=== PATIENT | female | born 1950 | race Caucasian/White ===

== ENCOUNTER → 2016-09-13 | Outpatient (CLI) | payer MEDICARE, OTHER ==
--- OUTSIDE RECORDS SUMMARY | 2016-09-13 09:42 | XMS REPORT | Continuity of Care Document ---
Author Author [facility] Organization [facility] Address Unknown Phone Unavailable Care Team Providers Care Application Consultant Name Role Phone PCP Unavailable Source Comments Some departments are not documenting in the electronic medical record. If you do not see the information that you expected, contact Release of Information in the Health Information Management department at [phone] for further assistance in locating additional records.[facility] Active Allergies and Adverse Reactions No Known Allergies Current Medications Prescription Sig. Disp. 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 Osteoarthritis 05/02/2013 Social History Tobacco Use Types Packs/Day Years Used Date Never Smoker Smokeless Tobacco: Never Used Alcohol Use Drinks/Week oz/Week Comments No Last Filed Vital Signs Vital Sign Reading Time Taken Blood Pressure 122/80 05/02/2013 12:43 PM CDT Pulse 60 05/02/2013 12:43 PM CDT Temperature 36.4 C (97.5 F) 05/02/2013 12:43 PM CDT Respiratory Rate 16 05/02/2013 12:43 PM CDT Height 1.626 m (5' 4") 05/02/2013 12:43 PM CDT Weight 65.409 kg (144 lb 3.2 oz) 05/02/2013 12:43 PM CDT Body Mass Index 24.74 05/02/2013 12:43 PM CDT Oxygen Saturation - - Plan of Care Health Maintenance Due Date Last Done Comments Physical (Comprehensive) 1957 Exam Pertussis Vaccine 1961 Tetanus Vaccine 10/16/1967 Cervical Cancer Screening 10/16/1971 Breast Cancer Screening 1990 Colorectal Cancer 2000 Screening Shingles Vaccine 2010 Osteoporosis Screening 10/16/2015 Prevnar/Pneumovax (#1) 10/16/2015 Influenza Vaccine 04/07/2016 Results from Last 3 Months Not on file
--- NOTE | 2016-09-14 16:49 | Diagnostic Imaging Report ---
EXAMINATION: Bilateral digital screening mammogram with CAD. The current study was also evaluated with a Computer Aided Detection (CAD) system. INDICATION: Screening. No current complaints stated on the questionnaire. COMPARISON: 06/15/15. FINDINGS: The breasts are composed of heterogeneously dense parenchyma which may decrease mammographic sensitivity. There is a 1 cm asymmetry seen along the inferior aspect of the right breast, noted on the MLO view with no definite correlate on the CC projection. The left breast is unchanged. Benign-appearing calcifications seen. IMPRESSION: Focal compression views and ultrasound evaluation for lower right breast asymmetry is recommended. ACR BI-RADS Category 0: Incomplete. (Needs additional imaging evaluation). Result letter will be mailed to the patient. Note: At least 10% of breast cancer is not imaged by mammography. Dictated by: Dictated on workstation # [id number]
== END ==
LOC: RAD 09:38
PROVIDERS: ATTEND Obstetrics & Gynecology
DX: Z12.31 Encounter for screening mammogram for malignant neoplasm of breast (principal)
CPT/HCPCS: 77067

== ENCOUNTER → 2016-09-21 | Outpatient (CLI) | payer MEDICARE, OTHER ==
--- OUTSIDE RECORDS SUMMARY | 2016-09-21 07:46 | XMS REPORT | Continuity of Care Document ---
Author Author [facility] Organization [facility] Address Unknown Phone Unavailable Care Team Providers Care Stock Supervisor Name Role Phone PCP Unavailable Source Comments Some departments are not documenting in the electronic medical record. If you do not see the information that you expected, contact Release of Information in the Health Information Management department at [phone] for further assistance in locating additional records.[facility] Active Allergies and Adverse Reactions No Known [...]
--- NOTE | 2016-09-21 19:17 | Diagnostic Imaging Report ---
Right breast mammogram. INDICATION: Asymmetry along the inferior aspect of the right breast. The current study was also evaluated with a Computer Aided Detection (CAD) system. FINDINGS: Focal compression view of asymmetry along the inferior aspect of the right breast demonstrates persistent asymmetry with no underlying mass confirmed. IMPRESSION: Persistent less prominent asymmetry on focal compression view in favor of summation artifact of parenchyma. Ultrasound evaluation is pending. ACR BI-RADS Category 0: Incomplete. (Needs additional imaging evaluation). Result letter will be mailed to the patient. Note: At least 10% of breast cancer is not imaged by mammography. Dictated by: Dictated on workstation # [id number]
--- NOTE | 2016-09-21 19:19 | Diagnostic Imaging Report ---
Right breast ultrasound. INDICATION: Asymmetry along the inferior aspect of the right MLO view. FINDINGS: The four quadrants and retroareolar region were scanned with no underlying abnormality seen. IMPRESSION: Negative study. Six-month follow-up mammogram to ensure stability or resolution of the asymmetry, likely related to summation artifact of parenchyma. ACR BI-RADS Category 3: Probably benign findings. Result letter will be mailed to the patient. Note: At least 10% of breast cancer is not imaged by mammography. Dictated by: Dictated on workstation # [id number]
== END ==
LOC: RAD 07:41
PROVIDERS: ATTEND Obstetrics & Gynecology
DX: R92.8 Other abnormal and inconclusive findings on diagnostic imaging of breast (principal)
CPT/HCPCS: 76641

== ENCOUNTER 2018-09-24 01:26 | Emergency (ER) | payer MEDICARE, OTHER ==
[~2018-09-24] VITALS: Ht 162.6 cm; Wt 74.8 kg
--- OUTSIDE RECORDS SUMMARY | 2018-09-24 01:37 | XMS REPORT | Clinical Summary ---
Author Author Admin, MADDY Organization [facility] Address Unknown Phone Unavailable Allergies, Adverse Reactions, Alerts Allergy Name Reaction Description Start Date Severity Status Provider AMITRIPTYLINE HCL Hair loss and nightmares Moderate Active Chad Guardado MD IVP DYE Critical Active Chad Guardado MD CODEINE nausea Moderate Active [facility] Conditions or Problems Problem Name Problem Code Onset Date Status Entry Date Provider Comment Standard Description Annotate ANEURYSM 442.9 [facility] Aneurysm of unspecified artery site ANXIETY DEPRESSION 300.4 Active [facility] Dysthymic disorder INSOMNIA 780.52 [facility] Insomnia, unspecified LOSS OF APPETITE 783.0 Active [facility] Anorexia CEPHALGIA 784.0 Active [facility] Headache ENCOUNTER FOR REMOVAL OF SUTURES V58.32 Resolved Daisy [place] PA Encounter for removal of sutures NECK PAIN 723.1 Active [facility] Cervicalgia KNEE PAIN, BILATERAL 719.46 Active Daisy [place] PA Pain in joint involving lower leg INJURY OTHER AND UNSPECIFIED FINGER 959.5 Resolved Chad Guardado MD Other and unspecified injury to finger Dysuria 788.1 Inactive Federica Bethea Dysuria UTI 599.0 Resolved Chad Guardado MD Urinary tract infection, site not specified Wrist pain, left 719.43 Active Broderick Solares MD Pain in joint involving forearm Headache 784.0 Active Chad Guardado MD Headache Recurrent urinary tract infection 599.0 Active Chad Guardado MD Urinary tract infection, site not specified Ankle sprain 845.00 Active Chad Guardado MD Unspecified site of ankle sprain Osteoarthritis, knees, bilateral 715.96 Active Chad Guardado MD Osteoarthrosis, unspecified whether generalized or localized, involving lower leg Easy bruising 782.9 Active Chad Guardado MD Other symptoms involving skin and integumentary tissues Fatigue 780.79 Active Chad Guardado MD Other malaise and fatigue HEALTH MAINTENANCE EXAM V70.0 Active Chad Guardado MD Routine general medical examination at a health care facility Depression 311 Active Chad Guardado MD Depressive disorder, not elsewhere classified Cough 786.2 Active Sparkle Castro APRN Cough Thrush 112.0 Active Chad Guardado MD Candidiasis of mouth ENCOUNTER FOR REMOVAL OF SUTURES ICD-V58.32 Inactive Daisy PAZ INJURY OTHER AND UNSPECIFIED FINGER ICD-959.5 Inactive Chad Guardado MD UTI ICD-599.0 Inactive Chad Guardado MD Medication List Medication Instructions Start Date Stop Date Generic Name NDC Status Provider Patient Instruction NYSTATIN 620185 UNIT/ML SUSP Swish and swallow 5ml four times a day until yeast is clear. NYSTATIN 03930035182 Active Chad Guardado MD Active TESSALON PERLES 100 MG CAP 1 tablet by mouth 3 times daily BENZONATATE 45646103246 Active Sparkle Castro APRN Active CITALOPRAM HYDROBROMIDE 40 MG TABS 1 daily for depression/anxiety CITALOPRAM HYDROBROMIDE 80939056284 Active Chad Guardado MD Active DEPAKOTE 250 MG TBEC 1 twice a day to prevent headaches DIVALPROEX SODIUM 20754298246 Active Chad Guardado MD Active CYCLOBENZAPRINE HCL 10 MG TABS 1 at bedtime for muscle tightness CYCLOBENZAPRINE HCL 67173960434 Active Chad Guardado MD Active METHOCARBAMOL 750 MG TABS 1 po q8hr PRN spasm and neck pain 06/12 METHOCARBAMOL 41538589123 No Longer Active Chad Guardado MD Active JANA ASPIRIN EC LOW DOSE 81 MG TBEC Take one by mouth daily ASPIRIN 52915735958 No Longer Active Chad Guardado MD Active HYDROCODONE-ACETAMINOPHEN 7.5-325 MG TABS 1 three times a day as needed for pain HYDROCODONE-ACETAMINOPHEN 17740135016 Active Chad Guardado MD Active CIPROFLOXACIN HCL 250 MG TABS 1 twice a day for 3 days for urinary infection CIPROFLOXACIN HCL 64331477474 No Longer Active Chad Guardado MD Active LIDODERM 5 % PTCH apply to affected area for 12 hours LIDOCAINE 70927781859 Active Chad Guardado MD Active FUROSEMIDE 20 MG TAB 1 tablet by mouth daily FUROSEMIDE 50895567942 Active Chad Guardado MD Active IMITREX 6 MG/0.5ML SOLN Take as directed SUMATRIPTAN SUCCINATE 50781035665 Active Sparkle Yogosia ROBERTSON Active SERTRALINE HCL 50 MG TABS 1 daily for mood SERTRALINE HCL 15632833800 No Longer Active Chad Guardado MD Active IMITREX 100 MG TABS TAKE 1 TABLET AT THE ONSET OF HEADACHE MAY REPEAT IN 2 HRS IF NEEDED SUMATRIPTAN SUCCINATE 30996696522 Active Sparkle [employer] Active IMITREX TABS Take/use as needed. SUMATRIPTAN SUCCINATE TABS 49839039420 No Longer Active Jaylyn DACOSTA Active SUMATRIPTAN SUCCINATE 100 MG TABS as directed SUMATRIPTAN SUCCINATE 09938290987 No Longer Active Nedra Cramer Active LORAZEPAM 0.5 MG TAB 1 tab po q8 hrs and 2 tabs at bedtime 07/03 LORAZEPAM 29484835862 No Longer Active Nedra Cramer Active PYRIDIUM 200 MG TAB 1 po TID PRN Dysuria PHENAZOPYRIDINE HCL 03538261891 No Longer Active Sachin Wasserman MD Active CIPRO 250 MG TAB 1 tablet by mouth twice daily CIPROFLOXACIN HCL 57786124047 No Longer Active Sachin Wasserman MD Active LUNESTA 2 MG TABS take one tab po qhs ESZOPICLONE 30253836045 No Longer Active Broderick Solares MD Active CITALOPRAM HYDROBROMIDE 20 MG TABS take one tab po daily CITALOPRAM HYDROBROMIDE 69617682575 No Longer Active Broderick Solares MD Active HYDROCODONE-ACETAMINOPHEN 10-325 MG TABS 1 tab po q4-6 hrs prn HYDROCODONE-ACETAMINOPHEN 08962941887 No Longer Active Broderick Solares MD Active SULFAMETHOXAZOLE-TMP DS 800-160 MG TABS take one tab po bid x 7 days SULFAMETHOXAZOLE-TRIMETHOPRIM 17513458984 No Longer Active Borderick Solares MD Active DICLOFENAC SODIUM 75 MG TBEC take one tab po bid DICLOFENAC SODIUM 39561470355 Active Broderick Solares MD Active NAPROXEN 500 MG TAB 1 by mouth twice a day NAPROXEN 60086691653 No Longer Active Daisy Pool PA Active FUROSEMIDE 40 MG TAB 1 tablet by mouth daily FUROSEMIDE 42973326725 No Longer Active Daisy Pool PA Active MELOXICAM 15 MG TABS 1 po q day for pain with food MELOXICAM 03159913677 No Longer Active Daisy Pool PA Active ZOLPIDEM TARTRATE 10 MG TABS take one tab po daily ZOLPIDEM TARTRATE 93086703715 No Longer Active Daisy Pool PA Active COLACE 100 MG CAPS Take one by mouth daily DOCUSATE SODIUM 14568304712 No Longer Active Daisy Pool PA Active NIMODIPINE 30 MG CAPS 1 every 2 hours NIMODIPINE 69990722644 No Longer Active Daisy Pool PA Active ZOFRAN ODT 4 MG TBDP 1 po q6hr PRN Nausea ONDANSETRON 53612563146 No Longer Active Daisy Pool PA Active MAGNESIUM OXIDE 400 MG TABS Take one by mouth daily MAGNESIUM OXIDE 35948161136 No Longer Active Daisy Pool PA Active MAGNESIUM OXIDE 400 MG TABS Take one by mouth daily MAGNESIUM OXIDE 400 MG TABS 399138 MAGNESIUM OXIDE Inactive ZOFRAN ODT 4 MG TBDP 1 po q6hr PRN Nausea ZOFRAN ODT 4 MG TBDP 106592 ONDANSETRON Inactive NIMODIPINE 30 MG CAPS 1 every 2 hours NIMODIPINE 30 MG CAPS 655158 NIMODIPINE Inactive COLACE 100 MG CAPS Take one by mouth daily COLACE 100 MG CAPS 9071634 DOCUSATE SODIUM Inactive ZOLPIDEM TARTRATE 10 MG TABS take one tab po daily ZOLPIDEM TARTRATE 10 MG TABS 146801 ZOLPIDEM TARTRATE Inactive MELOXICAM 15 MG TABS 1 po q day for pain with food MELOXICAM 15 MG TABS 067752 MELOXICAM Inactive FUROSEMIDE 40 MG TAB 1 tablet by mouth daily FUROSEMIDE 40 MG TAB 042628 FUROSEMIDE Inactive NAPROXEN 500 MG TAB 1 by mouth twice a day NAPROXEN 500 MG TAB 725795 NAPROXEN Inactive SULFAMETHOXAZOLE-TMP DS 800-160 MG TABS take one tab po bid x 7 days SULFAMETHOXAZOLE-TMP DS 800-160 MG TABS SULFAMETHOXAZOLE- TRIMETHOPRIM Inactive HYDROCODONE-ACETAMINOPHEN 10-325 MG TABS 1 tab po q4-6 hrs prn HYDROCODONE-ACETAMINOPHEN 10-325 MG TABS 057703 HYDROCODONE- ACETAMINOPHEN Inactive CITALOPRAM HYDROBROMIDE 20 MG TABS take one tab po daily CITALOPRAM HYDROBROMIDE 20 MG TABS 484423 CITALOPRAM HYDROBROMIDE Inactive LUNESTA 2 MG TABS take one tab po qhs LUNESTA 2 MG TABS 866234 ESZOPICLONE Inactive LORAZEPAM 0.5 MG TAB 1 tab po q8 hrs and 2 tabs at bedtime 07/03 LORAZEPAM 0.5 MG TAB 528643 LORAZEPAM Inactive SUMATRIPTAN SUCCINATE 100 MG TABS as directed SUMATRIPTAN SUCCINATE 100 MG TABS 906425 SUMATRIPTAN SUCCINATE Inactive IMITREX TABS Take/use as needed. IMITREX TABS SUMATRIPTAN SUCCINATE TABS Inactive SERTRALINE HCL 50 MG TABS 1 daily for mood SERTRALINE HCL 50 MG TABS 550617 SERTRALINE HCL Inactive JANA ASPIRIN EC LOW DOSE 81 MG TBEC Take one by mouth daily JANA ASPIRIN EC LOW DOSE 81 MG TBEC 938812 ASPIRIN Inactive METHOCARBAMOL 750 MG TABS 1 po q8hr PRN spasm and neck pain 06/12 METHOCARBAMOL 750 MG TABS 816421 METHOCARBAMOL Inactive CIPRO 250 MG TAB 1 tablet by mouth twice daily CIPRO 250 MG TAB 578307 CIPROFLOXACIN HCL Inactive PYRIDIUM 200 MG TAB 1 po TID PRN Dysuria PYRIDIUM 200 MG TAB 8291759 PHENAZOPYRIDINE HCL Inactive CIPROFLOXACIN HCL 250 MG TABS 1 twice a day for 3 days for urinary infection CIPROFLOXACIN HCL 250 MG TABS 144022 CIPROFLOXACIN HCL Inactive Advance Directives Directive Description Start Date PERMISSION TO SHARE Immunizations Vaccine Administration Date Value Standard Description Seasonal influenza vaccine, injectable, containing preservative, for > 3 years old (Afluria, FluLaval, Fluzone, Fluvirin, Fluarix, Agriflu(>=18 yo)) Fluzone (>3 yrs.) [EAC956] Influenza, seasonal, injectable Vital Signs Date Name Value Unit Range Description blood pressure, diastolic - 8462-4 83 mm[Hg] BP chase blood pressure, systolic - 8480-6 133 mm[Hg] BP sys pulse rate E&M - 8867-4 80 /min Heart rate temperature E&M 97.8 [degF] Body temperature weight E&M - 3141-9 164 [lb_av] Weight Measured blood pressure, diastolic - 8462-4 80 mm[Hg] BP chase blood pressure, systolic - 8480-6 144 mm[Hg] BP sys pulse rate E&M - 8867-4 58 /min Heart rate temperature E&M 98.1 [degF] Body temperature weight E&M - 3141-9 156 [lb_av] Weight Measured blood pressure, diastolic - 8462-4 80 mm[Hg] BP chase blood pressure, systolic - 8480-6 157 mm[Hg] BP sys height E&M - 8302-2 64 [in_us] Bdy height pulse rate E&M - 8867-4 68 /min Heart rate temperature E&M 97.2 [degF] Body temperature weight E&M - 3141-9 154.2 [lb_av] Weight Measured blood pressure, diastolic - 8462-4 73 mm[Hg] BP chase blood pressure, systolic - 8480-6 151 mm[Hg] BP sys pulse rate E&M - 8867-4 50 /min Heart rate temperature E&M 97.5 [degF] Body temperature weight E&M - 3141-9 153 [lb_av] Weight Measured blood pressure, diastolic - 8462-4 75 mm[Hg] BP chase blood pressure, systolic - 8480-6 137 mm[Hg] BP sys height E&M - 8302-2 64 [in_us] Bdy height pulse rate E&M - 8867-4 65 /min Heart rate temperature E&M 98.1 [degF] Body temperature weight E&M - 3141-9 149.13 [lb_av] Weight Measured blood pressure, diastolic - 8462-4 83 mm[Hg] BP chase blood pressure, systolic - 8480-6 137 mm[Hg] BP sys height E&M - 8302-2 64 [in_us] Bdy height pulse rate E&M - 8867-4 61 /min Heart rate temperature E&M 98.4 [degF] Body temperature weight E&M - 3141-9 153.38 [lb_av] Weight Measured Diagnostic Results Date Name Value Unit Range Description Lab Report: Comp. Metabolic Panel, CBC - Chemistry sodium, serum 140 mmol/L 876-785 4617/09/23 potassium, serum 4.7 mmol/L 3.5-5.2 chloride, serum 104 mmol/L 98-107 carbon dioxide, venous blood 32.0 mmol/L 21.0-32.0 blood glucose 90 mg/dL 65-110 urea nitrogen, blood 18 mg/dL 7-18 creatinine, serum 0.70 mg/dL 0.60-1.30 alanine aminotransferase (SGPT), serum 26 U/L 12-78 aspartate aminotransferase (SGOT), serum 15 U/L 15-37 alkaline phosphatase, serum 94 U/L 50-136 calcium, serum 9.2 mg/dL 8.5-10.1 bilirubin, serum, total 0.20 mg/dL 0.00-1.00 Lab Report: Comp. Metabolic Panel, CBC - Hematology leukocyte count, blood 8.3 10^3/MM^3 10*3/mm3 4.6-10.2 erythrocyte (RBC) count 3.93 10^6/MM^3 10*6/mm3 4.04-5.48 hemoglobin, blood 12.6 g/dL 12.0-16.0 hematocrit, blood 37.6 % 36.0-46.0 mean corpuscular volume, RBC 96 fL 80-97 mean corpuscular hemoglobin, RBC 31.9 pg 27.0-31.2 mean corpuscular hemoglobin concentration, RBC 33.4 G/DL % 31.8- 35.4 red blood cell distribution width 14.6 % 11.6-14.8 platelet count 240 10^3/MM^3 10*3/mm3 142-424 Lab Report: Lipid Panel - Chemistry cholesterol, serum 197 mg/dL 402-537 7605/09/25 triglyceride, serum, fasting 48 mg/dL 30-200 HDL cholesterol, serum 64 mg/dL 32-96 LDL cholesterol, serum 123 mg/dL 0-130 Lab Report: Part. Thromboplast Time, Prothrombin Time, BLEEDING TIME - Coagulation prothrombin time (patient) 11.5 SECS s 11.1-13.4 international normalized ratio (INR) 0.9 1.0-3.5 Lab Report: PADMINI INFLUENZA A/B - Toxicology rapid flu test Negative Negative;Positive Lab Report: Thyroid Stimulating Hormone (L), Free Thyroxine (L) - Chemistry TSH 1.04 m[iU]/mL 0.36-3.74 thyroxine, serum, free 1.02 ng/dL 0.76-1.46 Encounters Code Encounter Date Provider Facility CPT-45319 Level 3 Est. Patient 17:38:05 TARIFF EXPERT Chad Guardado MD [facility] CPT-97211 Level 3 Est. Patient 15:35:54 TARIFF EXPERT Sparkle Castro APRN [facility] CPT-43714 Level 4 Est. Patient 09:41:26 TARIFF EXPERT Chad Guardado MD [facility] CPT-93650 Level 4 Est. Patient 16:16:11 CDT Chad Guardado MD [facility] CPT-22773 Level 3 Est. Patient 12:46:41 CDT Chad Guardado MD [facility] CPT-77004 Level 3 Est. Patient 17:26:51 CDT Chad Guardado MD [facility] CPT-92368 Level 4 New Patient 13:59:42 CDT Chad Guardado MD [facility] CPT-96744 Level 4 Est. Patient 20:23:44 TARIFF EXPERT Broderick Solares MD [facility] CPT-32672 Level 3 Est. Patient 14:43:04 TARIFF EXPERT Broderick Solares MD [facility] CPT-62164 Level 3 Est. Patient 10:05:53 TARIFF EXPERT Sachin Wasserman MD [facility] CPT-03943 Level 3 Est. Patient 14:35:17 CDT [facility] CPT-23259 Level 3 Est. Patient 10:59:26 CDT [facility] CPT-88137 Level 3 Est. Patient 15:41:02 CDT [facility] CPT-38248 Level 3 Est. Patient 16:41:25 CDT [facility] CPT-21949 Level 3 New Patient 14:47:15 CDT [facility] Procedures Code Procedure Name Date Entry Date Standard Description CPT-60320 C-Spine Min 4V 12:56:08 TARIFF EXPERT CPT-15352 Immunization Single Admin 09:23:37 CDT CPT-13477 Tdap Vaccine 09:23:37 CDT CPT-10620 Fluzone Quadrivalent Intramuscular Suspension 0.5 ML 20: 47:45 CDT CPT-87103 Ankle Complete - Min 3V 12:29:38 CDT CPT-16317 Forearm AP and Lat 10:01:39 TARIFF EXPERT CPT-37929 Knee 3V 13:56:38 CDT CPT-13096 Administration single or combination vaccine inc oral 11 :50:16 CDT CPT-39829 Influenza split virus > age 3 11:50:16 CDT
--- OUTSIDE RECORDS SUMMARY | 2018-09-24 01:38 | XMS REPORT | Clinical Summary ---
Author Author Admin, MADDY Organization [facility] Address Unknown Phone Unavailable Allergies, Adverse Reactions, Alerts Allergy Name Reaction Description Start Date Severity Status Provider AMITRIPTYLINE HCL Hair loss and nightmares Moderate Active Chad Guardado MD IVP DYE Critical Active Chad Guardado MD CODEINE nausea Moderate Active [facility] Conditions or Problems Problem Name Problem Code Onset Date Status Entry Date Provider Comment Standard Description Annotate ANEURYSM 442.9 [facility] Aneurysm of unspecified artery site ANXIETY DEPRESSION 300.4 Active [facility] Dysthymic disorder INSOMNIA 780.52 [facility] Insomnia, unspecified LOSS OF APPETITE 783.0 [facility] Anorexia CEPHALGIA 784.0 Active [facility] Headache ENCOUNTER FOR REMOVAL OF SUTURES V58.32 Resolved Daisy [place] [facility] Encounter for removal of sutures NECK PAIN 723.1 Active [facility] Cervicalgia KNEE PAIN, BILATERAL 719.46 Active Daisy [place] [facility] Pain in joint involving lower leg [...] elsewhere classified Cough 786.2 Active Sparkle Castro [employer] Cough Thrush 112.0 Active Chad Guardado MD Candidiasis of mouth HYPERTENSION, BENIGN ESSENTIAL 401.1 Active Chad Guardado MD Benign essential hypertension ENCOUNTER FOR REMOVAL OF SUTURES ICD-V58.32 Inactive Daisy PAZ INJURY OTHER AND UNSPECIFIED FINGER ICD-959.5 Inactive Chad Guardado MD UTI ICD-599.0 Inactive Chad Guardado MD Medication List Medication Instructions Start Date Stop Date Generic Name NDC Status Provider Patient Instruction FUROSEMIDE 20 MG TAB 1 tablet by mouth daily FUROSEMIDE 47664658307 No Longer Active Paras Nunez DO Active LIDODERM 5 % PTCH apply to affected area for 12 hours LIDOCAINE 75793008539 No Longer Active Paras Nunez DO Active MACROBID 100 MG CAP 1 cap by mouth twice daily x 7 days. NITROFURANTOIN MONOHYD MACRO 38724299068 No Longer Active Chad Guardado MD Active CIPRO 250 MG TAB 1 tablet by mouth twice daily x 5 days. CIPROFLOXACIN HCL 66019758586 No Longer Active Chad Guardado MD Active LISINOPRIL 20 MG TABS 1 tablet by mouth daily for blood pressure LISINOPRIL 22452565566 Active Chad Guardado MD Active TRAMADOL HCL 50 MG TABS 1-2 tablets every 6 hours as needed for pain TRAMADOL HCL 75870935684 Active Chad Guardado MD Active DICLOFENAC SODIUM 1.5 % TRANS SOLN 40 drops applied to each knee 4 times a day DICLOFENAC SODIUM 20856630265 Active Chad Guardado MD Active NYSTATIN 844516 UNIT/ML SUSP Swish and swallow 5ml four times a day until yeast is clear. NYSTATIN 73410553640 No Longer Active Chad Guardado MD Active TESSALON PERLES 100 MG CAP 1 tablet by mouth 3 times daily BENZONATATE 93300179900 Active Sparkle Castro [employer]PECTING OBSERVER Active CITALOPRAM HYDROBROMIDE 40 MG TABS 1 daily for depression/anxiety CITALOPRAM HYDROBROMIDE 37455214441 Active Chad Guardado MD Active DEPAKOTE 250 MG TBEC 1 twice a day to prevent headaches DIVALPROEX SODIUM 27387807894 Active Chad Guardado MD Active CYCLOBENZAPRINE HCL 10 MG TABS 1 at bedtime for muscle tightness CYCLOBENZAPRINE HCL 56165677675 Active Chad Guardado MD Active METHOCARBAMOL 750 MG TABS 1 po q8hr PRN spasm and neck pain 06/12 METHOCARBAMOL 79423988066 No Longer Active Chad Guardado MD Active JANA ASPIRIN EC LOW DOSE 81 MG TBEC Take one by mouth daily ASPIRIN 41866002263 No Longer Active Chad Guardado MD Active HYDROCODONE-ACETAMINOPHEN 7.5-325 MG TABS 1 three times a day as needed for pain HYDROCODONE-ACETAMINOPHEN 49813471144 Active Chad Guardado MD Active CIPROFLOXACIN HCL 250 MG TABS 1 twice a day for 3 days for urinary infection CIPROFLOXACIN HCL 40175905573 No Longer Active Chad Guardado MD Active IMITREX 6 MG/0.5ML SOLN Take as directed SUMATRIPTAN SUCCINATE 51249645030 Active Sparkle Matthewum [employer]PECTING OBSERVER Active SERTRALINE HCL 50 MG TABS 1 daily for mood SERTRALINE HCL 33382681703 No Longer Active Chad Guardado MD Active IMITREX 100 MG TABS TAKE 1 TABLET AT THE ONSET OF HEADACHE MAY REPEAT IN 2 HRS IF NEEDED SUMATRIPTAN SUCCINATE 90289486370 Active Sparkle Matthewum [employer]RAV[employer]OSPECTING OBSERVER Active IMITREX TABS Take/use as needed. SUMATRIPTAN SUCCINATE TABS 20667739994 No Longer Active Jaylyn DACOSTA Active SUMATRIPTAN SUCCINATE 100 MG TABS as directed SUMATRIPTAN SUCCINATE 56038392873 No Longer Active Nedra Cramer Active LORAZEPAM 0.5 MG TAB 1 tab po q8 hrs and 2 tabs at bedtime 07/03 LORAZEPAM 61330556951 No Longer Active Nedra Cramer Active PYRIDIUM 200 MG TAB 1 po TID PRN Dysuria PHENAZOPYRIDINE HCL 16408024112 No Longer Active Sachin Wasserman MD Active CIPRO 250 MG TAB 1 tablet by mouth twice daily CIPROFLOXACIN HCL 26486113052 No Longer Active Sachin Wasserman MD Active LUNESTA 2 MG TABS take one tab po qhs ESZOPICLONE 05253803382 No Longer Active Broderick Solares MD Active CITALOPRAM HYDROBROMIDE 20 MG TABS take one tab po daily CITALOPRAM HYDROBROMIDE 97669490606 No Longer Active Broderick Solares MD Active HYDROCODONE-ACETAMINOPHEN 10-325 MG TABS 1 tab po q4-6 hrs prn HYDROCODONE-ACETAMINOPHEN 53228871910 No Longer Active Broderick Solares MD Active SULFAMETHOXAZOLE-TMP DS 800-160 MG TABS take one tab po bid x 7 days SULFAMETHOXAZOLE-TRIMETHOPRIM 93765643242 No Longer Active Broderick Solarse MD Active DICLOFENAC SODIUM 75 MG TBEC take one tab po bid DICLOFENAC SODIUM 40944070191 Active Broderick Solares MD Active NAPROXEN 500 MG TAB 1 by mouth twice a day NAPROXEN 45489645807 No Longer Active Daisy [facility] PA Active FUROSEMIDE 40 MG TAB 1 tablet by mouth daily FUROSEMIDE 50080395846 No Longer Active Daisy [facility] PA Active MELOXICAM 15 MG TABS 1 po q day for pain with food MELOXICAM 74371326217 No Longer Active Daisy [facility] PA Active ZOLPIDEM TARTRATE 10 MG TABS take one tab po daily ZOLPIDEM TARTRATE 08527209468 No Longer Active Daisy [facility] PA Active COLACE 100 MG CAPS Take one by mouth daily DOCUSATE SODIUM 72679172850 No Longer Active Daisy [facility] PA Active NIMODIPINE 30 MG CAPS 1 every 2 hours NIMODIPINE 35223982259 No Longer Active Daisy [facility] PA Active ZOFRAN ODT 4 MG TBDP 1 po q6hr PRN Nausea ONDANSETRON 69950706560 No Longer Active Daisy [facility] PA Active MAGNESIUM OXIDE 400 MG TABS Take one by mouth daily MAGNESIUM OXIDE 80448231058 No Longer Active Daisy [facility] PA Active MAGNESIUM OXIDE 400 MG TABS Take one by mouth daily MAGNESIUM OXIDE 400 MG TABS 069963 MAGNESIUM OXIDE Inactive ZOFRAN ODT 4 MG TBDP 1 po q6hr PRN Nausea ZOFRAN ODT 4 MG TBDP 630039 ONDANSETRON Inactive NIMODIPINE 30 MG CAPS 1 every 2 hours NIMODIPINE 30 MG CAPS 454015 NIMODIPINE Inactive COLACE 100 MG CAPS Take one by mouth daily COLACE 100 MG CAPS 3634698 DOCUSATE SODIUM Inactive ZOLPIDEM TARTRATE 10 MG TABS take one tab po daily ZOLPIDEM TARTRATE 10 MG TABS 648335 ZOLPIDEM TARTRATE Inactive MELOXICAM 15 MG TABS 1 po q day for pain with food MELOXICAM 15 MG TABS 103112 MELOXICAM Inactive FUROSEMIDE 40 MG TAB 1 tablet by mouth daily FUROSEMIDE 40 MG TAB 890962 FUROSEMIDE Inactive NAPROXEN 500 MG TAB 1 by mouth twice a day NAPROXEN 500 MG TAB 797898 NAPROXEN Inactive SULFAMETHOXAZOLE-TMP DS 800-160 MG TABS take one tab po bid x 7 days SULFAMETHOXAZOLE-TMP DS 800-160 MG TABS SULFAMETHOXAZOLE- TRIMETHOPRIM Inactive HYDROCODONE-ACETAMINOPHEN 10-325 MG TABS 1 tab po q4-6 hrs prn HYDROCODONE-ACETAMINOPHEN 10-325 MG TABS 865889 HYDROCODONE- ACETAMINOPHEN Inactive CITALOPRAM HYDROBROMIDE 20 MG TABS take one tab po daily CITALOPRAM HYDROBROMIDE 20 MG TABS 287786 CITALOPRAM HYDROBROMIDE Inactive LUNESTA 2 MG TABS take one tab po qhs LUNESTA 2 MG TABS 243166 ESZOPICLONE Inactive LORAZEPAM 0.5 MG TAB 1 tab po q8 hrs and 2 tabs at bedtime 07/03 LORAZEPAM 0.5 MG TAB 115123 LORAZEPAM Inactive SUMATRIPTAN SUCCINATE 100 MG TABS as directed SUMATRIPTAN SUCCINATE 100 MG TABS 501476 SUMATRIPTAN SUCCINATE Inactive IMITREX TABS Take/use as needed. IMITREX TABS SUMATRIPTAN SUCCINATE TABS Inactive SERTRALINE HCL 50 MG TABS 1 daily for mood SERTRALINE HCL 50 MG TABS 140826 SERTRALINE HCL Inactive JANA ASPIRIN EC LOW DOSE 81 MG TBEC Take one by mouth daily JANA ASPIRIN EC LOW DOSE 81 MG TBEC 821339 ASPIRIN Inactive METHOCARBAMOL 750 MG TABS 1 po q8hr PRN spasm and neck pain 06/12 METHOCARBAMOL 750 MG TABS 172097 METHOCARBAMOL Inactive NYSTATIN 572562 UNIT/ML SUSP Swish and swallow 5ml four times a day until yeast is clear. NYSTATIN 059892 UNIT/ML SUSP 879526 NYSTATIN Inactive CIPRO 250 MG TAB 1 tablet by mouth twice daily x 5 days. CIPRO 250 MG TAB 19740807 CIPROFLOXACIN HCL Inactive LIDODERM 5 % PTCH apply to affected area for 12 hours LIDODERM 5 % PTCH 3726699 LIDOCAINE Inactive FUROSEMIDE 20 MG TAB 1 tablet by mouth daily FUROSEMIDE 20 MG TAB 741534 FUROSEMIDE Inactive CIPRO 250 MG TAB 1 tablet by mouth twice daily CIPRO 250 MG TAB 19740807 CIPROFLOXACIN HCL Inactive PYRIDIUM 200 MG TAB 1 po TID PRN Dysuria PYRIDIUM 200 MG TAB 1556153 PHENAZOPYRIDINE HCL Inactive CIPROFLOXACIN HCL 250 MG TABS 1 twice a day for 3 days for urinary infection CIPROFLOXACIN HCL 250 MG TABS 19740807 CIPROFLOXACIN HCL Inactive MACROBID 100 MG CAP 1 cap by mouth twice daily x 7 days. MACROBID 100 MG CAP 577910 NITROFURANTOIN MONOHYD MACRO Inactive Advance Directives Directive Description Start Date PERMISSION TO SHARE Immunizations Vaccine Administration Date Value Standard Description Seasonal influenza vaccine, injectable, containing preservative, for > 3 years old (Afluria, FluLaval, Fluzone, Fluvirin, Fluarix, Agriflu(>=18 yo)) Fluzone (>3 yrs.) [[id number]] Influenza, seasonal, injectable Vital Signs Date Name Value Unit Range Description blood pressure, diastolic - 8462-4 82 mm[Hg] BP chase blood pressure, systolic - 8480-6 123 mm[Hg] BP sys pulse rate E&M - 8867-4 101 /min Heart rate temperature E&M 98.2 [degF] Body temperature weight E&M - 3141-9 157 [lb_av] Weight Measured blood pressure, diastolic - 8462-4 91 mm[Hg] BP chase blood pressure, systolic - 8480-6 131 mm[Hg] BP sys pulse rate E&M - 8867-4 85 /min Heart rate temperature E&M 99.5 [degF] Body temperature weight E&M - 3141-9 160 [lb_av] Weight Measured blood pressure, diastolic - [...] CBC - Chemistry sodium, serum 140 mmol/L 406-162 0275/09/23 potassium, serum 4.7 mmol/L 3.5-5.2 chloride, serum [...] Panel - Chemistry cholesterol, serum 197 mg/dL 424-987 1026/09/25 triglyceride, serum, fasting 48 mg/dL 30-200 HDL [...] 0.36-3.74 thyroxine, serum, free 1.02 ng/dL 0.76-1.46 Lab Report: UADIP W/MICRO, AUTO - Chemistry RBC, urine, dipstick Negative Negative protein, total urine random Negative mg/dL Negative protein, total urine random Negative mg/dL Negative RBC, urine, dipstick Negative Negative Lab Report: UADIP W/MICRO, AUTO - Urinalysis urobilinogen, urine, semiquantitative (dipstick) 0.2 Normal leukocyte esterase, urine, by dipstick Trace Negative nitrite, urine, semiquantitative Negative Negative glucose, urine, semiquantitative Negative Negative ketones, urine, by test strip Trace Negative bilirubin, urine Negative Negative glucose, urine, semiquantitative Negative Negative ketones, urine, by test strip Negative Negative bilirubin, urine 1+ Negative urobilinogen, urine, semiquantitative (dipstick) 0.2 Normal leukocyte esterase, urine, by dipstick 1+ Negative nitrite, urine, semiquantitative Positive Negative urine color Yellow Colorless;Lightyellow;Straw;Yellow appearance, urine Clear Clear specific gravity, urine 1.025 1.000-1.030 pH, urine, semiquantitative 6.0 5.0-8.5 urine color Yellow Colorless;Lightyellow;Straw;Yellow appearance, urine SlCloudy Clear specific gravity, urine 1.025 1.000-1.030 pH, urine, semiquantitative 6.0 5.0-8.5 Encounters Code Encounter Date Provider Facility CPT-24078 Level 3 Est. Patient 14:50:08 [employer] Paras Nunez DO [facility] CPT-56659 Level 3 Est. Patient 15:11:25 [employer] Chad Guardado MD [facility] CPT-68529 Level 3 Est. Patient 17:38:05 [employer] Chad Guardado MD [facility] CPT-04326 Level 3 Est. Patient 15:35:54 [employer] Sparkle Castro MARCELO [facility] CPT-56711 Level 4 Est. Patient 09:41:26 [employer] Chad Guardado MD [facility] CPT-09661 Level 4 Est. Patient 16:16:11 CDT Chad Guardado MD [facility] CPT-62163 Level 3 Est. Patient 12:46:41 CDT Chad Guardado MD [facility] CPT-36543 Level 3 Est. Patient 17:26:51 CDT Chad Guardado MD [facility] CPT-35905 Level 4 New Patient 13:59:42 CDT Chad Guardado MD [facility] CPT-00374 Level 4 Est. Patient 20:23:44 [employer] Broderick Solares MD [facility] CPT-80130 Level 3 Est. Patient 14:43:04 [employer] Broderick Solares MD [facility] CPT-55325 Level 3 Est. Patient 10:05:53 [employer] Sachin Wasserman MD [facility] CPT-70574 Level 3 Est. Patient 14:35:17 CDT Daisy Hinojosa [facility] CPT-11555 Level 3 Est. Patient 10:59:26 CDT Daisy Pool [facility] CPT-41570 Level 3 Est. Patient 15:41:02 CDT Daisydoug Hinojosa [facility] CPT-51967 Level 3 Est. Patient 16:41:25 CDT Daisy Pool [facility] CPT-23986 Level 3 New Patient 14:47:15 CDT Daisy Hinojosa [facility] Procedures Code Procedure Name Date Entry Date Standard Description CPT-J1885 Toradol 60 mg (Ketorolac) 14:59:26 [employer] CPT-49731 Abx/Therapy Injection 14:59:26 [employer] CPT-J1885 Toradol 60 mg 14:50:08 [employer] CPT-01921 C-Spine Min 4V 12:56:08 [employer] CPT-03549 Immunization Single Admin 09:23:37 CDT CPT-34565 Tdap Vaccine 09:23:37 CDT CPT-98496 Fluzone Quadrivalent Intramuscular Suspension 0.5 ML 20: 47:45 CDT CPT-58052 Ankle Complete - Min 3V 12:29:38 CDT CPT-92108 Forearm AP and Lat 10:01:39 [employer] CPT-28957 Knee 3V 13:56:38 CDT CPT-41344 Administration single or combination vaccine inc oral 11 :50:16 CDT CPT-43307 Influenza split virus > age 3 11:50:16 CDT
--- OUTSIDE RECORDS SUMMARY | 2018-09-24 01:39 | XMS REPORT | Clinical Summary ---
Author Author Admin, MADDY Organization [facility] Address Unknown Phone Unavailable Allergies, Adverse Reactions, Alerts Allergy Name Reaction Description Start Date Severity Status Provider AMITRIPTYLINE HCL Hair loss and nightmares Moderate Active Chad Guardado MD IVP DYE Critical Active Chad Guardado MD CODEINE nausea Moderate Active [facility] Conditions or Problems Problem Name Problem Code Onset Date Status Entry Date Provider Comment Standard Description Annotate ANEURYSM 442.9 [facility] Aneurysm of unspecified artery site ANXIETY DEPRESSION 300.4 Active [facility] Dysthymic disorder INSOMNIA 780.52 [facility] Insomnia, unspecified LOSS OF APPETITE 783.0 [facility] Anorexia CEPHALGIA 784.0 Active [facility] Headache ENCOUNTER FOR REMOVAL OF SUTURES V58.32 Resolved Daisy Lincoln PA Encounter for removal of sutures NECK PAIN 723.1 Active [facility] Cervicalgia KNEE PAIN, BILATERAL 719.46 Active Daisy [facility] PA Pain in joint involving lower leg [...] elsewhere classified Cough 786.2 Active Sparkle Castro [employer] Cough Thrush 112.0 Active Chad Guardado MD [...] TAB 1 tablet by mouth daily FUROSEMIDE 08175166068 No Longer Active Paras Nunez DO Active LIDODERM 5 % PTCH apply to affected area for 12 hours LIDOCAINE 45315220311 No Longer Active Paras Nunez DO Active MACROBID 100 MG CAP 1 cap by mouth twice daily x 7 days. NITROFURANTOIN MONOHYD MACRO 04401963946 Active Chad Guardado MD Active CIPRO 250 MG TAB 1 tablet by mouth twice daily x 5 days. CIPROFLOXACIN HCL 45110100664 No Longer Active Chad Guardado MD Active LISINOPRIL 20 MG TABS 1 tablet by mouth daily for blood pressure LISINOPRIL 88395367396 Active Chad Guardado MD Active TRAMADOL HCL 50 MG TABS 1-2 tablets every 6 hours as needed for pain TRAMADOL HCL 57551258962 Active Chad Guardado MD Active DICLOFENAC SODIUM 1.5 % TRANS SOLN 40 drops applied to each knee 4 times a day DICLOFENAC SODIUM 52796577489 Active Chad Guardado MD Active NYSTATIN 553923 UNIT/ML SUSP Swish and swallow 5ml four times a day until yeast is clear. NYSTATIN 06212710856 No Longer Active Chad Guardado MD Active TESSALON PERLES 100 MG CAP 1 tablet by mouth 3 times daily BENZONATATE 10514510225 Active Sparkle Montejogosia [employer] Active CITALOPRAM HYDROBROMIDE 40 MG TABS 1 daily for depression/anxiety CITALOPRAM HYDROBROMIDE 21819404347 Active Chad Guardado MD Active DEPAKOTE 250 MG TBEC 1 twice a day to prevent headaches DIVALPROEX SODIUM 49917639620 Active Chad Guardado MD Active CYCLOBENZAPRINE HCL 10 MG TABS 1 at bedtime for muscle tightness CYCLOBENZAPRINE HCL 78659666872 Active Chad Guardado MD Active METHOCARBAMOL 750 MG TABS 1 po q8hr PRN spasm and neck pain 06/12 METHOCARBAMOL 50047634931 No Longer Active Chad Guardado MD Active JANA ASPIRIN EC LOW DOSE 81 MG TBEC Take one by mouth daily ASPIRIN 52536286857 No Longer Active Chad Guardado MD Active HYDROCODONE-ACETAMINOPHEN 7.5-325 MG TABS 1 three times a day as needed for pain HYDROCODONE-ACETAMINOPHEN 92170358074 Active Chad Guardado MD Active CIPROFLOXACIN HCL 250 MG TABS 1 twice a day for 3 days for urinary infection CIPROFLOXACIN HCL 70355684432 No Longer Active Chad Guardado MD Active IMITREX 6 MG/0.5ML SOLN Take as directed SUMATRIPTAN SUCCINATE 21778828818 Active Sparkle Castro [employer] Active SERTRALINE HCL 50 MG TABS 1 daily for mood SERTRALINE HCL 33750711482 No Longer Active Chad Guardado MD Active IMITREX 100 MG TABS TAKE 1 TABLET AT THE ONSET OF HEADACHE MAY REPEAT IN 2 HRS IF NEEDED SUMATRIPTAN SUCCINATE 35475603014 Active Sparkle Castro [employer] Active IMITREX TABS Take/use as needed. SUMATRIPTAN SUCCINATE TABS 59026420789 No Longer Active Jaylyn DACOSTA Active SUMATRIPTAN SUCCINATE 100 MG TABS as directed SUMATRIPTAN SUCCINATE 30505797842 No Longer Active Nedra Cramer Active LORAZEPAM 0.5 MG TAB 1 tab po q8 hrs and 2 tabs at bedtime 07/03 LORAZEPAM 81223868823 No Longer Active Nedra Cramer Active PYRIDIUM 200 MG TAB 1 po TID PRN Dysuria PHENAZOPYRIDINE HCL 82781297622 No Longer Active Sachin Wasserman MD Active CIPRO 250 MG TAB 1 tablet by mouth twice daily CIPROFLOXACIN HCL 70089128820 No Longer Active Sachin Wasserman MD Active LUNESTA 2 MG TABS take one tab po qhs ESZOPICLONE 33315109456 No Longer Active Broderick Solares MD Active CITALOPRAM HYDROBROMIDE 20 MG TABS take one tab po daily CITALOPRAM HYDROBROMIDE 44085042382 No Longer Active Broderick Solares MD Active HYDROCODONE-ACETAMINOPHEN 10-325 MG TABS 1 tab po q4-6 hrs prn HYDROCODONE-ACETAMINOPHEN 64982256199 No Longer Active Broderick Solares MD Active SULFAMETHOXAZOLE-TMP DS 800-160 MG TABS take one tab po bid x 7 days SULFAMETHOXAZOLE-TRIMETHOPRIM 49525127838 No Longer Active Broderick Solares MD Active DICLOFENAC SODIUM 75 MG TBEC take one tab po bid DICLOFENAC SODIUM 18897640185 Active Broderick Solares MD Active NAPROXEN 500 MG TAB 1 by mouth twice a day NAPROXEN 64758903155 No Longer Active Daisy Pool PA Active FUROSEMIDE 40 MG TAB 1 tablet by mouth daily FUROSEMIDE 51918824985 No Longer Active Daisy Pool PA Active MELOXICAM 15 MG TABS 1 po q day for pain with food MELOXICAM 78300658574 No Longer Active Daisy Pool PA Active ZOLPIDEM TARTRATE 10 MG TABS take one tab po daily ZOLPIDEM TARTRATE 58676555398 No Longer Active Daisy Pool PA Active COLACE 100 MG CAPS Take one by mouth daily DOCUSATE SODIUM 71605459801 No Longer Active Daisy Pool PA Active NIMODIPINE 30 MG CAPS 1 every 2 hours NIMODIPINE 53365667440 No Longer Active Daisy Pool PA Active ZOFRAN ODT 4 MG TBDP 1 po q6hr PRN Nausea ONDANSETRON 92652657715 No Longer Active Daisy Pool PA Active MAGNESIUM OXIDE 400 MG TABS Take one by mouth daily MAGNESIUM OXIDE 22291187647 No Longer Active Daisy Pool PA Active MAGNESIUM OXIDE 400 MG TABS Take one by mouth daily MAGNESIUM OXIDE 400 MG TABS 700844 MAGNESIUM OXIDE Inactive ZOFRAN ODT 4 MG TBDP 1 po q6hr PRN Nausea ZOFRAN ODT 4 MG TBDP 719236 ONDANSETRON Inactive NIMODIPINE 30 MG CAPS 1 every 2 hours NIMODIPINE 30 MG CAPS 828924 NIMODIPINE Inactive COLACE 100 MG CAPS Take one by mouth daily COLACE 100 MG CAPS 5408407 DOCUSATE SODIUM Inactive ZOLPIDEM TARTRATE 10 MG TABS take one tab po daily ZOLPIDEM TARTRATE 10 MG TABS 591267 ZOLPIDEM TARTRATE Inactive MELOXICAM 15 MG TABS 1 po q day for pain with food MELOXICAM 15 MG TABS 583466 MELOXICAM Inactive FUROSEMIDE 40 MG TAB 1 tablet by mouth daily FUROSEMIDE 40 MG TAB 108742 FUROSEMIDE Inactive NAPROXEN 500 MG TAB 1 by mouth twice a day NAPROXEN 500 MG TAB 554823 NAPROXEN Inactive SULFAMETHOXAZOLE-TMP DS 800-160 MG TABS take one tab po bid x 7 days SULFAMETHOXAZOLE-TMP DS 800-160 MG TABS SULFAMETHOXAZOLE- TRIMETHOPRIM Inactive HYDROCODONE-ACETAMINOPHEN 10-325 MG TABS 1 tab po q4-6 hrs prn HYDROCODONE-ACETAMINOPHEN 10-325 MG TABS 758339 HYDROCODONE- ACETAMINOPHEN Inactive CITALOPRAM HYDROBROMIDE 20 MG TABS take one tab po daily CITALOPRAM HYDROBROMIDE 20 MG TABS 438184 CITALOPRAM HYDROBROMIDE Inactive LUNESTA 2 MG TABS take one tab po qhs LUNESTA 2 MG TABS 768530 ESZOPICLONE Inactive LORAZEPAM 0.5 MG TAB 1 tab po q8 hrs and 2 tabs at bedtime 07/03 LORAZEPAM 0.5 MG TAB 286058 LORAZEPAM Inactive SUMATRIPTAN SUCCINATE 100 MG TABS as directed SUMATRIPTAN SUCCINATE 100 MG TABS 666701 SUMATRIPTAN SUCCINATE Inactive IMITREX TABS Take/use as needed. IMITREX TABS SUMATRIPTAN SUCCINATE TABS Inactive SERTRALINE HCL 50 MG TABS 1 daily for mood SERTRALINE HCL 50 MG TABS 072852 SERTRALINE HCL Inactive JANA ASPIRIN EC LOW DOSE 81 MG TBEC Take one by mouth daily JANA ASPIRIN EC LOW DOSE 81 MG TBEC 935556 ASPIRIN Inactive METHOCARBAMOL 750 MG TABS 1 po q8hr PRN spasm and neck pain 06/12 METHOCARBAMOL 750 MG TABS 624897 METHOCARBAMOL Inactive NYSTATIN 691626 UNIT/ML SUSP Swish and swallow 5ml four times a day until yeast is clear. NYSTATIN 770799 UNIT/ML SUSP 948998 NYSTATIN Inactive CIPRO 250 MG TAB 1 tablet by mouth twice daily x 5 days. CIPRO 250 MG TAB 19740807 CIPROFLOXACIN HCL Inactive LIDODERM 5 % PTCH apply to affected area for 12 hours LIDODERM 5 % PTCH 0976051 LIDOCAINE Inactive FUROSEMIDE 20 MG TAB 1 tablet by mouth daily FUROSEMIDE 20 MG TAB 959080 FUROSEMIDE Inactive CIPRO 250 MG TAB 1 tablet by mouth twice daily CIPRO 250 MG TAB 19740807 CIPROFLOXACIN HCL Inactive PYRIDIUM 200 MG TAB 1 po TID PRN Dysuria PYRIDIUM 200 MG TAB 2444593 PHENAZOPYRIDINE HCL Inactive CIPROFLOXACIN HCL 250 MG TABS 1 twice a day for 3 days for urinary infection CIPROFLOXACIN HCL 250 MG TABS 381500 CIPROFLOXACIN HCL Inactive Advance Directives Directive Description Start Date PERMISSION TO SHARE Immunizations Vaccine Administration Date Value Standard Description Seasonal influenza vaccine, injectable, containing preservative, for > 3 years old (Afluria, FluLaval, Fluzone, Fluvirin, Fluarix, Agriflu(>=18 yo)) Fluzone (>3 yrs.) [[id number]] Influenza, seasonal, injectable Vital Signs Date Name [...] CBC - Chemistry sodium, serum 140 mmol/L 232-300 8401/09/23 potassium, serum 4.7 mmol/L 3.5-5.2 chloride, serum [...] Panel - Chemistry cholesterol, serum 197 mg/dL 803-915 6389/09/25 triglyceride, serum, fasting 48 mg/dL 30-200 HDL [...] Lab Report: UADIP W/MICRO, AUTO - Chemistry protein, total urine random Negative mg/dL Negative RBC, urine, dipstick Negative Negative Lab Report: UADIP W/MICRO, AUTO - Urinalysis urobilinogen, urine, semiquantitative (dipstick) 0.2 Normal leukocyte esterase, urine, by dipstick 1+ Negative nitrite, urine, semiquantitative Positive Negative glucose, urine, semiquantitative Negative Negative ketones, urine, by test strip Negative Negative bilirubin, urine 1+ Negative urine color Yellow Colorless;Lightyellow;Straw;Yellow appearance, urine SlCloudy Clear specific gravity, urine 1.025 1.000-1.030 pH, urine, semiquantitative 6.0 5.0-8.5 Encounters Code Encounter Date Provider Facility CPT-36655 Level 3 Est. Patient 14:50:08 CASING MAN Paras Nunez DO [facility] CPT-00210 Level 3 Est. Patient 15:11:25 CASING MAN Chad Guardado MD [facility] CPT-68523 Level 3 Est. Patient 17:38:05 CASING MAN Chad Guardado MD [facility]-93842 Level 3 Est. Patient 15:35:54 CASING MAN Sparkle Castro APRN [facility] CPT-46448 Level 4 Est. Patient 09:41:26 CASING MAN Chad Guardado MD [facility] CPT-06713 Level 4 Est. Patient 16:16:11 CDT Chad Guardado MD [facility] CPT-00824 Level 3 Est. Patient 12:46:41 CDT Chad Guardado MD [facility]-72912 Level 3 Est. Patient 17:26:51 CDT Chad Guardado MD [facility] CPT-20831 Level 4 New Patient 13:59:42 CDT Chad Guardado MD [facility] CPT-87516 Level 4 Est. Patient 20:23:44 CASING MAN Broderick Solares MD [facility] CPT-41027 Level 3 Est. Patient 14:43:04 CASING MAN Broderick Solares MD [facility] CPT-63806 Level 3 Est. Patient 10:05:53 CASING MAN Sachin Wasserman MD [facility] CPT-03195 Level 3 Est. Patient 14:35:17 CDT Daisy Pool [facility] CPT-49858 Level 3 Est. Patient 10:59:26 CDT Daisy Pool [facility] CPT-87289 Level 3 Est. Patient 15:41:02 CDT Daisy [facility] CPT-36713 Level 3 Est. Patient 16:41:25 CDT Daisy [facility] CPT-64014 Level 3 New Patient 14:47:15 CDT Daisy [facility] Procedures Code Procedure Name Date Entry Date Standard Description CPT-J1885 Toradol 60 mg (Ketorolac) 14:59:26 CASING MAN CPT-75613 Abx/Therapy Injection 14:59:26 CASING MAN CPT-J1885 Toradol 60 mg 14:50:08 CASING MAN CPT-88850 C-Spine Min 4V 12:56:08 CASING MAN CPT-90410 Immunization Single Admin 09:23:37 CDT CPT-87734 Tdap Vaccine 09:23:37 CDT CPT-68236 Fluzone Quadrivalent Intramuscular Suspension 0.5 ML 20: 47:45 CDT CPT-74151 Ankle Complete - Min 3V 12:29:38 CDT CPT-86405 Forearm AP and Lat 10:01:39 CASING MAN CPT-05609 Knee 3V 13:56:38 CDT CPT-64276 Administration single or combination vaccine inc oral 11 :50:16 CDT CPT-86475 Influenza split virus > age 3 11:50:16 CDT
--- OUTSIDE RECORDS SUMMARY | 2018-09-24 01:39 | XMS REPORT | Clinical Summary ---
Author Author Admin, MADDY Organization [facility] Address Unknown Phone Unavailable Allergies, Adverse Reactions, Alerts Allergy Name Reaction Description Start Date Severity Status Provider AMITRIPTYLINE HCL Hair loss and nightmares Moderate Active Chad Guardado MD IVP DYE Critical Active Chad Guardado MD CODEINE nausea Moderate Active [facility] Conditions or Problems Problem Name Problem Code Onset Date Status Entry Date Provider Comment Standard Description Annotate ANEUR[facility]M [facility].9 [facility] Aneurysm of unspecified artery site ANXIETY DEPRESSION 300.4 Active [facility] Dysthymic disorder INSOMNIA 780.52 [facility] Insomnia, unspecified LOSS OF APPETITE 783.0 [facility] Anorexia CEPHALGIA 784.0 Active [facility] Headache ENCOUNTER FOR REMOVAL OF SUTURES V58.32 Resolved Daisy Greenwood PA Encounter for removal of sutures NECK PAIN 723.1 Active [facility] Cervicalgia KNEE PAIN, BILATERAL 719.46 Active Daisy [facility] PA Pain in joint involving lower leg [...] elsewhere classified Cough 786.2 Active 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 Thrush 112.0 Active Chad Guardado MD Candidiasis of mouth HYPERTENSION, BENIGN ESSENTIAL 401.1 Active Chad Guardado MD Benign essential hypertension Urinary tract infection 599.0 Active Chad Guardado MD Urinary tract infection, site not specified Back pain, thoracic region 724.1 Active Chad Guardado MD Pain in thoracic spine Chronic pain syndrome 338.4 Active Chad Guardado MD Chronic pain syndrome ENCOUNTER FOR REMOVAL OF SUTURES ICD-V58.32 Inactive Daisy PAZ INJURY OTHER AND UNSPECIFIED FINGER ICD-959.5 Inactive Chad Guardado MD UTI ICD-599.0 Inactive Chad Guardado MD Medication List Medication Instructions Start Date Stop Date Generic Name NDC Status Provider Patient Instruction ASPIRIN 81 MG TABS 1 daily ASPIRIN 36474641465 Active Chad Guardado MD Active BUTRANS 10 MCG/HR TRANS PTWK apply every 7 days BUPRENORPHINE 30039181617 Active Chad Guardado MD Active TESSALON PERLES 100 MG CAP 1 tablet by mouth 3 times daily 09/25 BENZONATATE 36811839494 No Longer Active Chad Guardado MD Active LISINOPRIL 20 MG TABS 1 tablet by mouth daily for blood pressure LISINOPRIL 09406147502 No Longer Active Chad Guardado MD Active MACROBID 100 MG ORAL CAPS NITROFURANTOIN MONOHYD MACRO 82951914550 No Longer Active Chad Guardado MD Active DICLOFENAC SODIUM 1.5 % TRANS SOLN 40 drops applied to each knee 4 times a day DICLOFENAC SODIUM 37101587442 No Longer Active Fallon Smith GRINDER HARDBOARD Active DICLOFENAC SODIUM 75 MG TBEC take one tab po bid DICLOFENAC SODIUM 59085459868 No Longer Active Fallon Smith LPN Active IMITREX 100 MG TABS TAKE 1 TABLET AT THE ONSET OF HEADACHE MAY REPEAT IN 2 HRS IF NEEDED SUMATRIPTAN SUCCINATE 10825211214 No Longer Active Chad Guardado MD Active FUROSEMIDE 20 MG TAB 1 tablet by mouth daily FUROSEMIDE 43056985010 No Longer Active Paras Nunez DO Active LIDODERM 5 % PTCH apply to affected area for 12 hours LIDOCAINE 80972717983 No Longer Active Paras Nunez DO Active MACROBID 100 MG CAP 1 cap by mouth twice daily x 7 days. NITROFURANTOIN MONOHYD MACRO 49162931880 No Longer Active Chad Guardado MD Active CIPRO 250 MG TAB 1 tablet by mouth twice daily x 5 days. CIPROFLOXACIN HCL 41201899795 No Longer Active Chad Guardado MD Active TRAMADOL HCL 50 MG TABS 1-2 tablets every 6 hours as needed for pain TRAMADOL HCL 44733756109 Active Chad Guardado MD Active NYSTATIN 229249 UNIT/ML SUSP Swish and swallow 5ml four times a day until yeast is clear. NYSTATIN 18164961347 No Longer Active Chad Guardado MD Active CITALOPRAM HYDROBROMIDE 40 MG TABS 1 daily for depression/anxiety CITALOPRAM HYDROBROMIDE 31307981959 Active Chad Guardado MD Active DEPAKOTE 250 MG TBEC 1 twice a day to prevent headaches DIVALPROEX SODIUM 33526447587 Active Chad Guardado MD Active CYCLOBENZAPRINE HCL 10 MG TABS 1 at bedtime for muscle tightness CYCLOBENZAPRINE HCL 03877796196 Active Chad Guardado MD Active METHOCARBAMOL 750 MG TABS 1 po q8hr PRN spasm and neck pain 06/12 METHOCARBAMOL 61781396796 No Longer Active Chad Guardado MD Active JANA ASPIRIN EC LOW DOSE 81 MG TBEC Take one by mouth daily ASPIRIN 21183754558 No Longer Active Chad Guardado MD Active HYDROCODONE-ACETAMINOPHEN 7.5-325 MG TABS 1 three times a day as needed for pain HYDROCODONE-ACETAMINOPHEN 55853412789 No Longer Active Chad Guardado MD Active CIPROFLOXACIN HCL 250 MG TABS 1 twice a day for 3 days for urinary infection CIPROFLOXACIN HCL 72002530582 No Longer Active Chad Guardado MD Active IMITREX 6 MG/0.5ML SOLN Take as directed SUMATRIPTAN SUCCINATE 88007330189 Active 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 SUMATRIPTAN SUCCINATE TABS 26988801434 No Longer Active Jaylyn DACOSTA Active SUMATRIPTAN SUCCINATE 100 MG TABS as directed SUMATRIPTAN SUCCINATE 31480380896 No Longer Active Nedra Cramer Active LORAZEPAM 0.5 MG TAB 1 tab po q8 hrs and 2 tabs at bedtime 07/03 LORAZEPAM 21730447738 No Longer Active Nedra Cramer Active PYRIDIUM 200 MG TAB 1 po TID PRN Dysuria PHENAZOPYRIDINE HCL 58150910432 No Longer Active Sachin Wasserman MD Active CIPRO 250 MG TAB 1 tablet by mouth twice daily CIPROFLOXACIN HCL 17630897633 No Longer Active Sachin Wasserman MD Active LUNESTA 2 MG TABS take one tab po qhs ESZOPICLONE 17906005319 No Longer Active Broderick Solares MD Active CITALOPRAM HYDROBROMIDE 20 MG TABS take one tab po daily CITALOPRAM HYDROBROMIDE 49053780118 No Longer Active Broderick Solares MD Active HYDROCODONE-ACETAMINOPHEN 10-325 MG TABS 1 tab po q4-6 hrs prn HYDROCODONE-ACETAMINOPHEN 91011010325 No Longer Active Broderick Solares MD Active SULFAMETHOXAZOLE-TMP DS 800-160 MG TABS take one tab po bid x 7 days SULFAMETHOXAZOLE-TRIMETHOPRIM 23479994773 No Longer Active Broderick Solares MD Active NAPROXEN 500 MG TAB 1 by mouth twice a day NAPROXEN 38343953639 No Longer Active [facility] PA Active FUROSEMIDE 40 MG TAB 1 tablet by mouth daily FUROSEMIDE 98390977945 No Longer Active Daisy [facility] PA Active MELOXICAM 15 MG TABS 1 po q day for pain with food MELOXICAM 50817555865 No Longer Active Daisy Pool PA Active ZOLPIDEM TARTRATE 10 MG TABS take one tab po daily ZOLPIDEM TARTRATE 36126800829 No Longer Active Daisy [facility] PA Active COLACE 100 MG CAPS Take one by mouth daily DOCUSATE SODIUM 29195751789 No Longer Active Daisy Pool PA Active NIMODIPINE 30 MG CAPS 1 every 2 hours NIMODIPINE 01136365410 No Longer Active Daisy Pool PA Active ZOFRAN ODT 4 MG TBDP 1 po q6hr PRN Nausea ONDANSETRON 93243734840 No Longer Active Daisy Pool PA Active MAGNESIUM OXIDE 400 MG TABS Take one by mouth daily MAGNESIUM OXIDE 90972643872 No Longer Active Daisy Pool PA Active MAGNESIUM OXIDE 400 MG TABS Take one by mouth daily MAGNESIUM OXIDE 400 MG TABS 747715 MAGNESIUM OXIDE Inactive ZOFRAN ODT 4 MG TBDP 1 po q6hr PRN Nausea ZOFRAN ODT 4 MG TBDP 712105 ONDANSETRON Inactive NIMODIPINE 30 MG CAPS 1 every 2 hours NIMODIPINE 30 MG CAPS 504082 NIMODIPINE Inactive COLACE 100 MG CAPS Take one by mouth daily COLACE 100 MG CAPS 3663237 DOCUSATE SODIUM Inactive ZOLPIDEM TARTRATE 10 MG TABS take one tab po daily ZOLPIDEM TARTRATE 10 MG TABS 854885 ZOLPIDEM TARTRATE Inactive MELOXICAM 15 MG TABS 1 po q day for pain with food MELOXICAM 15 MG TABS 725986 MELOXICAM Inactive FUROSEMIDE 40 MG TAB 1 tablet by mouth daily FUROSEMIDE 40 MG TAB 722691 FUROSEMIDE Inactive NAPROXEN 500 MG TAB 1 by mouth twice a day NAPROXEN 500 MG TAB 954144 NAPROXEN Inactive SULFAMETHOXAZOLE-TMP DS 800-160 MG TABS take one tab po bid x 7 days SULFAMETHOXAZOLE-TMP DS 800-160 MG TABS SULFAMETHOXAZOLE- TRIMETHOPRIM Inactive HYDROCODONE-ACETAMINOPHEN 10-325 MG TABS 1 tab po q4-6 hrs prn HYDROCODONE-ACETAMINOPHEN 10-325 MG TABS 612143 HYDROCODONE- ACETAMINOPHEN Inactive CITALOPRAM HYDROBROMIDE 20 MG TABS take one tab po daily CITALOPRAM HYDROBROMIDE 20 MG TABS 215980 CITALOPRAM HYDROBROMIDE Inactive LUNESTA 2 MG TABS take one tab po qhs LUNESTA 2 MG TABS 108493 ESZOPICLONE Inactive LORAZEPAM 0.5 MG TAB 1 tab po q8 hrs and 2 tabs at bedtime 07/03 LORAZEPAM 0.5 MG TAB 728418 LORAZEPAM Inactive SUMATRIPTAN SUCCINATE 100 MG TABS as directed SUMATRIPTAN SUCCINATE 100 MG TABS 845287 SUMATRIPTAN SUCCINATE Inactive IMITREX TABS Take/use as needed. IMITREX TABS SUMATRIPTAN SUCCINATE TABS Inactive SERTRALINE HCL 50 MG TABS 1 daily for mood SERTRALINE HCL 50 MG TABS 889880 SERTRALINE HCL Inactive JANA ASPIRIN EC LOW DOSE 81 MG TBEC Take one by mouth daily JANA ASPIRIN EC LOW DOSE 81 MG TBEC 351197 ASPIRIN Inactive METHOCARBAMOL 750 MG TABS 1 po q8hr PRN spasm and neck pain 06/12 METHOCARBAMOL 750 MG TABS 060500 METHOCARBAMOL Inactive NYSTATIN 806441 UNIT/ML SUSP Swish and swallow 5ml four times a day until yeast is clear. NYSTATIN 389656 UNIT/ML SUSP 793688 NYSTATIN Inactive CIPRO 250 MG TAB 1 tablet by mouth twice daily x 5 days. CIPRO 250 MG TAB 115205 CIPROFLOXACIN HCL Inactive LIDODERM 5 % PTCH apply to affected area for 12 hours LIDODERM 5 % PTCH 1157259 LIDOCAINE Inactive FUROSEMIDE 20 MG TAB 1 tablet by mouth daily FUROSEMIDE 20 MG TAB 027967 FUROSEMIDE Inactive IMITREX 100 MG TABS TAKE 1 TABLET AT THE ONSET OF HEADACHE MAY REPEAT IN 2 HRS IF NEEDED IMITREX 100 MG TABS 959808 SUMATRIPTAN SUCCINATE Inactive DICLOFENAC SODIUM 75 MG TBEC take one tab po bid DICLOFENAC SODIUM 75 MG TBEC 745933 DICLOFENAC SODIUM Inactive DICLOFENAC SODIUM 1.5 % TRANS SOLN 40 drops applied to each knee 4 times a day DICLOFENAC SODIUM 1.5 % TRANS SOLN 140662 DICLOFENAC SODIUM Inactive MACROBID 100 MG ORAL CAPS MACROBID 100 MG ORAL CAPS 738668 NITROFURANTOIN MONOHYD MACRO Inactive LISINOPRIL 20 MG TABS 1 tablet by mouth daily for blood pressure LISINOPRIL 20 MG TABS 611379 LISINOPRIL Inactive TESSALON PERLES 100 MG CAP 1 tablet by mouth 3 times daily 09/25 TESSALON PERLES 100 MG CAP 524108 BENZONATATE Inactive CIPRO 250 MG TAB 1 tablet by mouth twice daily CIPRO 250 MG TAB 947659 CIPROFLOXACIN HCL Inactive PYRIDIUM 200 MG TAB 1 po TID PRN Dysuria PYRIDIUM 200 MG TAB 7786668 PHENAZOPYRIDINE HCL Inactive CIPROFLOXACIN HCL 250 MG TABS 1 twice a day for 3 days for urinary infection CIPROFLOXACIN HCL 250 MG TABS 094039 CIPROFLOXACIN HCL Inactive MACROBID 100 MG CAP 1 cap by mouth twice daily x 7 days. MACROBID 100 MG CAP 169704 NITROFURANTOIN MONOHYD MACRO Inactive Advance Directives Directive Description Start Date PERMISSION TO SHARE Immunizations Vaccine Administration Date Value Standard Description Seasonal influenza vaccine, injectable, containing preservative, for > 3 years old (Afluria, FluLaval, Fluzone, Fluvirin, Fluarix, Agriflu(>=18 yo)) Fluzone (>3 yrs.) [[id number]] Influenza, seasonal, injectable Vital Signs Date Name Value Unit Range Description blood pressure, diastolic - 8462-4 94 mm[Hg] BP chase blood pressure, systolic - 8480-6 135 mm[Hg] BP sys pulse rate E&M - 8867-4 89 /min Heart rate temperature E&M 98.5 [degF] Body temperature weight E&M - 3141-9 155.2 [lb_av] Weight Measured blood pressure, diastolic - 8462-4 71 mm[Hg] BP chase blood pressure, systolic - 8480-6 105 mm[Hg] BP sys pulse rate E&M - 8867-4 85 /min Heart rate temperature E&M 96.6 [degF] Body temperature weight E&M - 3141-9 157 [lb_av] Weight Measured blood pressure, diastolic - 8462-4 82 mm[Hg] BP chase blood pressure, systolic - 8480-6 123 mm[Hg] BP sys pulse rate E&M - 8867-4 101 /min Heart rate temperature E&M 98.2 [degF] Body temperature weight E&M - 3141-9 157 [lb_av] Weight Measured blood pressure, diastolic - 8462-4 103 mm[Hg] BP chase blood pressure, systolic - 8480-6 186 mm[Hg] BP sys pulse rate E&M - 8867-4 80 /min Heart rate temperature E&M 97.8 [degF] Body temperature weight E&M - 3141-9 163 [lb_av] Weight Measured blood pressure, diastolic - [...] Name Value Unit Range Description Lab Report: Basic Metabolic Panel, Erythrocyte Sed Rate - Chemistry sodium, serum 137 mmol/L 278-652 9543/02/06 potassium, serum 4.6 mmol/L 3.5-5.2 chloride, serum 101 mmol/L 98-107 carbon dioxide, venous blood 26.3 mmol/L 21.0-32.0 blood glucose 86 mg/dL 65-110 calcium, serum 9.3 mg/dL 8.5-10.1 urea nitrogen, blood 25 mg/dL 7-18 creatinine, serum 1.10 mg/dL 0.60-1.30 Lab Report: Comp. Metabolic Panel, CBC - Chemistry sodium, serum 140 mmol/L 456-703 2358/09/23 calcium, serum 9.2 mg/dL 8.5-10.1 bilirubin, serum, total 0.20 mg/dL 0.00-1.00 blood glucose 90 mg/dL 65-110 carbon dioxide, venous blood 32.0 mmol/L 21.0-32.0 chloride, serum 104 mmol/L 98-107 potassium, serum 4.7 mmol/L 3.5-5.2 alkaline phosphatase, serum 94 U/L 50-136 aspartate aminotransferase (SGOT), serum 15 U/L 15-37 alanine aminotransferase (SGPT), serum 26 U/L 12-78 creatinine, serum 0.70 mg/dL 0.60-1.30 urea nitrogen, blood 18 mg/dL 7-18 Lab Report: Comp. Metabolic Panel, CBC - [...] Panel - Chemistry cholesterol, serum 197 mg/dL 447-905 0822/09/25 triglyceride, serum, fasting 48 mg/dL 30-200 HDL cholesterol, serum 64 mg/dL 32-96 LDL cholesterol, serum 123 mg/dL 0-130 Lab Report: MICROALBUMIN - Chemistry albumin/creatinine ratio, urine < 30 mg/g mg/g{creat} 0-29 Lab Report: MICROALBUMIN - Lab microalbumin, urine 30 0-19 Lab Report: Part. Thromboplast Time, Prothrombin Time, [...] mg/dL Negative RBC, urine, dipstick Negative Negative RBC, urine, dipstick Negative Negative protein, total urine random Negative mg/dL Negative protein, total urine random Negative mg/dL Negative RBC, urine, dipstick Negative Negative Lab Report: UADIP W/MICRO, AUTO - Urinalysis urobilinogen, urine, semiquantitative (dipstick) 0.2 Normal leukocyte esterase, urine, by dipstick Trace Negative nitrite, urine, semiquantitative Negative Negative urine color Yellow Colorless;Lightyellow;Straw;Yellow appearance, urine Clear Clear specific gravity, urine >=1.030 1.000-1.030 pH, urine, semiquantitative 5.5 5.0-8.5 bilirubin, urine Negative Negative glucose, urine, semiquantitative Negative Negative ketones, urine, by test strip Negative Negative appearance, urine Clear Clear specific gravity, urine 1.025 1.000-1.030 pH, urine, semiquantitative 6.0 5.0-8.5 urobilinogen, urine, semiquantitative (dipstick) 0.2 Normal leukocyte esterase, urine, by dipstick Negative Negative nitrite, urine, semiquantitative Negative Negative glucose, urine, semiquantitative Negative Negative urobilinogen, urine, semiquantitative (dipstick) 0.2 Normal leukocyte esterase, urine, by dipstick 1+ Negative nitrite, urine, semiquantitative Positive Negative glucose, urine, semiquantitative Negative Negative ketones, urine, by test strip Negative Negative bilirubin, urine 1+ Negative urine color Yellow Colorless;Lightyellow;Straw;Yellow ketones, urine, by test strip Trace Negative bilirubin, urine Negative Negative urine color Yellow Colorless;Lightyellow;Straw;Yellow appearance, urine SlCloudy Clear specific gravity, urine 1.025 1.000-1.030 pH, urine, semiquantitative 6.0 5.0-8.5 Encounters Code Encounter Date Provider Facility CPT-12231 Level 4 Est. Patient 10:00:23 [employer] Chad Guardado MD [facility]-32831 Level 4 Est. Patient 11:35:05 [employer] Chad Guardado MD [facility]-68890 Level 3 Est. Patient 14:50:08 [employer] Paras Nunez DO [facility]-43169 Level 3 Est. Patient 15:11:25 [employer] Chad Guardado MD [facility]-58621 Level 3 Est. Patient 17:38:05 [employer] Chad Guardado MD [facility]-88007 Level 3 Est. Patient 15:35:54 [employer] Sparkle Castro APRN [facility]-85282 Level 4 Est. Patient 09:41:26 [employer] Chad Guardado MD [facility]-56163 Level 4 Est. Patient 16:16:11 CDT Chad Guardado MD [facility]-21696 Level 3 Est. Patient 12:46:41 CDT Chad Guardado MD [facility]-59746 Level 3 Est. Patient 17:26:51 CDT Chad Guardado MD [facility] CPT-94619 Level 4 New Patient 13:59:42 CDT Chad Guardado MD [facility]-65100 Level 4 Est. Patient 20:23:44 [employer] Broderick Solares MD [facility]-46443 Level 3 Est. Patient 14:43:04 [employer] Broderick Solares MD [facility] CPT-16737 Level 3 Est. Patient 10:05:53 [employer] Sachin Wasserman MD [facility] CPT-16353 Level 3 Est. Patient 14:35:17 CDT Daisy [facility] CPT-04449 Level 3 Est. Patient 10:59:26 CDT Daisy [facility] CPT-68261 Level 3 Est. Patient 15:41:02 CDT Daisy [facility] CPT-13242 Level 3 Est. Patient 16:41:25 CDT Daisy [facility] CPT-40997 Level 3 New Patient 14:47:15 CDT [facility] Procedures Code Procedure Name Date Entry Date Standard Description CPT-87384 T spine AP/Lat w sw V 10:39:20 [employer] CPT-J1885 Toradol 60 mg (Ketorolac) 14:59:26 [employer] CPT-44316 Abx/Therapy Injection 14:59:26 [employer] CPT-J1885 Toradol 60 mg 14:50:08 [employer] CPT-70990 C-Spine Min 4V 12:56:08 [employer] CPT-27049 Immunization Single Admin 09:23:37 CDT CPT-35041 Tdap Vaccine 09:23:37 CDT CPT-67788 Fluzone Quadrivalent Intramuscular Suspension 0.5 ML 20: 47:45 CDT CPT-04695 Ankle Complete - Min 3V 12:29:38 CDT CPT-99913 Forearm AP and Lat 10:01:39 [employer] CPT-53424 Knee 3V 13:56:38 CDT CPT-32840 Administration single or combination vaccine inc oral 11 :50:16 CDT CPT-84404 Influenza split virus > age 3 11:50:16 CDT
--- OUTSIDE RECORDS SUMMARY | 2018-09-24 01:40 | XMS REPORT | Clinical Summary ---
Author Author Admin, MADDY Organization [facility] Address Unknown Phone Unavailable Allergies, Adverse Reactions, Alerts Allergy Name Reaction Description Start Date Severity Status Provider AMITRIPTYLINE HCL Hair loss and nightmares Moderate Active Chad Guardado MD IVP DYE Critical Active Chad Guardado MD CODEINE nausea Moderate Active [facility] Conditions or Problems Problem Name Problem Code Onset Date Status Entry Date Provider Comment Standard Description Annotate [facility]M [facility].9 [facility] Aneurysm of unspecified artery site ANXIETY DEPRESSION 300.4 Active [facility] Dysthymic disorder INSOMNIA 780.52 [facility] Insomnia, unspecified LOSS OF APPETITE 783.0 [facility] Anorexia CEPHALGIA 784.0 Active [facility] Headache ENCOUNTER FOR REMOVAL OF SUTURES V58.32 Resolved Daisy Tippecanoe PA Encounter for removal of sutures NECK PAIN 723.1 Active [facility] Cervicalgia KNEE PAIN, BILATERAL 719.46 Active Daisy [facility] PA Pain in joint involving lower leg [...] elsewhere classified Cough 786.2 Active Sparkle Castro [employer] Cough Thrush 112.0 Active Chad Guardado MD [...] ASPIRIN 81 MG TABS 1 daily ASPIRIN 54608113869 Active Chad Guardado MD Active BUTRANS 10 MCG/HR TRANS PTWK apply every 7 days BUPRENORPHINE 76433349373 Active Chad Guardado MD Active TESSALON PERLES 100 MG CAP 1 tablet by mouth 3 times daily 09/25 BENZONATATE 67613383778 No Longer Active Chad Guardado MD Active LISINOPRIL 20 MG TABS 1 tablet by mouth daily for blood pressure LISINOPRIL 72797312969 No Longer Active Chad Guardado MD Active MACROBID 100 MG ORAL CAPS NITROFURANTOIN MONOHYD MACRO 71358927011 No Longer Active Chad Guardado MD Active DICLOFENAC SODIUM 1.5 % TRANS SOLN 40 drops applied to each knee 4 times a day DICLOFENAC SODIUM 60403986521 No Longer Active 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 NITROFURANTOIN MONOHYD MACRO 43470743956 No Longer Active Chad Guardado MD Active CIPRO 250 MG TAB 1 tablet by mouth twice daily x 5 days. CIPROFLOXACIN HCL 01594588005 No Longer Active Chad Guardado MD Active TRAMADOL HCL 50 MG TABS 1-2 tablets every 6 hours as needed for pain TRAMADOL HCL 06707624453 Active Chad Guardado MD Active NYSTATIN 952273 UNIT/ML SUSP Swish and swallow 5ml four times a day until yeast is clear. NYSTATIN 07991727386 No Longer Active Chad Guardado MD Active CITALOPRAM HYDROBROMIDE 40 MG TABS 1 daily for depression/anxiety CITALOPRAM HYDROBROMIDE 93504917039 Active Chad Guardado MD Active DEPAKOTE 250 MG TBEC 1 twice a day to prevent headaches DIVALPROEX SODIUM 06757932343 Active Chad Guardado MD Active CYCLOBENZAPRINE HCL 10 MG TABS 1 at bedtime for muscle tightness CYCLOBENZAPRINE HCL 66715554373 Active Chad Guardado MD Active METHOCARBAMOL 750 MG TABS 1 po q8hr PRN spasm and neck pain 06/12 METHOCARBAMOL 87520316505 No Longer Active Chad Guardado MD Active JANA ASPIRIN EC LOW DOSE 81 MG TBEC Take one by mouth daily ASPIRIN 49829875848 No Longer Active Chad Guardado MD Active HYDROCODONE-ACETAMINOPHEN 7.5-325 MG TABS 1 three times a day as needed for pain HYDROCODONE-ACETAMINOPHEN 93639090780 No Longer Active Chad Guardado MD Active CIPROFLOXACIN HCL 250 MG TABS 1 twice a day for 3 days for urinary infection CIPROFLOXACIN HCL 26924981267 No Longer Active Chad Guardado MD Active IMITREX 6 MG/0.5ML SOLN Take as directed SUMATRIPTAN SUCCINATE 51852996900 Active 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 SUMATRIPTAN SUCCINATE TABS 66982288719 No Longer Active Jaylyn DACOSTA Active SUMATRIPTAN SUCCINATE 100 MG TABS as directed SUMATRIPTAN SUCCINATE 37779575578 No Longer Active Nedra Cramer Active LORAZEPAM 0.5 MG TAB 1 tab po q8 hrs and 2 tabs at bedtime 07/03 LORAZEPAM 76323706695 No Longer Active Nedra Cramer Active PYRIDIUM 200 MG TAB 1 po TID PRN Dysuria PHENAZOPYRIDINE HCL 39782100436 No Longer Active Sachin Wasserman MD Active CIPRO 250 MG TAB 1 tablet by mouth twice daily CIPROFLOXACIN HCL 23160930064 No Longer Active Sachin Wasserman MD Active LUNESTA 2 MG TABS take one tab po qhs ESZOPICLONE 00668895397 No Longer Active Broderick Solares MD Active CITALOPRAM HYDROBROMIDE 20 MG TABS take one tab po daily CITALOPRAM HYDROBROMIDE 69756616890 No Longer Active Broderick Solares MD Active HYDROCODONE-ACETAMINOPHEN 10-325 MG TABS 1 tab po q4-6 hrs prn HYDROCODONE-ACETAMINOPHEN 15452045883 No Longer Active Broderick Solares MD Active SULFAMETHOXAZOLE-TMP DS 800-160 MG TABS take one tab po bid x 7 days SULFAMETHOXAZOLE-TRIMETHOPRIM 37497552371 No Longer Active Broderick Solares MD Active NAPROXEN 500 MG TAB 1 by mouth twice a day NAPROXEN 87863894632 No Longer Active Daisy Pool PA Active FUROSEMIDE 40 MG TAB 1 tablet by mouth daily FUROSEMIDE 27709101853 No Longer Active Daisy Pool PA Active MELOXICAM 15 MG TABS 1 po q day for pain with food MELOXICAM 35057256587 No Longer Active Daisy Pool PA Active ZOLPIDEM TARTRATE 10 MG TABS take one tab po daily ZOLPIDEM TARTRATE 48998736116 No Longer Active Daisy Pool PA Active COLACE 100 MG CAPS Take one by mouth daily DOCUSATE SODIUM 12321110126 No Longer Active Daisy Pool PA Active NIMODIPINE 30 MG CAPS 1 every 2 hours NIMODIPINE 99035976649 No Longer Active Daisy Pool PA Active ZOFRAN ODT 4 MG TBDP 1 po q6hr PRN Nausea ONDANSETRON 27213870069 No Longer Active Daisy Pool PA Active MAGNESIUM OXIDE 400 MG TABS Take one by mouth daily MAGNESIUM OXIDE 28950548272 No Longer Active Daisy Pool PA Active MAGNESIUM OXIDE 400 MG TABS Take one by mouth daily MAGNESIUM OXIDE 400 MG TABS 256031 MAGNESIUM OXIDE Inactive ZOFRAN ODT 4 MG TBDP 1 po q6hr PRN Nausea ZOFRAN ODT 4 MG TBDP 745675 ONDANSETRON Inactive NIMODIPINE 30 MG CAPS 1 every 2 hours NIMODIPINE 30 MG CAPS 922571 NIMODIPINE Inactive COLACE 100 MG CAPS Take one by mouth daily COLACE 100 MG CAPS 4020053 DOCUSATE SODIUM Inactive ZOLPIDEM TARTRATE 10 MG TABS take one tab po daily ZOLPIDEM TARTRATE 10 MG TABS 855084 ZOLPIDEM TARTRATE Inactive MELOXICAM 15 MG TABS 1 po q day for pain with food MELOXICAM 15 MG TABS 112889 MELOXICAM Inactive FUROSEMIDE 40 MG TAB 1 tablet by mouth daily FUROSEMIDE 40 MG TAB 419083 FUROSEMIDE Inactive NAPROXEN 500 MG TAB 1 by mouth twice a day NAPROXEN 500 MG TAB 455294 NAPROXEN Inactive SULFAMETHOXAZOLE-TMP DS 800-160 MG TABS take one tab po bid x 7 days SULFAMETHOXAZOLE-TMP DS 800-160 MG TABS SULFAMETHOXAZOLE- TRIMETHOPRIM Inactive HYDROCODONE-ACETAMINOPHEN 10-325 MG TABS 1 tab po q4-6 hrs prn HYDROCODONE-ACETAMINOPHEN 10-325 MG TABS 263188 HYDROCODONE- ACETAMINOPHEN Inactive CITALOPRAM HYDROBROMIDE 20 MG TABS take one tab po daily CITALOPRAM HYDROBROMIDE 20 MG TABS 108890 CITALOPRAM HYDROBROMIDE Inactive LUNESTA 2 MG TABS take one tab po qhs LUNESTA 2 MG TABS 094352 ESZOPICLONE Inactive LORAZEPAM 0.5 MG TAB 1 tab po q8 hrs and 2 tabs at bedtime 07/03 LORAZEPAM 0.5 MG TAB 091461 LORAZEPAM Inactive SUMATRIPTAN SUCCINATE 100 MG TABS as directed SUMATRIPTAN SUCCINATE 100 MG TABS 598426 SUMATRIPTAN SUCCINATE Inactive IMITREX TABS Take/use as needed. IMITREX TABS SUMATRIPTAN SUCCINATE TABS Inactive SERTRALINE HCL 50 MG TABS 1 daily for mood SERTRALINE HCL 50 MG TABS 269827 SERTRALINE HCL Inactive JANA ASPIRIN EC LOW DOSE 81 MG TBEC Take one by mouth daily JANA ASPIRIN EC LOW DOSE 81 MG TBEC 838378 ASPIRIN Inactive METHOCARBAMOL 750 MG TABS 1 po q8hr PRN spasm and neck pain 06/12 METHOCARBAMOL 750 MG TABS 786646 METHOCARBAMOL Inactive NYSTATIN 452425 UNIT/ML SUSP Swish and swallow 5ml four times a day until yeast is clear. NYSTATIN 100689 UNIT/ML SUSP 482783 NYSTATIN Inactive CIPRO 250 MG TAB 1 tablet by mouth twice daily x 5 days. CIPRO 250 MG TAB 130914 CIPROFLOXACIN HCL Inactive LIDODERM 5 % PTCH apply to affected area for 12 hours LIDODERM 5 % PTCH 2423364 LIDOCAINE Inactive FUROSEMIDE 20 MG TAB 1 tablet by mouth daily FUROSEMIDE 20 MG TAB 977147 FUROSEMIDE Inactive IMITREX 100 MG TABS TAKE 1 TABLET AT THE ONSET OF HEADACHE MAY REPEAT IN 2 HRS IF NEEDED IMITREX 100 MG TABS 444038 SUMATRIPTAN SUCCINATE Inactive DICLOFENAC SODIUM 75 MG TBEC take one tab po bid DICLOFENAC SODIUM 75 MG TBEC 399115 DICLOFENAC SODIUM Inactive DICLOFENAC SODIUM 1.5 % TRANS SOLN 40 drops applied to each knee 4 times a day DICLOFENAC SODIUM 1.5 % TRANS SOLN 868933 DICLOFENAC SODIUM Inactive MACROBID 100 MG ORAL CAPS MACROBID 100 MG ORAL CAPS 786562 NITROFURANTOIN MONOHYD MACRO Inactive LISINOPRIL 20 MG TABS 1 tablet by mouth daily for blood pressure LISINOPRIL 20 MG TABS 158670 LISINOPRIL Inactive TESSALON PERLES 100 MG CAP 1 tablet by mouth 3 times daily 09/25 TESSALON PERLES 100 MG CAP 305690 BENZONATATE Inactive CIPRO 250 MG TAB 1 tablet by mouth twice daily CIPRO 250 MG TAB 900601 CIPROFLOXACIN HCL Inactive PYRIDIUM 200 MG TAB 1 po TID PRN Dysuria PYRIDIUM 200 MG TAB 9866223 PHENAZOPYRIDINE HCL Inactive CIPROFLOXACIN HCL 250 MG TABS 1 twice a day for 3 days for urinary infection CIPROFLOXACIN HCL 250 MG TABS 106468 CIPROFLOXACIN HCL Inactive MACROBID 100 MG CAP 1 cap by mouth twice daily x 7 days. MACROBID 100 MG CAP 333947 NITROFURANTOIN MONOHYD MACRO Inactive Advance Directives Directive Description Start Date PERMISSION TO SHARE Immunizations Vaccine Administration Date Value Standard Description Seasonal influenza vaccine, injectable, containing preservative, for > 3 years old (Afluria, FluLaval, Fluzone, Fluvirin, Fluarix, Agriflu(>=18 yo)) Fluzone (>3 yrs.) [EXB219] Influenza, seasonal, injectable Vital Signs Date Name [...] pressure, diastolic - 8462-4 75 mm[Hg] BP chaes blood pressure, systolic - 8480-6 137 mm[Hg] [...] Rate - Chemistry sodium, serum 137 mmol/L 105-397 9102/02/06 potassium, serum 4.6 mmol/L 3.5-5.2 chloride, serum 101 mmol/L 98-107 carbon dioxide, venous blood 26.3 mmol/L 21.0-32.0 blood glucose 86 mg/dL 65-110 calcium, serum 9.3 mg/dL 8.5-10.1 urea nitrogen, blood 25 mg/dL 7-18 creatinine, serum 1.10 mg/dL 0.60-1.30 Lab Report: Comp. Metabolic Panel, CBC - Chemistry sodium, serum 140 mmol/L 048-474 1919/09/23 potassium, serum 4.7 mmol/L 3.5-5.2 chloride, serum [...] Panel - Chemistry cholesterol, serum 197 mg/dL 549-152 9333/09/25 triglyceride, serum, fasting 48 mg/dL 30-200 HDL [...] mg/dL Negative RBC, urine, dipstick Negative Negative protein, [...] >=1.030 1.000-1.030 pH, urine, semiquantitative 5.5 5.0-8.5 glucose, urine, semiquantitative Negative Negative ketones, urine, [...] by test strip Negative Negative bilirubin, urine Negative Negative urobilinogen, urine, semiquantitative (dipstick) 0.2 Normal leukocyte esterase, urine, by dipstick 1+ Negative nitrite, urine, semiquantitative Positive Negative urine color Yellow Colorless;Lightyellow;Straw;Yellow appearance, urine Clear Clear specific gravity, urine 1.025 1.000-1.030 pH, urine, semiquantitative 6.0 5.0-8.5 urine color Yellow Colorless;Lightyellow;Straw;Yellow appearance, urine SlCloudy Clear specific gravity, urine 1.025 1.000-1.030 pH, urine, semiquantitative 6.0 5.0-8.5 Encounters Code Encounter Date Provider Facility CPT-95052 Level 4 Est. Patient 10:00:23 PROGRAM REP Chad Guardado MD [facility]-61199 Level 4 Est. Patient 11:35:05 PROGRAM REP Chad Guardado MD [facility]-23391 Level 3 Est. Patient 14:50:08 PROGRAM REP Paras Nunez DO [facility]-08479 Level 3 Est. Patient 15:11:25 PROGRAM REP Chad Guardado MD [facility]-91361 Level 3 Est. Patient 17:38:05 PROGRAM REP Chad Guardado MD [facility]-51497 Level 3 Est. Patient 15:35:54 PROGRAM REP Sparkle Castro APRN [facility]-26654 Level 4 Est. Patient 09:41:26 PROGRAM REP Chad Guardado MD [facility]-54254 Level 4 Est. Patient 16:16:11 CDT Chad Guardado MD [facility]-46722 Level 3 Est. Patient 12:46:41 CDT Chad Guardado MD [facility]-83394 Level 3 Est. Patient 17:26:51 CDT Chad Guardado MD [facility] CPT-20810 Level 4 New Patient 13:59:42 CDT Chad Guardado MD [facility]-37768 Level 4 Est. Patient 20:23:44 PROGRAM REP Broderick Solares MD [facility]-31827 Level 3 Est. Patient 14:43:04 PROGRAM REP Broderick Solares MD [facility] CPT-08936 Level 3 Est. Patient 10:05:53 PROGRAM REP Sachin Wasserman MD [facility] CPT-36837 Level 3 Est. Patient 14:35:17 CDT [facility] CPT-10555 Level 3 Est. Patient 10:59:26 CDT [facility] CPT-99355 Level 3 Est. Patient 15:41:02 CDT [facility] CPT-53267 Level 3 Est. Patient 16:41:25 CDT [facility] CPT-16585 Level 3 New Patient 14:47:15 CDT [facility] Procedures Code Procedure Name Date Entry Date Standard Description CPT-96444 T spine AP/Lat w sw V 10:39:20 PROGRAM REP CPT-J1885 Toradol 60 mg (Ketorolac) 14:59:26 PROGRAM REP CPT-04566 Abx/Therapy Injection 14:59:26 PROGRAM REP CPT-J1885 Toradol 60 mg 14:50:08 PROGRAM REP CPT-64267 C-Spine Min 4V 12:56:08 PROGRAM REP CPT-56317 Immunization Single Admin 09:23:37 CDT CPT-98684 Tdap Vaccine 09:23:37 CDT CPT-54471 Fluzone Quadrivalent Intramuscular Suspension 0.5 ML 20: 47:45 CDT CPT-95399 Ankle Complete - Min 3V 12:29:38 CDT CPT-37439 Forearm AP and Lat 10:01:39 PROGRAM REP CPT-46189 Knee 3V 13:56:38 CDT CPT-10136 Administration single or combination vaccine inc oral 11 :50:16 CDT CPT-38040 Influenza split virus > age 3 11:50:16 CDT
--- OUTSIDE RECORDS SUMMARY | 2018-09-24 01:40 | XMS REPORT | Clinical Summary ---
Author Author Admin, MADDY Organization [facility] Address Unknown Phone Unavailable Allergies, Adverse Reactions, Alerts Allergy Name Reaction Description Start Date Severity Status Provider AMITRIPTYLINE HCL Hair loss and nightmares Moderate Active Chad Guardado MD IVP DYE Critical Active Chad Guardado MD CODEINE nausea Moderate Active [facility] Conditions or Problems Problem Name Problem Code Onset Date Status Entry Date Provider Comment Standard Description Annotate [facility]9 [facility]ysm of unspecified artery site ANXIETY DEPRESSION 300.4 Active [facility] Dysthymic disorder INSOMNIA 780.52 [facility] Ins[facility], unspecified LOSS OF APPETITE 783.0 [facility] Anorexia CEPHALGIA 784.0 Active [facility] Headache ENCOUNTER FOR REMOVAL OF SUTURES V58.32 Resolved Daisy [place] [facility] Encounter for removal of sutures NECK PAIN 723.1 Active [facility] Cervicalgia KNEE PAIN, BILATERAL 719.46 Active Daisy [place] [facility] Pain in joint involving lower leg [...] elsewhere classified Cough 786.2 Active Sparkle Castro WELCOME HOSTESS Cough Thrush 112.0 Active Chad Guardado MD Candidiasis of mouth HYPERTENSION, BENIGN ESSENTIAL 401.1 Active Chad Guardado MD Benign essential hypertension ENCOUNTER FOR REMOVAL OF SUTURES ICD-V58.32 Inactive Daisy PAZ INJURY OTHER AND UNSPECIFIED FINGER ICD-959.5 Inactive Chad Guardado MD UTI ICD-599.0 Inactive Chad Guardado MD Medication List Medication Instructions Start Date Stop Date Generic Name NDC Status Provider Patient Instruction CIPRO 250 MG TAB 1 tablet by mouth twice daily x 5 days. CIPROFLOXACIN HCL 26655485977 Active Chad Guardado MD Active LISINOPRIL 20 MG TABS 1 tablet by mouth daily for blood pressure LISINOPRIL 50005833638 Active Chad Guardado MD Active TRAMADOL HCL 50 MG TABS 1-2 tablets every 6 hours as needed for pain TRAMADOL HCL 16665335120 Active Chad Guardado MD Active DICLOFENAC SODIUM 1.5 % TRANS SOLN 40 drops applied to each knee 4 times a day DICLOFENAC SODIUM 87918383067 Active Chad Guardado MD Active NYSTATIN 327581 UNIT/ML SUSP Swish and swallow 5ml four times a day until yeast is clear. NYSTATIN 23794237896 No Longer Active Chad Guardado MD Active TESSALON PERLES 100 MG CAP 1 tablet by mouth 3 times daily BENZONATATE 20955379480 Active Sparklejaiem Matthewmissy WELCOME HOSTESS Active CITALOPRAM HYDROBROMIDE 40 MG TABS 1 daily for depression/anxiety CITALOPRAM HYDROBROMIDE 53436037897 Active Chad Guardado MD Active DEPAKOTE 250 MG TBEC 1 twice a day to prevent headaches DIVALPROEX SODIUM 39058930094 Active Chad Guardado MD Active CYCLOBENZAPRINE HCL 10 MG TABS 1 at bedtime for muscle tightness CYCLOBENZAPRINE HCL 66679150723 Active Chad Guardado MD Active METHOCARBAMOL 750 MG TABS 1 po q8hr PRN spasm and neck pain 06/12 METHOCARBAMOL 43355079093 No Longer Active Chad Guardado MD Active JANA ASPIRIN EC LOW DOSE 81 MG TBEC Take one by mouth daily ASPIRIN 12028962532 No Longer Active Chad Guardado MD Active HYDROCODONE-ACETAMINOPHEN 7.5-325 MG TABS 1 three times a day as needed for pain HYDROCODONE-ACETAMINOPHEN 53807313149 Active Chad Guardado MD Active CIPROFLOXACIN HCL 250 MG TABS 1 twice a day for 3 days for urinary infection CIPROFLOXACIN HCL 23110653681 No Longer Active Chad Guardado MD Active LIDODERM 5 % PTCH apply to affected area for 12 hours LIDOCAINE 74597432188 Active Chad Guardado MD Active FUROSEMIDE 20 MG TAB 1 tablet by mouth daily FUROSEMIDE 01211736931 Active Chad Guardado MD Active IMITREX 6 MG/0.5ML SOLN Take as directed SUMATRIPTAN SUCCINATE 71123750867 Active Sparkle Yokum WELCOME HOSTESS Active SERTRALINE HCL 50 MG TABS 1 daily for mood SERTRALINE HCL 87697320338 No Longer Active Chad Guardado MD Active IMITREX 100 MG TABS TAKE 1 TABLET AT THE ONSET OF HEADACHE MAY REPEAT IN 2 HRS IF NEEDED SUMATRIPTAN SUCCINATE 15698785165 Active Sparkle Yokum WELCOME HOSTESS Active IMITREX TABS Take/use as needed. SUMATRIPTAN SUCCINATE TABS 83766782086 No Longer Active Jaylyn Villanueva PRANEETH Active SUMATRIPTAN SUCCINATE 100 MG TABS as directed SUMATRIPTAN SUCCINATE 93036222266 No Longer Active Nedra Cramer Active LORAZEPAM 0.5 MG TAB 1 tab po q8 hrs and 2 tabs at bedtime 07/03 LORAZEPAM 96849709383 No Longer Active Nedra Cramer Active PYRIDIUM 200 MG TAB 1 po TID PRN Dysuria PHENAZOPYRIDINE HCL 82827126860 No Longer Active Sachin Wasserman MD Active CIPRO 250 MG TAB 1 tablet by mouth twice daily CIPROFLOXACIN HCL 35550366219 No Longer Active Sachin Wasserman MD Active LUNESTA 2 MG TABS take one tab po qhs ESZOPICLONE 35482493242 No Longer Active Broderick Solares MD Active CITALOPRAM HYDROBROMIDE 20 MG TABS take one tab po daily CITALOPRAM HYDROBROMIDE 19845433713 No Longer Active Broderick Solares MD Active HYDROCODONE-ACETAMINOPHEN 10-325 MG TABS 1 tab po q4-6 hrs prn HYDROCODONE-ACETAMINOPHEN 06820088089 No Longer Active Broderick Solares MD Active SULFAMETHOXAZOLE-TMP DS 800-160 MG TABS take one tab po bid x 7 days SULFAMETHOXAZOLE-TRIMETHOPRIM 84773752936 No Longer Active Broderick Solares MD Active DICLOFENAC SODIUM 75 MG TBEC take one tab po bid DICLOFENAC SODIUM 96463089581 Active Broderick Solares MD Active NAPROXEN 500 MG TAB 1 by mouth twice a day NAPROXEN 93032497062 No Longer Active Daisy [facility] PA Active FUROSEMIDE 40 MG TAB 1 tablet by mouth daily FUROSEMIDE 86092123158 No Longer Active Daisy [facility] PA Active MELOXICAM 15 MG TABS 1 po q day for pain with food MELOXICAM 16560002345 No Longer Active Daisy [facility] PA Active ZOLPIDEM TARTRATE 10 MG TABS take one tab po daily ZOLPIDEM TARTRATE 43086634310 No Longer Active Daisy [facility] PA Active COLACE 100 MG CAPS Take one by mouth daily DOCUSATE SODIUM 70261498402 No Longer Active Daisy [facility] PA Active NIMODIPINE 30 MG CAPS 1 every 2 hours NIMODIPINE 03254324119 No Longer Active Daisy [facility] PA Active ZOFRAN ODT 4 MG TBDP 1 po q6hr PRN Nausea ONDANSETRON 46481937664 No Longer Active Daisy [facility] PA Active MAGNESIUM OXIDE 400 MG TABS Take one by mouth daily MAGNESIUM OXIDE 94272098460 No Longer Active Daisy [facility] PA Active MAGNESIUM OXIDE 400 MG TABS Take one by mouth daily MAGNESIUM OXIDE 400 MG TABS 103338 MAGNESIUM OXIDE Inactive ZOFRAN ODT 4 MG TBDP 1 po q6hr PRN Nausea ZOFRAN ODT 4 MG TBDP 001903 ONDANSETRON Inactive NIMODIPINE 30 MG CAPS 1 every 2 hours NIMODIPINE 30 MG CAPS 614084 NIMODIPINE Inactive COLACE 100 MG CAPS Take one by mouth daily COLACE 100 MG CAPS 3849694 DOCUSATE SODIUM Inactive ZOLPIDEM TARTRATE 10 MG TABS take one tab po daily ZOLPIDEM TARTRATE 10 MG TABS 722586 ZOLPIDEM TARTRATE Inactive MELOXICAM 15 MG TABS 1 po q day for pain with food MELOXICAM 15 MG TABS 583363 MELOXICAM Inactive FUROSEMIDE 40 MG TAB 1 tablet by mouth daily FUROSEMIDE 40 MG TAB 632052 FUROSEMIDE Inactive NAPROXEN 500 MG TAB 1 by mouth twice a day NAPROXEN 500 MG TAB 044506 NAPROXEN Inactive SULFAMETHOXAZOLE-TMP DS 800-160 MG TABS take one tab po bid x 7 days SULFAMETHOXAZOLE-TMP DS 800-160 MG TABS SULFAMETHOXAZOLE- TRIMETHOPRIM Inactive HYDROCODONE-ACETAMINOPHEN 10-325 MG TABS 1 tab po q4-6 hrs prn HYDROCODONE-ACETAMINOPHEN 10-325 MG TABS 872789 HYDROCODONE- ACETAMINOPHEN Inactive CITALOPRAM HYDROBROMIDE 20 MG TABS take one tab po daily CITALOPRAM HYDROBROMIDE 20 MG TABS 530097 CITALOPRAM HYDROBROMIDE Inactive LUNESTA 2 MG TABS take one tab po qhs LUNESTA 2 MG TABS 195489 ESZOPICLONE Inactive LORAZEPAM 0.5 MG TAB 1 tab po q8 hrs and 2 tabs at bedtime 07/03 LORAZEPAM 0.5 MG TAB 146168 LORAZEPAM Inactive SUMATRIPTAN SUCCINATE 100 MG TABS as directed SUMATRIPTAN SUCCINATE 100 MG TABS 447516 SUMATRIPTAN SUCCINATE Inactive IMITREX TABS Take/use as needed. IMITREX TABS SUMATRIPTAN SUCCINATE TABS Inactive SERTRALINE HCL 50 MG TABS 1 daily for mood SERTRALINE HCL 50 MG TABS 181528 SERTRALINE HCL Inactive JANA ASPIRIN EC LOW DOSE 81 MG TBEC Take one by mouth daily JANA ASPIRIN EC LOW DOSE 81 MG TBEC 598078 ASPIRIN Inactive METHOCARBAMOL 750 MG TABS 1 po q8hr PRN spasm and neck pain 06/12 METHOCARBAMOL 750 MG TABS 544514 METHOCARBAMOL Inactive NYSTATIN 305662 UNIT/ML SUSP Swish and swallow 5ml four times a day until yeast is clear. NYSTATIN 684721 UNIT/ML SUSP 360785 NYSTATIN Inactive CIPRO 250 MG TAB 1 tablet by mouth twice daily CIPRO 250 MG TAB 19740807 CIPROFLOXACIN HCL Inactive PYRIDIUM 200 MG TAB 1 po TID PRN Dysuria PYRIDIUM 200 MG TAB 3941229 PHENAZOPYRIDINE HCL Inactive CIPROFLOXACIN HCL 250 MG TABS 1 twice a day for 3 days for urinary infection CIPROFLOXACIN HCL 250 MG TABS 19740807 CIPROFLOXACIN HCL Inactive Advance Directives Directive Description Start Date PERMISSION TO SHARE Immunizations Vaccine Administration Date Value Standard Description Seasonal influenza vaccine, injectable, containing preservative, for > 3 years old (Afluria, FluLaval, Fluzone, Fluvirin, Fluarix, Agriflu(>=18 yo)) Fluzone (>3 yrs.) [[id number]] Influenza, seasonal, injectable Vital Signs Date Name Value Unit Range Description blood pressure, diastolic - 8462-4 91 mm[Hg] [...] CBC - Chemistry sodium, serum 140 mmol/L 491-251 1981/09/23 potassium, serum 4.7 mmol/L 3.5-5.2 chloride, serum [...] Panel - Chemistry cholesterol, serum 197 mg/dL 433-944 0904/09/25 triglyceride, serum, fasting 48 mg/dL 30-200 HDL [...] 5.0-8.5 Encounters Code Encounter Date Provider Facility CPT-32340 Level 3 Est. Patient 15:11:25 EMBROIDERER HAND Chad Guardado MD [facility] CPT-56089 Level 3 Est. Patient 17:38:05 EMBROIDERER HAND Chad Guardado MD [facility] CPT-31401 Level 3 Est. Patient 15:35:54 EMBROIDERER HAND Sparkle Castro MARCELO [facility] CPT-77787 Level 4 Est. Patient 09:41:26 EMBROIDERER HAND Chad Guardado MD [facility] CPT-49022 Level 4 Est. Patient 16:16:11 CDT Chad Guardado MD [facility] CPT-90473 Level 3 Est. Patient 12:46:41 CDT Chad Guardado MD [facility] CPT-35991 Level 3 Est. Patient 17:26:51 CDT Chad Guardado MD [facility] CPT-67255 Level 4 New Patient 13:59:42 CDT Chad Guardado MD [facility] CPT-35859 Level 4 Est. Patient 20:23:44 EMBROIDERER HAND Broderick Solares MD [facility] CPT-69186 Level 3 Est. Patient 14:43:04 EMBROIDERER HAND Broderick Solares MD [facility] CPT-72983 Level 3 Est. Patient 10:05:53 EMBROIDERER HAND Sachin Wasserman MD [facility] CPT-76774 Level 3 Est. Patient 14:35:17 CDT Daisy Hinojosa [facility] CPT-23472 Level 3 Est. Patient 10:59:26 CDT Daisy Hinojosa [facility] CPT-46570 Level 3 Est. Patient 15:41:02 CDT Daisy Hinojosa [facility] CPT-88029 Level 3 Est. Patient 16:41:25 CDT Daisy Hinojosa [facility] CPT-60895 Level 3 New Patient 14:47:15 CDT Daisy Hinojosa [facility] Procedures Code Procedure Name Date Entry Date Standard Description CPT-37617 C-Spine Min 4V 12:56:08 EMBROIDERER HAND CPT-51980 Immunization Single Admin 09:23:37 CDT CPT-62017 Tdap Vaccine 09:23:37 CDT CPT-41717 Fluzone Quadrivalent Intramuscular Suspension 0.5 ML 20: 47:45 CDT CPT-53414 Ankle Complete - Min 3V 12:29:38 CDT CPT-25577 Forearm AP and Lat 10:01:39 EMBROIDERER HAND CPT-67931 Knee 3V 13:56:38 CDT CPT-63464 Administration single or combination vaccine inc oral 11 :50:16 CDT CPT-36923 Influenza split virus > age 3 11:50:16 CDT
--- OUTSIDE RECORDS SUMMARY | 2018-09-24 01:41 | XMS REPORT | Clinical Summary ---
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 [facility] Aneurysm of unspecified artery site ANXIETY DEPRESSION 300.4 Active [facility] Dysthymic disorder INSOMNIA 780.52 [facility] Insomnia, unspecified LOSS OF APPETITE 783.0 [facility] Anorexia CEPHALGIA 784.0 Active [facility] Headache ENCOUNTER FOR REMOVAL OF SUTURES V58.32 Resolved Daisy [place] [facility] Encounter for removal of sutures NECK PAIN 723.1 Active [facility] Cervicalgia KNEE PAIN, BILATERAL 719.46 Active Daisy [place] [facility] Pain in joint involving lower leg [...] elsewhere classified Cough 786.2 Active Sparkle Castro PEDIATRIC NURSE Cough Thrush 112.0 Active Chad Guardado MD [...] TAB 1 tablet by mouth daily FUROSEMIDE 98210876279 No Longer Active Paras Nunez DO Active LIDODERM 5 % PTCH apply to affected area for 12 hours LIDOCAINE 65456900673 No Longer Active Paras Nunez DO Active MACROBID 100 MG CAP 1 cap by mouth twice daily x 7 days. NITROFURANTOIN MONOHYD MACRO 64377601288 Active Chad Guardado MD Active CIPRO 250 MG TAB 1 tablet by mouth twice daily x 5 days. CIPROFLOXACIN HCL 00997273669 No Longer Active Chad Guardado MD Active LISINOPRIL 20 MG TABS 1 tablet by mouth daily for blood pressure LISINOPRIL 78104569565 Active Chad Guardado MD Active TRAMADOL HCL 50 MG TABS 1-2 tablets every 6 hours as needed for pain TRAMADOL HCL 26078127447 Active Chad Guardado MD Active DICLOFENAC SODIUM 1.5 % TRANS SOLN 40 drops applied to each knee 4 times a day DICLOFENAC SODIUM 31352784027 Active Chad Guardado MD Active NYSTATIN 711797 UNIT/ML SUSP Swish and swallow 5ml four times a day until yeast is clear. NYSTATIN 00778862678 No Longer Active Chad Guardado MD Active TESSALON PERLES 100 MG CAP 1 tablet by mouth 3 times daily BENZONATATE 44537221733 Active Sparkle Montejogosia PEDIATRIC NURSE Active CITALOPRAM HYDROBROMIDE 40 MG TABS 1 daily for depression/anxiety CITALOPRAM HYDROBROMIDE 16553010510 Active Chad Guardado MD Active DEPAKOTE 250 MG TBEC 1 twice a day to prevent headaches DIVALPROEX SODIUM 23230153547 Active Chad Guardado MD Active CYCLOBENZAPRINE HCL 10 MG TABS 1 at bedtime for muscle tightness CYCLOBENZAPRINE HCL 37797413692 Active Chad Guardado MD Active METHOCARBAMOL 750 MG TABS 1 po q8hr PRN spasm and neck pain 06/12 METHOCARBAMOL 56160963939 No Longer Active Chad Guardado MD Active JANA ASPIRIN EC LOW DOSE 81 MG TBEC Take one by mouth daily ASPIRIN 41154667379 No Longer Active Chad Guardado MD Active HYDROCODONE-ACETAMINOPHEN 7.5-325 MG TABS 1 three times a day as needed for pain HYDROCODONE-ACETAMINOPHEN 37962230959 Active Chad Guardado MD Active CIPROFLOXACIN HCL 250 MG TABS 1 twice a day for 3 days for urinary infection CIPROFLOXACIN HCL 36127751869 No Longer Active Chad Guardado MD Active IMITREX 6 MG/0.5ML SOLN Take as directed SUMATRIPTAN SUCCINATE 22611047392 Active Sparkle Castro PEDIATRIC NURSE Active SERTRALINE HCL 50 MG TABS 1 daily for mood SERTRALINE HCL 91864721264 No Longer Active Chad Guardado MD Active IMITREX 100 MG TABS TAKE 1 TABLET AT THE ONSET OF HEADACHE MAY REPEAT IN 2 HRS IF NEEDED SUMATRIPTAN SUCCINATE 40137627522 Active Sparkle Castro PEDIATRIC NURSE Active IMITREX TABS Take/use as needed. SUMATRIPTAN SUCCINATE TABS 89579015567 No Longer Active Jaylyn DACOSTA Active SUMATRIPTAN SUCCINATE 100 MG TABS as directed SUMATRIPTAN SUCCINATE 94594219631 No Longer Active Nedra Cramer Active LORAZEPAM 0.5 MG TAB 1 tab po q8 hrs and 2 tabs at bedtime 07/03 LORAZEPAM 80937269999 No Longer Active Nedra Cramer Active PYRIDIUM 200 MG TAB 1 po TID PRN Dysuria PHENAZOPYRIDINE HCL 10837069820 No Longer Active Sachin Wasserman MD Active CIPRO 250 MG TAB 1 tablet by mouth twice daily CIPROFLOXACIN HCL 52817255214 No Longer Active Sachin Wasserman MD Active LUNESTA 2 MG TABS take one tab po qhs ESZOPICLONE 64094141196 No Longer Active Broderick Solares MD Active CITALOPRAM HYDROBROMIDE 20 MG TABS take one tab po daily CITALOPRAM HYDROBROMIDE 70673305579 No Longer Active Broderick Solares MD Active HYDROCODONE-ACETAMINOPHEN 10-325 MG TABS 1 tab po q4-6 hrs prn HYDROCODONE-ACETAMINOPHEN 96805993635 No Longer Active Broderick Solares MD Active SULFAMETHOXAZOLE-TMP DS 800-160 MG TABS take one tab po bid x 7 days SULFAMETHOXAZOLE-TRIMETHOPRIM 55444802209 No Longer Active Broderick Solares MD Active DICLOFENAC SODIUM 75 MG TBEC take one tab po bid DICLOFENAC SODIUM 97450880452 Active Broderick Solares MD Active NAPROXEN 500 MG TAB 1 by mouth twice a day NAPROXEN 24424937379 No Longer Active Daisy Pool PA Active FUROSEMIDE 40 MG TAB 1 tablet by mouth daily FUROSEMIDE 23121642683 No Longer Active Daisy Pool PA Active MELOXICAM 15 MG TABS 1 po q day for pain with food MELOXICAM 87214730356 No Longer Active Daisy Pool PA Active ZOLPIDEM TARTRATE 10 MG TABS take one tab po daily ZOLPIDEM TARTRATE 77985175582 No Longer Active Daisy Pool PA Active COLACE 100 MG CAPS Take one by mouth daily DOCUSATE SODIUM 90213408824 No Longer Active Daisy Pool PA Active NIMODIPINE 30 MG CAPS 1 every 2 hours NIMODIPINE 52771750126 No Longer Active Daisy Pool PA Active ZOFRAN ODT 4 MG TBDP 1 po q6hr PRN Nausea ONDANSETRON 20943461439 No Longer Active Daisy Pool PA Active MAGNESIUM OXIDE 400 MG TABS Take one by mouth daily MAGNESIUM OXIDE 82115918736 No Longer Active Daisy Pool PA Active MAGNESIUM OXIDE 400 MG TABS Take one by mouth daily MAGNESIUM OXIDE 400 MG TABS 840638 MAGNESIUM OXIDE Inactive ZOFRAN ODT 4 MG TBDP 1 po q6hr PRN Nausea ZOFRAN ODT 4 MG TBDP 897055 ONDANSETRON Inactive NIMODIPINE 30 MG CAPS 1 every 2 hours NIMODIPINE 30 MG CAPS 741540 NIMODIPINE Inactive COLACE 100 MG CAPS Take one by mouth daily COLACE 100 MG CAPS 7614625 DOCUSATE SODIUM Inactive ZOLPIDEM TARTRATE 10 MG TABS take one tab po daily ZOLPIDEM TARTRATE 10 MG TABS 751362 ZOLPIDEM TARTRATE Inactive MELOXICAM 15 MG TABS 1 po q day for pain with food MELOXICAM 15 MG TABS 773498 MELOXICAM Inactive FUROSEMIDE 40 MG TAB 1 tablet by mouth daily FUROSEMIDE 40 MG TAB 148477 FUROSEMIDE Inactive NAPROXEN 500 MG TAB 1 by mouth twice a day NAPROXEN 500 MG TAB 935321 NAPROXEN Inactive SULFAMETHOXAZOLE-TMP DS 800-160 MG TABS take one tab po bid x 7 days SULFAMETHOXAZOLE-TMP DS 800-160 MG TABS SULFAMETHOXAZOLE- TRIMETHOPRIM Inactive HYDROCODONE-ACETAMINOPHEN 10-325 MG TABS 1 tab po q4-6 hrs prn HYDROCODONE-ACETAMINOPHEN 10-325 MG TABS 676205 HYDROCODONE- ACETAMINOPHEN Inactive CITALOPRAM HYDROBROMIDE 20 MG TABS take one tab po daily CITALOPRAM HYDROBROMIDE 20 MG TABS 592679 CITALOPRAM HYDROBROMIDE Inactive LUNESTA 2 MG TABS take one tab po qhs LUNESTA 2 MG TABS 332700 ESZOPICLONE Inactive LORAZEPAM 0.5 MG TAB 1 tab po q8 hrs and 2 tabs at bedtime 07/03 LORAZEPAM 0.5 MG TAB 296271 LORAZEPAM Inactive SUMATRIPTAN SUCCINATE 100 MG TABS as directed SUMATRIPTAN SUCCINATE 100 MG TABS 316027 SUMATRIPTAN SUCCINATE Inactive IMITREX TABS Take/use as needed. IMITREX TABS SUMATRIPTAN SUCCINATE TABS Inactive SERTRALINE HCL 50 MG TABS 1 daily for mood SERTRALINE HCL 50 MG TABS 655713 SERTRALINE HCL Inactive JANA ASPIRIN EC LOW DOSE 81 MG TBEC Take one by mouth daily JANA ASPIRIN EC LOW DOSE 81 MG TBEC 991473 ASPIRIN Inactive METHOCARBAMOL 750 MG TABS 1 po q8hr PRN spasm and neck pain 06/12 METHOCARBAMOL 750 MG TABS 632787 METHOCARBAMOL Inactive NYSTATIN 838419 UNIT/ML SUSP Swish and swallow 5ml four times a day until yeast is clear. NYSTATIN 578388 UNIT/ML SUSP 727986 NYSTATIN Inactive CIPRO 250 MG TAB 1 tablet by mouth twice daily x 5 days. CIPRO 250 MG TAB 19740807 CIPROFLOXACIN HCL Inactive LIDODERM 5 % PTCH apply to affected area for 12 hours LIDODERM 5 % PTCH 1642326 LIDOCAINE Inactive FUROSEMIDE 20 MG TAB 1 tablet by mouth daily FUROSEMIDE 20 MG TAB 023832 FUROSEMIDE Inactive CIPRO 250 MG TAB 1 tablet by mouth twice daily CIPRO 250 MG TAB 19740807 CIPROFLOXACIN HCL Inactive PYRIDIUM 200 MG TAB 1 po TID PRN Dysuria PYRIDIUM 200 MG TAB 8688652 PHENAZOPYRIDINE HCL Inactive CIPROFLOXACIN HCL 250 MG TABS 1 twice a day for 3 days for urinary infection CIPROFLOXACIN HCL 250 MG TABS 733380 CIPROFLOXACIN HCL Inactive Advance Directives Directive Description Start Date PERMISSION TO SHARE Immunizations Vaccine Administration Date Value Standard Description Seasonal influenza vaccine, injectable, containing preservative, for > 3 years old (Afluria, FluLaval, Fluzone, Fluvirin, Fluarix, Agriflu(>=18 yo)) Fluzone (>3 yrs.) [[id number]] Influenza, seasonal, injectable Vital Signs Date Name [...] CBC - Chemistry sodium, serum 140 mmol/L 158-038 3840/09/23 potassium, serum 4.7 mmol/L 3.5-5.2 chloride, serum [...] Panel - Chemistry cholesterol, serum 197 mg/dL 614-924 7741/09/25 triglyceride, serum, fasting 48 mg/dL 30-200 HDL [...] 5.0-8.5 Encounters Code Encounter Date Provider Facility CPT-11979 Level 3 Est. Patient 14:50:08 REGISTERED NURSE FLOAT POOL Paras Nunez DO [facility] CPT-32123 Level 3 Est. Patient 15:11:25 REGISTERED NURSE FLOAT POOL Chad Guardado MD [facility] CPT-80141 Level 3 Est. Patient 17:38:05 REGISTERED NURSE FLOAT POOL Chad Guardado MD [facility] CPT-82873 Level 3 Est. Patient 15:35:54 REGISTERED NURSE FLOAT POOL Sparkle Castro MARCELO [facility] CPT-28031 Level 4 Est. Patient 09:41:26 REGISTERED NURSE FLOAT POOL Chad Guardado MD [facility] CPT-89184 Level 4 Est. Patient 16:16:11 CDT Chad Guardado MD [facility] CPT-34934 Level 3 Est. Patient 12:46:41 CDT Chad Guardado MD [facility] CPT-96106 Level 3 Est. Patient 17:26:51 CDT Chad Guardado MD [facility] CPT-23527 Level 4 New Patient 13:59:42 CDT Chad Guardado MD [facility] CPT-22510 Level 4 Est. Patient 20:23:44 REGISTERED NURSE FLOAT POOL Broderick Solares MD [facility] CPT-79565 Level 3 Est. Patient 14:43:04 REGISTERED NURSE FLOAT POOL Broderick Solares MD [facility] CPT-53404 Level 3 Est. Patient 10:05:53 REGISTERED NURSE FLOAT POOL Sachin Wasserman MD [facility] CPT-73370 Level 3 Est. Patient 14:35:17 CDT Daisy [facility]inojosa [facility] CPT-76122 Level 3 Est. Patient 10:59:26 CDT Daisy Hinojosa [facility] CPT-21491 Level 3 Est. Patient 15:41:02 CDT Daisy Hinojosa [facility] CPT-55108 Level 3 Est. Patient 16:41:25 CDT Daisy Hinojosa [facility] CPT-99058 Level 3 New Patient 14:47:15 CDT Daisy Hinojosa [facility] Procedures Code Procedure Name Date Entry Date Standard Description CPT-J1885 Toradol 60 mg (Ketorolac) 14:59:26 REGISTERED NURSE FLOAT POOL CPT-65853 Abx/Therapy Injection 14:59:26 REGISTERED NURSE FLOAT POOL CPT-J1885 Toradol 60 mg 14:50:08 REGISTERED NURSE FLOAT POOL CPT-13404 C-Spine Min 4V 12:56:08 REGISTERED NURSE FLOAT POOL CPT-38136 Immunization Single Admin 09:23:37 CDT CPT-66920 Tdap Vaccine 09:23:37 CDT CPT-57373 Fluzone Quadrivalent Intramuscular Suspension 0.5 ML 20: 47:45 CDT CPT-06579 Ankle Complete - Min 3V 12:29:38 CDT CPT-26979 Forearm AP and Lat 10:01:39 REGISTERED NURSE FLOAT POOL CPT-23990 Knee 3V 13:56:38 CDT CPT-52519 Administration single or combination vaccine inc oral 11 :50:16 CDT CPT-70021 Influenza split virus > age 3 11:50:16 CDT
--- OUTSIDE RECORDS SUMMARY | 2018-09-24 01:42 | XMS REPORT | Clinical Summary ---
Author Author Admin, MADDY Organization [facility] Address Unknown Phone Unavailable Allergies, Adverse Reactions, Alerts Allergy Name Reaction Description Start Date Severity Status Provider AMITRIPTYLINE HCL Hair loss and nightmares Moderate Active Chad Guardado MD IVP DYE Critical Active Chad Guardado MD CODEINE nausea Moderate Active [facility] Conditions or Problems Problem Name Problem Code Onset Date Status Entry Date Provider Comment Standard Description Annotate ANEURYSM 442.9 [facility] Aneurysm of unspecified artery site ANXIETY DEPRESSION 300.4 Active [facility] Dysthymic disorder INSOMNIA 780.52 [facility] Insomnia, unspecified LOSS OF APPETITE 783.0 [facility] Anorexia CEPHALGIA 784.0 Active [facility] Headache ENCOUNTER FOR REMOVAL OF SUTURES V58.32 Resolved Daisy [place] PA Encounter for removal of sutures NECK PAIN 723.1 Active [facility] Cervicalgia KNEE PAIN, BILATERAL 719.46 Active Daisy [place] PA Pain in joint involving lower leg [...] elsewhere classified Cough 786.2 Active Sparkle Castro CREELER Cough Thrush 112.0 Active Chad Guardado MD Candidiasis of mouth HYPERTENSION, BENIGN ESSENTIAL 401.1 Active Chad Guardado MD Benign essential hypertension ENCOUNTER FOR REMOVAL OF SUTURES ICD-V58.32 Inactive Daisy PAZ INJURY OTHER AND UNSPECIFIED FINGER ICD-959.5 Inactive Chad Guardado MD UTI ICD-599.0 Inactive Chad Guardado MD Medication List Medication Instructions Start Date Stop Date Generic Name NDC Status Provider Patient Instruction MACROBID 100 MG CAP 1 cap by mouth twice daily x 7 days. NITROFURANTOIN MONOHYD MACRO 07446165047 Active Chad Guardado MD Active CIPRO 250 MG TAB 1 tablet by mouth twice daily x 5 days. CIPROFLOXACIN HCL 70203648356 No Longer Active Chad Guardado MD Active LISINOPRIL 20 MG TABS 1 tablet by mouth daily for blood pressure LISINOPRIL 43457524921 Active Chad Guardado MD Active TRAMADOL HCL 50 MG TABS 1-2 tablets every 6 hours as needed for pain TRAMADOL HCL 83994695232 Active Chad Guardado MD Active DICLOFENAC SODIUM 1.5 % TRANS SOLN 40 drops applied to each knee 4 times a day DICLOFENAC SODIUM 67752070726 Active Chad Guardado MD Active NYSTATIN 958912 UNIT/ML SUSP Swish and swallow 5ml four times a day until yeast is clear. NYSTATIN 77192920220 No Longer Active Chad Guardado MD Active TESSALON PERLES 100 MG CAP 1 tablet by mouth 3 times daily BENZONATATE 42483178981 Active Sparkle Castro APRN Active CITALOPRAM HYDROBROMIDE 40 MG TABS 1 daily for depression/anxiety CITALOPRAM HYDROBROMIDE 11859586961 Active Chad Guardado MD Active DEPAKOTE 250 MG TBEC 1 twice a day to prevent headaches DIVALPROEX SODIUM 24975200288 Active Chad Guardado MD Active CYCLOBENZAPRINE HCL 10 MG TABS 1 at bedtime for muscle tightness CYCLOBENZAPRINE HCL 46340799182 Active Chad Guardado MD Active METHOCARBAMOL 750 MG TABS 1 po q8hr PRN spasm and neck pain 06/12 METHOCARBAMOL 70296140813 No Longer Active Chda Guardado MD Active JANA ASPIRIN EC LOW DOSE 81 MG TBEC Take one by mouth daily ASPIRIN 58668660288 No Longer Active Chad Guardado MD Active HYDROCODONE-ACETAMINOPHEN 7.5-325 MG TABS 1 three times a day as needed for pain HYDROCODONE-ACETAMINOPHEN 49626746817 Active Chad Guardado MD Active CIPROFLOXACIN HCL 250 MG TABS 1 twice a day for 3 days for urinary infection CIPROFLOXACIN HCL 68609733598 No Longer Active Chad Guardado MD Active LIDODERM 5 % PTCH apply to affected area for 12 hours LIDOCAINE 74396563454 Active Chad Guardado MD Active FUROSEMIDE 20 MG TAB 1 tablet by mouth daily FUROSEMIDE 19613866475 Active Chad Guardado MD Active IMITREX 6 MG/0.5ML SOLN Take as directed SUMATRIPTAN SUCCINATE 66892592795 Active Sparkle Castro CREELER Active SERTRALINE HCL 50 MG TABS 1 daily for mood SERTRALINE HCL 22487734357 No Longer Active Chad Guardado MD Active IMITREX 100 MG TABS TAKE 1 TABLET AT THE ONSET OF HEADACHE MAY REPEAT IN 2 HRS IF NEEDED SUMATRIPTAN SUCCINATE 49881632991 Active Sparkle Y[employer]um CREELER Active IMITREX TABS Take/use as needed. SUMATRIPTAN SUCCINATE TABS 22452708578 No Longer Active Jaylyn DACOSTA Active SUMATRIPTAN SUCCINATE 100 MG TABS as directed SUMATRIPTAN SUCCINATE 92465864195 No Longer Active Nedra Cramer Active LORAZEPAM 0.5 MG TAB 1 tab po q8 hrs and 2 tabs at bedtime 07/03 LORAZEPAM 19726481873 No Longer Active Nedra Cramer Active PYRIDIUM 200 MG TAB 1 po TID PRN Dysuria PHENAZOPYRIDINE HCL 13889284936 No Longer Active Sachin Wasserman MD Active CIPRO 250 MG TAB 1 tablet by mouth twice daily CIPROFLOXACIN HCL 32794632127 No Longer Active Sachin Wasserman MD Active LUNESTA 2 MG TABS take one tab po qhs ESZOPICLONE 48595819784 No Longer Active Broderick Solares MD Active CITALOPRAM HYDROBROMIDE 20 MG TABS take one tab po daily CITALOPRAM HYDROBROMIDE 18523215897 No Longer Active Broderick Solares MD Active HYDROCODONE-ACETAMINOPHEN 10-325 MG TABS 1 tab po q4-6 hrs prn HYDROCODONE-ACETAMINOPHEN 14510376394 No Longer Active Broderick Solares MD Active SULFAMETHOXAZOLE-TMP DS 800-160 MG TABS take one tab po bid x 7 days SULFAMETHOXAZOLE-TRIMETHOPRIM 65254808430 No Longer Active Broderick Solares MD Active DICLOFENAC SODIUM 75 MG TBEC take one tab po bid DICLOFENAC SODIUM 04288675853 Active Broderick Solares MD Active NAPROXEN 500 MG TAB 1 by mouth twice a day NAPROXEN 03221837856 No Longer Active Daisy Pool PA Active FUROSEMIDE 40 MG TAB 1 tablet by mouth daily FUROSEMIDE 79477077084 No Longer Active Daisy Pool PA Active MELOXICAM 15 MG TABS 1 po q day for pain with food MELOXICAM 04679628619 No Longer Active Daisy Pool PA Active ZOLPIDEM TARTRATE 10 MG TABS take one tab po daily ZOLPIDEM TARTRATE 32036752669 No Longer Active Daisy Pool PA Active COLACE 100 MG CAPS Take one by mouth daily DOCUSATE SODIUM 07703999021 No Longer Active Daisy Pool PA Active NIMODIPINE 30 MG CAPS 1 every 2 hours NIMODIPINE 40397393428 No Longer Active Daisy Pool PA Active ZOFRAN ODT 4 MG TBDP 1 po q6hr PRN Nausea ONDANSETRON 58991344015 No Longer Active Daisy Pool PA Active MAGNESIUM OXIDE 400 MG TABS Take one by mouth daily MAGNESIUM OXIDE 26456907650 No Longer Active Daisy Pool PA Active MAGNESIUM OXIDE 400 MG TABS Take one by mouth daily MAGNESIUM OXIDE 400 MG TABS 723851 MAGNESIUM OXIDE Inactive ZOFRAN ODT 4 MG TBDP 1 po q6hr PRN Nausea ZOFRAN ODT 4 MG TBDP 876030 ONDANSETRON Inactive NIMODIPINE 30 MG CAPS 1 every 2 hours NIMODIPINE 30 MG CAPS 804997 NIMODIPINE Inactive COLACE 100 MG CAPS Take one by mouth daily COLACE 100 MG CAPS 1453189 DOCUSATE SODIUM Inactive ZOLPIDEM TARTRATE 10 MG TABS take one tab po daily ZOLPIDEM TARTRATE 10 MG TABS 146864 ZOLPIDEM TARTRATE Inactive MELOXICAM 15 MG TABS 1 po q day for pain with food MELOXICAM 15 MG TABS 522133 MELOXICAM Inactive FUROSEMIDE 40 MG TAB 1 tablet by mouth daily FUROSEMIDE 40 MG TAB 371305 FUROSEMIDE Inactive NAPROXEN 500 MG TAB 1 by mouth twice a day NAPROXEN 500 MG TAB 530508 NAPROXEN Inactive SULFAMETHOXAZOLE-TMP DS 800-160 MG TABS take one tab po bid x 7 days SULFAMETHOXAZOLE-TMP DS 800-160 MG TABS SULFAMETHOXAZOLE- TRIMETHOPRIM Inactive HYDROCODONE-ACETAMINOPHEN 10-325 MG TABS 1 tab po q4-6 hrs prn HYDROCODONE-ACETAMINOPHEN 10-325 MG TABS 734979 HYDROCODONE- ACETAMINOPHEN Inactive CITALOPRAM HYDROBROMIDE 20 MG TABS take one tab po daily CITALOPRAM HYDROBROMIDE 20 MG TABS 191881 CITALOPRAM HYDROBROMIDE Inactive LUNESTA 2 MG TABS take one tab po qhs LUNESTA 2 MG TABS 268437 ESZOPICLONE Inactive LORAZEPAM 0.5 MG TAB 1 tab po q8 hrs and 2 tabs at bedtime 07/03 LORAZEPAM 0.5 MG TAB 412441 LORAZEPAM Inactive SUMATRIPTAN SUCCINATE 100 MG TABS as directed SUMATRIPTAN SUCCINATE 100 MG TABS 409543 SUMATRIPTAN SUCCINATE Inactive IMITREX TABS Take/use as needed. IMITREX TABS SUMATRIPTAN SUCCINATE TABS Inactive SERTRALINE HCL 50 MG TABS 1 daily for mood SERTRALINE HCL 50 MG TABS 046462 SERTRALINE HCL Inactive JANA ASPIRIN EC LOW DOSE 81 MG TBEC Take one by mouth daily JANA ASPIRIN EC LOW DOSE 81 MG TBEC 918868 ASPIRIN Inactive METHOCARBAMOL 750 MG TABS 1 po q8hr PRN spasm and neck pain 06/12 METHOCARBAMOL 750 MG TABS 895077 METHOCARBAMOL Inactive NYSTATIN 172903 UNIT/ML SUSP Swish and swallow 5ml four times a day until yeast is clear. NYSTATIN 590979 UNIT/ML SUSP 424067 NYSTATIN Inactive CIPRO 250 MG TAB 1 tablet by mouth twice daily x 5 days. CIPRO 250 MG TAB 19740807 CIPROFLOXACIN HCL Inactive CIPRO 250 MG TAB 1 tablet by mouth twice daily CIPRO 250 MG TAB 19740807 CIPROFLOXACIN HCL Inactive PYRIDIUM 200 MG TAB 1 po TID PRN Dysuria PYRIDIUM 200 MG TAB 3832995 PHENAZOPYRIDINE HCL Inactive CIPROFLOXACIN HCL 250 MG [...] Fluvirin, Fluarix, Agriflu(>=18 yo)) Fluzone (>3 yrs.) [[id number]] Influenza, seasonal, injectable Vital Signs Date Name [...] CBC - Chemistry sodium, serum 140 mmol/L 449-968 6675/09/23 potassium, serum 4.7 mmol/L 3.5-5.2 chloride, serum [...] Panel - Chemistry cholesterol, serum 197 mg/dL 260-881 5253/09/25 triglyceride, serum, fasting 48 mg/dL 30-200 HDL [...] 5.0-8.5 Encounters Code Encounter Date Provider Facility CPT-69864 Level 3 Est. Patient 15:11:25 POST PRODUCTION ASSISTANT Chad Guardado MD [facility] CPT-50167 Level 3 Est. Patient 17:38:05 POST PRODUCTION ASSISTANT Chad Guardado MD [facility] CPT-35888 Level 3 Est. Patient 15:35:54 POST PRODUCTION ASSISTANT Sparkle Castro APRN [facility] CPT-08500 Level 4 Est. Patient 09:41:26 POST PRODUCTION ASSISTANT Chad Guardado MD [facility] CPT-08073 Level 4 Est. Patient 16:16:11 CDT Chad Guardado MD [facility] CPT-45111 Level 3 Est. Patient 12:46:41 CDT Chad Guardado MD [facility] CPT-77992 Level 3 Est. Patient 17:26:51 CDT Chad Guardado MD [facility] CPT-30678 Level 4 New Patient 13:59:42 CDT Chad Guardado MD [facility] CPT-50857 Level 4 Est. Patient 20:23:44 POST PRODUCTION ASSISTANT Broderick Solares MD [facility] CPT-29662 Level 3 Est. Patient 14:43:04 POST PRODUCTION ASSISTANT Broderick Solares MD [facility] CPT-91415 Level 3 Est. Patient 10:05:53 POST PRODUCTION ASSISTANT Sachin Wasserman MD [facility] CPT-55197 Level 3 Est. Patient 14:35:17 CDT [facility] CPT-33491 Level 3 Est. Patient 10:59:26 CDT [facility] CPT-90398 Level 3 Est. Patient 15:41:02 CDT [facility] CPT-52827 Level 3 Est. Patient 16:41:25 CDT [facility] CPT-60138 Level 3 New Patient 14:47:15 CDT Daisy [facility] Procedures Code Procedure Name Date Entry Date Standard Description CPT-49448 C-Spine Min 4V 12:56:08 POST PRODUCTION ASSISTANT CPT-05947 Immunization Single Admin 09:23:37 CDT CPT-72786 Tdap Vaccine 09:23:37 CDT CPT-28496 Fluzone Quadrivalent Intramuscular Suspension 0.5 ML 20: 47:45 CDT CPT-48579 Ankle Complete - Min 3V 12:29:38 CDT CPT-30601 Forearm AP and Lat 10:01:39 POST PRODUCTION ASSISTANT CPT-95073 Knee 3V 13:56:38 CDT CPT-28845 Administration single or combination vaccine inc oral 11 :50:16 CDT CPT-21024 Influenza split virus > age 3 11:50:16 CDT
--- OUTSIDE RECORDS SUMMARY | 2018-09-24 01:42 | XMS REPORT | Clinical Summary ---
Author Author Admin, MADDY Organization [facility] Address Unknown Phone Unavailable Allergies, Adverse Reactions, Alerts Allergy Name Reaction Description Start Date Severity Status Provider AMITRIPTYLINE HCL Hair loss and nightmares Moderate Active Chad Guardado MD IVP DYE Critical Active Chad Guardado MD CODEINE nausea Moderate Active [facility] Conditions or Problems Problem Name Problem Code Onset Date Status Entry Date Provider Comment Standard Description Annotate ANEURYSM 442.9 [facility] Aneurysm of unspecified artery site ANXIETY DEPRESSION 300.4 Active [facility] Dysthymic disorder INSOMNIA 780.52 [facility] Insomnia, unspecified LOSS OF APPETITE 783.0 [facility] Anorexia CEPHALGIA 784.0 Active [facility] Headache ENCOUNTER FOR REMOVAL OF SUTURES V58.32 Resolved Daisy Ponca PA Encounter for removal of sutures NECK PAIN 723.1 Active [facility] Cervicalgia KNEE PAIN, BILATERAL 719.46 Active Daisy Ponca PA Pain in joint involving lower leg [...] elsewhere classified Cough 786.2 Active 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 Cough Thrush 112.0 Active Chad Guardado MD [...] ASPIRIN 81 MG TABS 1 daily ASPIRIN 53671686103 Active Chad Guardado MD Active BUTRANS 10 MCG/HR TRANS PTWK apply every 7 days BUPRENORPHINE 34663330871 Active Chad Guardado MD Active TESSALON PERLES 100 MG CAP 1 tablet by mouth 3 times daily 09/25 BENZONATATE 68777777560 No Longer Active Chad Guardado MD Active LISINOPRIL 20 MG TABS 1 tablet by mouth daily for blood pressure LISINOPRIL 27460986279 No Longer Active Chad Guardado MD Active MACROBID 100 MG ORAL CAPS NITROFURANTOIN MONOHYD MACRO 80276180966 No Longer Active Chad Guardado MD Active DICLOFENAC SODIUM 1.5 % TRANS SOLN 40 drops applied to each knee 4 times a day DICLOFENAC SODIUM 18112918009 No Longer Active Fallon Smith TRAVEL OCCUPATIONAL THERAPIST Active DICLOFENAC SODIUM 75 MG TBEC take one tab po bid DICLOFENAC SODIUM 17347736276 No Longer Active Fallon Smith LPN Active IMITREX 100 MG TABS TAKE 1 TABLET AT THE ONSET OF HEADACHE MAY REPEAT IN 2 HRS IF NEEDED SUMATRIPTAN SUCCINATE 69484160493 No Longer Active Chad Guardado MD Active FUROSEMIDE 20 MG TAB 1 tablet by mouth daily FUROSEMIDE 88325646310 No Longer Active Paras Nunez DO Active LIDODERM 5 % PTCH apply to affected area for 12 hours LIDOCAINE 49284357406 No Longer Active Paras Nunez DO Active MACROBID 100 MG CAP 1 cap by mouth twice daily x 7 days. NITROFURANTOIN MONOHYD MACRO 28099414800 No Longer Active Chad Guardado MD Active CIPRO 250 MG TAB 1 tablet by mouth twice daily x 5 days. CIPROFLOXACIN HCL 23260949570 No Longer Active Chad Guardado MD Active TRAMADOL HCL 50 MG TABS 1-2 tablets every 6 hours as needed for pain TRAMADOL HCL 33342728682 Active Chad Guardado MD Active NYSTATIN 222957 UNIT/ML SUSP Swish and swallow 5ml four times a day until yeast is clear. NYSTATIN 36983370952 No Longer Active Chad Guardado MD Active CITALOPRAM HYDROBROMIDE 40 MG TABS 1 daily for depression/anxiety CITALOPRAM HYDROBROMIDE 36767790222 Active Chad Guardado MD Active DEPAKOTE 250 MG TBEC 1 twice a day to prevent headaches DIVALPROEX SODIUM 77656475885 Active Chad Guardado MD Active CYCLOBENZAPRINE HCL 10 MG TABS 1 at bedtime for muscle tightness CYCLOBENZAPRINE HCL 03374644495 Active Chad Guardado MD Active METHOCARBAMOL 750 MG TABS 1 po q8hr PRN spasm and neck pain 06/12 METHOCARBAMOL 00630395912 No Longer Active Chad Guardado MD Active JANA ASPIRIN EC LOW DOSE 81 MG TBEC Take one by mouth daily ASPIRIN 29826805783 No Longer Active Chad Guardado MD Active HYDROCODONE-ACETAMINOPHEN 7.5-325 MG TABS 1 three times a day as needed for pain HYDROCODONE-ACETAMINOPHEN 59954109310 No Longer Active Chad Guardado MD Active CIPROFLOXACIN HCL 250 MG TABS 1 twice a day for 3 days for urinary infection CIPROFLOXACIN HCL 82314680790 No Longer Active Chad Guardado MD Active IMITREX 6 MG/0.5ML SOLN Take as directed SUMATRIPTAN SUCCINATE 41480565375 Active 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 SUMATRIPTAN SUCCINATE TABS 26482966662 No Longer Active Jaylyn DACOSTA Active SUMATRIPTAN SUCCINATE 100 MG TABS as directed SUMATRIPTAN SUCCINATE 22236792682 No Longer Active Nedra Cramer Active LORAZEPAM 0.5 MG TAB 1 tab po q8 hrs and 2 tabs at bedtime 07/03 LORAZEPAM 83170382701 No Longer Active Nedra Cramer Active PYRIDIUM 200 MG TAB 1 po TID PRN Dysuria PHENAZOPYRIDINE HCL 91460088981 No Longer Active Sachin Wasserman MD Active CIPRO 250 MG TAB 1 tablet by mouth twice daily CIPROFLOXACIN HCL 58145026801 No Longer Active Sachin Wasserman MD Active LUNESTA 2 MG TABS take one tab po qhs ESZOPICLONE 77796757588 No Longer Active Broderick Solares MD Active CITALOPRAM HYDROBROMIDE 20 MG TABS take one tab po daily CITALOPRAM HYDROBROMIDE 43362364720 No Longer Active Broderick Solares MD Active HYDROCODONE-ACETAMINOPHEN 10-325 MG TABS 1 tab po q4-6 hrs prn HYDROCODONE-ACETAMINOPHEN 69525268530 No Longer Active Broderick Solares MD Active SULFAMETHOXAZOLE-TMP DS 800-160 MG TABS take one tab po bid x 7 days SULFAMETHOXAZOLE-TRIMETHOPRIM 58458857692 No Longer Active Borderick Solares MD Active NAPROXEN 500 MG TAB 1 by mouth twice a day NAPROXEN 00727341462 No Longer Active Daisy Pool PA Active FUROSEMIDE 40 MG TAB 1 tablet by mouth daily FUROSEMIDE 25561495825 No Longer Active Daisy Pool PA Active MELOXICAM 15 MG TABS 1 po q day for pain with food MELOXICAM 32097292540 No Longer Active Daisy Pool PA Active ZOLPIDEM TARTRATE 10 MG TABS take one tab po daily ZOLPIDEM TARTRATE 63603804258 No Longer Active Daisy Pool PA Active COLACE 100 MG CAPS Take one by mouth daily DOCUSATE SODIUM 73507859081 No Longer Active Daisy Pool PA Active NIMODIPINE 30 MG CAPS 1 every 2 hours NIMODIPINE 16226718893 No Longer Active Daisy Pool PA Active ZOFRAN ODT 4 MG TBDP 1 po q6hr PRN Nausea ONDANSETRON 91502441306 No Longer Active Daisy Pool PA Active MAGNESIUM OXIDE 400 MG TABS Take one by mouth daily MAGNESIUM OXIDE 47059164628 No Longer Active Daisy Pool PA Active MAGNESIUM OXIDE 400 MG TABS Take one by mouth daily MAGNESIUM OXIDE 400 MG TABS 880504 MAGNESIUM OXIDE Inactive ZOFRAN ODT 4 MG TBDP 1 po q6hr PRN Nausea ZOFRAN ODT 4 MG TBDP 064385 ONDANSETRON Inactive NIMODIPINE 30 MG CAPS 1 every 2 hours NIMODIPINE 30 MG CAPS 633955 NIMODIPINE Inactive COLACE 100 MG CAPS Take one by mouth daily COLACE 100 MG CAPS 5439102 DOCUSATE SODIUM Inactive ZOLPIDEM TARTRATE 10 MG TABS take one tab po daily ZOLPIDEM TARTRATE 10 MG TABS 491505 ZOLPIDEM TARTRATE Inactive MELOXICAM 15 MG TABS 1 po q day for pain with food MELOXICAM 15 MG TABS 935150 MELOXICAM Inactive FUROSEMIDE 40 MG TAB 1 tablet by mouth daily FUROSEMIDE 40 MG TAB 061144 FUROSEMIDE Inactive NAPROXEN 500 MG TAB 1 by mouth twice a day NAPROXEN 500 MG TAB 568807 NAPROXEN Inactive SULFAMETHOXAZOLE-TMP DS 800-160 MG TABS take one tab po bid x 7 days SULFAMETHOXAZOLE-TMP DS 800-160 MG TABS SULFAMETHOXAZOLE- TRIMETHOPRIM Inactive HYDROCODONE-ACETAMINOPHEN 10-325 MG TABS 1 tab po q4-6 hrs prn HYDROCODONE-ACETAMINOPHEN 10-325 MG TABS 577047 HYDROCODONE- ACETAMINOPHEN Inactive CITALOPRAM HYDROBROMIDE 20 MG TABS take one tab po daily CITALOPRAM HYDROBROMIDE 20 MG TABS 322499 CITALOPRAM HYDROBROMIDE Inactive LUNESTA 2 MG TABS take one tab po qhs LUNESTA 2 MG TABS 606823 ESZOPICLONE Inactive LORAZEPAM 0.5 MG TAB 1 tab po q8 hrs and 2 tabs at bedtime 07/03 LORAZEPAM 0.5 MG TAB 688727 LORAZEPAM Inactive SUMATRIPTAN SUCCINATE 100 MG TABS as directed SUMATRIPTAN SUCCINATE 100 MG TABS 470667 SUMATRIPTAN SUCCINATE Inactive IMITREX TABS Take/use as needed. IMITREX TABS SUMATRIPTAN SUCCINATE TABS Inactive SERTRALINE HCL 50 MG TABS 1 daily for mood SERTRALINE HCL 50 MG TABS 518343 SERTRALINE HCL Inactive JANA ASPIRIN EC LOW DOSE 81 MG TBEC Take one by mouth daily JANA ASPIRIN EC LOW DOSE 81 MG TBEC 993392 ASPIRIN Inactive METHOCARBAMOL 750 MG TABS 1 po q8hr PRN spasm and neck pain 06/12 METHOCARBAMOL 750 MG TABS 342267 METHOCARBAMOL Inactive NYSTATIN 922546 UNIT/ML SUSP Swish and swallow 5ml four times a day until yeast is clear. NYSTATIN 880130 UNIT/ML SUSP 065904 NYSTATIN Inactive CIPRO 250 MG TAB 1 tablet by mouth twice daily x 5 days. CIPRO 250 MG TAB 407864 CIPROFLOXACIN HCL Inactive LIDODERM 5 % PTCH apply to affected area for 12 hours LIDODERM 5 % PTCH 5019718 LIDOCAINE Inactive FUROSEMIDE 20 MG TAB 1 tablet by mouth daily FUROSEMIDE 20 MG TAB 441074 FUROSEMIDE Inactive IMITREX 100 MG TABS TAKE 1 TABLET AT THE ONSET OF HEADACHE MAY REPEAT IN 2 HRS IF NEEDED IMITREX 100 MG TABS 486383 SUMATRIPTAN SUCCINATE Inactive DICLOFENAC SODIUM 75 MG TBEC take one tab po bid DICLOFENAC SODIUM 75 MG TBEC 637427 DICLOFENAC SODIUM Inactive DICLOFENAC SODIUM 1.5 % TRANS SOLN 40 drops applied to each knee 4 times a day DICLOFENAC SODIUM 1.5 % TRANS SOLN 299861 DICLOFENAC SODIUM Inactive MACROBID 100 MG ORAL CAPS MACROBID 100 MG ORAL CAPS 754275 NITROFURANTOIN MONOHYD MACRO Inactive LISINOPRIL 20 MG TABS 1 tablet by mouth daily for blood pressure LISINOPRIL 20 MG TABS 007609 LISINOPRIL Inactive TESSALON PERLES 100 MG CAP 1 tablet by mouth 3 times daily 09/25 TESSALON PERLES 100 MG CAP 288565 BENZONATATE Inactive CIPRO 250 MG TAB 1 tablet by mouth twice daily CIPRO 250 MG TAB 362235 CIPROFLOXACIN HCL Inactive PYRIDIUM 200 MG TAB 1 po TID PRN Dysuria PYRIDIUM 200 MG TAB 9269576 PHENAZOPYRIDINE HCL Inactive CIPROFLOXACIN HCL 250 MG TABS 1 twice a day for 3 days for urinary infection CIPROFLOXACIN HCL 250 MG TABS 611712 CIPROFLOXACIN HCL Inactive MACROBID 100 MG CAP 1 cap by mouth twice daily x 7 days. MACROBID 100 MG CAP 052151 NITROFURANTOIN MONOHYD MACRO Inactive Advance Directives Directive Description Start Date PERMISSION TO SHARE Immunizations Vaccine Administration Date Value Standard Description Seasonal influenza vaccine, injectable, containing preservative, for > 3 years old (Afluria, FluLaval, Fluzone, Fluvirin, Fluarix, Agriflu(>=18 yo)) Fluzone (>3 yrs.) [[id number]] Influenza, seasonal, injectable Vital Signs Date Name [...] Rate - Chemistry sodium, serum 137 mmol/L 313-600 5708/02/06 potassium, serum 4.6 mmol/L 3.5-5.2 chloride, serum 101 mmol/L 98-107 carbon dioxide, venous blood 26.3 mmol/L 21.0-32.0 blood glucose 86 mg/dL 65-110 calcium, serum 9.3 mg/dL 8.5-10.1 urea nitrogen, blood 25 mg/dL 7-18 creatinine, serum 1.10 mg/dL 0.60-1.30 Lab Report: Comp. Metabolic Panel, CBC - Chemistry sodium, serum 140 mmol/L 355-137 9807/09/23 potassium, serum 4.7 mmol/L 3.5-5.2 chloride, serum [...] Panel - Chemistry cholesterol, serum 197 mg/dL 925-401 6761/09/25 triglyceride, serum, fasting 48 mg/dL 30-200 HDL [...] 5.0-8.5 Encounters Code Encounter Date Provider Facility CPT-59455 Level 4 Est. Patient 10:00:23 LIQUID SUGAR FORTIFIER Chad Guardado MD [facility] CPT-32584 Level 4 Est. Patient 11:35:05 [employer]IER Chad Guardado MD [facility] CPT-20970 Level 3 Est. Patient 14:50:08 [employer]IER Paras Nunez DO [facility] CPT-54757 Level 3 Est. Patient 15:11:25 LI[employer] FORTIFIER Chad Guardado MD [facility] CPT-57414 Level 3 Est. Patient 17:38:05 [employer] FORTIFIER Chad Guardado MD [facility] CPT-63201 Level 3 Est. Patient 15:35:54 [employer] Sparkle Castro APRN [facility] CPT-74752 Level 4 Est. Patient 09:41:26 [employer] FORTIFIER Chad Guardado MD [facility] CPT-19268 Level 4 Est. Patient 16:16:11 CDT Chad Guardado MD [facility] CPT-03335 Level 3 Est. Patient 12:46:41 CDT Chad Guardado MD [facility] CPT-41567 Level 3 Est. Patient 17:26:51 CDT Chad Guardado MD [facility] CPT-30440 Level 4 New Patient 13:59:42 CDT Chad Guardado MD [facility] CPT-58729 Level 4 Est. Patient 20:23:44 [employer] Broderick Solares MD [facility] CPT-81632 Level 3 Est. Patient 14:43:04 [employer]IER Broderick Solares MD [facility] CPT-91611 Level 3 Est. Patient 10:05:53 [employer] Sachin Wasserman MD [facility] CPT-27734 Level 3 Est. Patient 14:35:17 CDT Daisy PAZ [facility] CPT-31128 Level 3 Est. Patient 10:59:26 CDT Daisy [facility] CPT-67963 Level 3 Est. Patient 15:41:02 CDT Daisy [facility] CPT-70699 Level 3 Est. Patient 16:41:25 CDT Daisy [facility] CPT-55564 Level 3 New Patient 14:47:15 CDT Daisy [facility] Procedures Code Procedure Name Date Entry Date Standard Description CPT-54689 T spine AP/Lat w sw V 10:39:20 [employer] CPT-J1885 Toradol 60 mg (Ketorolac) 14:59:26 [employer] CPT-11168 Abx/Therapy Injection 14:59:26 [employer]QUID [employer] FOR[employer] CPT-J1885 Toradol 60 mg 14:50:08 [employer] CPT-91713 C-Spine Min 4V 12:56:08 [employer] CPT-37817 Immunization Single Admin 09:23:37 CDT CPT-31760 Tdap Vaccine 09:23:37 CDT CPT-22504 Fluzone Quadrivalent Intramuscular Suspension 0.5 ML 20: 47:45 CDT CPT-19556 Ankle Complete - Min 3V 12:29:38 CDT CPT-01040 Forearm AP and Lat 10:01:39 [employer] CPT-37047 Knee 3V 13:56:38 CDT CPT-85281 Administration single or combination vaccine inc oral 11 :50:16 CDT CPT-96040 Influenza split virus > age 3 11:50:16 CDT
--- OUTSIDE RECORDS SUMMARY | 2018-09-24 01:43 | XMS REPORT | Clinical Summary ---
Author Author Admin, MADDY Organization [facility] Address Unknown Phone Unavailable Allergies, Adverse Reactions, Alerts Allergy Name Reaction Description Start Date Severity Status Provider AMITRIPTYLINE HCL Hair loss and nightmares Moderate Active Chad Guardado MD IVP DYE Critical Active Chad Guardado MD CODEINE nausea Moderate Active [facility] Conditions or Problems Problem Name Problem Code Onset Date Status Entry Date Provider Comment Standard Description Annotate ANEURYSM 442.9 [facility] Aneurysm of unspecified artery site ANXIETY DEPRESSION 300.4 Active [facility] Dysthymic disorder INSOMNIA 780.52 [facility] Insomnia, unspecified LOSS OF APPETITE 783.0 Active [facility] Anorexia CEPHALGIA 784.0 Active [facility] Headache ENCOUNTER FOR REMOVAL OF SUTURES V58.32 [facility]olved [facility] Encounter for removal of sutures NECK PAIN 723.1 Active [facility] Cervicalgia KNEE PAIN, BILATERAL 719.46 Active [facility] Pain in joint involving lower leg [...] elsewhere classified Cough 786.2 Active Sparkle Castro [employer] Cough Thrush 112.0 Active Chad Guardado MD [...] ASPIRIN 81 MG TABS 1 daily ASPIRIN 02663463932 Active Chad Guardado MD Active BUTRANS 10 MCG/HR TRANS PTWK apply every 7 days BUPRENORPHINE 28558568796 Active Chad Guardado MD Active TESSALON PERLES 100 MG CAP 1 tablet by mouth 3 times daily 09/25 BENZONATATE 97187206555 No Longer Active Chad Guardado MD Active LISINOPRIL 20 MG TABS 1 tablet by mouth daily for blood pressure LISINOPRIL 44314932519 No Longer Active Chad Guardado MD Active MACROBID 100 MG ORAL CAPS NITROFURANTOIN MONOHYD MACRO 72344522587 No Longer Active Chad Guardado MD Active DICLOFENAC SODIUM 1.5 % TRANS SOLN 40 drops applied to each knee 4 times a day DICLOFENAC SODIUM 54873630981 No Longer Active Fallon Smith [employer]ORDINATOR [employer] Active DICLOFENAC SODIUM 75 MG TBEC take one tab po bid DICLOFENAC SODIUM 83479293714 No Longer Active Fallon Smith [employer] Active IMITREX 100 MG TABS TAKE 1 TABLET AT THE ONSET OF HEADACHE MAY REPEAT IN 2 HRS IF NEEDED SUMATRIPTAN SUCCINATE 78912294052 No Longer Active Chad Guardado MD Active FUROSEMIDE 20 MG TAB 1 tablet by mouth daily FUROSEMIDE 62807578289 No Longer Active Paras Nunez DO Active LIDODERM 5 % PTCH apply to affected area for 12 hours LIDOCAINE 50864228455 No Longer Active Paras Nunez DO Active MACROBID 100 MG CAP 1 cap by mouth twice daily x 7 days. NITROFURANTOIN MONOHYD MACRO 48163839123 No Longer Active Chad Guardado MD Active CIPRO 250 MG TAB 1 tablet by mouth twice daily x 5 days. CIPROFLOXACIN HCL 75815747260 No Longer Active Chad Guardado MD Active TRAMADOL HCL 50 MG TABS 1-2 tablets every 6 hours as needed for pain TRAMADOL HCL 66416736768 Active Sparkle Yomarisolum [employer] Active NYSTATIN 833869 UNIT/ML SUSP Swish and swallow 5ml four times a day until yeast is clear. NYSTATIN 77367935333 No Longer Active Chad Guardado MD Active CITALOPRAM HYDROBROMIDE 40 MG TABS 1 daily for depression/anxiety CITALOPRAM HYDROBROMIDE 77625621982 Active Chad Guardado MD Active DEPAKOTE 250 MG TBEC 1 twice a day to prevent headaches DIVALPROEX SODIUM 24039828289 Active Chad Guardado MD Active CYCLOBENZAPRINE HCL 10 MG TABS 1 at bedtime for muscle tightness CYCLOBENZAPRINE HCL 51100210024 Active Chad Guardado MD Active METHOCARBAMOL 750 MG TABS 1 po q8hr PRN spasm and neck pain 06/12 METHOCARBAMOL 35280719771 No Longer Active Chad Guardado MD Active JANA ASPIRIN EC LOW DOSE 81 MG TBEC Take one by mouth daily ASPIRIN 54550031279 No Longer Active Chad Guardado MD Active HYDROCODONE-ACETAMINOPHEN 7.5-325 MG TABS 1 three times a day as needed for pain HYDROCODONE-ACETAMINOPHEN 40794816274 No Longer Active Chad Guardado MD Active CIPROFLOXACIN HCL 250 MG TABS 1 twice a day for 3 days for urinary infection CIPROFLOXACIN HCL 76108579743 No Longer Active Chad Guardado MD Active IMITREX 6 MG/0.5ML SOLN Take as directed SUMATRIPTAN SUCCINATE 61961117421 Active Sparkle Castro APRN Active SERTRALINE HCL 50 MG TABS 1 daily for mood SERTRALINE HCL 27266565652 No Longer Active Chad Guardado MD Active IMITREX TABS Take/use as needed. SUMATRIPTAN SUCCINATE TABS 81967119504 No Longer Active Jaylyn DACOSTA Active SUMATRIPTAN SUCCINATE 100 MG TABS as directed SUMATRIPTAN SUCCINATE 70276134515 No Longer Active Nedra Cramer Active LORAZEPAM 0.5 MG TAB 1 tab po q8 hrs and 2 tabs at bedtime 07/03 LORAZEPAM 85983189466 No Longer Active Nedra Shoaib Active PYRIDIUM 200 MG TAB 1 po TID PRN Dysuria PHENAZOPYRIDINE HCL 96942832272 No Longer Active Sachin Wasserman MD Active CIPRO 250 MG TAB 1 tablet by mouth twice daily CIPROFLOXACIN HCL 47025991990 No Longer Active Sachin Wasserman MD Active LUNESTA 2 MG TABS take one tab po qhs ESZOPICLONE 95075901050 No Longer Active Broderick Solares MD Active CITALOPRAM HYDROBROMIDE 20 MG TABS take one tab po daily CITALOPRAM HYDROBROMIDE 28622703500 No Longer Active Broderick Solares MD Active HYDROCODONE-ACETAMINOPHEN 10-325 MG TABS 1 tab po q4-6 hrs prn HYDROCODONE-ACETAMINOPHEN 86254981109 No Longer Active Broderick Solares MD Active SULFAMETHOXAZOLE-TMP DS 800-160 MG TABS take one tab po bid x 7 days SULFAMETHOXAZOLE-TRIMETHOPRIM 56849967534 No Longer Active Broderick Solares MD Active NAPROXEN 500 MG TAB 1 by mouth twice a day NAPROXEN 17215281913 No Longer Active [facility] PA Active FUROSEMIDE 40 MG TAB 1 tablet by mouth daily FUROSEMIDE 11911219509 No Longer Active [facility] PA Active MELOXICAM 15 MG TABS 1 po q day for pain with food MELOXICAM 04159727893 No Longer Active [facility] PA Active ZOLPIDEM TARTRATE 10 MG TABS take one tab po daily ZOLPIDEM TARTRATE 75528824024 No Longer Active [facility] PA Active COLACE 100 MG CAPS Take one by mouth daily DOCUSATE SODIUM 91454737277 No Longer Active [facility] PA Active NIMODIPINE 30 MG CAPS 1 every 2 hours NIMODIPINE 15236004233 No Longer Active [facility] PA Active ZOFRAN ODT 4 MG TBDP 1 po q6hr PRN Nausea ONDANSETRON 74567795284 No Longer Active [facility] Active MAGNESIUM OXIDE 400 MG TABS Take one by mouth daily MAGNESIUM OXIDE 45483766676 No Longer Active [facility] PA Active MAGNESIUM OXIDE 400 MG TABS Take one by mouth daily MAGNESIUM OXIDE 400 MG TABS 848017 MAGNESIUM OXIDE Inactive ZOFRAN ODT 4 MG TBDP 1 po q6hr PRN Nausea ZOFRAN ODT 4 MG TBDP 518549 ONDANSETRON Inactive NIMODIPINE 30 MG CAPS 1 every 2 hours NIMODIPINE 30 MG CAPS 271327 NIMODIPINE Inactive COLACE 100 MG CAPS Take one by mouth daily COLACE 100 MG CAPS 8415257 DOCUSATE SODIUM Inactive ZOLPIDEM TARTRATE 10 MG TABS take one tab po daily ZOLPIDEM TARTRATE 10 MG TABS 155690 ZOLPIDEM TARTRATE Inactive MELOXICAM 15 MG TABS 1 po q day for pain with food MELOXICAM 15 MG TABS 115127 MELOXICAM Inactive FUROSEMIDE 40 MG TAB 1 tablet by mouth daily FUROSEMIDE 40 MG TAB 301130 FUROSEMIDE Inactive NAPROXEN 500 MG TAB 1 by mouth twice a day NAPROXEN 500 MG TAB 432426 NAPROXEN Inactive SULFAMETHOXAZOLE-TMP DS 800-160 MG TABS take one tab po bid x 7 days SULFAMETHOXAZOLE-TMP DS 800-160 MG TABS SULFAMETHOXAZOLE- TRIMETHOPRIM Inactive HYDROCODONE-ACETAMINOPHEN 10-325 MG TABS 1 tab po q4-6 hrs prn HYDROCODONE-ACETAMINOPHEN 10-325 MG TABS 735847 HYDROCODONE- ACETAMINOPHEN Inactive CITALOPRAM HYDROBROMIDE 20 MG TABS take one tab po daily CITALOPRAM HYDROBROMIDE 20 MG TABS 708024 CITALOPRAM HYDROBROMIDE Inactive LUNESTA 2 MG TABS take one tab po qhs LUNESTA 2 MG TABS 262748 ESZOPICLONE Inactive LORAZEPAM 0.5 MG TAB 1 tab po q8 hrs and 2 tabs at bedtime 07/03 LORAZEPAM 0.5 MG TAB 077530 LORAZEPAM Inactive SUMATRIPTAN SUCCINATE 100 MG TABS as directed SUMATRIPTAN SUCCINATE 100 MG TABS 883767 SUMATRIPTAN SUCCINATE Inactive IMITREX TABS Take/use as needed. IMITREX TABS SUMATRIPTAN SUCCINATE TABS Inactive SERTRALINE HCL 50 MG TABS 1 daily for mood SERTRALINE HCL 50 MG TABS 091815 SERTRALINE HCL Inactive JANA ASPIRIN EC LOW DOSE 81 MG TBEC Take one by mouth daily JANA ASPIRIN EC LOW DOSE 81 MG TBEC 745205 ASPIRIN Inactive METHOCARBAMOL 750 MG TABS 1 po q8hr PRN spasm and neck pain 06/12 METHOCARBAMOL 750 MG TABS 494769 METHOCARBAMOL Inactive NYSTATIN 370475 UNIT/ML SUSP Swish and swallow 5ml four times a day until yeast is clear. NYSTATIN 033082 UNIT/ML SUSP 667712 NYSTATIN Inactive CIPRO 250 MG TAB 1 tablet by mouth twice daily x 5 days. CIPRO 250 MG TAB 104465 CIPROFLOXACIN HCL Inactive LIDODERM 5 % PTCH apply to affected area for 12 hours LIDODERM 5 % PTCH 6255362 LIDOCAINE Inactive FUROSEMIDE 20 MG TAB 1 tablet by mouth daily FUROSEMIDE 20 MG TAB 534412 FUROSEMIDE Inactive IMITREX 100 MG TABS TAKE 1 TABLET AT THE ONSET OF HEADACHE MAY REPEAT IN 2 HRS IF NEEDED IMITREX 100 MG TABS 531237 SUMATRIPTAN SUCCINATE Inactive DICLOFENAC SODIUM 75 MG TBEC take one tab po bid DICLOFENAC SODIUM 75 MG TBEC 842451 DICLOFENAC SODIUM Inactive DICLOFENAC SODIUM 1.5 % TRANS SOLN 40 drops applied to each knee 4 times a day DICLOFENAC SODIUM 1.5 % TRANS SOLN 367544 DICLOFENAC SODIUM Inactive MACROBID 100 MG ORAL CAPS MACROBID 100 MG ORAL CAPS 238550 NITROFURANTOIN MONOHYD MACRO Inactive LISINOPRIL 20 MG TABS 1 tablet by mouth daily for blood pressure LISINOPRIL 20 MG TABS 764787 LISINOPRIL Inactive TESSALON PERLES 100 MG CAP 1 tablet by mouth 3 times daily 09/25 TESSALON PERLES 100 MG CAP 463679 BENZONATATE Inactive CIPRO 250 MG TAB 1 tablet by mouth twice daily CIPRO 250 MG TAB 657558 CIPROFLOXACIN HCL Inactive PYRIDIUM 200 MG TAB 1 po TID PRN Dysuria PYRIDIUM 200 MG TAB 8731760 PHENAZOPYRIDINE HCL Inactive CIPROFLOXACIN HCL 250 MG TABS 1 twice a day for 3 days for urinary infection CIPROFLOXACIN HCL 250 MG TABS 405952 CIPROFLOXACIN HCL Inactive MACROBID 100 MG CAP 1 cap by mouth twice daily x 7 days. MACROBID 100 MG CAP 498848 NITROFURANTOIN MONOHYD MACRO Inactive Advance Directives Directive Description Start Date PERMISSION TO SHARE Immunizations Vaccine Administration Date Value Standard Description Seasonal influenza vaccine, injectable, containing preservative, for > 3 years old (Afluria, FluLaval, Fluzone, Fluvirin, Fluarix, Agriflu(>=18 yo)) Fluzone (>3 yrs.) [[id number]] Influenza, seasonal, injectable Vital Signs Date Name [...] Rate - Chemistry sodium, serum 137 mmol/L 035-396 5245/02/06 potassium, serum 4.6 mmol/L 3.5-5.2 chloride, serum 101 mmol/L 98-107 carbon dioxide, venous blood 26.3 mmol/L 21.0-32.0 blood glucose 86 mg/dL 65-110 calcium, serum 9.3 mg/dL 8.5-10.1 urea nitrogen, blood 25 mg/dL 7-18 creatinine, serum 1.10 mg/dL 0.60-1.30 Lab Report: Comp. Metabolic Panel, CBC - Chemistry sodium, serum 140 mmol/L 729-586 8434/09/23 potassium, serum 4.7 mmol/L 3.5-5.2 chloride, serum [...] Panel - Chemistry cholesterol, serum 197 mg/dL 076-902 0216/09/25 triglyceride, serum, fasting 48 mg/dL 30-200 HDL [...] 5.0-8.5 Encounters Code Encounter Date Provider Facility CPT-66909 Level 4 Est. Patient 10:00:23 POKER SUPERVISOR Chad Guardado MD [facility] CPT-42442 Level 4 Est. Patient 11:35:05 POKER SUPERVISOR Chad Guardado MD [facility] CPT-12514 Level 3 Est. Patient 14:50:08 POKER SUPERVISOR Paras Nunez DO [facility]-58205 Level 3 Est. Patient 15:11:25 POKER SUPERVISOR Chad Guardado MD [facility] CPT-77872 Level 3 Est. Patient 17:38:05 POKER SUPERVISOR Chad Guardado MD [facility] CPT-26009 Level 3 Est. Patient 15:35:54 POKER SUPERVISOR Sparkle Castro APRN [facility] CPT-00828 Level 4 Est. Patient 09:41:26 POKER SUPERVISOR Chad Guardado MD [facility] CPT-18471 Level 4 Est. Patient 16:16:11 CDT Chad Guardado MD [facility] CPT-70710 Level 3 Est. Patient 12:46:41 CDT Chad Guardado MD [facility] CPT-69229 Level 3 Est. Patient 17:26:51 CDT Chad Guardado MD [facility] CPT-89783 Level 4 New Patient 13:59:42 CDT Chad Guardado MD [facility] CPT-32207 Level 4 Est. Patient 20:23:44 POKER SUPERVISOR Broderick Solares MD [facility] CPT-54716 Level 3 Est. Patient 14:43:04 POKER SUPERVISOR Broderick Solares MD [facility] CPT-29091 Level 3 Est. Patient 10:05:53 POKER SUPERVISOR Sachin Wasserman MD [facility] CPT-13940 Level 3 Est. Patient 14:35:17 CDT [facility] CPT-79070 Level 3 Est. Patient 10:59:26 CDT [facility] CPT-08625 Level 3 Est. Patient 15:41:02 CDT [facility] CPT-26965 Level 3 Est. Patient 16:41:25 CDT [facility] CPT-81330 Level 3 New Patient 14:47:15 CDT [facility] Procedures Code Procedure Name Date Entry Date Standard Description CPT-72265 T spine AP/Lat w sw V 10:39:20 POKER SUPERVISOR CPT-J1885 Toradol 60 mg (Ketorolac) 14:59:26 POKER SUPERVISOR CPT-85065 Abx/Therapy Injection 14:59:26 POKER SUPERVISOR CPT-J1885 Toradol 60 mg 14:50:08 POKER SUPERVISOR CPT-63443 C-Spine Min 4V 12:56:08 [employer]OKER SUPERVIS[employer] CPT-68644 Immunization Single Admin 09:23:37 CDT CPT-12161 Tdap Vaccine 09:23:37 CDT CPT-42829 Fluzone Quadrivalent Intramuscular Suspension 0.5 ML 20: 47:45 CDT CPT-22276 Ankle Complete - Min 3V 12:29:38 CDT CPT-16068 Forearm AP and Lat 10:01:39 [employer]OKER SUPER[employer] CPT-64067 Knee 3V 13:56:38 CDT CPT-89280 Administration single or combination vaccine inc oral 11 :50:16 CDT CPT-79716 Influenza split virus > age 3 11:50:16 CDT
--- OUTSIDE RECORDS SUMMARY | 2018-09-24 01:44 | XMS REPORT | Clinical Summary ---
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.9 [facility] Aneurysm of unspecified artery site ANXIETY DEPRESSION 300.4 Active [facility] Dysthymic disorder INSOMNIA 780.52 [facility] Insomnia, unspecified LOSS OF APPETITE 783.0 [facility] Anorexia CEPHALGIA 784.0 Active [facility] Headache ENCOUNTER FOR REMOVAL OF SUTURES V58.32 Resolved [facility] [place] [facility] Encounter for removal of sutures NECK PAIN 723.1 Active [facility] Cervicalgia KNEE PAIN, BILATERAL 719.46 Active [facility] [place] [facility] Pain in joint involving lower leg [...] elsewhere classified 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 786.2 Active 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 Cough Thrush 112.0 Active Chad Guardado [...] ASPIRIN 81 MG TABS 1 daily ASPIRIN 82247221939 Active Chad Guardado MD Active BUTRANS 10 MCG/HR TRANS PTWK apply every 7 days BUPRENORPHINE 43815246877 Active Chad Guardado MD Active TESSALON PERLES 100 MG CAP 1 tablet by mouth 3 times daily 09/25 BENZONATATE 46322092253 No Longer Active Chad Guardado MD Active LISINOPRIL 20 MG TABS 1 tablet by mouth daily for blood pressure LISINOPRIL 89924634112 No Longer Active Chad Guardado MD Active MACROBID 100 MG ORAL CAPS NITROFURANTOIN MONOHYD MACRO 29810715038 No Longer Active Chad Guardado MD Active DICLOFENAC SODIUM 1.5 % TRANS SOLN 40 drops applied to each knee 4 times a day DICLOFENAC SODIUM 47412418620 No Longer Active Fallon Smith DEMONSTRATOR SEWING TECHNIQUES Active DICLOFENAC SODIUM 75 MG TBEC take one tab po bid DICLOFENAC SODIUM 75220376795 No Longer Active Fallon Smith LPN Active IMITREX 100 MG TABS TAKE 1 TABLET AT THE ONSET OF HEADACHE MAY REPEAT IN 2 HRS IF NEEDED SUMATRIPTAN SUCCINATE 34063043423 No Longer Active Chad Guardado MD Active FUROSEMIDE 20 MG TAB 1 tablet by mouth daily FUROSEMIDE 54707943544 No Longer Active Paras Nunez DO Active LIDODERM 5 % PTCH apply to affected area for 12 hours LIDOCAINE 53382484181 No Longer Active Paras Nunez DO Active MACROBID 100 MG CAP 1 cap by mouth twice daily x 7 days. NITROFURANTOIN MONOHYD MACRO 69074873830 No Longer Active Chad Guardado MD Active CIPRO 250 MG TAB 1 tablet by mouth twice daily x 5 days. CIPROFLOXACIN HCL 26969364252 No Longer Active Chad Guardado MD Active TRAMADOL HCL 50 MG TABS 1-2 tablets every 6 hours as needed for pain TRAMADOL HCL 63415346846 Active Chad Guardado MD Active NYSTATIN 177632 UNIT/ML SUSP Swish and swallow 5ml four times a day until yeast is clear. NYSTATIN 53116731378 No Longer Active Chad Guardado MD Active CITALOPRAM HYDROBROMIDE 40 MG TABS 1 daily for depression/anxiety CITALOPRAM HYDROBROMIDE 60086068931 Active Chad Guardado MD Active DEPAKOTE 250 MG TBEC 1 twice a day to prevent headaches DIVALPROEX SODIUM 85325688999 Active Chad Guardado MD Active CYCLOBENZAPRINE HCL 10 MG TABS 1 at bedtime for muscle tightness CYCLOBENZAPRINE HCL 04353881158 Active Chad Guardado MD Active METHOCARBAMOL 750 MG TABS 1 po q8hr PRN spasm and neck pain 06/12 METHOCARBAMOL 91038403236 No Longer Active Chad Guardado MD Active JANA ASPIRIN EC LOW DOSE 81 MG TBEC Take one by mouth daily ASPIRIN 69644726800 No Longer Active Chad Guardado MD Active HYDROCODONE-ACETAMINOPHEN 7.5-325 MG TABS 1 three times a day as needed for pain HYDROCODONE-ACETAMINOPHEN 71520504519 No Longer Active Chad Guardado MD Active CIPROFLOXACIN HCL 250 MG TABS 1 twice a day for 3 days for urinary infection CIPROFLOXACIN HCL 88485238978 No Longer Active Chad Guardado MD Active IMITREX 6 MG/0.5ML SOLN Take as directed SUMATRIPTAN SUCCINATE 96713887121 Active 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 Active SERTRALINE HCL 50 MG TABS 1 daily for mood SERTRALINE HCL 52912768847 No Longer Active Chad Guardado MD Active IMITREX TABS Take/use as needed. SUMATRIPTAN SUCCINATE TABS 03666847763 No Longer Active Jaylyn DACOSTA Active SUMATRIPTAN SUCCINATE 100 MG TABS as directed SUMATRIPTAN SUCCINATE 50250871255 No Longer Active Nedra Cramer Active LORAZEPAM 0.5 MG TAB 1 tab po q8 hrs and 2 tabs at bedtime 07/03 LORAZEPAM 08358229711 No Longer Active Nedra Cramer Active PYRIDIUM 200 MG TAB 1 po TID PRN Dysuria PHENAZOPYRIDINE HCL 42880353355 No Longer Active Sachin Wasserman MD Active CIPRO 250 MG TAB 1 tablet by mouth twice daily CIPROFLOXACIN HCL 67465891916 No Longer Active Sachin Wasserman MD Active LUNESTA 2 MG TABS take one tab po qhs ESZOPICLONE 03588069379 No Longer Active Broderick Solares MD Active CITALOPRAM HYDROBROMIDE 20 MG TABS take one tab po daily CITALOPRAM HYDROBROMIDE 94634606745 No Longer Active Broderick Solares MD Active HYDROCODONE-ACETAMINOPHEN 10-325 MG TABS 1 tab po q4-6 hrs prn HYDROCODONE-ACETAMINOPHEN 77075879819 No Longer Active Broderick Solares MD Active SULFAMETHOXAZOLE-TMP DS 800-160 MG TABS take one tab po bid x 7 days SULFAMETHOXAZOLE-TRIMETHOPRIM 32779214392 No Longer Active Broderick Solares MD Active NAPROXEN 500 MG TAB 1 by mouth twice a day NAPROXEN 16374627897 No Longer Active Daisy Pool PA Active FUROSEMIDE 40 MG TAB 1 tablet by mouth daily FUROSEMIDE 27939860167 No Longer Active Daisy Pool PA Active MELOXICAM 15 MG TABS 1 po q day for pain with food MELOXICAM 56789111606 No Longer Active Daisy Pool PA Active ZOLPIDEM TARTRATE 10 MG TABS take one tab po daily ZOLPIDEM TARTRATE 28553389810 No Longer Active Adisy Pool PA Active COLACE 100 MG CAPS Take one by mouth daily DOCUSATE SODIUM 25649165157 No Longer Active Daisy Pool PA Active NIMODIPINE 30 MG CAPS 1 every 2 hours NIMODIPINE 26172213783 No Longer Active Daisy Pool PA Active ZOFRAN ODT 4 MG TBDP 1 po q6hr PRN Nausea ONDANSETRON 82685696974 No Longer Active Daisy Pool PA Active MAGNESIUM OXIDE 400 MG TABS Take one by mouth daily MAGNESIUM OXIDE 52770865125 No Longer Active Daisy Pool PA Active MAGNESIUM OXIDE 400 MG TABS Take one by mouth daily MAGNESIUM OXIDE 400 MG TABS 416672 MAGNESIUM OXIDE Inactive ZOFRAN ODT 4 MG TBDP 1 po q6hr PRN Nausea ZOFRAN ODT 4 MG TBDP 512177 ONDANSETRON Inactive NIMODIPINE 30 MG CAPS 1 every 2 hours NIMODIPINE 30 MG CAPS 867569 NIMODIPINE Inactive COLACE 100 MG CAPS Take one by mouth daily COLACE 100 MG CAPS 5500565 DOCUSATE SODIUM Inactive ZOLPIDEM TARTRATE 10 MG TABS take one tab po daily ZOLPIDEM TARTRATE 10 MG TABS 243829 ZOLPIDEM TARTRATE Inactive MELOXICAM 15 MG TABS 1 po q day for pain with food MELOXICAM 15 MG TABS 230124 MELOXICAM Inactive FUROSEMIDE 40 MG TAB 1 tablet by mouth daily FUROSEMIDE 40 MG TAB 687648 FUROSEMIDE Inactive NAPROXEN 500 MG TAB 1 by mouth twice a day NAPROXEN 500 MG TAB 221631 NAPROXEN Inactive SULFAMETHOXAZOLE-TMP DS 800-160 MG TABS take one tab po bid x 7 days SULFAMETHOXAZOLE-TMP DS 800-160 MG TABS SULFAMETHOXAZOLE- TRIMETHOPRIM Inactive HYDROCODONE-ACETAMINOPHEN 10-325 MG TABS 1 tab po q4-6 hrs prn HYDROCODONE-ACETAMINOPHEN 10-325 MG TABS 952737 HYDROCODONE- ACETAMINOPHEN Inactive CITALOPRAM HYDROBROMIDE 20 MG TABS take one tab po daily CITALOPRAM HYDROBROMIDE 20 MG TABS 567730 CITALOPRAM HYDROBROMIDE Inactive LUNESTA 2 MG TABS take one tab po qhs LUNESTA 2 MG TABS 087734 ESZOPICLONE Inactive LORAZEPAM 0.5 MG TAB 1 tab po q8 hrs and 2 tabs at bedtime 07/03 LORAZEPAM 0.5 MG TAB 998718 LORAZEPAM Inactive SUMATRIPTAN SUCCINATE 100 MG TABS as directed SUMATRIPTAN SUCCINATE 100 MG TABS 579841 SUMATRIPTAN SUCCINATE Inactive IMITREX TABS Take/use as needed. IMITREX TABS SUMATRIPTAN SUCCINATE TABS Inactive SERTRALINE HCL 50 MG TABS 1 daily for mood SERTRALINE HCL 50 MG TABS 191449 SERTRALINE HCL Inactive JANA ASPIRIN EC LOW DOSE 81 MG TBEC Take one by mouth daily JANA ASPIRIN EC LOW DOSE 81 MG TBEC 496391 ASPIRIN Inactive METHOCARBAMOL 750 MG TABS 1 po q8hr PRN spasm and neck pain 06/12 METHOCARBAMOL 750 MG TABS 413712 METHOCARBAMOL Inactive NYSTATIN 789325 UNIT/ML SUSP Swish and swallow 5ml four times a day until yeast is clear. NYSTATIN 295527 UNIT/ML SUSP 108350 NYSTATIN Inactive CIPRO 250 MG TAB 1 tablet by mouth twice daily x 5 days. CIPRO 250 MG TAB 496537 CIPROFLOXACIN HCL Inactive LIDODERM 5 % PTCH apply to affected area for 12 hours LIDODERM 5 % PTCH 3024912 LIDOCAINE Inactive FUROSEMIDE 20 MG TAB 1 tablet by mouth daily FUROSEMIDE 20 MG TAB 699186 FUROSEMIDE Inactive IMITREX 100 MG TABS TAKE 1 TABLET AT THE ONSET OF HEADACHE MAY REPEAT IN 2 HRS IF NEEDED IMITREX 100 MG TABS 807155 SUMATRIPTAN SUCCINATE Inactive DICLOFENAC SODIUM 75 MG TBEC take one tab po bid DICLOFENAC SODIUM 75 MG TBEC 594384 DICLOFENAC SODIUM Inactive DICLOFENAC SODIUM 1.5 % TRANS SOLN 40 drops applied to each knee 4 times a day DICLOFENAC SODIUM 1.5 % TRANS SOLN 848708 DICLOFENAC SODIUM Inactive MACROBID 100 MG ORAL CAPS MACROBID 100 MG ORAL CAPS 621425 NITROFURANTOIN MONOHYD MACRO Inactive LISINOPRIL 20 MG TABS 1 tablet by mouth daily for blood pressure LISINOPRIL 20 MG TABS 166109 LISINOPRIL Inactive TESSALON PERLES 100 MG CAP 1 tablet by mouth 3 times daily 09/25 TESSALON PERLES 100 MG CAP 648440 BENZONATATE Inactive CIPRO 250 MG TAB 1 tablet by mouth twice daily CIPRO 250 MG TAB 309812 CIPROFLOXACIN HCL Inactive PYRIDIUM 200 MG TAB 1 po TID PRN Dysuria PYRIDIUM 200 MG TAB 8512984 PHENAZOPYRIDINE HCL Inactive CIPROFLOXACIN HCL 250 MG TABS 1 twice a day for 3 days for urinary infection CIPROFLOXACIN HCL 250 MG TABS 062944 CIPROFLOXACIN HCL Inactive MACROBID 100 MG CAP 1 cap by mouth twice daily x 7 days. MACROBID 100 MG CAP 414072 NITROFURANTOIN MONOHYD MACRO Inactive Advance Directives Directive Description Start Date PERMISSION TO SHARE Immunizations Vaccine Administration Date Value Standard Description Seasonal influenza vaccine, injectable, containing preservative, for > 3 years old (Afluria, FluLaval, Fluzone, Fluvirin, Fluarix, Agriflu(>=18 yo)) Fluzone (>3 yrs.) [[id number]] Influenza, seasonal, injectable Vital Signs Date Name [...] Rate - Chemistry sodium, serum 137 mmol/L 567-849 2668/02/06 potassium, serum 4.6 mmol/L 3.5-5.2 chloride, serum 101 mmol/L 98-107 carbon dioxide, venous blood 26.3 mmol/L 21.0-32.0 blood glucose 86 mg/dL 65-110 calcium, serum 9.3 mg/dL 8.5-10.1 urea nitrogen, blood 25 mg/dL 7-18 creatinine, serum 1.10 mg/dL 0.60-1.30 Lab Report: Comp. Metabolic Panel, CBC - Chemistry urea nitrogen, blood 18 mg/dL 7-18 creatinine, [...] mmol/L 98-107 potassium, serum 4.7 mmol/L 3.5-5.2 sodium, serum 140 mmol/L 136-145 Lab Report: Comp. Metabolic Panel, CBC - [...] Panel - Chemistry cholesterol, serum 197 mg/dL [phone]/09/25 triglyceride, serum, fasting 48 mg/dL 30-200 HDL [...] 5.0-8.5 Encounters Code Encounter Date Provider Facility CPT-87465 Level 4 Est. 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 Patient 11:35:05 HOT BILLET SHEAR OPERATOR Chad Guardado MD [facility] [place]-59343 Level 3 Est. Patient 14:50:08 HOT BILLET SHEAR OPERATOR Paras Nunez DO [facility] [place]-95166 Level 3 Est. Patient 15:11:25 HOT BILLET SHEAR OPERATOR Chad Guardado MD [facility]-12839 Level 3 Est. Patient 17:38:05 HOT BILLET SHEAR OPERATOR Chad Guardado MD [facility] [place]-08375 Level 3 Est. Patient 15:35:54 HOT BILLET SHEAR OPERATOR Sparkle Castro APRN [facility] [place]-98044 Level 4 Est. Patient 09:41:26 HOT BILLET SHEAR OPERATOR Chad Guardado MD [facility] [place]-65688 Level 4 Est. Patient 16:16:11 CDT Chad Guardado MD [facility] [place]-61099 Level 3 Est. Patient 12:46:41 CDT Chad Guardado MD [facility] [place]-70524 Level 3 Est. Patient 17:26:51 CDT Chad Guardado MD [facility] CPT-20529 Level 4 New Patient 13:59:42 CDT Chad Guardado MD [facility] [place]-63961 Level 4 Est. Patient 20:23:44 HOT BILLET SHEAR OPERATOR Broderick Solares MD [facility] [place]-97773 Level 3 Est. Patient 14:43:04 HOT BILLET SHEAR OPERATOR Broderick Solares MD [facility] CPT-21774 Level 3 Est. Patient 10:05:53 HOT BILLET SHEAR OPERATOR Sachin Wasserman MD [facility] CPT-06144 Level 3 Est. Patient 14:35:17 CDT Daisy [facility] CPT-70252 Level 3 Est. Patient 10:59:26 CDT Daisy [facility] CPT-97899 Level 3 Est. Patient 15:41:02 CDT Daisy [facility] CPT-27185 Level 3 Est. Patient 16:41:25 CDT Daisy [facility] CPT-23877 Level 3 New Patient 14:47:15 CDT [facility] Procedures Code Procedure Name Date Entry Date Standard Description CPT-62116 T spine AP/Lat w sw V 10:39:20 HOT BILLET SHEAR OPERATOR CPT-J1885 Toradol 60 mg (Ketorolac) 14:59:26 HOT BILLET SHEAR OPERATOR CPT-26669 Abx/Therapy Injection 14:59:26 HOT BILLET SHEAR OPERATOR CPT-J1885 Toradol 60 mg 14:50:08 HOT BILLET SHEAR OPERATOR CPT-44635 C-Spine Min 4V 12:56:08 HOT BILLET SHEAR OPERATOR CPT-66043 Immunization Single Admin 09:23:37 CDT CPT-19009 Tdap Vaccine 09:23:37 CDT CPT-53343 Fluzone Quadrivalent Intramuscular Suspension 0.5 ML 20: 47:45 CDT CPT-49328 Ankle Complete - Min 3V 12:29:38 CDT CPT-82599 Forearm AP and Lat 10:01:39 HOT BILLET SHEAR OPERATOR CPT-93617 Knee 3V 13:56:38 CDT CPT-01861 Administration single or combination vaccine inc oral 11 :50:16 CDT CPT-68912 Influenza split virus > age 3 11:50:16 CDT
--- OUTSIDE RECORDS SUMMARY | 2018-09-24 01:44 | XMS REPORT | Clinical Summary ---
Author Author Admin, MADDY Organization [facility] Address Unknown Phone Unavailable Allergies, Adverse Reactions, Alerts Allergy Name Reaction Description Start Date Severity Status Provider AMITRIPTYLINE HCL Hair loss and nightmares Moderate Active Chad Guardado MD IVP DYE Critical Active Chad Guardado MD CODEINE nausea Moderate Active [facility] Conditions or Problems Problem Name Problem Code Onset Date Status Entry Date Provider Comment Standard Description Annotate ANEURYSM 442.9 [facility] Aneurysm of unspecified artery site ANXIETY DEPRESSION 300.4 Active [facility] Dysthymic disorder INSOMNIA 780.52 [facility] Insomnia, unspecified LOSS OF APPETITE 783.0 [facility] Anorexia CEPHALGIA 784.0 Active [facility] Headache ENCOUNTER FOR REMOVAL OF SUTURES V58.32 Resolved Daisy Huntington PA Encounter for removal of sutures NECK PAIN 723.1 Active [facility] Cervicalgia KNEE PAIN, BILATERAL 719.46 Active Daisy Huntington PA Pain in joint involving lower leg [...] elsewhere classified Cough 786.2 Active Sparkle Castro [employer] CHECK[employer] Cough Thrush 112.0 Active Chad Guardado MD [...] TAB 1 tablet by mouth daily FUROSEMIDE 46260526420 No Longer Active Paras Nunez DO Active LIDODERM 5 % PTCH apply to affected area for 12 hours LIDOCAINE 87298980596 No Longer Active Paras Nunez DO Active MACROBID 100 MG CAP 1 cap by mouth twice daily x 7 days. NITROFURANTOIN MONOHYD MACRO 70628241641 No Longer Active Chad Guardado MD Active CIPRO 250 MG TAB 1 tablet by mouth twice daily x 5 days. CIPROFLOXACIN HCL 87427628079 No Longer Active Chad Guardado MD Active LISINOPRIL 20 MG TABS 1 tablet by mouth daily for blood pressure LISINOPRIL 19742900552 Active Chad Guadrado MD Active TRAMADOL HCL 50 MG TABS 1-2 tablets every 6 hours as needed for pain TRAMADOL HCL 69747935493 Active Chad Guardado MD Active DICLOFENAC SODIUM 1.5 % TRANS SOLN 40 drops applied to each knee 4 times a day DICLOFENAC SODIUM 28796790752 Active Chad Guardado MD Active NYSTATIN 403146 UNIT/ML SUSP Swish and swallow 5ml four times a day until yeast is clear. NYSTATIN 97861739678 No Longer Active Chad Guardado MD Active TESSALON PERLES 100 MG CAP 1 tablet by mouth 3 times daily BENZONATATE 61296525823 Active Sparkle Castro JOB CHECKER Active CITALOPRAM HYDROBROMIDE 40 MG TABS 1 daily for depression/anxiety CITALOPRAM HYDROBROMIDE 75410143721 Active Chad Guardado MD Active DEPAKOTE 250 MG TBEC 1 twice a day to prevent headaches DIVALPROEX SODIUM 18396335220 Active Chad Guardado MD Active CYCLOBENZAPRINE HCL 10 MG TABS 1 at bedtime for muscle tightness CYCLOBENZAPRINE HCL 15762455673 Active Chad Guardado MD Active METHOCARBAMOL 750 MG TABS 1 po q8hr PRN spasm and neck pain 06/12 METHOCARBAMOL 47994420403 No Longer Active Chad Guardado MD Active JANA ASPIRIN EC LOW DOSE 81 MG TBEC Take one by mouth daily ASPIRIN 03530053172 No Longer Active Chad Guardado MD Active HYDROCODONE-ACETAMINOPHEN 7.5-325 MG TABS 1 three times a day as needed for pain HYDROCODONE-ACETAMINOPHEN 79732424441 Active Chad Guardado MD Active CIPROFLOXACIN HCL 250 MG TABS 1 twice a day for 3 days for urinary infection CIPROFLOXACIN HCL 94392867425 No Longer Active Chad Guardado MD Active IMITREX 6 MG/0.5ML SOLN Take as directed SUMATRIPTAN SUCCINATE 07666429982 Active Sparkle Matthewum JOB CHECKER Active SERTRALINE HCL 50 MG TABS 1 daily for mood SERTRALINE HCL 39296744363 No Longer Active Chad Guardado MD Active IMITREX 100 MG TABS TAKE 1 TABLET AT THE ONSET OF HEADACHE MAY REPEAT IN 2 HRS IF NEEDED SUMATRIPTAN SUCCINATE 82071532348 Active Sparkle Matthewum JOB CHECKER Active IMITREX TABS Take/use as needed. SUMATRIPTAN SUCCINATE TABS 41375416951 No Longer Active Jaylyn DACOSTA Active SUMATRIPTAN SUCCINATE 100 MG TABS as directed SUMATRIPTAN SUCCINATE 06691922630 No Longer Active Nedra Cramer Active LORAZEPAM 0.5 MG TAB 1 tab po q8 hrs and 2 tabs at bedtime 07/03 LORAZEPAM 86969607311 No Longer Active Nedra Cramer Active PYRIDIUM 200 MG TAB 1 po TID PRN Dysuria PHENAZOPYRIDINE HCL 50389965063 No Longer Active Sachin Wasserman MD Active CIPRO 250 MG TAB 1 tablet by mouth twice daily CIPROFLOXACIN HCL 48403388759 No Longer Active Sachin Wasserman MD Active LUNESTA 2 MG TABS take one tab po qhs ESZOPICLONE 04233386733 No Longer Active Broderick Solares MD Active CITALOPRAM HYDROBROMIDE 20 MG TABS take one tab po daily CITALOPRAM HYDROBROMIDE 08421741914 No Longer Active Broderick Solares MD Active HYDROCODONE-ACETAMINOPHEN 10-325 MG TABS 1 tab po q4-6 hrs prn HYDROCODONE-ACETAMINOPHEN 82478411751 No Longer Active Broderick Solares MD Active SULFAMETHOXAZOLE-TMP DS 800-160 MG TABS take one tab po bid x 7 days SULFAMETHOXAZOLE-TRIMETHOPRIM 82716117322 No Longer Active Broderick Solares MD Active DICLOFENAC SODIUM 75 MG TBEC take one tab po bid DICLOFENAC SODIUM 16981894457 Active Broderick Solares MD Active NAPROXEN 500 MG TAB 1 by mouth twice a day NAPROXEN 39110942465 No Longer Active Daisy Pool PA Active FUROSEMIDE 40 MG TAB 1 tablet by mouth daily FUROSEMIDE 33714595296 No Longer Active Daisy Pool PA Active MELOXICAM 15 MG TABS 1 po q day for pain with food MELOXICAM 38157339476 No Longer Active Daisy Pool PA Active ZOLPIDEM TARTRATE 10 MG TABS take one tab po daily ZOLPIDEM TARTRATE 64846568888 No Longer Active Daisy Pool PA Active COLACE 100 MG CAPS Take one by mouth daily DOCUSATE SODIUM 21153594690 No Longer Active Daisy Pool PA Active NIMODIPINE 30 MG CAPS 1 every 2 hours NIMODIPINE 95905068223 No Longer Active Daisy Pool PA Active ZOFRAN ODT 4 MG TBDP 1 po q6hr PRN Nausea ONDANSETRON 90151843593 No Longer Active Daisy Pool PA Active MAGNESIUM OXIDE 400 MG TABS Take one by mouth daily MAGNESIUM OXIDE 11416746140 No Longer Active Daisy Pool PA Active MAGNESIUM OXIDE 400 MG TABS Take one by mouth daily MAGNESIUM OXIDE 400 MG TABS 753688 MAGNESIUM OXIDE Inactive ZOFRAN ODT 4 MG TBDP 1 po q6hr PRN Nausea ZOFRAN ODT 4 MG TBDP 467798 ONDANSETRON Inactive NIMODIPINE 30 MG CAPS 1 every 2 hours NIMODIPINE 30 MG CAPS 606415 NIMODIPINE Inactive COLACE 100 MG CAPS Take one by mouth daily COLACE 100 MG CAPS 9849699 DOCUSATE SODIUM Inactive ZOLPIDEM TARTRATE 10 MG TABS take one tab po daily ZOLPIDEM TARTRATE 10 MG TABS 772317 ZOLPIDEM TARTRATE Inactive MELOXICAM 15 MG TABS 1 po q day for pain with food MELOXICAM 15 MG TABS 209463 MELOXICAM Inactive FUROSEMIDE 40 MG TAB 1 tablet by mouth daily FUROSEMIDE 40 MG TAB 887834 FUROSEMIDE Inactive NAPROXEN 500 MG TAB 1 by mouth twice a day NAPROXEN 500 MG TAB 222774 NAPROXEN Inactive SULFAMETHOXAZOLE-TMP DS 800-160 MG TABS take one tab po bid x 7 days SULFAMETHOXAZOLE-TMP DS 800-160 MG TABS SULFAMETHOXAZOLE- TRIMETHOPRIM Inactive HYDROCODONE-ACETAMINOPHEN 10-325 MG TABS 1 tab po q4-6 hrs prn HYDROCODONE-ACETAMINOPHEN 10-325 MG TABS 037440 HYDROCODONE- ACETAMINOPHEN Inactive CITALOPRAM HYDROBROMIDE 20 MG TABS take one tab po daily CITALOPRAM HYDROBROMIDE 20 MG TABS 134168 CITALOPRAM HYDROBROMIDE Inactive LUNESTA 2 MG TABS take one tab po qhs LUNESTA 2 MG TABS 692389 ESZOPICLONE Inactive LORAZEPAM 0.5 MG TAB 1 tab po q8 hrs and 2 tabs at bedtime 07/03 LORAZEPAM 0.5 MG TAB 949565 LORAZEPAM Inactive SUMATRIPTAN SUCCINATE 100 MG TABS as directed SUMATRIPTAN SUCCINATE 100 MG TABS 669478 SUMATRIPTAN SUCCINATE Inactive IMITREX TABS Take/use as needed. IMITREX TABS SUMATRIPTAN SUCCINATE TABS Inactive SERTRALINE HCL 50 MG TABS 1 daily for mood SERTRALINE HCL 50 MG TABS 420595 SERTRALINE HCL Inactive JANA ASPIRIN EC LOW DOSE 81 MG TBEC Take one by mouth daily JANA ASPIRIN EC LOW DOSE 81 MG TBEC 000923 ASPIRIN Inactive METHOCARBAMOL 750 MG TABS 1 po q8hr PRN spasm and neck pain 06/12 METHOCARBAMOL 750 MG TABS 361542 METHOCARBAMOL Inactive NYSTATIN 128445 UNIT/ML SUSP Swish and swallow 5ml four times a day until yeast is clear. NYSTATIN 722995 UNIT/ML SUSP 643554 NYSTATIN Inactive CIPRO 250 MG TAB 1 tablet by mouth twice daily x 5 days. CIPRO 250 MG TAB 19740807 CIPROFLOXACIN HCL Inactive LIDODERM 5 % PTCH apply to affected area for 12 hours LIDODERM 5 % PTCH 2752368 LIDOCAINE Inactive FUROSEMIDE 20 MG TAB 1 tablet by mouth daily FUROSEMIDE 20 MG TAB 049431 FUROSEMIDE Inactive CIPRO 250 MG TAB 1 tablet by mouth twice daily CIPRO 250 MG TAB 19740807 CIPROFLOXACIN HCL Inactive PYRIDIUM 200 MG TAB 1 po TID PRN Dysuria PYRIDIUM 200 MG TAB 3593589 PHENAZOPYRIDINE HCL Inactive CIPROFLOXACIN HCL 250 MG TABS 1 twice a day for 3 days for urinary infection CIPROFLOXACIN HCL 250 MG TABS 19740807 CIPROFLOXACIN HCL Inactive MACROBID 100 MG CAP 1 cap by mouth twice daily x 7 days. MACROBID 100 MG CAP 053195 NITROFURANTOIN MONOHYD MACRO Inactive Advance Directives Directive Description Start Date PERMISSION TO SHARE Immunizations Vaccine Administration Date Value Standard Description Seasonal influenza vaccine, injectable, containing preservative, for > 3 years old (Afluria, FluLaval, Fluzone, Fluvirin, Fluarix, Agriflu(>=18 yo)) Fluzone (>3 yrs.) [[id number]] Influenza, seasonal, injectable Vital Signs Date Name [...] CBC - Chemistry sodium, serum 140 mmol/L 872-569 7590/09/23 potassium, serum 4.7 mmol/L 3.5-5.2 chloride, serum [...] Panel - Chemistry cholesterol, serum 197 mg/dL 993-034 6907/09/25 triglyceride, serum, fasting 48 mg/dL 30-200 HDL [...] 5.0-8.5 Encounters Code Encounter Date Provider Facility CPT-05471 Level 3 Est. Patient 14:50:08 CONTRACT MANAGEMENT SPECIALIST Paras Nunez DO [facility] CPT-42242 Level 3 Est. Patient 15:11:25 CONTRACT MANAGEMENT SPECIALIST Chad Guardado MD [facility] CPT-19554 Level 3 Est. Patient 17:38:05 CONTRACT MANAGEMENT SPECIALIST Chad Guardado MD [facility] CPT-40790 Level 3 Est. Patient 15:35:54 CONTRACT MANAGEMENT SPECIALIST Sparkle Castro APRN [facility] CPT-13463 Level 4 Est. Patient 09:41:26 CONTRACT MANAGEMENT SPECIALIST Chad Guardado MD [facility] CPT-59165 Level 4 Est. Patient 16:16:11 CDT Chad Guardado MD [facility] CPT-33685 Level 3 Est. Patient 12:46:41 CDT Chad Guardado MD [facility] CPT-83543 Level 3 Est. Patient 17:26:51 CDT Chad Guardado MD [facility] CPT-75271 Level 4 New Patient 13:59:42 CDT Chad Guardado MD [facility] CPT-50678 Level 4 Est. Patient 20:23:44 CONTRACT MANAGEMENT SPECIALIST Broderick Solares MD [facility] CPT-17598 Level 3 Est. Patient 14:43:04 CONTRACT MANAGEMENT SPECIALIST Broderick Solares MD [facility] CPT-78953 Level 3 Est. Patient 10:05:53 CONTRACT MANAGEMENT SPECIALIST Sachin Wasserman MD [facility]-31200 Level 3 Est. Patient 14:35:17 CDT Daisy Hinojosa [facility] CPT-29692 Level 3 Est. Patient 10:59:26 CDT Daisy Hinojosa [facility] CPT-80520 Level 3 Est. Patient 15:41:02 CDT Daisy Ashish [facility] CPT-96242 Level 3 Est. Patient 16:41:25 CDT Daisydoug Hinojosa [facility] CPT-31935 Level 3 New Patient 14:47:15 CDT Daisy Hinojosa [facility] Procedures Code Procedure Name Date Entry Date Standard Description CPT-J1885 Toradol 60 mg (Ketorolac) 14:59:26 CONTRACT MANAGEMENT SPECIALIST CPT-07780 Abx/Therapy Injection 14:59:26 CONTRACT MANAGEMENT SPECIALIST CPT-J1885 Toradol 60 mg 14:50:08 CONTRACT MANAGEMENT SPECIALIST CPT-67903 C-Spine Min 4V 12:56:08 CONTRACT MANAGEMENT SPECIALIST CPT-51399 Immunization Single Admin 09:23:37 CDT CPT-39274 Tdap Vaccine 09:23:37 CDT CPT-32765 Fluzone Quadrivalent Intramuscular Suspension 0.5 ML 20: 47:45 CDT CPT-68669 Ankle Complete - Min 3V 12:29:38 CDT CPT-18925 Forearm AP and Lat 10:01:39 CONTRACT MANAGEMENT SPECIALIST CPT-26834 Knee 3V 13:56:38 CDT CPT-79370 Administration single or combination vaccine inc oral 11 :50:16 CDT CPT-60390 Influenza split virus > age 3 11:50:16 CDT
--- OUTSIDE RECORDS SUMMARY | 2018-09-24 01:45 | XMS REPORT | Clinical Summary ---
Author Author Admin, MADDY Organization [facility] Address Unknown Phone Unavailable Allergies, Adverse [...] Comment Standard Description Annotate ANEURYSM 442.9 [facility] Aneurysm of unspecified artery site ANXIETY DEPRESSION 300.4 Active [facility] Dysthymic disorder INSOMNIA 780.52 [facility] Insomnia, unspecified LOSS OF APPETITE 783.0 [facility] Anorexia CEPHALGIA 784.0 Active [facility] Headache ENCOUNTER FOR REMOVAL OF SUTURES V58.32 Resolved Daisy Dieterich PA Encounter for removal of sutures NECK PAIN 723.1 Active [facility] Cervicalgia KNEE PAIN, BILATERAL 719.46 Active Daisy Dieterich PA Pain in joint involving lower leg [...] elsewhere classified Cough 786.2 Active 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 Cough Thrush 112.0 Active Chad Guardado MD Candidiasis of mouth HYPERTENSION, BENIGN ESSENTIAL 401.1 Active Chad Guardado MD Benign essential hypertension Urinary tract infection 599.0 Active Chad Guardado MD Urinary tract infection, site not specified Back pain, thoracic region 724.1 Active Chad Guardado MD Pain in thoracic spine Chronic pain syndrome 338.4 Active Chad Guardado MD Chronic pain syndrome INJURY OTHER AND UNSPECIFIED FINGER ICD-959.5 Inactive Chad Guardado MD UTI ICD-599.0 Inactive Chad Guardado MD ENCOUNTER FOR REMOVAL OF SUTURES ICD-V58.32 Inactive Daisy PAZ Medication List Medication Instructions Start Date Stop Date Generic Name NDC Status Provider Patient Instruction BUTRANS 10 MCG/HR TRANS PTWK apply every 7 days BUPRENORPHINE 20587495896 Active Chad Guardado MD Active TESSALON PERLES 100 MG CAP 1 tablet by mouth 3 times daily 09/25 BENZONATATE 69938176567 No Longer Active Chad Guardado MD Active LISINOPRIL 20 MG TABS 1 tablet by mouth daily for blood pressure LISINOPRIL 79941854495 No Longer Active Chad Guardado MD Active MACROBID 100 MG ORAL CAPS NITROFURANTOIN MONOHYD MACRO 12809051727 No Longer Active Chad Guardado MD Active DICLOFENAC SODIUM 1.5 % TRANS SOLN 40 drops applied to each knee 4 times a day DICLOFENAC SODIUM 22043701128 No Longer Active Fallon Smith BILLET HEATER OPERATOR Active DICLOFENAC SODIUM 75 MG TBEC take one tab po bid DICLOFENAC SODIUM 23527938433 No Longer Active Fallon Tidwellell BILLET HEATER OPERATOR Active IMITREX 100 MG TABS TAKE 1 TABLET AT THE ONSET OF HEADACHE MAY REPEAT IN 2 HRS IF NEEDED SUMATRIPTAN SUCCINATE 86596153885 No Longer Active Chad Guardado MD Active FUROSEMIDE 20 MG TAB 1 tablet by mouth daily FUROSEMIDE 46738161909 No Longer Active Paras Nunez DO Active LIDODERM 5 % PTCH apply to affected area for 12 hours LIDOCAINE 83655610895 No Longer Active Paras Nunez DO Active MACROBID 100 MG CAP 1 cap by mouth twice daily x 7 days. NITROFURANTOIN MONOHYD MACRO 40912250444 No Longer Active Chad Guardado MD Active CIPRO 250 MG TAB 1 tablet by mouth twice daily x 5 days. CIPROFLOXACIN HCL 51933237651 No Longer Active Chad Guardado MD Active TRAMADOL HCL 50 MG TABS 1-2 tablets every 6 hours as needed for pain TRAMADOL HCL 64702074495 Active Chad Guardado MD Active NYSTATIN 861591 UNIT/ML SUSP Swish and swallow 5ml four times a day until yeast is clear. NYSTATIN 30713917682 No Longer Active Chad Guardado MD Active CITALOPRAM HYDROBROMIDE 40 MG TABS 1 daily for depression/anxiety CITALOPRAM HYDROBROMIDE 68810201191 Active Chad Guardado MD Active DEPAKOTE 250 MG TBEC 1 twice a day to prevent headaches DIVALPROEX SODIUM 38699156829 Active Chad Guardado MD Active CYCLOBENZAPRINE HCL 10 MG TABS 1 at bedtime for muscle tightness CYCLOBENZAPRINE HCL 99805369539 Active Chad Guardado MD Active METHOCARBAMOL 750 MG TABS 1 po q8hr PRN spasm and neck pain 06/12 METHOCARBAMOL 36731699797 No Longer Active Chad Guardado MD Active JANA ASPIRIN EC LOW DOSE 81 MG TBEC Take one by mouth daily ASPIRIN 43824001943 No Longer Active Chad Guardado MD Active HYDROCODONE-ACETAMINOPHEN 7.5-325 MG TABS 1 three times a day as needed for pain HYDROCODONE-ACETAMINOPHEN 47959837867 No Longer Active Chad Guardado MD Active CIPROFLOXACIN HCL 250 MG TABS 1 twice a day for 3 days for urinary infection CIPROFLOXACIN HCL 06588858812 No Longer Active Chad Guardado MD Active IMITREX 6 MG/0.5ML SOLN Take as directed SUMATRIPTAN SUCCINATE 32371804594 Active Sparkle Castro APRN Active SERTRALINE HCL 50 MG TABS 1 daily for mood SERTRALINE HCL 41025462676 No Longer Active Chad Guardado MD Active IMITREX TABS Take/use as needed. SUMATRIPTAN SUCCINATE TABS 86993863043 No Longer Active Jaylyn DACOSTA Active SUMATRIPTAN SUCCINATE 100 MG TABS as directed SUMATRIPTAN SUCCINATE 31390061489 No Longer Active Nedra Cramer Active LORAZEPAM 0.5 MG TAB 1 tab po q8 hrs and 2 tabs at bedtime 07/03 LORAZEPAM 48160782519 No Longer Active Nedra Cramer Active PYRIDIUM 200 MG TAB 1 po TID PRN Dysuria PHENAZOPYRIDINE HCL 59419291993 No Longer Active Sachin Wasserman MD Active CIPRO 250 MG TAB 1 tablet by mouth twice daily CIPROFLOXACIN HCL 50019790120 No Longer Active Sachin Wasserman MD Active LUNESTA 2 MG TABS take one tab po qhs ESZOPICLONE 27538315685 No Longer Active Broderick Solares MD Active CITALOPRAM HYDROBROMIDE 20 MG TABS take one tab po daily CITALOPRAM HYDROBROMIDE 51620294702 No Longer Active Broderick Solares MD Active HYDROCODONE-ACETAMINOPHEN 10-325 MG TABS 1 tab po q4-6 hrs prn HYDROCODONE-ACETAMINOPHEN 33854508441 No Longer Active Broderick Solares MD Active SULFAMETHOXAZOLE-TMP DS 800-160 MG TABS take one tab po bid x 7 days SULFAMETHOXAZOLE-TRIMETHOPRIM 37585463881 No Longer Active Broderick Solares MD Active NAPROXEN 500 MG TAB 1 by mouth twice a day NAPROXEN 76950419070 No Longer Active Daisy Pool PA Active FUROSEMIDE 40 MG TAB 1 tablet by mouth daily FUROSEMIDE 85645559906 No Longer Active Daisy Pool PA Active MELOXICAM 15 MG TABS 1 po q day for pain with food MELOXICAM 28067537826 No Longer Active Daisy Pool PA Active ZOLPIDEM TARTRATE 10 MG TABS take one tab po daily ZOLPIDEM TARTRATE 05500318803 No Longer Active Daisy Pool PA Active COLACE 100 MG CAPS Take one by mouth daily DOCUSATE SODIUM 88150549997 No Longer Active Daisy Pool PA Active NIMODIPINE 30 MG CAPS 1 every 2 hours NIMODIPINE 39300935118 No Longer Active Daisy Pool PA Active ZOFRAN ODT 4 MG TBDP 1 po q6hr PRN Nausea ONDANSETRON 64239625472 No Longer Active Daisy Pool PA Active MAGNESIUM OXIDE 400 MG TABS Take one by mouth daily MAGNESIUM OXIDE 94688135864 No Longer Active Daisy Pool PA Active MAGNESIUM OXIDE 400 MG TABS Take one by mouth daily MAGNESIUM OXIDE 400 MG TABS 083386 MAGNESIUM OXIDE Inactive ZOFRAN ODT 4 MG TBDP 1 po q6hr PRN Nausea ZOFRAN ODT 4 MG TBDP 586050 ONDANSETRON Inactive NIMODIPINE 30 MG CAPS 1 every 2 hours NIMODIPINE 30 MG CAPS 587977 NIMODIPINE Inactive COLACE 100 MG CAPS Take one by mouth daily COLACE 100 MG CAPS 6018092 DOCUSATE SODIUM Inactive ZOLPIDEM TARTRATE 10 MG TABS take one tab po daily ZOLPIDEM TARTRATE 10 MG TABS 561456 ZOLPIDEM TARTRATE Inactive MELOXICAM 15 MG TABS 1 po q day for pain with food MELOXICAM 15 MG TABS 391026 MELOXICAM Inactive FUROSEMIDE 40 MG TAB 1 tablet by mouth daily FUROSEMIDE 40 MG TAB 157615 FUROSEMIDE Inactive NAPROXEN 500 MG TAB 1 by mouth twice a day NAPROXEN 500 MG TAB 057087 NAPROXEN Inactive SULFAMETHOXAZOLE-TMP DS 800-160 MG TABS take one tab po bid x 7 days SULFAMETHOXAZOLE-TMP DS 800-160 MG TABS SULFAMETHOXAZOLE- TRIMETHOPRIM Inactive HYDROCODONE-ACETAMINOPHEN 10-325 MG TABS 1 tab po q4-6 hrs prn HYDROCODONE-ACETAMINOPHEN 10-325 MG TABS 075458 HYDROCODONE- ACETAMINOPHEN Inactive CITALOPRAM HYDROBROMIDE 20 MG TABS take one tab po daily CITALOPRAM HYDROBROMIDE 20 MG TABS 440327 CITALOPRAM HYDROBROMIDE Inactive LUNESTA 2 MG TABS take one tab po qhs LUNESTA 2 MG TABS 988939 ESZOPICLONE Inactive LORAZEPAM 0.5 MG TAB 1 tab po q8 hrs and 2 tabs at bedtime 07/03 LORAZEPAM 0.5 MG TAB LORAZEPAM Inactive SUMATRIPTAN SUCCINATE 100 MG TABS as directed SUMATRIPTAN SUCCINATE 100 MG TABS 517122 SUMATRIPTAN SUCCINATE Inactive IMITREX TABS Take/use as needed. IMITREX TABS SUMATRIPTAN SUCCINATE TABS Inactive SERTRALINE HCL 50 MG TABS 1 daily for mood SERTRALINE HCL 50 MG TABS 382634 SERTRALINE HCL Inactive JANA ASPIRIN EC LOW DOSE 81 MG TBEC Take one by mouth daily JANA ASPIRIN EC LOW DOSE 81 MG TBEC 979145 ASPIRIN Inactive METHOCARBAMOL 750 MG TABS 1 po q8hr PRN spasm and neck pain 06/12 METHOCARBAMOL 750 MG TABS 278724 METHOCARBAMOL Inactive NYSTATIN 499823 UNIT/ML SUSP Swish and swallow 5ml four times a day until yeast is clear. NYSTATIN 538901 UNIT/ML SUSP 012627 NYSTATIN Inactive CIPRO 250 MG TAB 1 tablet by mouth twice daily x 5 days. CIPRO 250 MG TAB 848342 CIPROFLOXACIN HCL Inactive LIDODERM 5 % PTCH apply to affected area for 12 hours LIDODERM 5 % PTCH 7268627 LIDOCAINE Inactive FUROSEMIDE 20 MG TAB 1 tablet by mouth daily FUROSEMIDE 20 MG TAB 682151 FUROSEMIDE Inactive IMITREX 100 MG TABS TAKE 1 TABLET AT THE ONSET OF HEADACHE MAY REPEAT IN 2 HRS IF NEEDED IMITREX 100 MG TABS 821294 SUMATRIPTAN SUCCINATE Inactive DICLOFENAC SODIUM 75 MG TBEC take one tab po bid DICLOFENAC SODIUM 75 MG TBEC 281266 DICLOFENAC SODIUM Inactive DICLOFENAC SODIUM 1.5 % TRANS SOLN 40 drops applied to each knee 4 times a day DICLOFENAC SODIUM 1.5 % TRANS SOLN 924431 DICLOFENAC SODIUM Inactive MACROBID 100 MG ORAL CAPS MACROBID 100 MG ORAL CAPS 641167 NITROFURANTOIN MONOHYD MACRO Inactive LISINOPRIL 20 MG TABS 1 tablet by mouth daily for blood pressure LISINOPRIL 20 MG TABS 569430 LISINOPRIL Inactive TESSALON PERLES 100 MG CAP 1 tablet by mouth 3 times daily 09/25 TESSALON PERLES 100 MG CAP 218696 BENZONATATE Inactive CIPRO 250 MG TAB 1 tablet by mouth twice daily CIPRO 250 MG TAB 055914 CIPROFLOXACIN HCL Inactive PYRIDIUM 200 MG TAB 1 po TID PRN Dysuria PYRIDIUM 200 MG TAB 4965599 PHENAZOPYRIDINE HCL Inactive CIPROFLOXACIN HCL 250 MG TABS 1 twice a day for 3 days for urinary infection CIPROFLOXACIN HCL 250 MG TABS 168448 CIPROFLOXACIN HCL Inactive MACROBID 100 MG CAP 1 cap by mouth twice daily x 7 days. MACROBID 100 MG CAP 907406 NITROFURANTOIN MONOHYD MACRO Inactive Advance Directives Directive Description Start Date PERMISSION TO SHARE Immunizations Vaccine Administration Date Value Standard Description Seasonal influenza vaccine, injectable, containing preservative, for > 3 years old (Afluria, FluLaval, Fluzone, Fluvirin, Fluarix, Agriflu(>=18 yo)) Fluzone (>3 yrs.) [[id number]] Influenza, seasonal, injectable Vital Signs Date Name [...] Rate - Chemistry sodium, serum 137 mmol/L 523-823 7907/02/06 potassium, serum 4.6 mmol/L 3.5-5.2 chloride, serum 101 mmol/L 98-107 carbon dioxide, venous blood 26.3 mmol/L 21.0-32.0 blood glucose 86 mg/dL 65-110 calcium, serum 9.3 mg/dL 8.5-10.1 urea nitrogen, blood 25 mg/dL 7-18 creatinine, serum 1.10 mg/dL 0.60-1.30 Lab Report: Comp. Metabolic Panel, CBC - Chemistry sodium, serum 140 mmol/L 371-786 0980/09/23 potassium, serum 4.7 mmol/L 3.5-5.2 chloride, serum [...] Panel - Chemistry cholesterol, serum 197 mg/dL 125-833 0674/09/25 triglyceride, serum, fasting 48 mg/dL 30-200 HDL [...] 5.0-8.5 Encounters Code Encounter Date Provider Facility CPT-68933 Level 4 Est. Patient 10:00:23 FINANCIAL REPORTING ADVISOR Chad Guardado MD [facility] CPT-24910 Level 4 Est. Patient 11:35:05 FINANCIAL REPORTING ADVISOR Chad Guardado MD [facility] CPT-01255 Level 3 Est. Patient 14:50:08 FINANCIAL REPORTING ADVISOR Paras Nunez DO [facility] CPT-52819 Level 3 Est. Patient 15:11:25 FINANCIAL REPORTING ADVISOR Chad Guardado MD [facility] CPT-87158 Level 3 Est. Patient 17:38:05 FINANCIAL REPORTING ADVISOR Chad Guardado MD [facility] CPT-33243 Level 3 Est. Patient 15:35:54 FINANCIAL REPORTING ADVISOR Sparkle Castro MARCELO [facility] CPT-16243 Level 4 Est. Patient 09:41:26 FINANCIAL REPORTING ADVISOR Chad Guardado MD [facility] CPT-47935 Level 4 Est. Patient 16:16:11 CDT Chad Guaraddo MD [facility] CPT-83509 Level 3 Est. Patient 12:46:41 CDT Chad Guardado MD [facility] CPT-59782 Level 3 Est. Patient 17:26:51 CDT Chad Guardado MD [facility] CPT-11805 Level 4 New Patient 13:59:42 CDT Chad Guardado MD [facility] CPT-60309 Level 4 Est. Patient 20:23:44 FINANCIAL REPORTING ADVISOR Broderick Solares MD [facility] CPT-93494 Level 3 Est. Patient 14:43:04 FINANCIAL REPORTING ADVISOR Broderick Solares MD [facility] CPT-84381 Level 3 Est. Patient 10:05:53 FINANCIAL REPORTING ADVISOR Sachin Wasserman MD [facility] CPT-57767 Level 3 Est. Patient 14:35:17 CDT Daisy Hinojosa [facility] CPT-72279 Level 3 Est. Patient 10:59:26 CDT Daisy Hinojosa [facility] CPT-76967 Level 3 Est. Patient 15:41:02 CDT Daisy Hinojosa [facility] CPT-49899 Level 3 Est. Patient 16:41:25 CDT Daisy Hinojosa [facility] CPT-15163 Level 3 New Patient 14:47:15 CDT Daisy Hinojosa [facility] Procedures Code Procedure Name Date Entry Date Standard Description CPT-79906 T spine AP/Lat w sw V 10:39:20 FINANCIAL REPORTING ADVISOR CPT-J1885 Toradol 60 mg (Ketorolac) 14:59:26 FINANCIAL REPORTING ADVISOR CPT-81550 Abx/Therapy Injection 14:59:26 FINANCIAL REPORTING ADVISOR CPT-J1885 Toradol 60 mg 14:50:08 FINANCIAL REPORTING ADVISOR CPT-82744 C-Spine Min 4V 12:56:08 FINANCIAL REPORTING ADVISOR CPT-77041 Immunization Single Admin 09:23:37 CDT CPT-07403 Tdap Vaccine 09:23:37 CDT CPT-51748 Fluzone Quadrivalent Intramuscular Suspension 0.5 ML 20: 47:45 CDT CPT-60218 Ankle Complete - Min 3V 12:29:38 CDT CPT-81212 Forearm AP and Lat 10:01:39 FINANCIAL REPORTING ADVISOR CPT-98362 Knee 3V 13:56:38 CDT CPT-14635 Administration single or combination vaccine inc oral 11 :50:16 CDT CPT-04346 Influenza split virus > age 3 11:50:16 CDT
--- OUTSIDE RECORDS SUMMARY | 2018-09-24 01:46 | XMS REPORT | Clinical Summary ---
Author Author Admin, MADDY Organization [facility] Address Unknown Phone Unavailable Allergies, Adverse Reactions, Alerts Allergy Name Reaction Description Start Date Severity Status Provider AMITRIPTYLINE HCL Hair loss and nightmares Moderate Active Chad Guardado MD IVP DYE Critical Active Chad Guardado MD CODEINE nausea Moderate Active [facility] Conditions or Problems Problem Name Problem Code Onset Date Status Entry Date Provider Comment Standard Description Annotate [facility].9 [facility] Aneurysm of unspecified artery site ANXIETY DEPRESSION 300.4 Active [facility] Dysthymic disorder INSOMNIA 780.52 [facility] Insomnia, unspecified LOSS OF APPETITE 783.0 [facility] Anorexia CEPHALGIA 784.0 Active [facility] Headache ENCOUNTER FOR REMOVAL OF SUTURES V58.32 Resolved Daisy Bland PA Encounter for removal of sutures NECK PAIN 723.1 Active [facility] Cervicalgia KNEE PAIN, BILATERAL 719.46 Active Daisy Bland PA Pain in joint involving lower leg [...] elsewhere classified Cough 786.2 Active Sparkle Castro TRAFFIC MAINTENANCE SUPERVISOR Cough Thrush 112.0 Active Chad Guardado MD [...] TAB 1 tablet by mouth daily FUROSEMIDE 57665147025 No Longer Active Paras Nunez DO Active LIDODERM 5 % PTCH apply to affected area for 12 hours LIDOCAINE 43422545559 No Longer Active Paras Nunez DO Active MACROBID 100 MG CAP 1 cap by mouth twice daily x 7 days. NITROFURANTOIN MONOHYD MACRO 91593085298 No Longer Active Chad Guardado MD Active CIPRO 250 MG TAB 1 tablet by mouth twice daily x 5 days. CIPROFLOXACIN HCL 73848110899 No Longer Active Chad Guardado MD Active LISINOPRIL 20 MG TABS 1 tablet by mouth daily for blood pressure LISINOPRIL 25321419443 Active Chad Guardado MD Active TRAMADOL HCL 50 MG TABS 1-2 tablets every 6 hours as needed for pain TRAMADOL HCL 39632951551 Active Chad Guardado MD Active DICLOFENAC SODIUM 1.5 % TRANS SOLN 40 drops applied to each knee 4 times a day DICLOFENAC SODIUM 66032402043 Active Chad Guardado MD Active NYSTATIN 873550 UNIT/ML SUSP Swish and swallow 5ml four times a day until yeast is clear. NYSTATIN 21985981869 No Longer Active Chad Guardado MD Active TESSALON PERLES 100 MG CAP 1 tablet by mouth 3 times daily BENZONATATE 81153513614 Active Sparkle Castro TRAFFIC MAINTENANCE SUPERVISOR Active CITALOPRAM HYDROBROMIDE 40 MG TABS 1 daily for depression/anxiety CITALOPRAM HYDROBROMIDE 07167502213 Active Chad Guardado MD Active DEPAKOTE 250 MG TBEC 1 twice a day to prevent headaches DIVALPROEX SODIUM 06371126742 Active Chad Guardado MD Active CYCLOBENZAPRINE HCL 10 MG TABS 1 at bedtime for muscle tightness CYCLOBENZAPRINE HCL 31337306473 Active Chad Guardado MD Active METHOCARBAMOL 750 MG TABS 1 po q8hr PRN spasm and neck pain 06/12 METHOCARBAMOL 16431830680 No Longer Active Chad Guardado MD Active JANA ASPIRIN EC LOW DOSE 81 MG TBEC Take one by mouth daily ASPIRIN 72132043567 No Longer Active Chad Guardado MD Active HYDROCODONE-ACETAMINOPHEN 7.5-325 MG TABS 1 three times a day as needed for pain HYDROCODONE-ACETAMINOPHEN 51702557740 Active Chad Guardado MD Active CIPROFLOXACIN HCL 250 MG TABS 1 twice a day for 3 days for urinary infection CIPROFLOXACIN HCL 72910065858 No Longer Active Chad Guardado MD Active IMITREX 6 MG/0.5ML SOLN Take as directed SUMATRIPTAN SUCCINATE 14006106757 Active Sparkle Matthewum TRAFFIC MAINTENANCE SUPERVISOR Active SERTRALINE HCL 50 MG TABS 1 daily for mood SERTRALINE HCL 49269256160 No Longer Active Chad Guardado MD Active IMITREX 100 MG TABS TAKE 1 TABLET AT THE ONSET OF HEADACHE MAY REPEAT IN 2 HRS IF NEEDED SUMATRIPTAN SUCCINATE 16881447550 Active Sparkle Matthewum TRAFFIC MAINTENANCE SUPERVISOR Active IMITREX TABS Take/use as needed. SUMATRIPTAN SUCCINATE TABS 47963891597 No Longer Active Jaylyn DACOSTA Active SUMATRIPTAN SUCCINATE 100 MG TABS as directed SUMATRIPTAN SUCCINATE 89361711366 No Longer Active Nedra Cramer Active LORAZEPAM 0.5 MG TAB 1 tab po q8 hrs and 2 tabs at bedtime 07/03 LORAZEPAM 65668562344 No Longer Active Nedra Cramer Active PYRIDIUM 200 MG TAB 1 po TID PRN Dysuria PHENAZOPYRIDINE HCL 61339892536 No Longer Active Sachin Wasserman MD Active CIPRO 250 MG TAB 1 tablet by mouth twice daily CIPROFLOXACIN HCL 54444672868 No Longer Active Sachin Wasserman MD Active LUNESTA 2 MG TABS take one tab po qhs ESZOPICLONE 01310332846 No Longer Active Broderick Solares MD Active CITALOPRAM HYDROBROMIDE 20 MG TABS take one tab po daily CITALOPRAM HYDROBROMIDE 22184768824 No Longer Active Broderick Solares MD Active HYDROCODONE-ACETAMINOPHEN 10-325 MG TABS 1 tab po q4-6 hrs prn HYDROCODONE-ACETAMINOPHEN 53754222902 No Longer Active Broderick Solares MD Active SULFAMETHOXAZOLE-TMP DS 800-160 MG TABS take one tab po bid x 7 days SULFAMETHOXAZOLE-TRIMETHOPRIM 79938509607 No Longer Active Broderick Solares MD Active DICLOFENAC SODIUM 75 MG TBEC take one tab po bid DICLOFENAC SODIUM 55674147973 Active Broderick Solares MD Active NAPROXEN 500 MG TAB 1 by mouth twice a day NAPROXEN 36790929808 No Longer Active Daisy Pool PA Active FUROSEMIDE 40 MG TAB 1 tablet by mouth daily FUROSEMIDE 27701012941 No Longer Active Daisy Pool PA Active MELOXICAM 15 MG TABS 1 po q day for pain with food MELOXICAM 07811755833 No Longer Active Daisy Pool PA Active ZOLPIDEM TARTRATE 10 MG TABS take one tab po daily ZOLPIDEM TARTRATE 39811823236 No Longer Active Daisy Pool PA Active COLACE 100 MG CAPS Take one by mouth daily DOCUSATE SODIUM 16473743247 No Longer Active Daisy Pool PA Active NIMODIPINE 30 MG CAPS 1 every 2 hours NIMODIPINE 59976014252 No Longer Active Daisy Pool PA Active ZOFRAN ODT 4 MG TBDP 1 po q6hr PRN Nausea ONDANSETRON 02300033094 No Longer Active Daisy Pool PA Active MAGNESIUM OXIDE 400 MG TABS Take one by mouth daily MAGNESIUM OXIDE 73627897507 No Longer Active Daisy Pool PA Active MAGNESIUM OXIDE 400 MG TABS Take one by mouth daily MAGNESIUM OXIDE 400 MG TABS 607931 MAGNESIUM OXIDE Inactive ZOFRAN ODT 4 MG TBDP 1 po q6hr PRN Nausea ZOFRAN ODT 4 MG TBDP 627747 ONDANSETRON Inactive NIMODIPINE 30 MG CAPS 1 every 2 hours NIMODIPINE 30 MG CAPS 203520 NIMODIPINE Inactive COLACE 100 MG CAPS Take one by mouth daily COLACE 100 MG CAPS 1795938 DOCUSATE SODIUM Inactive ZOLPIDEM TARTRATE 10 MG TABS take one tab po daily ZOLPIDEM TARTRATE 10 MG TABS 591703 ZOLPIDEM TARTRATE Inactive MELOXICAM 15 MG TABS 1 po q day for pain with food MELOXICAM 15 MG TABS 163185 MELOXICAM Inactive FUROSEMIDE 40 MG TAB 1 tablet by mouth daily FUROSEMIDE 40 MG TAB 698022 FUROSEMIDE Inactive NAPROXEN 500 MG TAB 1 by mouth twice a day NAPROXEN 500 MG TAB 405085 NAPROXEN Inactive SULFAMETHOXAZOLE-TMP DS 800-160 MG TABS take one tab po bid x 7 days SULFAMETHOXAZOLE-TMP DS 800-160 MG TABS SULFAMETHOXAZOLE- TRIMETHOPRIM Inactive HYDROCODONE-ACETAMINOPHEN 10-325 MG TABS 1 tab po q4-6 hrs prn HYDROCODONE-ACETAMINOPHEN 10-325 MG TABS 930374 HYDROCODONE- ACETAMINOPHEN Inactive CITALOPRAM HYDROBROMIDE 20 MG TABS take one tab po daily CITALOPRAM HYDROBROMIDE 20 MG TABS 260180 CITALOPRAM HYDROBROMIDE Inactive LUNESTA 2 MG TABS take one tab po qhs LUNESTA 2 MG TABS 997771 ESZOPICLONE Inactive LORAZEPAM 0.5 MG TAB 1 tab po q8 hrs and 2 tabs at bedtime 07/03 LORAZEPAM 0.5 MG TAB 995392 LORAZEPAM Inactive SUMATRIPTAN SUCCINATE 100 MG TABS as directed SUMATRIPTAN SUCCINATE 100 MG TABS 350487 SUMATRIPTAN SUCCINATE Inactive IMITREX TABS Take/use as needed. IMITREX TABS SUMATRIPTAN SUCCINATE TABS Inactive SERTRALINE HCL 50 MG TABS 1 daily for mood SERTRALINE HCL 50 MG TABS 882322 SERTRALINE HCL Inactive JANA ASPIRIN EC LOW DOSE 81 MG TBEC Take one by mouth daily JANA ASPIRIN EC LOW DOSE 81 MG TBEC 020429 ASPIRIN Inactive METHOCARBAMOL 750 MG TABS 1 po q8hr PRN spasm and neck pain 06/12 METHOCARBAMOL 750 MG TABS 357617 METHOCARBAMOL Inactive NYSTATIN 375500 UNIT/ML SUSP Swish and swallow 5ml four times a day until yeast is clear. NYSTATIN 419556 UNIT/ML SUSP 109392 NYSTATIN Inactive CIPRO 250 MG TAB 1 tablet by mouth twice daily x 5 days. CIPRO 250 MG TAB 19740807 CIPROFLOXACIN HCL Inactive LIDODERM 5 % PTCH apply to affected area for 12 hours LIDODERM 5 % PTCH 0591623 LIDOCAINE Inactive FUROSEMIDE 20 MG TAB 1 tablet by mouth daily FUROSEMIDE 20 MG TAB 722538 FUROSEMIDE Inactive CIPRO 250 MG TAB 1 tablet by mouth twice daily CIPRO 250 MG TAB 19740807 CIPROFLOXACIN HCL Inactive PYRIDIUM 200 MG TAB 1 po TID PRN Dysuria PYRIDIUM 200 MG TAB 9427611 PHENAZOPYRIDINE HCL Inactive CIPROFLOXACIN HCL 250 MG TABS 1 twice a day for 3 days for urinary infection CIPROFLOXACIN HCL 250 MG TABS 19740807 CIPROFLOXACIN HCL Inactive MACROBID 100 MG CAP 1 cap by mouth twice daily x 7 days. MACROBID 100 MG CAP 112524 NITROFURANTOIN MONOHYD MACRO Inactive Advance Directives Directive Description Start Date PERMISSION TO SHARE Immunizations Vaccine Administration Date Value Standard Description Seasonal influenza vaccine, injectable, containing preservative, for > 3 years old (Afluria, FluLaval, Fluzone, Fluvirin, Fluarix, Agriflu(>=18 yo)) Fluzone (>3 yrs.) [[id number]] Influenza, seasonal, injectable Vital Signs Date Name [...] Panel - Chemistry cholesterol, serum 197 mg/dL 424-080 2138/09/25 triglyceride, serum, fasting 48 mg/dL 30-200 HDL [...] 1.025 1.000-1.030 pH, urine, semiquantitative 6.0 5.0-8.5 glucose, urine, semiquantitative Negative Negative ketones, urine, by test strip Trace Negative bilirubin, urine Negative Negative glucose, urine, semiquantitative Negative Negative ketones, urine, by test strip Negative Negative bilirubin, urine 1+ Negative urobilinogen, urine, semiquantitative (dipstick) 0.2 Normal leukocyte esterase, urine, by dipstick Trace Negative nitrite, urine, semiquantitative Negative Negative Encounters Code Encounter Date Provider Facility CPT-34488 Level 3 Est. Patient 14:50:08 AVIONICS SAFETY INSPECTOR Paras Nunez DO [facility] CPT-29159 Level 3 Est. Patient 15:11:25 AVIONICS SAFETY INSPECTOR Chad Guardado MD [facility] CPT-95074 Level 3 Est. Patient 17:38:05 AVIONICS SAFETY INSPECTOR Chad Guardado MD [facility] CPT-05850 Level 3 Est. Patient 15:35:54 AVIONICS SAFETY INSPECTOR Sparkle Castro APRN [facility] CPT-68902 Level 4 Est. Patient 09:41:26 AVIONICS SAFETY INSPECTOR Chad Guardado MD [facility] CPT-29021 Level 4 Est. Patient 16:16:11 CDT Chad Guardado MD [facility] CPT-77095 Level 3 Est. Patient 12:46:41 CDT Cahd Guardado MD [facility] CPT-32032 Level 3 Est. Patient 17:26:51 CDT Chad Guardado MD [facility] CPT-24159 Level 4 New Patient 13:59:42 CDT Chad Guardado MD [facility] CPT-76261 Level 4 Est. Patient 20:23:44 AVIONICS SAFETY INSPECTOR Broderick Solares MD [facility] CPT-88798 Level 3 Est. Patient 14:43:04 AVIONICS SAFETY INSPECTOR Broderick Solares MD [facility] CPT-89056 Level 3 Est. Patient 10:05:53 AVIONICS SAFETY INSPECTOR Sachin Wasserman MD [facility]-59973 Level 3 Est. Patient 14:35:17 CDT Daisy Hinojosa [facility] CPT-94001 Level 3 Est. Patient 10:59:26 CDT Daisy Hinojosa [facility] CPT-03747 Level 3 Est. Patient 15:41:02 CDT Daisy Ashish [facility] CPT-51233 Level 3 Est. Patient 16:41:25 CDT Daisydoug Hinojosa [facility] CPT-78254 Level 3 New Patient 14:47:15 CDT Daisy Hinojosa [facility] Procedures Code Procedure Name Date Entry Date Standard Description CPT-J1885 Toradol 60 mg (Ketorolac) 14:59:26 AVIONICS SAFETY INSPECTOR CPT-20873 Abx/Therapy Injection 14:59:26 AVIONICS SAFETY INSPECTOR CPT-J1885 Toradol 60 mg 14:50:08 AVIONICS SAFETY INSPECTOR CPT-59138 C-Spine Min 4V 12:56:08 AVIONICS SAFETY INSPECTOR CPT-76672 Immunization Single Admin 09:23:37 CDT CPT-49843 Tdap Vaccine 09:23:37 CDT CPT-39288 Fluzone Quadrivalent Intramuscular Suspension 0.5 ML 20: 47:45 CDT CPT-75294 Ankle Complete - Min 3V 12:29:38 CDT CPT-87342 Forearm AP and Lat 10:01:39 AVIONICS SAFETY INSPECTOR CPT-01218 Knee 3V 13:56:38 CDT CPT-92433 Administration single or combination vaccine inc oral 11 :50:16 CDT CPT-97742 Influenza split virus > age 3 11:50:16 CDT
--- OUTSIDE RECORDS SUMMARY | 2018-09-24 01:46 | XMS REPORT | Clinical Summary ---
Author Author Admin, MADDY Organization [facility] Address Unknown Phone Unavailable Allergies, Adverse Reactions, Alerts Allergy Name Reaction Description Start Date Severity Status Provider AMITRIPTYLINE HCL Hair loss and nightmares Moderate Active Chad Guardado MD IVP DYE Critical Active Chad Guardado MD CODEINE nausea Moderate Active [facility] Conditions or Problems Problem Name Problem Code Onset Date Status Entry Date Provider Comment Standard Description Annotate ANEURYSM 442.9 [facility] Aneurysm of unspecified artery site ANXIETY DEPRESSION 300.4 Active [facility] Dysthymic disorder INSOMNIA 780.52 [facility] Insomnia, unspecified LOSS OF APPETITE 783.0 [facility] Anorexia CEPHALGIA 784.0 Active [facility] Headache ENCOUNTER FOR REMOVAL OF SUTURES V58.32 Resolved Daisy [facility] PA Encounter for removal of sutures NECK PAIN 723.1 Active [facility] Cervicalgia KNEE PAIN, BILATERAL 719.46 Active Daisy [facility] PA Pain in joint involving lower leg [...] elsewhere classified Cough 786.2 Active Sparkle Castro ESTHETICIAN SPA Cough Thrush 112.0 Active Chad Guardado MD Candidiasis of mouth HYPERTENSION, BENIGN ESSENTIAL 401.1 Active Chad Guardado MD Benign essential hypertension ENCOUNTER FOR REMOVAL OF SUTURES ICD-V58.32 Inactive Daisy PAZ INJURY OTHER AND UNSPECIFIED FINGER ICD-959.5 Inactive Chad Guardado MD UTI ICD-599.0 Inactive Chad Guardado MD Medication List Medication Instructions Start Date Stop Date Generic Name NDC Status Provider Patient Instruction LISINOPRIL 20 MG TABS 1 tablet by mouth daily for blood pressure LISINOPRIL 90766605296 Active Chad Guardado MD Active TRAMADOL HCL 50 MG TABS 1-2 tablets every 6 hours as needed for pain TRAMADOL HCL 19664214915 Active Chad Guardado MD Active DICLOFENAC SODIUM 1.5 % TRANS SOLN 40 drops applied to each knee 4 times a day DICLOFENAC SODIUM 89485505563 Active Chad Guardado MD Active NYSTATIN 622415 UNIT/ML SUSP Swish and swallow 5ml four times a day until yeast is clear. NYSTATIN 72635675469 No Longer Active Chad Guardado MD Active TESSALON PERLES 100 MG CAP 1 tablet by mouth 3 times daily BENZONATATE 51781228132 Active Sparkle Castro APRN Active CITALOPRAM HYDROBROMIDE 40 MG TABS 1 daily for depression/anxiety CITALOPRAM HYDROBROMIDE 23996192960 Active Chad Guardado MD Active DEPAKOTE 250 MG TBEC 1 twice a day to prevent headaches DIVALPROEX SODIUM 74059695732 Active Chad Guardado MD Active CYCLOBENZAPRINE HCL 10 MG TABS 1 at bedtime for muscle tightness CYCLOBENZAPRINE HCL 42302087730 Active Chad Guardado MD Active METHOCARBAMOL 750 MG TABS 1 po q8hr PRN spasm and neck pain 06/12 METHOCARBAMOL 65930062691 No Longer Active Chad Guardado MD Active JANA ASPIRIN EC LOW DOSE 81 MG TBEC Take one by mouth daily ASPIRIN 51686504424 No Longer Active Chad Guardado MD Active HYDROCODONE-ACETAMINOPHEN 7.5-325 MG TABS 1 three times a day as needed for pain HYDROCODONE-ACETAMINOPHEN 86114600677 Active Chad Guardado MD Active CIPROFLOXACIN HCL 250 MG TABS 1 twice a day for 3 days for urinary infection CIPROFLOXACIN HCL 87622688049 No Longer Active Chad Guardado MD Active LIDODERM 5 % PTCH apply to affected area for 12 hours LIDOCAINE 87530941290 Active Chad Gaurdado MD Active FUROSEMIDE 20 MG TAB 1 tablet by mouth daily FUROSEMIDE 83556744057 Active Chad Guardado MD Active IMITREX 6 MG/0.5ML SOLN Take as directed SUMATRIPTAN SUCCINATE 32226053690 Active Sparkle Castro APRN Active SERTRALINE HCL 50 MG TABS 1 daily for mood SERTRALINE HCL 10337326182 No Longer Active Chad Guardado MD Active IMITREX 100 MG TABS TAKE 1 TABLET AT THE ONSET OF HEADACHE MAY REPEAT IN 2 HRS IF NEEDED SUMATRIPTAN SUCCINATE 04316870448 Active Sparkle Castro ESTHETICIAN SPA Active IMITREX TABS Take/use as needed. SUMATRIPTAN SUCCINATE TABS 63288374445 No Longer Active Jaylyn Monzonkimberly DACOSTA Active SUMATRIPTAN SUCCINATE 100 MG TABS as directed SUMATRIPTAN SUCCINATE 05453302157 No Longer Active Nedraroula Cramer Active LORAZEPAM 0.5 MG TAB 1 tab po q8 hrs and 2 tabs at bedtime 07/03 LORAZEPAM 99395795440 No Longer Active Nedra Cramer Active PYRIDIUM 200 MG TAB 1 po TID PRN Dysuria PHENAZOPYRIDINE HCL 42912716690 No Longer Active Sachin Wasserman MD Active CIPRO 250 MG TAB 1 tablet by mouth twice daily CIPROFLOXACIN HCL 39184665807 No Longer Active Sachin Wasserman MD Active LUNESTA 2 MG TABS take one tab po qhs ESZOPICLONE 80918669194 No Longer Active Broderick Solares MD Active CITALOPRAM HYDROBROMIDE 20 MG TABS take one tab po daily CITALOPRAM HYDROBROMIDE 41906771860 No Longer Active Broderick Solares MD Active HYDROCODONE-ACETAMINOPHEN 10-325 MG TABS 1 tab po q4-6 hrs prn HYDROCODONE-ACETAMINOPHEN 83707856816 No Longer Active Broderick Solares MD Active SULFAMETHOXAZOLE-TMP DS 800-160 MG TABS take one tab po bid x 7 days SULFAMETHOXAZOLE-TRIMETHOPRIM 27926218089 No Longer Active Broderick Solares MD Active DICLOFENAC SODIUM 75 MG TBEC take one tab po bid DICLOFENAC SODIUM 56903795155 Active Broderick Solares MD Active NAPROXEN 500 MG TAB 1 by mouth twice a day NAPROXEN 41031846247 No Longer Active Daisy Pool PA Active FUROSEMIDE 40 MG TAB 1 tablet by mouth daily FUROSEMIDE 74638936737 No Longer Active Daisy Pool PA Active MELOXICAM 15 MG TABS 1 po q day for pain with food MELOXICAM 56464990426 No Longer Active Daisy Pool PA Active ZOLPIDEM TARTRATE 10 MG TABS take one tab po daily ZOLPIDEM TARTRATE 60130451586 No Longer Active Daisy Pool PA Active COLACE 100 MG CAPS Take one by mouth daily DOCUSATE SODIUM 00053411124 No Longer Active Daisy Pool PA Active NIMODIPINE 30 MG CAPS 1 every 2 hours NIMODIPINE 46405278929 No Longer Active Daisy Pool PA Active ZOFRAN ODT 4 MG TBDP 1 po q6hr PRN Nausea ONDANSETRON 25595057221 No Longer Active Daisy Pool PA Active MAGNESIUM OXIDE 400 MG TABS Take one by mouth daily MAGNESIUM OXIDE 43002929857 No Longer Active Daisy Pool PA Active MAGNESIUM OXIDE 400 MG TABS Take one by mouth daily MAGNESIUM OXIDE 400 MG TABS 176601 MAGNESIUM OXIDE Inactive ZOFRAN ODT 4 MG TBDP 1 po q6hr PRN Nausea ZOFRAN ODT 4 MG TBDP 613668 ONDANSETRON Inactive NIMODIPINE 30 MG CAPS 1 every 2 hours NIMODIPINE 30 MG CAPS 286454 NIMODIPINE Inactive COLACE 100 MG CAPS Take one by mouth daily COLACE 100 MG CAPS 2968043 DOCUSATE SODIUM Inactive ZOLPIDEM TARTRATE 10 MG TABS take one tab po daily ZOLPIDEM TARTRATE 10 MG TABS 253026 ZOLPIDEM TARTRATE Inactive MELOXICAM 15 MG TABS 1 po q day for pain with food MELOXICAM 15 MG TABS 745779 MELOXICAM Inactive FUROSEMIDE 40 MG TAB 1 tablet by mouth daily FUROSEMIDE 40 MG TAB 160917 FUROSEMIDE Inactive NAPROXEN 500 MG TAB 1 by mouth twice a day NAPROXEN 500 MG TAB 687539 NAPROXEN Inactive SULFAMETHOXAZOLE-TMP DS 800-160 MG TABS take one tab po bid x 7 days SULFAMETHOXAZOLE-TMP DS 800-160 MG TABS SULFAMETHOXAZOLE- TRIMETHOPRIM Inactive HYDROCODONE-ACETAMINOPHEN 10-325 MG TABS 1 tab po q4-6 hrs prn HYDROCODONE-ACETAMINOPHEN 10-325 MG TABS 077031 HYDROCODONE- ACETAMINOPHEN Inactive CITALOPRAM HYDROBROMIDE 20 MG TABS take one tab po daily CITALOPRAM HYDROBROMIDE 20 MG TABS 640296 CITALOPRAM HYDROBROMIDE Inactive LUNESTA 2 MG TABS take one tab po qhs LUNESTA 2 MG TABS 062372 ESZOPICLONE Inactive LORAZEPAM 0.5 MG TAB 1 tab po q8 hrs and 2 tabs at bedtime 07/03 LORAZEPAM 0.5 MG TAB 182753 LORAZEPAM Inactive SUMATRIPTAN SUCCINATE 100 MG TABS as directed SUMATRIPTAN SUCCINATE 100 MG TABS 825120 SUMATRIPTAN SUCCINATE Inactive IMITREX TABS Take/use as needed. IMITREX TABS SUMATRIPTAN SUCCINATE TABS Inactive SERTRALINE HCL 50 MG TABS 1 daily for mood SERTRALINE HCL 50 MG TABS 873017 SERTRALINE HCL Inactive JANA ASPIRIN EC LOW DOSE 81 MG TBEC Take one by mouth daily JANA ASPIRIN EC LOW DOSE 81 MG TBEC 380948 ASPIRIN Inactive METHOCARBAMOL 750 MG TABS 1 po q8hr PRN spasm and neck pain 06/12 METHOCARBAMOL 750 MG TABS 009072 METHOCARBAMOL Inactive NYSTATIN 412360 UNIT/ML SUSP Swish and swallow 5ml four times a day until yeast is clear. NYSTATIN 633457 UNIT/ML SUSP 357955 NYSTATIN Inactive CIPRO 250 MG TAB 1 tablet by mouth twice daily CIPRO 250 MG TAB 788090 CIPROFLOXACIN HCL Inactive PYRIDIUM 200 MG TAB 1 po TID PRN Dysuria PYRIDIUM 200 MG TAB 9097544 PHENAZOPYRIDINE HCL Inactive CIPROFLOXACIN HCL 250 MG [...] Fluvirin, Fluarix, Agriflu(>=18 yo)) Fluzone (>3 yrs.) [[id number]] Influenza, seasonal, injectable Vital Signs Date Name [...] Report: Comp. Metabolic Panel, CBC - Chemistry calcium, serum 9.2 mg/dL 8.5-10.1 bilirubin, serum, total 0.20 mg/dL 0.00-1.00 blood glucose 90 mg/dL 65-110 carbon dioxide, venous blood 32.0 mmol/L 21.0-32.0 alkaline phosphatase, serum 94 U/L 50-136 aspartate aminotransferase (SGOT), serum 15 U/L 15-37 alanine aminotransferase (SGPT), serum 26 U/L 12-78 creatinine, serum 0.70 mg/dL 0.60-1.30 urea nitrogen, blood 18 mg/dL 7-18 chloride, serum 104 mmol/L 98-107 potassium, serum [...] Panel - Chemistry cholesterol, serum 197 mg/dL 456-433 8932/09/25 triglyceride, serum, fasting 48 mg/dL 30-200 HDL [...] 5.0-8.5 Encounters Code Encounter Date Provider Facility CPT-37979 Level 3 Est. Patient 15:11:25 FORENSIC DOCUMENT EXAMINER Chad Guardado MD [facility] CPT-75274 Level 3 Est. Patient 17:38:05 FORENSIC DOCUMENT EXAMINER Chad Guardado MD [facility] CPT-90053 Level 3 Est. Patient 15:35:54 FORENSIC DOCUMENT EXAMINER Sparkle Castro APRN [facility] CPT-03989 Level 4 Est. Patient 09:41:26 FORENSIC DOCUMENT EXAMINER Chad Guardado MD [facility] CPT-81285 Level 4 Est. Patient 16:16:11 CDT Chad Guardado MD [facility] CPT-07667 Level 3 Est. Patient 12:46:41 CDT Chad Guardado MD [facility] CPT-21958 Level 3 Est. Patient 17:26:51 CDT Chad Guardado MD [facility] CPT-22543 Level 4 New Patient 13:59:42 CDT Chad Guardado MD [facility] CPT-38437 Level 4 Est. Patient 20:23:44 FORENSIC DOCUMENT EXAMINER Broderick Solares MD [facility] CPT-99112 Level 3 Est. Patient 14:43:04 FORENSIC DOCUMENT EXAMINER Broderick Solares MD [facility] CPT-52962 Level 3 Est. Patient 10:05:53 FORENSIC DOCUMENT EXAMINER Sachin Wasserman MD [facility] CPT-23804 Level 3 Est. Patient 14:35:17 CDT Daisy [facility] CPT-56663 Level 3 Est. Patient 10:59:26 CDT Daisy [facility] CPT-76246 Level 3 Est. Patient 15:41:02 CDT Daisy [facility] CPT-94547 Level 3 Est. Patient 16:41:25 CDT Daisy [facility] CPT-20713 Level 3 New Patient 14:47:15 CDT Daisy [facility] Procedures Code Procedure Name Date Entry Date Standard Description CPT-15919 C-Spine Min 4V 12:56:08 FORENSIC DOCUMENT EXAMINER CPT-43653 Immunization Single Admin 09:23:37 CDT CPT-55654 Tdap Vaccine 09:23:37 CDT CPT-45977 Fluzone Quadrivalent Intramuscular Suspension 0.5 ML 20: 47:45 CDT CPT-22894 Ankle Complete - Min 3V 12:29:38 CDT CPT-01386 Forearm AP and Lat 10:01:39 FORENSIC DOCUMENT EXAMINER CPT-26297 Knee 3V 13:56:38 CDT CPT-69444 Administration single or combination vaccine inc oral 11 :50:16 CDT CPT-66304 Influenza split virus > age 3 11:50:16 CDT
--- OUTSIDE RECORDS SUMMARY | 2018-09-24 01:47 | XMS REPORT ---
Author Author [facility] Medical Staff Organization [facility] [employer] [facility] Address [address], [place] [address] Phone [phone] Summary purpose TRANSITION OF CARE AUTO GENERATION Chief Complaint and Reason for Visit Admit Diagnosis 1 MIGRAINE NOS W/O SM Problem list No authorized problems tracked for continuity of care are available for this visit. Encounters No authorized problems tracked for encounter diagnoses are available for this visit. Medications No home medications recorded for this patient visit Allergies, adverse reactions, alerts Allergen Category Ingredient Status Reaction Severity Onset Codeine Drug Allergy Codeine Confirmed or Verified Iodinated Contrast Media - IV Dye Drug Allergy Iodinated Contrast Media - IV Dye Confirmed or Verified Immunizations No immunizations recorded for this patient visit Relevant diagnostic tests and/or laboratory data No authorized results are available for this patient visit History of procedures Procedure Code Code Type Description Date Performed Performing Physician J2550 CPT-4 PROMETHAZIEN 25MG/ML 09-03-2014 PAULINO CARRION J1885 CPT-4 TORADOL SYR 30MG/ML 09-03-2014 PAULINO CARRION J0595 CPT-4 BUTORPHANOL TARTRATE 1 MG 09-03-2014 PAULINO CARRION 82288 CPT-4 EMERGENCY DEPT VISIT 09-03-2014 PAULINO CARRION 11971 CPT-4 EMERGENCY DEPT VISIT 09-03-2014 PAULINO CARRION 82601 CPT-4 THER/PROPH/DIAG INJ, SC/IM 09-03-2014 PAULINO CARRION Functional status Functional Status Finding Observation Time Diet regular 51-11-005164:45 Abdomen Appearance flat 60-74-248980:45 Abdomen non-tender 61-03-457845:45 Cesar no 94-15-728208:45 Urination normal 19-40-438192:45 Quality sym/unlabored 63-18-721277:45 Cough absent 31-60-958434:45 Secretions no 19-26-778785:45 Airway natural 88-42-498751:45 Oxygen no 42-97-599204:30 Temp >100.4 no :45 Temp <96.8 no :45 Chills with rigors no :45 HR > 90bpm yes :45 Respirations > 20 yes :45 Systolic <90 no :45 headache stiff neck no :45 Nursing Note Reviewed home instructions with pt - pt verbalizes understanding - denies questions - pt is amb off unit at this time in good condition. : 30 Vital signs Type Value Date Respiration Rate 20breaths per minute :30 Pulse 81beats per minute :30 Oxygen Saturation 99% :30 BP Systolic 140mmHg :30 BP Diastolic 86mmHg :30 Temperature 98.6F :30 Social history No Social History or smoking status observations were recorded for this visit. ( Unknown if ever smoked.) Treatment Plan No treatment plan text is available for this visit. Hospital discharge instructions Dismissal Condition good Disposition on DC home DC Inst/Educ Give yes Med/Side Effects Rev yes Flu Vac 2014 Tetanus Vac ukn
--- OUTSIDE RECORDS SUMMARY | 2018-09-24 01:47 | XMS REPORT | Clinical Summary ---
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 Aneurysm of unspecified artery site ANXIETY DEPRESSION 300.4 Active [facility] Dysthymic disorder INSOMNIA 780.52 [facility] Insomnia, unspecified LOSS OF APPETITE 783.0 [facility] Anorexia CEPHALGIA 784.0 Active [facility] Headache ENCOUNTER FOR REMOVAL OF SUTURES V58.32 Resolved Daisy Amboy PA Encounter for removal of sutures NECK PAIN 723.1 Active [facility] Cervicalgia KNEE PAIN, BILATERAL 719.46 Active Daisy Amboy PA Pain in joint involving lower leg [...] elsewhere classified Cough 786.2 Active Sparkle Castro ACCESS CLERK Cough Thrush 112.0 Active Chad Guardado MD [...] TAB 1 tablet by mouth daily FUROSEMIDE 93321215990 No Longer Active Paras Nunez DO Active LIDODERM 5 % PTCH apply to affected area for 12 hours LIDOCAINE 43540505174 No Longer Active Paras Nunez DO Active MACROBID 100 MG CAP 1 cap by mouth twice daily x 7 days. NITROFURANTOIN MONOHYD MACRO 29382792490 Active Chad Guardado MD Active CIPRO 250 MG TAB 1 tablet by mouth twice daily x 5 days. CIPROFLOXACIN HCL 01653557635 No Longer Active Chad Guardado MD Active LISINOPRIL 20 MG TABS 1 tablet by mouth daily for blood pressure LISINOPRIL 48940413393 Active Chad Guardado MD Active TRAMADOL HCL 50 MG TABS 1-2 tablets every 6 hours as needed for pain TRAMADOL HCL 29853747202 Active Chad Guardado MD Active DICLOFENAC SODIUM 1.5 % TRANS SOLN 40 drops applied to each knee 4 times a day DICLOFENAC SODIUM 30456016274 Active Chad Guardado MD Active NYSTATIN 539015 UNIT/ML SUSP Swish and swallow 5ml four times a day until yeast is clear. NYSTATIN 45500799956 No Longer Active Chad Guardado MD Active TESSALON PERLES 100 MG CAP 1 tablet by mouth 3 times daily BENZONATATE 57905559150 Active Sparkle Montejogosia ACCESS CLERK Active CITALOPRAM HYDROBROMIDE 40 MG TABS 1 daily for depression/anxiety CITALOPRAM HYDROBROMIDE 09216435956 Active Chad Guardado MD Active DEPAKOTE 250 MG TBEC 1 twice a day to prevent headaches DIVALPROEX SODIUM 84849755661 Active Chad Guardaod MD Active CYCLOBENZAPRINE HCL 10 MG TABS 1 at bedtime for muscle tightness CYCLOBENZAPRINE HCL 63718412706 Active Chad Guardado MD Active METHOCARBAMOL 750 MG TABS 1 po q8hr PRN spasm and neck pain 06/12 METHOCARBAMOL 95431901972 No Longer Active Chad Guardado MD Active JANA ASPIRIN EC LOW DOSE 81 MG TBEC Take one by mouth daily ASPIRIN 32350147619 No Longer Active Chad Guardado MD Active HYDROCODONE-ACETAMINOPHEN 7.5-325 MG TABS 1 three times a day as needed for pain HYDROCODONE-ACETAMINOPHEN 47273868038 Active Chad Guardado MD Active CIPROFLOXACIN HCL 250 MG TABS 1 twice a day for 3 days for urinary infection CIPROFLOXACIN HCL 59825052530 No Longer Active Chad Guardado MD Active IMITREX 6 MG/0.5ML SOLN Take as directed SUMATRIPTAN SUCCINATE 23911446511 Active Sparkle Castro ACCESS CLERK Active SERTRALINE HCL 50 MG TABS 1 daily for mood SERTRALINE HCL 86128602843 No Longer Active Chad Guardado MD Active IMITREX 100 MG TABS TAKE 1 TABLET AT THE ONSET OF HEADACHE MAY REPEAT IN 2 HRS IF NEEDED SUMATRIPTAN SUCCINATE 74929779429 Active Sparkle Castro ACCESS CLERK Active IMITREX TABS Take/use as needed. SUMATRIPTAN SUCCINATE TABS 68348785426 No Longer Active Jaylyn DACOSTA Active SUMATRIPTAN SUCCINATE 100 MG TABS as directed SUMATRIPTAN SUCCINATE 99363920914 No Longer Active Nedra Cramer Active LORAZEPAM 0.5 MG TAB 1 tab po q8 hrs and 2 tabs at bedtime 07/03 LORAZEPAM 80066925825 No Longer Active Nedra Cramer Active PYRIDIUM 200 MG TAB 1 po TID PRN Dysuria PHENAZOPYRIDINE HCL 01833735850 No Longer Active Sachin Wasserman MD Active CIPRO 250 MG TAB 1 tablet by mouth twice daily CIPROFLOXACIN HCL 29533580299 No Longer Active Sachin Wasserman MD Active LUNESTA 2 MG TABS take one tab po qhs ESZOPICLONE 43148154877 No Longer Active Broderick Solares MD Active CITALOPRAM HYDROBROMIDE 20 MG TABS take one tab po daily CITALOPRAM HYDROBROMIDE 52189718911 No Longer Active Broderick Solares MD Active HYDROCODONE-ACETAMINOPHEN 10-325 MG TABS 1 tab po q4-6 hrs prn HYDROCODONE-ACETAMINOPHEN 12731713611 No Longer Active Broderick Solares MD Active SULFAMETHOXAZOLE-TMP DS 800-160 MG TABS take one tab po bid x 7 days SULFAMETHOXAZOLE-TRIMETHOPRIM 88871547117 No Longer Active Broderick Solares MD Active DICLOFENAC SODIUM 75 MG TBEC take one tab po bid DICLOFENAC SODIUM 81565285366 Active Broderick Solares MD Active NAPROXEN 500 MG TAB 1 by mouth twice a day NAPROXEN 10725189342 No Longer Active Daisy Pool PA Active FUROSEMIDE 40 MG TAB 1 tablet by mouth daily FUROSEMIDE 20959438698 No Longer Active Daisy Pool PA Active MELOXICAM 15 MG TABS 1 po q day for pain with food MELOXICAM 65713871620 No Longer Active Daisy Pool PA Active ZOLPIDEM TARTRATE 10 MG TABS take one tab po daily ZOLPIDEM TARTRATE 14777973769 No Longer Active Daisy Pool PA Active COLACE 100 MG CAPS Take one by mouth daily DOCUSATE SODIUM 74483239179 No Longer Active Daisy Pool PA Active NIMODIPINE 30 MG CAPS 1 every 2 hours NIMODIPINE 31159021445 No Longer Active Daisy Pool PA Active ZOFRAN ODT 4 MG TBDP 1 po q6hr PRN Nausea ONDANSETRON 76852312317 No Longer Active Daisy Pool PA Active MAGNESIUM OXIDE 400 MG TABS Take one by mouth daily MAGNESIUM OXIDE 92145335364 No Longer Active Daisy Pool PA Active MAGNESIUM OXIDE 400 MG TABS Take one by mouth daily MAGNESIUM OXIDE 400 MG TABS 124903 MAGNESIUM OXIDE Inactive ZOFRAN ODT 4 MG TBDP 1 po q6hr PRN Nausea ZOFRAN ODT 4 MG TBDP 171264 ONDANSETRON Inactive NIMODIPINE 30 MG CAPS 1 every 2 hours NIMODIPINE 30 MG CAPS 551037 NIMODIPINE Inactive COLACE 100 MG CAPS Take one by mouth daily COLACE 100 MG CAPS 6270500 DOCUSATE SODIUM Inactive ZOLPIDEM TARTRATE 10 MG TABS take one tab po daily ZOLPIDEM TARTRATE 10 MG TABS 111282 ZOLPIDEM TARTRATE Inactive MELOXICAM 15 MG TABS 1 po q day for pain with food MELOXICAM 15 MG TABS 955415 MELOXICAM Inactive FUROSEMIDE 40 MG TAB 1 tablet by mouth daily FUROSEMIDE 40 MG TAB 581988 FUROSEMIDE Inactive NAPROXEN 500 MG TAB 1 by mouth twice a day NAPROXEN 500 MG TAB 081182 NAPROXEN Inactive SULFAMETHOXAZOLE-TMP DS 800-160 MG TABS take one tab po bid x 7 days SULFAMETHOXAZOLE-TMP DS 800-160 MG TABS SULFAMETHOXAZOLE- TRIMETHOPRIM Inactive HYDROCODONE-ACETAMINOPHEN 10-325 MG TABS 1 tab po q4-6 hrs prn HYDROCODONE-ACETAMINOPHEN 10-325 MG TABS 061215 HYDROCODONE- ACETAMINOPHEN Inactive CITALOPRAM HYDROBROMIDE 20 MG TABS take one tab po daily CITALOPRAM HYDROBROMIDE 20 MG TABS 204056 CITALOPRAM HYDROBROMIDE Inactive LUNESTA 2 MG TABS take one tab po qhs LUNESTA 2 MG TABS 569509 ESZOPICLONE Inactive LORAZEPAM 0.5 MG TAB 1 tab po q8 hrs and 2 tabs at bedtime 07/03 LORAZEPAM 0.5 MG TAB 152655 LORAZEPAM Inactive SUMATRIPTAN SUCCINATE 100 MG TABS as directed SUMATRIPTAN SUCCINATE 100 MG TABS 229421 SUMATRIPTAN SUCCINATE Inactive IMITREX TABS Take/use as needed. IMITREX TABS SUMATRIPTAN SUCCINATE TABS Inactive SERTRALINE HCL 50 MG TABS 1 daily for mood SERTRALINE HCL 50 MG TABS 226066 SERTRALINE HCL Inactive JANA ASPIRIN EC LOW DOSE 81 MG TBEC Take one by mouth daily JANA ASPIRIN EC LOW DOSE 81 MG TBEC 773310 ASPIRIN Inactive METHOCARBAMOL 750 MG TABS 1 po q8hr PRN spasm and neck pain 06/12 METHOCARBAMOL 750 MG TABS 960001 METHOCARBAMOL Inactive NYSTATIN 410217 UNIT/ML SUSP Swish and swallow 5ml four times a day until yeast is clear. NYSTATIN 951610 UNIT/ML SUSP 589470 NYSTATIN Inactive CIPRO 250 MG TAB 1 tablet by mouth twice daily x 5 days. CIPRO 250 MG TAB 19740807 CIPROFLOXACIN HCL Inactive LIDODERM 5 % PTCH apply to affected area for 12 hours LIDODERM 5 % PTCH 2709255 LIDOCAINE Inactive FUROSEMIDE 20 MG TAB 1 tablet by mouth daily FUROSEMIDE 20 MG TAB 653678 FUROSEMIDE Inactive CIPRO 250 MG TAB 1 tablet by mouth twice daily CIPRO 250 MG TAB 19740807 CIPROFLOXACIN HCL Inactive PYRIDIUM 200 MG TAB 1 po TID PRN Dysuria PYRIDIUM 200 MG TAB 3173175 PHENAZOPYRIDINE HCL Inactive CIPROFLOXACIN HCL 250 MG TABS 1 twice a day for 3 days for urinary infection CIPROFLOXACIN HCL 250 MG TABS 660939 CIPROFLOXACIN HCL Inactive Advance Directives Directive Description Start Date PERMISSION TO SHARE Immunizations Vaccine Administration Date Value Standard Description Seasonal influenza vaccine, injectable, containing preservative, for > 3 years old (Afluria, FluLaval, Fluzone, Fluvirin, Fluarix, Agriflu(>=18 yo)) Fluzone (>3 yrs.) [[id number]] Influenza, seasonal, injectable Vital Signs Date Name [...] CBC - Chemistry sodium, serum 140 mmol/L 928-218 4327/09/23 potassium, serum 4.7 mmol/L 3.5-5.2 chloride, serum [...] Panel - Chemistry cholesterol, serum 197 mg/dL 186-476 5262/09/25 triglyceride, serum, fasting 48 mg/dL 30-200 HDL [...] 5.0-8.5 Encounters Code Encounter Date Provider Facility CPT-66231 Level 3 Est. 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 Patient 17:38:05 PATENTED HOGSHEAD ASSEMBLER Chad Guardado MD [facility]-10986 Level 3 Est. Patient 15:35:54 PATENTED HOGSHEAD ASSEMBLER Sparkle Castro APRN [facility] CPT-45618 Level 4 Est. 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 Patient 16:16:11 CDT Chad Guardado MD [facility] CPT-03423 Level 3 Est. Patient 12:46:41 CDT Chad Guardado MD [facility]-24761 Level 3 Est. Patient 17:26:51 CDT Chad Guardado MD [facility] CPT-62438 Level 4 New Patient 13:59:42 CDT Chad Guardado MD [facility] CPT-06932 Level 4 Est. Patient 20:23:44 PATENTED HOGSHEAD ASSEMBLER Broderick Solares MD [facility] CPT-19536 Level 3 Est. Patient 14:43:04 PATENTED HOGSHEAD ASSEMBLER Broderick Solares MD [facility] CPT-15731 Level 3 Est. Patient 10:05:53 PATENTED HOGSHEAD ASSEMBLER Sachin Wasserman MD [facility] CPT-95905 Level 3 Est. Patient 14:35:17 CDT Daisy Pool [facility] CPT-39230 Level 3 Est. Patient 10:59:26 CDT Daisy Pool [facility] CPT-57890 Level 3 Est. Patient 15:41:02 CDT Daisy Pool [facility] CPT-06416 Level 3 Est. Patient 16:41:25 CDT Daisy [facility] CPT-34997 Level 3 New Patient 14:47:15 CDT Daisy [facility] Procedures Code Procedure Name Date Entry Date Standard Description CPT-J1885 Toradol 60 mg (Ketorolac) 14:59:26 PATENTED [employer]GSHEAD ASSEMBLER CPT-36888 Abx/Therapy Injection 14:59:26 PATENTED [employer]GSHEAD ASSEMBLER CPT-J1885 Toradol 60 mg 14:50:08 PATENTED [employer]GS[employer] AS[employer]BLER CPT-19820 C-Spine Min 4V 12:56:08 PATENTED [employer]GS[employer]ER CPT-35246 Immunization Single Admin 09:23:37 CDT CPT-85556 Tdap Vaccine 09:23:37 CDT CPT-66840 Fluzone Quadrivalent Intramuscular Suspension 0.5 ML 20: 47:45 CDT CPT-33745 Ankle Complete - Min 3V 12:29:38 CDT CPT-84021 Forearm AP and Lat 10:01:39 PATENTED [employer]GS[employer] AS[employer]ER CPT-90573 Knee 3V 13:56:38 CDT CPT-11248 Administration single or combination vaccine inc oral 11 :50:16 CDT CPT-29589 Influenza split virus > age 3 11:50:16 CDT
--- OUTSIDE RECORDS SUMMARY | 2018-09-24 01:48 | XMS REPORT | Clinical Summary ---
Author Author Admin, MADDY Organization [facility] Address Unknown Phone Unavailable Allergies, Adverse Reactions, Alerts Allergy Name Reaction Description Start Date Severity Status Provider AMITRIPTYLINE HCL Hair loss and nightmares Moderate Active Chad Guardado MD IVP DYE Critical Active Chad Guardado MD CODEINE nausea Moderate Active [facility] Conditions or Problems Problem Name Problem Code Onset Date Status Entry Date Provider Comment Standard Description Annotate ANEURYSM 442.9 Active [facility] Aneurysm of unspecified artery site ANXIETY DEPRESSION 300.4 Active [facility] Dysthymic disorder INSOMNIA 780.52 Active [facility] Insomnia, unspecified LOSS OF APPETITE 783.0 Active [facility] Anorexia CEPHALGIA 784.0 Active [facility] Headache ENCOUNTER FOR REMOVAL OF SUTURES V58.32 Resolved [facility] PA Encounter for removal of sutures NECK PAIN 723.1 Active [facility] Cervicalgia KNEE PAIN, BILATERAL 719.46 Active Daisy [facility] PA Pain in joint involving lower leg [...] elsewhere classified Cough 786.2 Active Sparkle Castro [employer] Cough Thrush 112.0 Active Chad Guardado MD Candidiasis of mouth HYPERTENSION, BENIGN ESSENTIAL 401.1 Active Chad Guardado MD Benign essential hypertension Urinary tract infection 599.0 Active Chad Guardado MD Urinary tract infection, site not specified Back pain, thoracic region 724.1 Active Chad Guardado MD Pain in thoracic spine ENCOUNTER FOR REMOVAL OF SUTURES ICD-V58.32 Inactive Daisy PAZ INJURY OTHER AND UNSPECIFIED FINGER ICD-959.5 Inactive Chad Guardado MD UTI ICD-599.0 Inactive Chad Guardado MD Medication List Medication Instructions Start Date Stop Date Generic Name NDC Status Provider Patient Instruction MACROBID 100 MG ORAL CAPS NITROFURANTOIN MONOHYD MACRO 46522091042 Active hCad Guardado MD Active IMITREX 100 MG TABS TAKE 1 TABLET AT THE ONSET OF HEADACHE MAY REPEAT IN 2 HRS IF NEEDED SUMATRIPTAN SUCCINATE 75660143635 No Longer Active Chad Guardado MD Active FUROSEMIDE 20 MG TAB 1 tablet by mouth daily FUROSEMIDE 55498802614 No Longer Active Paras Nunez DO Active LIDODERM 5 % PTCH apply to affected area for 12 hours LIDOCAINE 26415774861 No Longer Active Paras Nunez DO Active MACROBID 100 MG CAP 1 cap by mouth twice daily x 7 days. NITROFURANTOIN MONOHYD MACRO 21511306849 No Longer Active Chad Guardado MD Active CIPRO 250 MG TAB 1 tablet by mouth twice daily x 5 days. CIPROFLOXACIN HCL 00200439791 No Longer Active Chad Guardado MD Active LISINOPRIL 20 MG TABS 1 tablet by mouth daily for blood pressure LISINOPRIL 95697195283 Active Chad Guardado MD Active TRAMADOL HCL 50 MG TABS 1-2 tablets every 6 hours as needed for pain TRAMADOL HCL 64673781651 Active Chad Guardado MD Active DICLOFENAC SODIUM 1.5 % TRANS SOLN 40 drops applied to each knee 4 times a day DICLOFENAC SODIUM 28723849218 Active Chad Guardado MD Active NYSTATIN 601334 UNIT/ML SUSP Swish and swallow 5ml four times a day until yeast is clear. NYSTATIN 18079179321 No Longer Active Chad Guardado MD Active TESSALON PERLES 100 MG CAP 1 tablet by mouth 3 times daily BENZONATATE 86644185808 Active Sparkle Castro APRN Active CITALOPRAM HYDROBROMIDE 40 MG TABS 1 daily for depression/anxiety CITALOPRAM HYDROBROMIDE 07687463524 Active Chad Guardado MD Active DEPAKOTE 250 MG TBEC 1 twice a day to prevent headaches DIVALPROEX SODIUM 54686786077 Active Chad Guardado MD Active CYCLOBENZAPRINE HCL 10 MG TABS 1 at bedtime for muscle tightness CYCLOBENZAPRINE HCL 01595595656 Active Chad Guardado MD Active METHOCARBAMOL 750 MG TABS 1 po q8hr PRN spasm and neck pain 06/12 METHOCARBAMOL 94416197556 No Longer Active Chad Guardado MD Active JANA ASPIRIN EC LOW DOSE 81 MG TBEC Take one by mouth daily ASPIRIN 20123652624 No Longer Active Chad Guardado MD Active HYDROCODONE-ACETAMINOPHEN 7.5-325 MG TABS 1 three times a day as needed for pain HYDROCODONE-ACETAMINOPHEN 47598728372 Active Chad Guardado MD Active CIPROFLOXACIN HCL 250 MG TABS 1 twice a day for 3 days for urinary infection CIPROFLOXACIN HCL 18201619896 No Longer Active Chad Guardado MD Active IMITREX 6 MG/0.5ML SOLN Take as directed SUMATRIPTAN SUCCINATE 95555958908 Active Sparkle Castro [employer] Active SERTRALINE HCL 50 MG TABS 1 daily for mood SERTRALINE HCL 58752204455 No Longer Active Chad Guardado MD Active IMITREX TABS Take/use as needed. SUMATRIPTAN SUCCINATE TABS 92111949878 No Longer Active Jaylyn DACOSTA Active SUMATRIPTAN SUCCINATE 100 MG TABS as directed SUMATRIPTAN SUCCINATE 33331953398 No Longer Active Nedar Cramer Active LORAZEPAM 0.5 MG TAB 1 tab po q8 hrs and 2 tabs at bedtime 07/03 LORAZEPAM 02631025270 No Longer Active Nedra Cramer Active PYRIDIUM 200 MG TAB 1 po TID PRN Dysuria PHENAZOPYRIDINE HCL 42730382137 No Longer Active Sachin Wasserman MD Active CIPRO 250 MG TAB 1 tablet by mouth twice daily CIPROFLOXACIN HCL 89992110076 No Longer Active Sachin Wasserman MD Active LUNESTA 2 MG TABS take one tab po qhs ESZOPICLONE 34556583722 No Longer Active Broderick Solares MD Active CITALOPRAM HYDROBROMIDE 20 MG TABS take one tab po daily CITALOPRAM HYDROBROMIDE 16400335639 No Longer Active Broderick Solares MD Active HYDROCODONE-ACETAMINOPHEN 10-325 MG TABS 1 tab po q4-6 hrs prn HYDROCODONE-ACETAMINOPHEN 88836302965 No Longer Active Broderick Solares MD Active SULFAMETHOXAZOLE-TMP DS 800-160 MG TABS take one tab po bid x 7 days SULFAMETHOXAZOLE-TRIMETHOPRIM 57590187522 No Longer Active Broderick Solares MD Active DICLOFENAC SODIUM 75 MG TBEC take one tab po bid DICLOFENAC SODIUM 65339822839 Active Broderick Solares MD Active NAPROXEN 500 MG TAB 1 by mouth twice a day NAPROXEN 55017687989 No Longer Active Daisy Pool PA Active FUROSEMIDE 40 MG TAB 1 tablet by mouth daily FUROSEMIDE 38987042318 No Longer Active Daisy Pool PA Active MELOXICAM 15 MG TABS 1 po q day for pain with food MELOXICAM 68995756607 No Longer Active Daisy Pool PA Active ZOLPIDEM TARTRATE 10 MG TABS take one tab po daily ZOLPIDEM TARTRATE 09598468785 No Longer Active Daisy Pool PA Active COLACE 100 MG CAPS Take one by mouth daily DOCUSATE SODIUM 69788772510 No Longer Active Daisy Pool PA Active NIMODIPINE 30 MG CAPS 1 every 2 hours NIMODIPINE 02448218361 No Longer Active Daisy Pool PA Active ZOFRAN ODT 4 MG TBDP 1 po q6hr PRN Nausea ONDANSETRON 78172156271 No Longer Active Daisy Pool PA Active MAGNESIUM OXIDE 400 MG TABS Take one by mouth daily MAGNESIUM OXIDE 30609144727 No Longer Active Daisy Pool PA Active MAGNESIUM OXIDE 400 MG TABS Take one by mouth daily MAGNESIUM OXIDE 400 MG TABS 953850 MAGNESIUM OXIDE Inactive ZOFRAN ODT 4 MG TBDP 1 po q6hr PRN Nausea ZOFRAN ODT 4 MG TBDP 008225 ONDANSETRON Inactive NIMODIPINE 30 MG CAPS 1 every 2 hours NIMODIPINE 30 MG CAPS 453593 NIMODIPINE Inactive COLACE 100 MG CAPS Take one by mouth daily COLACE 100 MG CAPS 6709404 DOCUSATE SODIUM Inactive ZOLPIDEM TARTRATE 10 MG TABS take one tab po daily ZOLPIDEM TARTRATE 10 MG TABS 165782 ZOLPIDEM TARTRATE Inactive MELOXICAM 15 MG TABS 1 po q day for pain with food MELOXICAM 15 MG TABS 478593 MELOXICAM Inactive FUROSEMIDE 40 MG TAB 1 tablet by mouth daily FUROSEMIDE 40 MG TAB 977303 FUROSEMIDE Inactive NAPROXEN 500 MG TAB 1 by mouth twice a day NAPROXEN 500 MG TAB 867742 NAPROXEN Inactive SULFAMETHOXAZOLE-TMP DS 800-160 MG TABS take one tab po bid x 7 days SULFAMETHOXAZOLE-TMP DS 800-160 MG TABS SULFAMETHOXAZOLE- TRIMETHOPRIM Inactive HYDROCODONE-ACETAMINOPHEN 10-325 MG TABS 1 tab po q4-6 hrs prn HYDROCODONE-ACETAMINOPHEN 10-325 MG TABS 841428 HYDROCODONE- ACETAMINOPHEN Inactive CITALOPRAM HYDROBROMIDE 20 MG TABS take one tab po daily CITALOPRAM HYDROBROMIDE 20 MG TABS 926197 CITALOPRAM HYDROBROMIDE Inactive LUNESTA 2 MG TABS take one tab po qhs LUNESTA 2 MG TABS 922722 ESZOPICLONE Inactive LORAZEPAM 0.5 MG TAB 1 tab po q8 hrs and 2 tabs at bedtime 07/03 LORAZEPAM 0.5 MG TAB 898771 LORAZEPAM Inactive SUMATRIPTAN SUCCINATE 100 MG TABS as directed SUMATRIPTAN SUCCINATE 100 MG TABS 202778 SUMATRIPTAN SUCCINATE Inactive IMITREX TABS Take/use as needed. IMITREX TABS SUMATRIPTAN SUCCINATE TABS Inactive SERTRALINE HCL 50 MG TABS 1 daily for mood SERTRALINE HCL 50 MG TABS 433401 SERTRALINE HCL Inactive JANA ASPIRIN EC LOW DOSE 81 MG TBEC Take one by mouth daily JANA ASPIRIN EC LOW DOSE 81 MG TBEC 593202 ASPIRIN Inactive METHOCARBAMOL 750 MG TABS 1 po q8hr PRN spasm and neck pain 06/12 METHOCARBAMOL 750 MG TABS 390704 METHOCARBAMOL Inactive NYSTATIN 575865 UNIT/ML SUSP Swish and swallow 5ml four times a day until yeast is clear. NYSTATIN 685536 UNIT/ML SUSP 242042 NYSTATIN Inactive CIPRO 250 MG TAB 1 tablet by mouth twice daily x 5 days. CIPRO 250 MG TAB 219980 CIPROFLOXACIN HCL Inactive LIDODERM 5 % PTCH apply to affected area for 12 hours LIDODERM 5 % PTCH 5041844 LIDOCAINE Inactive FUROSEMIDE 20 MG TAB 1 tablet by mouth daily FUROSEMIDE 20 MG TAB 136610 FUROSEMIDE Inactive IMITREX 100 MG TABS TAKE 1 TABLET AT THE ONSET OF HEADACHE MAY REPEAT IN 2 HRS IF NEEDED IMITREX 100 MG TABS 657708 SUMATRIPTAN SUCCINATE Inactive CIPRO 250 MG TAB 1 tablet by mouth twice daily CIPRO 250 MG TAB 19740807 CIPROFLOXACIN HCL Inactive PYRIDIUM 200 MG TAB 1 po TID PRN Dysuria PYRIDIUM 200 MG TAB 8247365 PHENAZOPYRIDINE HCL Inactive CIPROFLOXACIN HCL 250 MG TABS 1 twice a day for 3 days for urinary infection CIPROFLOXACIN HCL 250 MG TABS 19740807 CIPROFLOXACIN HCL Inactive MACROBID 100 MG CAP 1 cap by mouth twice daily x 7 days. MACROBID 100 MG CAP 598833 NITROFURANTOIN MONOHYD MACRO Inactive Advance Directives Directive Description Start Date PERMISSION TO SHARE Immunizations Vaccine Administration Date Value Standard Description Seasonal influenza vaccine, injectable, containing preservative, for > 3 years old (Afluria, FluLaval, Fluzone, Fluvirin, Fluarix, Agriflu(>=18 yo)) Fluzone (>3 yrs.) [[id number]] Influenza, seasonal, injectable Vital Signs Date Name [...] CBC - Chemistry sodium, serum 140 mmol/L 138-690 0116/09/23 potassium, serum 4.7 mmol/L 3.5-5.2 chloride, serum [...] Panel - Chemistry cholesterol, serum 197 mg/dL [phone]/09/25 triglyceride, serum, fasting 48 mg/dL 30-200 HDL [...] 5.0-8.5 Encounters Code Encounter Date Provider Facility CPT-92660 Level 4 Est. Patient 11:35:05 [employer] FILE [employer]ERK Chad Guardado MD [facility] CPT-56209 Level 3 Est. Patient 14:50:08 [employer] FILE CLERK Paras Nunez DO [facility] CPT-56141 Level 3 Est. Patient 15:11:25 [employer] FILE CLERK Chad Guardado MD [facility] CPT-45803 Level 3 Est. Patient 17:38:05 [employer] FILE CLERK Chad Guardado MD [facility] CPT-62409 Level 3 Est. Patient 15:35:54 [employer] FILE CLERK Sparkle Castro MARCELO [facility] CPT-87424 Level 4 Est. Patient 09:41:26 [employer] FILE CLERK Chad Guardado MD [facility] CPT-29012 Level 4 Est. Patient 16:16:11 CDT Chad Guardado MD [facility] CPT-91312 Level 3 Est. Patient 12:46:41 CDT Chad Guardado MD [facility] CPT-40520 Level 3 Est. Patient 17:26:51 CDT Chad Guardado MD [facility] CPT-84720 Level 4 New Patient 13:59:42 CDT Chad Guardado MD [facility] CPT-97529 Level 4 Est. Patient 20:23:44 [employer] FILE CLERK Broderick Solares MD [facility] CPT-48119 Level 3 Est. Patient 14:43:04 [employer] FILE CLERK Broderick Solares MD [facility] CPT-49569 Level 3 Est. Patient 10:05:53 [employer] FILE CLERK Sachin Wasserman MD [facility] CPT-71426 Level 3 Est. Patient 14:35:17 CDT Daisy Hinojosa [facility] CPT-13396 Level 3 Est. Patient 10:59:26 CDT Daisy Hinojosa [facility] CPT-95046 Level 3 Est. Patient 15:41:02 CDT Daisy Hinojosa [facility] CPT-88531 Level 3 Est. Patient 16:41:25 CDT Daisy Hinojosa [facility] CPT-92725 Level 3 New Patient 14:47:15 CDT Daisy Hinoojsa [facility] Procedures Code Procedure Name Date Entry Date Standard Description CPT-27358 T spine AP/Lat w sw V 10:39:20 [employer] FILE CLERK CPT-J1885 Toradol 60 mg (Ketorolac) 14:59:26 [employer] FILE CLERK CPT-55673 Abx/Therapy Injection 14:59:26 [employer] FILE CLERK CPT-J1885 Toradol 60 mg 14:50:08 [employer] FILE CLERK CPT-27669 C-Spine Min 4V 12:56:08 [employer] FILE CLERK CPT-87516 Immunization Single Admin 09:23:37 CDT CPT-68936 Tdap Vaccine 09:23:37 CDT CPT-70790 Fluzone Quadrivalent Intramuscular Suspension 0.5 ML 20: 47:45 CDT CPT-63787 Ankle Complete - Min 3V 12:29:38 CDT CPT-38382 Forearm AP and Lat 10:01:39 [employer] FILE CLERK CPT-13240 Knee 3V 13:56:38 CDT CPT-67219 Administration single or combination vaccine inc oral 11 :50:16 CDT CPT-84848 Influenza split virus > age 3 11:50:16 CDT
--- OUTSIDE RECORDS SUMMARY | 2018-09-24 01:48 | XMS REPORT | Clinical Summary ---
Author Author Admin, MADDY [facility] Address Unknown Phone Unavailable Allergies, Adverse Reactions, Alerts Allergy Name Reaction Description Start Date Severity Status Provider AMITRIPTYLINE HCL Hair loss and nightmares Moderate Active Chad Guardado MD IVP DYE Critical Active Chad Guardado MD CODEINE nausea Moderate Active [facility] Conditions or Problems Problem Name Problem Code Onset Date Status Entry Date Provider Comment Standard Description Annotate ANEURYSM 442.9 [facility] Aneurysm of unspecified artery site ANXIETY DEPRESSION 300.4 Active [facility] Dysthymic disorder INSOMNIA 780.52 [facility] Insomnia, unspecified LOSS OF APPETITE 783.0 [facility] Anorexia CEPHALGIA 784.0 Active [facility] Headache ENCOUNTER FOR REMOVAL OF SUTURES V58.32 Resolved [facility] [place] [facility] Encounter for removal of sutures NECK PAIN 723.1 Active [facility] Cervicalgia KNEE PAIN, BILATERAL 719.46 Active [facility] [place] [facility] Pain in joint involving lower leg [...] elsewhere classified Cough 786.2 Active Sparkle Castro [employer] Cough Thrush 112.0 Active Chad Guardado MD [...] Generic Name NDC Status Provider Patient Instruction DICLOFENAC SODIUM 1.5 % TRANS SOLN 40 drops applied to each knee 4 times a day DICLOFENAC SODIUM 73007093217 No Longer Active Fallon Sarah CHARGEBACK ANALYST Active DICLOFENAC SODIUM 75 MG TBEC take one tab po bid DICLOFENAC SODIUM 50144342027 No Longer Active Fallon Tidwellell CHARGEBACK ANALYST Active MACROBID 100 MG ORAL CAPS NITROFURANTOIN MONOHYD MACRO 93857348811 Active Chad Guardado MD Active IMITREX 100 MG TABS TAKE 1 TABLET AT THE ONSET OF HEADACHE MAY REPEAT IN 2 HRS IF NEEDED SUMATRIPTAN SUCCINATE 05511208718 No Longer Active Chad Guardado MD Active FUROSEMIDE 20 MG TAB 1 tablet by mouth daily FUROSEMIDE 83391955264 No Longer Active Paras Nunez DO Active LIDODERM 5 % PTCH apply to affected area for 12 hours LIDOCAINE 48047177051 No Longer Active Paras Nunez DO Active MACROBID 100 MG CAP 1 cap by mouth twice daily x 7 days. NITROFURANTOIN MONOHYD MACRO 26800264368 No Longer Active Chad Guardado MD Active CIPRO 250 MG TAB 1 tablet by mouth twice daily x 5 days. CIPROFLOXACIN HCL 82475151851 No Longer Active Chad Guardado MD Active LISINOPRIL 20 MG TABS 1 tablet by mouth daily for blood pressure LISINOPRIL 26657554706 Active Chad Guardado MD Active TRAMADOL HCL 50 MG TABS 1-2 tablets every 6 hours as needed for pain TRAMADOL HCL 40268293922 Active Chad Guardado MD Active NYSTATIN 723443 UNIT/ML SUSP Swish and swallow 5ml four times a day until yeast is clear. NYSTATIN 39280738841 No Longer Active Chad Guardado MD Active TESSALON PERLES 100 MG CAP 1 tablet by mouth 3 times daily BENZONATATE 50539999678 Active Sparkle Castro APRN Active CITALOPRAM HYDROBROMIDE 40 MG TABS 1 daily for depression/anxiety CITALOPRAM HYDROBROMIDE 26508787812 Active Chad Guardado MD Active DEPAKOTE 250 MG TBEC 1 twice a day to prevent headaches DIVALPROEX SODIUM 86547745781 Active Chad Guardado MD Active CYCLOBENZAPRINE HCL 10 MG TABS 1 at bedtime for muscle tightness CYCLOBENZAPRINE HCL 35827839890 Active Chad Guardado MD Active METHOCARBAMOL 750 MG TABS 1 po q8hr PRN spasm and neck pain 06/12 METHOCARBAMOL 15372270047 No Longer Active Chad Guardado MD Active JANA ASPIRIN EC LOW DOSE 81 MG TBEC Take one by mouth daily ASPIRIN 89679449146 No Longer Active Chad Guardado MD Active HYDROCODONE-ACETAMINOPHEN 7.5-325 MG TABS 1 three times a day as needed for pain HYDROCODONE-ACETAMINOPHEN 92106978423 Active Chad Guardado MD Active CIPROFLOXACIN HCL 250 MG TABS 1 twice a day for 3 days for urinary infection CIPROFLOXACIN HCL 03669391031 No Longer Active Chad Guardado MD Active IMITREX 6 MG/0.5ML SOLN Take as directed SUMATRIPTAN SUCCINATE 19576385751 Active Sparkle Castro [employer]ATE Active SERTRALINE HCL 50 MG TABS 1 daily for mood SERTRALINE HCL 56806864846 No Longer Active Chad Guardado MD Active IMITREX TABS Take/use as needed. SUMATRIPTAN SUCCINATE TABS 89216758402 No Longer Active Jaylyn DACOSTA Active SUMATRIPTAN SUCCINATE 100 MG TABS as directed SUMATRIPTAN SUCCINATE 22058474688 No Longer Active Nedra Cramer Active LORAZEPAM 0.5 MG TAB 1 tab po q8 hrs and 2 tabs at bedtime 07/03 LORAZEPAM 97414798913 No Longer Active Nedra Cramer Active PYRIDIUM 200 MG TAB 1 po TID PRN Dysuria PHENAZOPYRIDINE HCL 11425866377 No Longer Active Sachin Wasserman MD Active CIPRO 250 MG TAB 1 tablet by mouth twice daily CIPROFLOXACIN HCL 59949929400 No Longer Active Sachin Wasserman MD Active LUNESTA 2 MG TABS take one tab po qhs ESZOPICLONE 99768179469 No Longer Active Broderick Solares MD Active CITALOPRAM HYDROBROMIDE 20 MG TABS take one tab po daily CITALOPRAM HYDROBROMIDE 23185431926 No Longer Active Broderick Solares MD Active HYDROCODONE-ACETAMINOPHEN 10-325 MG TABS 1 tab po q4-6 hrs prn HYDROCODONE-ACETAMINOPHEN 04122556710 No Longer Active Broderick Solares MD Active SULFAMETHOXAZOLE-TMP DS 800-160 MG TABS take one tab po bid x 7 days SULFAMETHOXAZOLE-TRIMETHOPRIM 30490130069 No Longer Active Broderick Solares MD Active NAPROXEN 500 MG TAB 1 by mouth twice a day NAPROXEN 84522731048 No Longer Active Daisy [facility] PA Active FUROSEMIDE 40 MG TAB 1 tablet by mouth daily FUROSEMIDE 08628493423 No Longer Active Daisy [facility] PA Active MELOXICAM 15 MG TABS 1 po q day for pain with food MELOXICAM 57464935084 No Longer Active Daisy Pool PA Active ZOLPIDEM TARTRATE 10 MG TABS take one tab po daily ZOLPIDEM TARTRATE 87864310874 No Longer Active Daisy [facility] PA Active COLACE 100 MG CAPS Take one by mouth daily DOCUSATE SODIUM 95100514957 No Longer Active Daisy [facility] PA Active NIMODIPINE 30 MG CAPS 1 every 2 hours NIMODIPINE 84240266437 No Longer Active Daisy [facility] PA Active ZOFRAN ODT 4 MG TBDP 1 po q6hr PRN Nausea ONDANSETRON 65699116695 No Longer Active Daisy [facility] PA Active MAGNESIUM OXIDE 400 MG TABS Take one by mouth daily MAGNESIUM OXIDE 31805798992 No Longer Active Daisy [facility] PA Active MAGNESIUM OXIDE 400 MG TABS Take one by mouth daily MAGNESIUM OXIDE 400 MG TABS 146677 MAGNESIUM OXIDE Inactive ZOFRAN ODT 4 MG TBDP 1 po q6hr PRN Nausea ZOFRAN ODT 4 MG TBDP 603993 ONDANSETRON Inactive NIMODIPINE 30 MG CAPS 1 every 2 hours NIMODIPINE 30 MG CAPS 467091 NIMODIPINE Inactive COLACE 100 MG CAPS Take one by mouth daily COLACE 100 MG CAPS 9808970 DOCUSATE SODIUM Inactive ZOLPIDEM TARTRATE 10 MG TABS take one tab po daily ZOLPIDEM TARTRATE 10 MG TABS 109768 ZOLPIDEM TARTRATE Inactive MELOXICAM 15 MG TABS 1 po q day for pain with food MELOXICAM 15 MG TABS 501459 MELOXICAM Inactive FUROSEMIDE 40 MG TAB 1 tablet by mouth daily FUROSEMIDE 40 MG TAB 272141 FUROSEMIDE Inactive NAPROXEN 500 MG TAB 1 by mouth twice a day NAPROXEN 500 MG TAB 084348 NAPROXEN Inactive SULFAMETHOXAZOLE-TMP DS 800-160 MG TABS take one tab po bid x 7 days SULFAMETHOXAZOLE-TMP DS 800-160 MG TABS SULFAMETHOXAZOLE- TRIMETHOPRIM Inactive HYDROCODONE-ACETAMINOPHEN 10-325 MG TABS 1 tab po q4-6 hrs prn HYDROCODONE-ACETAMINOPHEN 10-325 MG TABS 739180 HYDROCODONE- ACETAMINOPHEN Inactive CITALOPRAM HYDROBROMIDE 20 MG TABS take one tab po daily CITALOPRAM HYDROBROMIDE 20 MG TABS 397488 CITALOPRAM HYDROBROMIDE Inactive LUNESTA 2 MG TABS take one tab po qhs LUNESTA 2 MG TABS 425787 ESZOPICLONE Inactive LORAZEPAM 0.5 MG TAB 1 tab po q8 hrs and 2 tabs at bedtime 07/03 LORAZEPAM 0.5 MG TAB 877673 LORAZEPAM Inactive SUMATRIPTAN SUCCINATE 100 MG TABS as directed SUMATRIPTAN SUCCINATE 100 MG TABS 234641 SUMATRIPTAN SUCCINATE Inactive IMITREX TABS Take/use as needed. IMITREX TABS SUMATRIPTAN SUCCINATE TABS Inactive SERTRALINE HCL 50 MG TABS 1 daily for mood SERTRALINE HCL 50 MG TABS 517336 SERTRALINE HCL Inactive JANA ASPIRIN EC LOW DOSE 81 MG TBEC Take one by mouth daily JANA ASPIRIN EC LOW DOSE 81 MG TBEC 697889 ASPIRIN Inactive METHOCARBAMOL 750 MG TABS 1 po q8hr PRN spasm and neck pain 06/12 METHOCARBAMOL 750 MG TABS 063048 METHOCARBAMOL Inactive NYSTATIN 237492 UNIT/ML SUSP Swish and swallow 5ml four times a day until yeast is clear. NYSTATIN 317673 UNIT/ML SUSP 438678 NYSTATIN Inactive CIPRO 250 MG TAB 1 tablet by mouth twice daily x 5 days. CIPRO 250 MG TAB 19740807 CIPROFLOXACIN HCL Inactive LIDODERM 5 % PTCH apply to affected area for 12 hours LIDODERM 5 % PTCH 7170842 LIDOCAINE Inactive FUROSEMIDE 20 MG TAB 1 tablet by mouth daily FUROSEMIDE 20 MG TAB 872966 FUROSEMIDE Inactive IMITREX 100 MG TABS TAKE 1 TABLET AT THE ONSET OF HEADACHE MAY REPEAT IN 2 HRS IF NEEDED IMITREX 100 MG TABS 424394 SUMATRIPTAN SUCCINATE Inactive DICLOFENAC SODIUM 75 MG TBEC take one tab po bid DICLOFENAC SODIUM 75 MG TBEC 867515 DICLOFENAC SODIUM Inactive DICLOFENAC SODIUM 1.5 % TRANS SOLN 40 drops applied to each knee 4 times a day DICLOFENAC SODIUM 1.5 % TRANS SOLN 663540 DICLOFENAC SODIUM Inactive CIPRO 250 MG TAB 1 tablet by mouth twice daily CIPRO 250 MG TAB 19740807 CIPROFLOXACIN HCL Inactive PYRIDIUM 200 MG TAB 1 po TID PRN Dysuria PYRIDIUM 200 MG TAB 6208193 PHENAZOPYRIDINE HCL Inactive CIPROFLOXACIN HCL 250 MG TABS 1 twice a day for 3 days for urinary infection CIPROFLOXACIN HCL 250 MG TABS 635454 CIPROFLOXACIN HCL Inactive MACROBID 100 MG CAP 1 cap by mouth twice daily x 7 days. MACROBID 100 MG CAP 654774 NITROFURANTOIN MONOHYD MACRO Inactive Advance Directives Directive Description Start Date PERMISSION TO SHARE Immunizations Vaccine Administration Date Value Standard Description Seasonal influenza vaccine, injectable, containing preservative, for > 3 years old (Afluria, FluLaval, Fluzone, Fluvirin, Fluarix, Agriflu(>=18 yo)) Fluzone (>3 yrs.) [[id number]] Influenza, seasonal, injectable Vital Signs Date Name [...] Rate - Chemistry sodium, serum 137 mmol/L 794-103 9822/02/06 potassium, serum 4.6 mmol/L 3.5-5.2 chloride, serum 101 mmol/L 98-107 carbon dioxide, venous blood 26.3 mmol/L 21.0-32.0 blood glucose 86 mg/dL 65-110 calcium, serum 9.3 mg/dL 8.5-10.1 urea nitrogen, blood 25 mg/dL 7-18 creatinine, serum 1.10 mg/dL 0.60-1.30 Lab Report: Comp. Metabolic Panel, CBC - Chemistry sodium, serum 140 mmol/L 627-682 8937/09/23 potassium, serum 4.7 mmol/L 3.5-5.2 chloride, serum [...] 142-424 Lab Report: Lipid Panel - Chemistry LDL cholesterol, serum 123 mg/dL 0-130 HDL cholesterol, serum 64 mg/dL 32-96 triglyceride, serum, fasting 48 mg/dL 30-200 cholesterol, serum 197 mg/dL 130-200 Lab Report: MICROALBUMIN - Chemistry albumin/creatinine ratio, [...] Hormone (L), Free Thyroxine (L) - Chemistry thyroxine, serum, free 1.02 ng/dL 0.76-1.46 TSH 1.04 m[iU]/mL 0.36-3.74 Lab Report: UADIP W/MICRO, AUTO - Chemistry RBC, urine, dipstick Negative Negative RBC, urine, [...] strip Negative Negative bilirubin, urine Negative Negative glucose, urine, semiquantitative Negative Negative ketones, urine, by test strip Trace Negative bilirubin, urine Negative Negative urobilinogen, urine, semiquantitative (dipstick) 0.2 Normal leukocyte esterase, urine, by dipstick Trace Negative nitrite, urine, semiquantitative Negative Negative urine color Yellow Colorless;Lightyellow;Straw;Yellow appearance, urine Clear Clear specific gravity, urine >=1.030 1.000-1.030 pH, urine, semiquantitative 5.5 5.0-8.5 urobilinogen, urine, semiquantitative (dipstick) 0.2 Normal leukocyte esterase, urine, by dipstick Negative Negative nitrite, urine, semiquantitative Negative Negative Encounters Code Encounter Date Provider Facility CPT-35296 Level 4 Est. 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 Patient 14:50:08 RETAIL DELIVERY DRIVER Paras Nunez DO [facility] CPT-57750 Level 3 Est. Patient 15:11:25 RETAIL DELIVERY DRIVER Chad [facility]ado MD [facility] CPT-68812 Level 3 Est. Patient 17:38:05 RETAIL DELIVERY DRIVER Chad Guardado MD [facility] CPT-99796 Level 3 Est. Patient 15:35:54 RETAIL DELIVERY DRIVER Sparkle Castro APRN [facility] CPT-44456 Level 4 Est. Patient 09:41:26 RETAIL DELIVERY DRIVER Chad [facility]ado MD [facility] CPT-53662 Level 4 Est. Patient 16:16:11 CDT Chad Guardado MD [facility] CPT-76719 Level 3 Est. Patient 12:46:41 CDT Chad Guardado MD [facility] CPT-20393 Level 3 Est. Patient 17:26:51 CDT Chad Guardado MD [facility] CPT-72262 Level 4 New Patient 13:59:42 CDT Chad Guardado MD [facility] CPT-43461 Level 4 Est. Patient 20:23:44 RETAIL DELIVERY DRIVER Broderick Solares MD [facility] CPT-02325 Level 3 Est. Patient 14:43:04 RETAIL DELIVERY DRIVER Broderick Solares MD [facility] CPT-92203 Level 3 Est. Patient 10:05:53 RETAIL DELIVERY DRIVER Sachin Wasserman MD [facility] CPT-74135 Level 3 Est. Patient 14:35:17 CDT Daisy [facility] CPT-90548 Level 3 Est. Patient 10:59:26 CDT Daisy [facility] CPT-45289 Level 3 Est. Patient 15:41:02 CDT Daisy [facility] CPT-16051 Level 3 Est. Patient 16:41:25 CDT Daisy [facility] CPT-79816 Level 3 New Patient 14:47:15 CDT Daisy [facility] Procedures Code Procedure Name Date Entry Date Standard Description CPT-48138 T spine AP/Lat w sw V 10:39:20 RETAIL DELIVERY DRIVER CPT-J1885 Toradol 60 mg (Ketorolac) 14:59:26 RETAIL DELIVERY DRIVER CPT-74479 Abx/Therapy Injection 14:59:26 RETAIL DELIVERY DRIVER CPT-J1885 Toradol 60 mg 14:50:08 RETAIL DELIVERY DRIVER CPT-77770 C-Spine Min 4V 12:56:08 RETAIL DELIVERY DRIVER CPT-76531 Immunization Single Admin 09:23:37 CDT CPT-79603 Tdap Vaccine 09:23:37 CDT CPT-67137 Fluzone Quadrivalent Intramuscular Suspension 0.5 ML 20: 47:45 CDT CPT-51676 Ankle Complete - Min 3V 12:29:38 CDT CPT-76901 Forearm AP and Lat 10:01:39 RETAIL DELIVERY DRIVER CPT-34244 Knee 3V 13:56:38 CDT CPT-15705 Administration single or combination vaccine inc oral 11 :50:16 CDT CPT-48390 Influenza split virus > age 3 11:50:16 CDT
--- OUTSIDE RECORDS SUMMARY | 2018-09-24 01:49 | XMS REPORT | Clinical Summary ---
Author Author Admin, MADDY Organization [facility] Address Unknown Phone Unavailable Allergies, Adverse Reactions, Alerts Allergy Name Reaction Description Start Date Severity Status Provider AMITRIPTYLINE HCL Hair loss and nightmares Moderate Active Chad Guardado MD IVP DYE Critical Active Chad Guardado MD CODEINE nausea Moderate Active [facility] Conditions or Problems Problem Name Problem Code Onset Date Status Entry Date Provider Comment Standard Description Annotate ANEURYSM 442.9 [facility] Aneurysm of unspecified artery site ANXIETY DEPRESSION 300.4 Active [facility] Dysthymic disorder INSOMNIA 780.52 [facility] Insomnia, unspecified LOSS OF APPETITE 783.0 [facility] Anorexia CEPHALGIA 784.0 Active [facility] Headache ENCOUNTER FOR REMOVAL OF SUTURES V58.32 Resolved Daisy [facility] PA Encounter for removal of sutures NECK PAIN 723.1 Active [facility] Cervicalgia KNEE PAIN, BILATERAL 719.46 Active Daisy [facility] Pain in joint involving lower leg [...] elsewhere classified Cough 786.2 Active Sparkle Castro [employer] Cough Thrush 112.0 Active Chad Guardado [...] 100 MG ORAL CAPS NITROFURANTOIN MONOHYD MACRO 50480749857 Active Chad Guardado MD Active IMITREX 100 MG TABS TAKE 1 TABLET AT THE ONSET OF HEADACHE MAY REPEAT IN 2 HRS IF NEEDED SUMATRIPTAN SUCCINATE 19462550705 No Longer Active Chad Guardado MD Active FUROSEMIDE 20 MG TAB 1 tablet by mouth daily FUROSEMIDE 49511669054 No Longer Active Paras Nunez DO Active LIDODERM 5 % PTCH apply to affected area for 12 hours LIDOCAINE 19528561010 No Longer Active Paras Nunez DO Active MACROBID 100 MG CAP 1 cap by mouth twice daily x 7 days. NITROFURANTOIN MONOHYD MACRO 10527415480 No Longer Active Chad Guardado MD Active CIPRO 250 MG TAB 1 tablet by mouth twice daily x 5 days. CIPROFLOXACIN HCL 74064331476 No Longer Active Chad Guardado MD Active LISINOPRIL 20 MG TABS 1 tablet by mouth daily for blood pressure LISINOPRIL 92730561194 Active Chad Guardado MD Active TRAMADOL HCL 50 MG TABS 1-2 tablets every 6 hours as needed for pain TRAMADOL HCL 42774910669 Active Chad Guardado MD Active DICLOFENAC SODIUM 1.5 % TRANS SOLN 40 drops applied to each knee 4 times a day DICLOFENAC SODIUM 56864712198 Active Chad Guardado MD Active NYSTATIN 300547 UNIT/ML SUSP Swish and swallow 5ml four times a day until yeast is clear. NYSTATIN 56474014824 No Longer Active Chad Guardado MD Active TESSALON PERLES 100 MG CAP 1 tablet by mouth 3 times daily BENZONATATE 70838021472 Active Sparkle Castro APRN Active CITALOPRAM HYDROBROMIDE 40 MG TABS 1 daily for depression/anxiety CITALOPRAM HYDROBROMIDE 46638911597 Active Chad Guardado MD Active DEPAKOTE 250 MG TBEC 1 twice a day to prevent headaches DIVALPROEX SODIUM 38508701860 Active Chad Guardado MD Active CYCLOBENZAPRINE HCL 10 MG TABS 1 at bedtime for muscle tightness CYCLOBENZAPRINE HCL 97742768270 Active Chad Guardado MD Active METHOCARBAMOL 750 MG TABS 1 po q8hr PRN spasm and neck pain 06/12 METHOCARBAMOL 02263304192 No Longer Active Chad Guardado MD Active JANA ASPIRIN EC LOW DOSE 81 MG TBEC Take one by mouth daily ASPIRIN 69655609498 No Longer Active Chad Guardado MD Active HYDROCODONE-ACETAMINOPHEN 7.5-325 MG TABS 1 three times a day as needed for pain HYDROCODONE-ACETAMINOPHEN 23938561521 Active Chad Guardado MD Active CIPROFLOXACIN HCL 250 MG TABS 1 twice a day for 3 days for urinary infection CIPROFLOXACIN HCL 04049502650 No Longer Active Chad Guardado MD Active IMITREX 6 MG/0.5ML SOLN Take as directed SUMATRIPTAN SUCCINATE 01635288764 Active Sparkle Castro [employer] Active SERTRALINE HCL 50 MG TABS 1 daily for mood SERTRALINE HCL 79092290454 No Longer Active Chad Guardado MD Active IMITREX TABS Take/use as needed. SUMATRIPTAN SUCCINATE TABS 90539427365 No Longer Active Jaylyn DACOSTA Active SUMATRIPTAN SUCCINATE 100 MG TABS as directed SUMATRIPTAN SUCCINATE 20086701549 No Longer Active Nedra Cramer Active LORAZEPAM 0.5 MG TAB 1 tab po q8 hrs and 2 tabs at bedtime 07/03 LORAZEPAM 73944971975 No Longer Active Nedra Cramer Active PYRIDIUM 200 MG TAB 1 po TID PRN Dysuria PHENAZOPYRIDINE HCL 76364976098 No Longer Active Sachin Wasserman MD Active CIPRO 250 MG TAB 1 tablet by mouth twice daily CIPROFLOXACIN HCL 49849303055 No Longer Active Sachin Wasserman MD Active LUNESTA 2 MG TABS take one tab po qhs ESZOPICLONE 72244775764 No Longer Active Broderick Solares MD Active CITALOPRAM HYDROBROMIDE 20 MG TABS take one tab po daily CITALOPRAM HYDROBROMIDE 62202483326 No Longer Active Broderick Solares MD Active HYDROCODONE-ACETAMINOPHEN 10-325 MG TABS 1 tab po q4-6 hrs prn HYDROCODONE-ACETAMINOPHEN 14845819358 No Longer Active Broderick Solares MD Active SULFAMETHOXAZOLE-TMP DS 800-160 MG TABS take one tab po bid x 7 days SULFAMETHOXAZOLE-TRIMETHOPRIM 48641424916 No Longer Active Broderick Solares MD Active DICLOFENAC SODIUM 75 MG TBEC take one tab po bid DICLOFENAC SODIUM 20881563609 Active Broderick Solares MD Active NAPROXEN 500 MG TAB 1 by mouth twice a day NAPROXEN 68417499285 No Longer Active Daisy Pool PA Active FUROSEMIDE 40 MG TAB 1 tablet by mouth daily FUROSEMIDE 42287871359 No Longer Active Daisy Pool PA Active MELOXICAM 15 MG TABS 1 po q day for pain with food MELOXICAM 06926911923 No Longer Active Daisy Pool PA Active ZOLPIDEM TARTRATE 10 MG TABS take one tab po daily ZOLPIDEM TARTRATE 69094724571 No Longer Active Daisy Pool PA Active COLACE 100 MG CAPS Take one by mouth daily DOCUSATE SODIUM 39196929563 No Longer Active Daisy Pool PA Active NIMODIPINE 30 MG CAPS 1 every 2 hours NIMODIPINE 10084569334 No Longer Active Daisy Pool PA Active ZOFRAN ODT 4 MG TBDP 1 po q6hr PRN Nausea ONDANSETRON 48346121476 No Longer Active Daisy Pool PA Active MAGNESIUM OXIDE 400 MG TABS Take one by mouth daily MAGNESIUM OXIDE 47471388704 No Longer Active Daisy Pool PA Active MAGNESIUM OXIDE 400 MG TABS Take one by mouth daily MAGNESIUM OXIDE 400 MG TABS 342664 MAGNESIUM OXIDE Inactive ZOFRAN ODT 4 MG TBDP 1 po q6hr PRN Nausea ZOFRAN ODT 4 MG TBDP 904413 ONDANSETRON Inactive NIMODIPINE 30 MG CAPS 1 every 2 hours NIMODIPINE 30 MG CAPS 769274 NIMODIPINE Inactive COLACE 100 MG CAPS Take one by mouth daily COLACE 100 MG CAPS 5820707 DOCUSATE SODIUM Inactive ZOLPIDEM TARTRATE 10 MG TABS take one tab po daily ZOLPIDEM TARTRATE 10 MG TABS 694713 ZOLPIDEM TARTRATE Inactive MELOXICAM 15 MG TABS 1 po q day for pain with food MELOXICAM 15 MG TABS 710798 MELOXICAM Inactive FUROSEMIDE 40 MG TAB 1 tablet by mouth daily FUROSEMIDE 40 MG TAB 583578 FUROSEMIDE Inactive NAPROXEN 500 MG TAB 1 by mouth twice a day NAPROXEN 500 MG TAB 673758 NAPROXEN Inactive SULFAMETHOXAZOLE-TMP DS 800-160 MG TABS take one tab po bid x 7 days SULFAMETHOXAZOLE-TMP DS 800-160 MG TABS SULFAMETHOXAZOLE- TRIMETHOPRIM Inactive HYDROCODONE-ACETAMINOPHEN 10-325 MG TABS 1 tab po q4-6 hrs prn HYDROCODONE-ACETAMINOPHEN 10-325 MG TABS 500853 HYDROCODONE- ACETAMINOPHEN Inactive CITALOPRAM HYDROBROMIDE 20 MG TABS take one tab po daily CITALOPRAM HYDROBROMIDE 20 MG TABS 656487 CITALOPRAM HYDROBROMIDE Inactive LUNESTA 2 MG TABS take one tab po qhs LUNESTA 2 MG TABS 903796 ESZOPICLONE Inactive LORAZEPAM 0.5 MG TAB 1 tab po q8 hrs and 2 tabs at bedtime 07/03 LORAZEPAM 0.5 MG TAB 641983 LORAZEPAM Inactive SUMATRIPTAN SUCCINATE 100 MG TABS as directed SUMATRIPTAN SUCCINATE 100 MG TABS 295110 SUMATRIPTAN SUCCINATE Inactive IMITREX TABS Take/use as needed. IMITREX TABS SUMATRIPTAN SUCCINATE TABS Inactive SERTRALINE HCL 50 MG TABS 1 daily for mood SERTRALINE HCL 50 MG TABS 575698 SERTRALINE HCL Inactive JANA ASPIRIN EC LOW DOSE 81 MG TBEC Take one by mouth daily JANA ASPIRIN EC LOW DOSE 81 MG TBEC 250217 ASPIRIN Inactive METHOCARBAMOL 750 MG TABS 1 po q8hr PRN spasm and neck pain 06/12 METHOCARBAMOL 750 MG TABS 720096 METHOCARBAMOL Inactive NYSTATIN 179498 UNIT/ML SUSP Swish and swallow 5ml four times a day until yeast is clear. NYSTATIN 206527 UNIT/ML SUSP 457920 NYSTATIN Inactive CIPRO 250 MG TAB 1 tablet by mouth twice daily x 5 days. CIPRO 250 MG TAB 261685 CIPROFLOXACIN HCL Inactive LIDODERM 5 % PTCH apply to affected area for 12 hours LIDODERM 5 % PTCH 4733223 LIDOCAINE Inactive FUROSEMIDE 20 MG TAB 1 tablet by mouth daily FUROSEMIDE 20 MG TAB 567986 FUROSEMIDE Inactive IMITREX 100 MG TABS TAKE 1 TABLET AT THE ONSET OF HEADACHE MAY REPEAT IN 2 HRS IF NEEDED IMITREX 100 MG TABS 042526 SUMATRIPTAN SUCCINATE Inactive CIPRO 250 MG TAB 1 tablet by mouth twice daily CIPRO 250 MG TAB 19740807 CIPROFLOXACIN HCL Inactive PYRIDIUM 200 MG TAB 1 po TID PRN Dysuria PYRIDIUM 200 MG TAB 2535850 PHENAZOPYRIDINE HCL Inactive CIPROFLOXACIN HCL 250 MG TABS 1 twice a day for 3 days for urinary infection CIPROFLOXACIN HCL 250 MG TABS 19740807 CIPROFLOXACIN HCL Inactive MACROBID 100 MG CAP 1 cap by mouth twice daily x 7 days. MACROBID 100 MG CAP 303573 NITROFURANTOIN MONOHYD MACRO Inactive Advance Directives Directive Description Start Date PERMISSION TO SHARE Immunizations Vaccine Administration Date Value Standard Description Seasonal influenza vaccine, injectable, containing preservative, for > 3 years old (Afluria, FluLaval, Fluzone, Fluvirin, Fluarix, Agriflu(>=18 yo)) Fluzone (>3 yrs.) [CAF414] Influenza, seasonal, injectable Vital Signs Date Name [...] Rate - Chemistry sodium, serum 137 mmol/L 876-059 6815/02/06 potassium, serum 4.6 mmol/L 3.5-5.2 chloride, serum 101 mmol/L 98-107 carbon dioxide, venous blood 26.3 mmol/L 21.0-32.0 blood glucose 86 mg/dL 65-110 calcium, serum 9.3 mg/dL 8.5-10.1 urea nitrogen, blood 25 mg/dL 7-18 creatinine, serum 1.10 mg/dL 0.60-1.30 Lab Report: Comp. Metabolic Panel, CBC - Chemistry sodium, serum 140 mmol/L 804-643 9497/09/23 potassium, serum 4.7 mmol/L 3.5-5.2 chloride, serum [...] Panel - Chemistry cholesterol, serum 197 mg/dL 910-686 0546/09/25 triglyceride, serum, fasting 48 mg/dL 30-200 HDL [...] 5.0-8.5 Encounters Code Encounter Date Provider Facility CPT-67774 Level 4 Est. Patient 11:35:05 REPRODUCTIVE ENDOCRINOLOGIST Chad Guardado MD [facility]-32722 Level 3 Est. Patient 14:50:08 REPRODUCTIVE ENDOCRINOLOGIST Paras Nunez DO [facility]-34138 Level 3 Est. Patient 15:11:25 REPRODUCTIVE ENDOCRINOLOGIST Chad Guardado MD [facility]-04296 Level 3 Est. Patient 17:38:05 REPRODUCTIVE ENDOCRINOLOGIST Chad Guardado MD [facility]-80267 Level 3 Est. Patient 15:35:54 REPRODUCTIVE ENDOCRINOLOGIST Sparkle Castro APRN [facility]-34161 Level 4 Est. Patient 09:41:26 REPRODUCTIVE ENDOCRINOLOGIST Chad Guardado MD [facility]-24832 Level 4 Est. Patient 16:16:11 CDT Chad Guardado MD [facility]-68838 Level 3 Est. Patient 12:46:41 CDT Chad Guardado MD [facility]-16947 Level 3 Est. Patient 17:26:51 CDT Chad Guardado MD [facility] CPT-17727 Level 4 New Patient 13:59:42 CDT Chad Guardado MD [facility]-59727 Level 4 Est. Patient 20:23:44 REPRODUCTIVE ENDOCRINOLOGIST Broderick Solares MD [facility]-16113 Level 3 Est. Patient 14:43:04 REPRODUCTIVE ENDOCRINOLOGIST Broderick Solares MD [facility]-83276 Level 3 Est. Patient 10:05:53 REPRODUCTIVE ENDOCRINOLOGIST Sachin Wasserman MD [facility]-69339 Level 3 Est. Patient 14:35:17 CDT [facility] CPT-77002 Level 3 Est. Patient 10:59:26 CDT [facility] CPT-75499 Level 3 Est. Patient 15:41:02 [facility] Level 3 Est. Patient 16:41:25 CDT [facility] CPT-30045 Level 3 New Patient 14:47:15 [facility] Procedures Code Procedure Name Date Entry Date Standard Description CPT-05003 T spine AP/Lat w sw V 10:39:20 REPRODUCTIVE ENDOCRINOLOGIST CPT-J1885 Toradol 60 mg (Ketorolac) 14:59:26 REPRODUCTIVE ENDOCRINOLOGIST CPT-45238 Abx/Therapy Injection 14:59:26 REPRODUCTIVE ENDOCRINOLOGIST CPT-J1885 Toradol 60 mg 14:50:08 REPRODUCTIVE ENDOCRINOLOGIST CPT-58322 C-Spine Min 4V 12:56:08 REPRODUCTIVE ENDOCRINOLOGIST CPT-20665 Immunization Single Admin 09:23:37 CDT CPT-27237 Tdap Vaccine 09:23:37 CDT CPT-84833 Fluzone Quadrivalent Intramuscular Suspension 0.5 ML 20: 47:45 CDT CPT-69333 Ankle Complete - Min 3V 12:29:38 CDT CPT-32505 Forearm AP and Lat 10:01:39 REPRODUCTIVE ENDOCRINOLOGIST CPT-45515 Knee 3V 13:56:38 CDT CPT-28890 Administration single or combination vaccine inc oral 11 :50:16 CDT [facility]-42493 Influenza split virus > age 3 11:50:16 T
--- OUTSIDE RECORDS SUMMARY | 2018-09-24 01:50 | XMS REPORT | Clinical Summary ---
Author Author Admin, MADDY Organization [facility] Address Unknown Phone Unavailable Allergies, Adverse Reactions, Alerts Allergy Name Reaction Description Start Date Severity Status Provider AMITRIPTYLINE HCL Hair loss and nightmares Moderate Active Chad Guardado MD IVP DYE Critical Active Chad Guardado MD CODEINE nausea Moderate Active [facility] Conditions or Problems Problem Name Problem Code Onset Date Status Entry Date Provider Comment Standard Description Annotate ANEURYSM 442.9 [facility] Aneurysm of unspecified artery site ANXIETY DEPRESSION 300.4 Active [facility] Dysthymic disorder INSOMNIA 780.52 [facility] Insomnia, unspecified LOSS OF APPETITE 783.0 [facility] Anorexia CEPHALGIA 784.0 Active [facility] Headache ENCOUNTER FOR REMOVAL OF SUTURES V58.32 Resolved Daisy Roslyn PA Encounter for removal of sutures NECK PAIN 723.1 Active [facility] Cervicalgia KNEE PAIN, BILATERAL 719.46 Active Daisy Roslyn PA Pain in joint involving lower leg [...] elsewhere classified Cough 786.2 Active Sparkle Castro CLINICAL FIELD SPECIALIST Cough Thrush 112.0 Active Chad Guardado MD [...] twice daily x 5 days. CIPROFLOXACIN HCL 34565361270 Active Chad Guardado MD Active LISINOPRIL 20 MG TABS 1 tablet by mouth daily for blood pressure LISINOPRIL 19751058362 Active Chad Guardado MD Active TRAMADOL HCL 50 MG TABS 1-2 tablets every 6 hours as needed for pain TRAMADOL HCL 34969191325 Active Chad Guardado MD Active DICLOFENAC SODIUM 1.5 % TRANS SOLN 40 drops applied to each knee 4 times a day DICLOFENAC SODIUM 67114984956 Active Chad Guardado MD Active NYSTATIN 259646 UNIT/ML SUSP Swish and swallow 5ml four times a day until yeast is clear. NYSTATIN 65773677843 No Longer Active Chad Guardado MD Active TESSALON PERLES 100 MG CAP 1 tablet by mouth 3 times daily BENZONATATE 27422068030 Active Sparklejaime Matthewmissy CLINICAL FIELD SPECIALIST Active CITALOPRAM HYDROBROMIDE 40 MG TABS 1 daily for depression/anxiety CITALOPRAM HYDROBROMIDE 08587930962 Active Chad Guardado MD Active DEPAKOTE 250 MG TBEC 1 twice a day to prevent headaches DIVALPROEX SODIUM 62375299737 Active Chad Guardado MD Active CYCLOBENZAPRINE HCL 10 MG TABS 1 at bedtime for muscle tightness CYCLOBENZAPRINE HCL 81590454870 Active Chad Guardado MD Active METHOCARBAMOL 750 MG TABS 1 po q8hr PRN spasm and neck pain 06/12 METHOCARBAMOL 80929384473 No Longer Active Chad Guardado MD Active JANA ASPIRIN EC LOW DOSE 81 MG TBEC Take one by mouth daily ASPIRIN 03254292692 No Longer Active Chad Guardado MD Active HYDROCODONE-ACETAMINOPHEN 7.5-325 MG TABS 1 three times a day as needed for pain HYDROCODONE-ACETAMINOPHEN 25574693181 Active Chad Guardado MD Active CIPROFLOXACIN HCL 250 MG TABS 1 twice a day for 3 days for urinary infection CIPROFLOXACIN HCL 79956602353 No Longer Active Chad Guardado MD Active LIDODERM 5 % PTCH apply to affected area for 12 hours LIDOCAINE 74084543098 Active Chad Guardado MD Active FUROSEMIDE 20 MG TAB 1 tablet by mouth daily FUROSEMIDE 51607597520 Active Chad Guardado MD Active IMITREX 6 MG/0.5ML SOLN Take as directed SUMATRIPTAN SUCCINATE 90256763245 Active Sparkle Yokum CLINICAL FIELD SPECIALIST Active SERTRALINE HCL 50 MG TABS 1 daily for mood SERTRALINE HCL 74245968750 No Longer Active Chad Guardado MD Active IMITREX 100 MG TABS TAKE 1 TABLET AT THE ONSET OF HEADACHE MAY REPEAT IN 2 HRS IF NEEDED SUMATRIPTAN SUCCINATE 48460761066 Active Sparkle Yokum CLINICAL FIELD SPECIALIST Active IMITREX TABS Take/use as needed. SUMATRIPTAN SUCCINATE TABS 27337072967 No Longer Active Jaylyn Villanueva PRANEETH Active SUMATRIPTAN SUCCINATE 100 MG TABS as directed SUMATRIPTAN SUCCINATE 01958966784 No Longer Active Nedra Cramer Active LORAZEPAM 0.5 MG TAB 1 tab po q8 hrs and 2 tabs at bedtime 07/03 LORAZEPAM 02507570496 No Longer Active Nedra Cramer Active PYRIDIUM 200 MG TAB 1 po TID PRN Dysuria PHENAZOPYRIDINE HCL 79196495793 No Longer Active Sachin Wasserman MD Active CIPRO 250 MG TAB 1 tablet by mouth twice daily CIPROFLOXACIN HCL 21198316990 No Longer Active Sachin Wasserman MD Active LUNESTA 2 MG TABS take one tab po qhs ESZOPICLONE 35253584830 No Longer Active Broderick Solares MD Active CITALOPRAM HYDROBROMIDE 20 MG TABS take one tab po daily CITALOPRAM HYDROBROMIDE 82052274509 No Longer Active Broderick Solares MD Active HYDROCODONE-ACETAMINOPHEN 10-325 MG TABS 1 tab po q4-6 hrs prn HYDROCODONE-ACETAMINOPHEN 12993045013 No Longer Active Broderick Solares MD Active SULFAMETHOXAZOLE-TMP DS 800-160 MG TABS take one tab po bid x 7 days SULFAMETHOXAZOLE-TRIMETHOPRIM 97326248457 No Longer Active Broderick Solares MD Active DICLOFENAC SODIUM 75 MG TBEC take one tab po bid DICLOFENAC SODIUM 55270014033 Active Broderick Solares MD Active NAPROXEN 500 MG TAB 1 by mouth twice a day NAPROXEN 95078140870 No Longer Active Daisy Pool PA Active FUROSEMIDE 40 MG TAB 1 tablet by mouth daily FUROSEMIDE 91722339778 No Longer Active Daisy Pool PA Active MELOXICAM 15 MG TABS 1 po q day for pain with food MELOXICAM 30307104786 No Longer Active Daisy Pool PA Active ZOLPIDEM TARTRATE 10 MG TABS take one tab po daily ZOLPIDEM TARTRATE 66626788825 No Longer Active Daisy Pool PA Active COLACE 100 MG CAPS Take one by mouth daily DOCUSATE SODIUM 27695504724 No Longer Active Daisy Pool PA Active NIMODIPINE 30 MG CAPS 1 every 2 hours NIMODIPINE 55527810608 No Longer Active Daisy Pool PA Active ZOFRAN ODT 4 MG TBDP 1 po q6hr PRN Nausea ONDANSETRON 48280041311 No Longer Active Daisy Pool PA Active MAGNESIUM OXIDE 400 MG TABS Take one by mouth daily MAGNESIUM OXIDE 84200898443 No Longer Active Daisy Pool PA Active MAGNESIUM OXIDE 400 MG TABS Take one by mouth daily MAGNESIUM OXIDE 400 MG TABS 057567 MAGNESIUM OXIDE Inactive ZOFRAN ODT 4 MG TBDP 1 po q6hr PRN Nausea ZOFRAN ODT 4 MG TBDP 707450 ONDANSETRON Inactive NIMODIPINE 30 MG CAPS 1 every 2 hours NIMODIPINE 30 MG CAPS 666650 NIMODIPINE Inactive COLACE 100 MG CAPS Take one by mouth daily COLACE 100 MG CAPS 5462080 DOCUSATE SODIUM Inactive ZOLPIDEM TARTRATE 10 MG TABS take one tab po daily ZOLPIDEM TARTRATE 10 MG TABS 123027 ZOLPIDEM TARTRATE Inactive MELOXICAM 15 MG TABS 1 po q day for pain with food MELOXICAM 15 MG TABS 254182 MELOXICAM Inactive FUROSEMIDE 40 MG TAB 1 tablet by mouth daily FUROSEMIDE 40 MG TAB 500944 FUROSEMIDE Inactive NAPROXEN 500 MG TAB 1 by mouth twice a day NAPROXEN 500 MG TAB 090734 NAPROXEN Inactive SULFAMETHOXAZOLE-TMP DS 800-160 MG TABS take one tab po bid x 7 days SULFAMETHOXAZOLE-TMP DS 800-160 MG TABS SULFAMETHOXAZOLE- TRIMETHOPRIM Inactive HYDROCODONE-ACETAMINOPHEN 10-325 MG TABS 1 tab po q4-6 hrs prn HYDROCODONE-ACETAMINOPHEN 10-325 MG TABS 035920 HYDROCODONE- ACETAMINOPHEN Inactive CITALOPRAM HYDROBROMIDE 20 MG TABS take one tab po daily CITALOPRAM HYDROBROMIDE 20 MG TABS 197933 CITALOPRAM HYDROBROMIDE Inactive LUNESTA 2 MG TABS take one tab po qhs LUNESTA 2 MG TABS 950497 ESZOPICLONE Inactive LORAZEPAM 0.5 MG TAB 1 tab po q8 hrs and 2 tabs at bedtime 07/03 LORAZEPAM 0.5 MG TAB 777135 LORAZEPAM Inactive SUMATRIPTAN SUCCINATE 100 MG TABS as directed SUMATRIPTAN SUCCINATE 100 MG TABS 006271 SUMATRIPTAN SUCCINATE Inactive IMITREX TABS Take/use as needed. IMITREX TABS SUMATRIPTAN SUCCINATE TABS Inactive SERTRALINE HCL 50 MG TABS 1 daily for mood SERTRALINE HCL 50 MG TABS 355740 SERTRALINE HCL Inactive JANA ASPIRIN EC LOW DOSE 81 MG TBEC Take one by mouth daily JANA ASPIRIN EC LOW DOSE 81 MG TBEC 720946 ASPIRIN Inactive METHOCARBAMOL 750 MG TABS 1 po q8hr PRN spasm and neck pain 06/12 METHOCARBAMOL 750 MG TABS 561200 METHOCARBAMOL Inactive NYSTATIN 565183 UNIT/ML SUSP Swish and swallow 5ml four times a day until yeast is clear. NYSTATIN 079945 UNIT/ML SUSP 848201 NYSTATIN Inactive CIPRO 250 MG TAB 1 tablet by mouth twice daily CIPRO 250 MG TAB 19740807 CIPROFLOXACIN HCL Inactive PYRIDIUM 200 MG TAB 1 po TID PRN Dysuria PYRIDIUM 200 MG TAB 0892524 PHENAZOPYRIDINE HCL Inactive CIPROFLOXACIN HCL 250 MG [...] Fluvirin, Fluarix, Agriflu(>=18 yo)) Fluzone (>3 yrs.) [[id number]] Influenza, seasonal, injectable Vital Signs Date Name [...] CBC - Chemistry sodium, serum 140 mmol/L 360-168 6623/09/23 potassium, serum 4.7 mmol/L 3.5-5.2 chloride, serum [...] cholesterol, serum 197 mg/dL 130-200 Lab Report: Part. Thromboplast Time, Prothrombin Time, [...] protein, total urine random Negative mg/dL Negative Lab Report: UADIP W/MICRO, AUTO - Urinalysis glucose, urine, semiquantitative Negative Negative ketones, urine, by test strip Negative Negative bilirubin, urine 1+ Negative urine color Yellow Colorless;Lightyellow;Straw;Yellow appearance, urine SlCloudy Clear specific gravity, urine 1.025 1.000-1.030 pH, urine, semiquantitative 6.0 5.0-8.5 urobilinogen, urine, semiquantitative (dipstick) 0.2 Normal leukocyte esterase, urine, by dipstick 1+ Negative nitrite, urine, semiquantitative Positive Negative Encounters Code Encounter Date Provider Facility CPT-21176 Level 3 Est. Patient 15:11:25 [employer]ODUCTION SUPERVISOR Chad Guardado MD [facility] CPT-38273 Level 3 Est. Patient 17:38:05 [employer] PRODUCTION SUPERVISOR Chad Guardado MD [facility] CPT-69880 Level 3 Est. Patient 15:35:54 [employer] PRODUCTION SUPERVISOR Sparkle Castro MARCELO [facility] CPT-84144 Level 4 Est. Patient 09:41:26 [employer]ING PRODUCTION SUPERVISOR Chad Guardado MD [facility] CPT-58014 Level 4 Est. Patient 16:16:11 CDT Chad Guardado MD [facility] CPT-28824 Level 3 Est. Patient 12:46:41 CDT Chad Guardado MD [facility] CPT-91153 Level 3 Est. Patient 17:26:51 CDT Chad Guardado MD [facility] CPT-01936 Level 4 New Patient 13:59:42 CDT Chad Guardado MD [facility] CPT-25765 Level 4 Est. Patient 20:23:44 [employer] PRODUCTION SUPERVISOR Broderick Solares MD [facility] CPT-03253 Level 3 Est. Patient 14:43:04 [employer]ING PRODUCTION SUPERVISOR Broderick Solares MD [facility] CPT-73000 Level 3 Est. Patient 10:05:53 [employer]ING PRODUCTION SUPERVISOR Sachin Wasserman MD [facility] CPT-79963 Level 3 Est. Patient 14:35:17 CDT Daisy Hinojosa [facility] CPT-55567 Level 3 Est. Patient 10:59:26 CDT Daisy Hinojosa [facility] CPT-76680 Level 3 Est. Patient 15:41:02 CDT Daisy Hinojosa [facility] CPT-16849 Level 3 Est. Patient 16:41:25 CDT Daisy Hinojosa [facility] CPT-99670 Level 3 New Patient 14:47:15 CDT Daisy Hinojosa [facility] Procedures Code Procedure Name Date Entry Date Standard Description CPT-02758 C-Spine Min 4V 12:56:08 [employer] SUPERVISOR CPT-61456 Immunization Single Admin 09:23:37 CDT CPT-15092 Tdap Vaccine 09:23:37 CDT CPT-62018 Fluzone Quadrivalent Intramuscular Suspension 0.5 ML 20: 47:45 CDT CPT-63184 Ankle Complete - Min 3V 12:29:38 CDT CPT-55550 Forearm AP and Lat 10:01:39 [employer] SUPERVISOR CPT-28882 Knee 3V 13:56:38 CDT CPT-75924 Administration single or combination vaccine inc oral 11 :50:16 CDT CPT-98772 Influenza split virus > age 3 11:50:16 CDT
--- OUTSIDE RECORDS SUMMARY | 2018-09-24 01:53 | XMS REPORT | Clinical Summary ---
Author Author Admin, MADDY Organization [facility] Address Unknown Phone Unavailable Allergies, Adverse Reactions, Alerts Allergy Name Reaction Description Start Date Severity Status Provider AMITRIPTYLINE HCL Hair loss and nightmares Moderate Active Chad Guardado MD IVP DYE Critical Active Chad Guardado MD CODEINE nausea Moderate Active [facility] Conditions or Problems Problem Name Problem Code Onset Date Status Entry Date Provider Comment Standard Description Annotate ANEURYSM 442.9 [facility] Aneurysm of unspecified artery site ANXIETY DEPRESSION 300.4 Active [facility] Dysthymic disorder INSOMNIA 780.52 [facility] Insomnia, unspecified LOSS OF APPETITE 783.0 [facility] Anorexia CEPHALGIA 784.0 Active [facility] Headache ENCOUNTER FOR REMOVAL OF SUTURES V58.32 Resolved Daisy Wyocena PA Encounter for removal of sutures NECK PAIN 723.1 Active [facility] Cervicalgia KNEE PAIN, BILATERAL 719.46 Active Daisy Wyocena PA Pain in joint involving lower leg [...] classified Cough 786.2 Active Sparkle Castro CLINICAL SAFETY SPECIALIST Cough Thrush 112.0 Active Chad Guardado [...] by mouth daily for blood pressure LISINOPRIL 71668685857 Active Chad Guardado MD Active TRAMADOL HCL 50 MG TABS 1-2 tablets every 6 hours as needed for pain TRAMADOL HCL 09852183751 Active Chad Guardado MD Active DICLOFENAC SODIUM 1.5 % TRANS SOLN 40 drops applied to each knee 4 times a day DICLOFENAC SODIUM 46803961587 Active Chad Guardado MD Active NYSTATIN 301347 UNIT/ML SUSP Swish and swallow 5ml four times a day until yeast is clear. NYSTATIN 50411311409 No Longer Active Chad Guardado MD Active TESSALON PERLES 100 MG CAP 1 tablet by mouth 3 times daily BENZONATATE 40078440532 Active Sparkle Castro APRN Active CITALOPRAM HYDROBROMIDE 40 MG TABS 1 daily for depression/anxiety CITALOPRAM HYDROBROMIDE 20238360945 Active Chad Guardado MD Active DEPAKOTE 250 MG TBEC 1 twice a day to prevent headaches DIVALPROEX SODIUM 74730589286 Active Chad Guardado MD Active CYCLOBENZAPRINE HCL 10 MG TABS 1 at bedtime for muscle tightness CYCLOBENZAPRINE HCL 18714114453 Active Chad Guardado MD Active METHOCARBAMOL 750 MG TABS 1 po q8hr PRN spasm and neck pain 06/12 METHOCARBAMOL 14039649544 No Longer Active Chad Guardado MD Active JANA ASPIRIN EC LOW DOSE 81 MG TBEC Take one by mouth daily ASPIRIN 08723353702 No Longer Active Chad Guardado MD Active HYDROCODONE-ACETAMINOPHEN 7.5-325 MG TABS 1 three times a day as needed for pain HYDROCODONE-ACETAMINOPHEN 67619809527 Active Chad Guardado MD Active CIPROFLOXACIN HCL 250 MG TABS 1 twice a day for 3 days for urinary infection CIPROFLOXACIN HCL 43876769430 No Longer Active Cahd Guardado MD Active LIDODERM 5 % PTCH apply to affected area for 12 hours LIDOCAINE 30999974933 Active Chad Guardado MD Active FUROSEMIDE 20 MG TAB 1 tablet by mouth daily FUROSEMIDE 28457174455 Active Chad Guardado MD Active IMITREX 6 MG/0.5ML SOLN Take as directed SUMATRIPTAN SUCCINATE 05244044068 Active Sparkle Castro APRN Active SERTRALINE HCL 50 MG TABS 1 daily for mood SERTRALINE HCL 43968886279 No Longer Active Chad Guardado MD Active IMITREX 100 MG TABS TAKE 1 TABLET AT THE ONSET OF HEADACHE MAY REPEAT IN 2 HRS IF NEEDED SUMATRIPTAN SUCCINATE 68452983343 Active Sparkle Castro CLINICAL SAFETY SPECIALIST Active IMITREX TABS Take/use as needed. SUMATRIPTAN SUCCINATE TABS 88748026881 No Longer Active Jaylyn Monzonkimberly DACOSTA Active SUMATRIPTAN SUCCINATE 100 MG TABS as directed SUMATRIPTAN SUCCINATE 16631261735 No Longer Active Nedraroula Cramer Active LORAZEPAM 0.5 MG TAB 1 tab po q8 hrs and 2 tabs at bedtime 07/03 LORAZEPAM 08551220125 No Longer Active Nedra Cramer Active PYRIDIUM 200 MG TAB 1 po TID PRN Dysuria PHENAZOPYRIDINE HCL 51258778632 No Longer Active Sachin Wasserman MD Active CIPRO 250 MG TAB 1 tablet by mouth twice daily CIPROFLOXACIN HCL 62466814210 No Longer Active Sachin Wasserman MD Active LUNESTA 2 MG TABS take one tab po qhs ESZOPICLONE 55003178028 No Longer Active Broderick Solares MD Active CITALOPRAM HYDROBROMIDE 20 MG TABS take one tab po daily CITALOPRAM HYDROBROMIDE 43933870775 No Longer Active Broderick Solares MD Active HYDROCODONE-ACETAMINOPHEN 10-325 MG TABS 1 tab po q4-6 hrs prn HYDROCODONE-ACETAMINOPHEN 36488430769 No Longer Active Broderick Solares MD Active SULFAMETHOXAZOLE-TMP DS 800-160 MG TABS take one tab po bid x 7 days SULFAMETHOXAZOLE-TRIMETHOPRIM 91419455868 No Longer Active Broderick Solares MD Active DICLOFENAC SODIUM 75 MG TBEC take one tab po bid DICLOFENAC SODIUM 79535522521 Active Broderick Solares MD Active NAPROXEN 500 MG TAB 1 by mouth twice a day NAPROXEN 14310455725 No Longer Active Daisy Pool PA Active FUROSEMIDE 40 MG TAB 1 tablet by mouth daily FUROSEMIDE 37048209575 No Longer Active Daisy Pool PA Active MELOXICAM 15 MG TABS 1 po q day for pain with food MELOXICAM 08944801422 No Longer Active Daisy Pool PA Active ZOLPIDEM TARTRATE 10 MG TABS take one tab po daily ZOLPIDEM TARTRATE 23869248076 No Longer Active Daisy Pool PA Active COLACE 100 MG CAPS Take one by mouth daily DOCUSATE SODIUM 62863447972 No Longer Active Daisy Pool PA Active NIMODIPINE 30 MG CAPS 1 every 2 hours NIMODIPINE 91586023060 No Longer Active Daisy Pool PA Active ZOFRAN ODT 4 MG TBDP 1 po q6hr PRN Nausea ONDANSETRON 88770101736 No Longer Active Daisy Pool PA Active MAGNESIUM OXIDE 400 MG TABS Take one by mouth daily MAGNESIUM OXIDE 21554825455 No Longer Active Daisy Pool PA Active MAGNESIUM OXIDE 400 MG TABS Take one by mouth daily MAGNESIUM OXIDE 400 MG TABS 727423 MAGNESIUM OXIDE Inactive ZOFRAN ODT 4 MG TBDP 1 po q6hr PRN Nausea ZOFRAN ODT 4 MG TBDP 105449 ONDANSETRON Inactive NIMODIPINE 30 MG CAPS 1 every 2 hours NIMODIPINE 30 MG CAPS 419166 NIMODIPINE Inactive COLACE 100 MG CAPS Take one by mouth daily COLACE 100 MG CAPS 4453551 DOCUSATE SODIUM Inactive ZOLPIDEM TARTRATE 10 MG TABS take one tab po daily ZOLPIDEM TARTRATE 10 MG TABS 361731 ZOLPIDEM TARTRATE Inactive MELOXICAM 15 MG TABS 1 po q day for pain with food MELOXICAM 15 MG TABS 463345 MELOXICAM Inactive FUROSEMIDE 40 MG TAB 1 tablet by mouth daily FUROSEMIDE 40 MG TAB 160610 FUROSEMIDE Inactive NAPROXEN 500 MG TAB 1 by mouth twice a day NAPROXEN 500 MG TAB 687053 NAPROXEN Inactive SULFAMETHOXAZOLE-TMP DS 800-160 MG TABS take one tab po bid x 7 days SULFAMETHOXAZOLE-TMP DS 800-160 MG TABS SULFAMETHOXAZOLE- TRIMETHOPRIM Inactive HYDROCODONE-ACETAMINOPHEN 10-325 MG TABS 1 tab po q4-6 hrs prn HYDROCODONE-ACETAMINOPHEN 10-325 MG TABS 968015 HYDROCODONE- ACETAMINOPHEN Inactive CITALOPRAM HYDROBROMIDE 20 MG TABS take one tab po daily CITALOPRAM HYDROBROMIDE 20 MG TABS 745299 CITALOPRAM HYDROBROMIDE Inactive LUNESTA 2 MG TABS take one tab po qhs LUNESTA 2 MG TABS 313274 ESZOPICLONE Inactive LORAZEPAM 0.5 MG TAB 1 tab po q8 hrs and 2 tabs at bedtime 07/03 LORAZEPAM 0.5 MG TAB 868149 LORAZEPAM Inactive SUMATRIPTAN SUCCINATE 100 MG TABS as directed SUMATRIPTAN SUCCINATE 100 MG TABS 732421 SUMATRIPTAN SUCCINATE Inactive IMITREX TABS Take/use as needed. IMITREX TABS SUMATRIPTAN SUCCINATE TABS Inactive SERTRALINE HCL 50 MG TABS 1 daily for mood SERTRALINE HCL 50 MG TABS 987790 SERTRALINE HCL Inactive JANA ASPIRIN EC LOW DOSE 81 MG TBEC Take one by mouth daily JANA ASPIRIN EC LOW DOSE 81 MG TBEC 140579 ASPIRIN Inactive METHOCARBAMOL 750 MG TABS 1 po q8hr PRN spasm and neck pain 06/12 METHOCARBAMOL 750 MG TABS 950630 METHOCARBAMOL Inactive NYSTATIN 072671 UNIT/ML SUSP Swish and swallow 5ml four times a day until yeast is clear. NYSTATIN 928438 UNIT/ML SUSP 964313 NYSTATIN Inactive CIPRO 250 MG TAB 1 tablet by mouth twice daily CIPRO 250 MG TAB 733246 CIPROFLOXACIN HCL Inactive PYRIDIUM 200 MG TAB 1 po TID PRN Dysuria PYRIDIUM 200 MG TAB 7655302 PHENAZOPYRIDINE HCL Inactive CIPROFLOXACIN HCL 250 MG [...] Fluvirin, Fluarix, Agriflu(>=18 yo)) Fluzone (>3 yrs.) [[id number]] Influenza, seasonal, injectable Vital Signs Date Name [...] CBC - Chemistry sodium, serum 140 mmol/L 449-480 8162/09/23 potassium, serum 4.7 mmol/L 3.5-5.2 chloride, serum [...] Panel - Chemistry cholesterol, serum 197 mg/dL 123-143 4948/09/25 triglyceride, serum, fasting 48 mg/dL 30-200 HDL [...] 0.76-1.46 Encounters Code Encounter Date Provider Facility CPT-52196 Level 3 Est. Patient 15:11:25 ROOFER Chad Guardado MD [facility] CPT-49849 Level 3 Est. Patient 17:38:05 ROOFER Chad Guardado MD [facility] CPT-23182 Level 3 Est. Patient 15:35:54 ROOFER Sparkle Castro APRN [facility] CPT-86364 Level 4 Est. Patient 09:41:26 ROOFER Chad Guardado MD [facility] CPT-38701 Level 4 Est. Patient 16:16:11 CDT Chad Guardado MD [facility] CPT-08058 Level 3 Est. Patient 12:46:41 CDT Chad Guardado MD [facility] CPT-85134 Level 3 Est. Patient 17:26:51 CDT Chad Guardado MD [facility] CPT-03145 Level 4 New Patient 13:59:42 CDT Chad Guardado MD [facility] CPT-31563 Level 4 Est. Patient 20:23:44 ROOFER Broderick Solares MD [facility] CPT-49259 Level 3 Est. Patient 14:43:04 ROOFER Broderick Solares MD [facility] CPT-39178 Level 3 Est. Patient 10:05:53 ROOFER Sachin Wasserman MD [facility] CPT-79153 Level 3 Est. Patient 14:35:17 CDT [facility] CPT-98328 Level 3 Est. Patient 10:59:26 CDT [facility] CPT-59574 Level 3 Est. Patient 15:41:02 CDT [facility] CPT-58459 Level 3 Est. Patient 16:41:25 CDT [facility] CPT-94031 Level 3 New Patient 14:47:15 CDT [facility] Procedures Code Procedure Name Date Entry Date Standard Description CPT-75672 C-Spine Min 4V 12:56:08 ROOFER CPT-31431 Immunization Single Admin 09:23:37 CDT CPT-57333 Tdap Vaccine 09:23:37 CDT CPT-38302 Fluzone Quadrivalent Intramuscular Suspension 0.5 ML 20: 47:45 CDT CPT-27402 Ankle Complete - Min 3V 12:29:38 CDT CPT-66057 Forearm AP and Lat 10:01:39 ROOFER CPT-67893 Knee 3V 13:56:38 CDT CPT-35047 Administration single or combination vaccine inc oral 11 :50:16 CDT CPT-61716 Influenza split virus > age 3 11:50:16 CDT
--- OUTSIDE RECORDS SUMMARY | 2018-09-24 01:55 | XMS REPORT | Clinical Summary ---
Author Author Admin, MADDY Organization [facility] Address Unknown Phone Unavailable Allergies, Adverse Reactions, Alerts Allergy Name Reaction Description Start Date Severity Status Provider AMITRIPTYLINE HCL Hair loss and nightmares Moderate Active Chad Guardado MD IVP DYE Critical Active Chad Guardado MD CODEINE nausea Moderate Active [facility] Conditions or Problems Problem Name Problem Code Onset Date Status Entry Date Provider Comment Standard Description Annotate ANEURYSM 442.9 [facility] Aneurysm of unspecified artery site ANXIETY DEPRESSION 300.4 Active [facility] Dysthymic disorder INSOMNIA 780.52 [facility] Insomnia, unspecified LOSS OF APPETITE 783.0 Active [facility] Anorexia CEPHALGIA 784.0 Active [facility] Headache ENCOUNTER FOR REMOVAL OF SUTURES V58.32 Resolved Daisy Winter PA Encounter for removal of sutures NECK PAIN 723.1 Active [facility] Cervicalgia KNEE PAIN, BILATERAL 719.46 Active Daisy Winter PA Pain in joint involving lower leg [...] Name NDC Status Provider Patient Instruction NYSTATIN 285472 UNIT/ML SUSP Swish and swallow 5ml four times a day until yeast is clear. NYSTATIN 34461220507 Active Chad Guardado MD Active TESSALON PERLES 100 MG CAP 1 tablet by mouth 3 times daily BENZONATATE 72928115367 Active Sparkle Castro APRN Active CITALOPRAM HYDROBROMIDE 40 MG TABS 1 daily for depression/anxiety CITALOPRAM HYDROBROMIDE 01146588867 Active Chad Guardado MD Active DEPAKOTE 250 MG TBEC 1 twice a day to prevent headaches DIVALPROEX SODIUM 07032918969 Active Chad Guardado MD Active CYCLOBENZAPRINE HCL 10 MG TABS 1 at bedtime for muscle tightness CYCLOBENZAPRINE HCL 08416971826 Active Chad Guardado MD Active METHOCARBAMOL 750 MG TABS 1 po q8hr PRN spasm and neck pain 06/12 METHOCARBAMOL 16188613594 No Longer Active Chad Guardado MD Active JANA ASPIRIN EC LOW DOSE 81 MG TBEC Take one by mouth daily ASPIRIN 18209482137 No Longer Active Chad Guardado MD Active HYDROCODONE-ACETAMINOPHEN 7.5-325 MG TABS 1 three times a day as needed for pain HYDROCODONE-ACETAMINOPHEN 49032974828 Active Chad Guardado MD Active CIPROFLOXACIN HCL 250 MG TABS 1 twice a day for 3 days for urinary infection CIPROFLOXACIN HCL 50095203514 No Longer Active Chad Guardado MD Active LIDODERM 5 % PTCH apply to affected area for 12 hours LIDOCAINE 12217977172 Active Chad Guardado MD Active FUROSEMIDE 20 MG TAB 1 tablet by mouth daily FUROSEMIDE 22623869229 Active Chad Guardado MD Active IMITREX 6 MG/0.5ML SOLN Take as directed SUMATRIPTAN SUCCINATE 55857735398 Active Sparkle Yogosia ROBERTSON Active SERTRALINE HCL 50 MG TABS 1 daily for mood SERTRALINE HCL 14061479334 No Longer Active Chad Guardado MD Active IMITREX 100 MG TABS TAKE 1 TABLET AT THE ONSET OF HEADACHE MAY REPEAT IN 2 HRS IF NEEDED SUMATRIPTAN SUCCINATE 99098948703 Active Sparkle Yokum VENEER PULLER Active IMITREX TABS Take/use as needed. SUMATRIPTAN SUCCINATE TABS 25740185246 No Longer Active Jaylyn DACOSTA Active SUMATRIPTAN SUCCINATE 100 MG TABS as directed SUMATRIPTAN SUCCINATE 47281179456 No Longer Active Nedra Cramer Active LORAZEPAM 0.5 MG TAB 1 tab po q8 hrs and 2 tabs at bedtime 07/03 LORAZEPAM 20826909244 No Longer Active Nedra Cramer Active PYRIDIUM 200 MG TAB 1 po TID PRN Dysuria PHENAZOPYRIDINE HCL 31510724146 No Longer Active Sachin Wasserman MD Active CIPRO 250 MG TAB 1 tablet by mouth twice daily CIPROFLOXACIN HCL 57043343138 No Longer Active Sachin Wasserman MD Active LUNESTA 2 MG TABS take one tab po qhs ESZOPICLONE 03127113652 No Longer Active Broderick Solares MD Active CITALOPRAM HYDROBROMIDE 20 MG TABS take one tab po daily CITALOPRAM HYDROBROMIDE 41747535829 No Longer Active Broderick Solares MD Active HYDROCODONE-ACETAMINOPHEN 10-325 MG TABS 1 tab po q4-6 hrs prn HYDROCODONE-ACETAMINOPHEN 25759377000 No Longer Active Broderick Solares MD Active SULFAMETHOXAZOLE-TMP DS 800-160 MG TABS take one tab po bid x 7 days SULFAMETHOXAZOLE-TRIMETHOPRIM 25302409567 No Longer Active Broderick Solares MD Active DICLOFENAC SODIUM 75 MG TBEC take one tab po bid DICLOFENAC SODIUM 17784888265 Active Broderick Solares MD Active NAPROXEN 500 MG TAB 1 by mouth twice a day NAPROXEN 16715859746 No Longer Active Daisy Pool PA Active FUROSEMIDE 40 MG TAB 1 tablet by mouth daily FUROSEMIDE 28158589938 No Longer Active Daisy Pool PA Active MELOXICAM 15 MG TABS 1 po q day for pain with food MELOXICAM 27301677618 No Longer Active Daisy Pool PA Active ZOLPIDEM TARTRATE 10 MG TABS take one tab po daily ZOLPIDEM TARTRATE 27296720235 No Longer Active Daisy Pool PA Active COLACE 100 MG CAPS Take one by mouth daily DOCUSATE SODIUM 38289992425 No Longer Active Daisy Pool PA Active NIMODIPINE 30 MG CAPS 1 every 2 hours NIMODIPINE 86508767625 No Longer Active Daisy Pool PA Active ZOFRAN ODT 4 MG TBDP 1 po q6hr PRN Nausea ONDANSETRON 27825959698 No Longer Active Daisy Pool PA Active MAGNESIUM OXIDE 400 MG TABS Take one by mouth daily MAGNESIUM OXIDE 47099440647 No Longer Active Daisy Pool PA Active MAGNESIUM OXIDE 400 MG TABS Take one by mouth daily MAGNESIUM OXIDE 400 MG TABS 094096 MAGNESIUM OXIDE Inactive ZOFRAN ODT 4 MG TBDP 1 po q6hr PRN Nausea ZOFRAN ODT 4 MG TBDP 682827 ONDANSETRON Inactive NIMODIPINE 30 MG CAPS 1 every 2 hours NIMODIPINE 30 MG CAPS 639000 NIMODIPINE Inactive COLACE 100 MG CAPS Take one by mouth daily COLACE 100 MG CAPS 2979056 DOCUSATE SODIUM Inactive ZOLPIDEM TARTRATE 10 MG TABS take one tab po daily ZOLPIDEM TARTRATE 10 MG TABS 069876 ZOLPIDEM TARTRATE Inactive MELOXICAM 15 MG TABS 1 po q day for pain with food MELOXICAM 15 MG TABS 415621 MELOXICAM Inactive FUROSEMIDE 40 MG TAB 1 tablet by mouth daily FUROSEMIDE 40 MG TAB 513673 FUROSEMIDE Inactive NAPROXEN 500 MG TAB 1 by mouth twice a day NAPROXEN 500 MG TAB 783574 NAPROXEN Inactive SULFAMETHOXAZOLE-TMP DS 800-160 MG TABS take one tab po bid x 7 days SULFAMETHOXAZOLE-TMP DS 800-160 MG TABS SULFAMETHOXAZOLE- TRIMETHOPRIM Inactive HYDROCODONE-ACETAMINOPHEN 10-325 MG TABS 1 tab po q4-6 hrs prn HYDROCODONE-ACETAMINOPHEN 10-325 MG TABS 676055 HYDROCODONE- ACETAMINOPHEN Inactive CITALOPRAM HYDROBROMIDE 20 MG TABS take one tab po daily CITALOPRAM HYDROBROMIDE 20 MG TABS 649850 CITALOPRAM HYDROBROMIDE Inactive LUNESTA 2 MG TABS take one tab po qhs LUNESTA 2 MG TABS 588448 ESZOPICLONE Inactive LORAZEPAM 0.5 MG TAB 1 tab po q8 hrs and 2 tabs at bedtime 07/03 LORAZEPAM 0.5 MG TAB 073133 LORAZEPAM Inactive SUMATRIPTAN SUCCINATE 100 MG TABS as directed SUMATRIPTAN SUCCINATE 100 MG TABS 744687 SUMATRIPTAN SUCCINATE Inactive IMITREX TABS Take/use as needed. IMITREX TABS SUMATRIPTAN SUCCINATE TABS Inactive SERTRALINE HCL 50 MG TABS 1 daily for mood SERTRALINE HCL 50 MG TABS 737968 SERTRALINE HCL Inactive JANA ASPIRIN EC LOW DOSE 81 MG TBEC Take one by mouth daily JANA ASPIRIN EC LOW DOSE 81 MG TBEC 312548 ASPIRIN Inactive METHOCARBAMOL 750 MG TABS 1 po q8hr PRN spasm and neck pain 06/12 METHOCARBAMOL 750 MG TABS 510884 METHOCARBAMOL Inactive CIPRO 250 MG TAB 1 tablet by mouth twice daily CIPRO 250 MG TAB 021466 CIPROFLOXACIN HCL Inactive PYRIDIUM 200 MG TAB 1 po TID PRN Dysuria PYRIDIUM 200 MG TAB 4525958 PHENAZOPYRIDINE HCL Inactive CIPROFLOXACIN HCL 250 MG TABS 1 twice a day for 3 days for urinary infection CIPROFLOXACIN HCL 250 MG TABS 420479 CIPROFLOXACIN HCL Inactive Advance Directives Directive Description Start Date PERMISSION TO SHARE Immunizations Vaccine Administration Date Value Standard Description Seasonal influenza vaccine, injectable, containing preservative, for > 3 years old (Afluria, FluLaval, Fluzone, Fluvirin, Fluarix, Agriflu(>=18 yo)) Fluzone (>3 yrs.) [[id number]] Influenza, seasonal, injectable Vital Signs Date Name [...] CBC - Chemistry sodium, serum 140 mmol/L 077-631 8739/09/23 potassium, serum 4.7 mmol/L 3.5-5.2 chloride, serum [...] Panel - Chemistry cholesterol, serum 197 mg/dL 461-732 0015/09/25 triglyceride, serum, fasting 48 mg/dL 30-200 HDL [...] 0.76-1.46 Encounters Code Encounter Date Provider Facility CPT-76972 Level 3 Est. Patient 17:38:05 TECHNICAL ACCOUNT MANAGER Chad Guardado MD [facility] CPT-49073 Level 3 Est. Patient 15:35:54 TECHNICAL ACCOUNT MANAGER Sparkle Castro APRN [facility] CPT-36766 Level 4 Est. Patient 09:41:26 TECHNICAL ACCOUNT MANAGER Chad Guardado MD [facility] CPT-34157 Level 4 Est. Patient 16:16:11 CDT Chad Guardado MD [facility] CPT-24571 Level 3 Est. Patient 12:46:41 CDT Chad Guardado MD [facility] CPT-34834 Level 3 Est. Patient 17:26:51 CDT Chad Guardado MD [facility] CPT-65255 Level 4 New Patient 13:59:42 CDT Chad Guardado MD [facility] CPT-22350 Level 4 Est. Patient 20:23:44 TECHNICAL ACCOUNT MANAGER Broderick Solares MD [facility] CPT-76840 Level 3 Est. Patient 14:43:04 TECHNICAL ACCOUNT MANAGER Broderick Solares MD [facility] CPT-81624 Level 3 Est. Patient 10:05:53 TECHNICAL ACCOUNT MANAGER Sachin Wasserman MD [facility] CPT-95162 Level 3 Est. Patient 14:35:17 CDT [facility] CPT-14023 Level 3 Est. Patient 10:59:26 CDT [facility] CPT-13750 Level 3 Est. Patient 15:41:02 CDT [facility] CPT-68005 Level 3 Est. Patient 16:41:25 CDT [facility] CPT-64312 Level 3 New Patient 14:47:15 CDT [facility] Procedures Code Procedure Name Date Entry Date Standard Description CPT-82079 C-Spine Min 4V 12:56:08 TECHNICAL ACCOUNT MANAGER CPT-80171 Immunization Single Admin 09:23:37 CDT CPT-02824 Tdap Vaccine 09:23:37 CDT CPT-49106 Fluzone Quadrivalent Intramuscular Suspension 0.5 ML 20: 47:45 CDT CPT-72294 Ankle Complete - Min 3V 12:29:38 CDT CPT-68005 Forearm AP and Lat 10:01:39 TECHNICAL ACCOUNT MANAGER CPT-71202 Knee 3V 13:56:38 CDT CPT-01419 Administration single or combination vaccine inc oral 11 :50:16 CDT CPT-50736 Influenza split virus > age 3 11:50:16 CDT
--- OUTSIDE RECORDS SUMMARY | 2018-09-24 02:02 | XMS REPORT | Clinical Summary ---
Author Author Admin, MADDY Organization [facility] Address Unknown Phone Unavailable Allergies, Adverse Reactions, Alerts Allergy Name Reaction Description Start Date Severity Status Provider AMITRIPTYLINE HCL Hair loss and nightmares Moderate Active Chad Guardado MD IVP DYE Critical Active Chad Guardado MD CODEINE nausea Moderate Active [facility] Conditions or Problems Problem Name Problem Code Onset Date Status Entry Date Provider Comment Standard Description Annotate ANEURYSM 442.9 [facility] Aneurysm of unspecified artery site ANXIETY DEPRESSION 300.4 Active [facility] Dysthymic disorder INSOMNIA 780.52 [facility] Insomnia, unspecified LOSS OF APPETITE 783.0 Active [facility] Anorexia CEPHALGIA 784.0 Active [facility] Headache ENCOUNTER FOR REMOVAL OF SUTURES V58.32 Resolved Daisy [facility] PA Encounter for removal of sutures NECK PAIN 723.1 Active [facility] Cervicalgia KNEE PAIN, BILATERAL 719.46 Active Daisy [facility] PA Pain in joint involving lower leg [...] Name NDC Status Provider Patient Instruction NYSTATIN 353188 UNIT/ML SUSP Swish and swallow 5ml four times a day until yeast is clear. NYSTATIN 19334313302 Active Chad Guardado MD Active TESSALON PERLES 100 MG CAP 1 tablet by mouth 3 times daily BENZONATATE 93760878840 Active Sparkle Castro APRN Active CITALOPRAM HYDROBROMIDE 40 MG TABS 1 daily for depression/anxiety CITALOPRAM HYDROBROMIDE 77122993483 Active Chad Guardado MD Active DEPAKOTE 250 MG TBEC 1 twice a day to prevent headaches DIVALPROEX SODIUM 36708055906 Active Chad Guardado MD Active CYCLOBENZAPRINE HCL 10 MG TABS 1 at bedtime for muscle tightness CYCLOBENZAPRINE HCL 20974306956 Active Chad Guardado MD Active METHOCARBAMOL 750 MG TABS 1 po q8hr PRN spasm and neck pain 06/12 METHOCARBAMOL 79846218568 No Longer Active Chad Guardado MD Active JANA ASPIRIN EC LOW DOSE 81 MG TBEC Take one by mouth daily ASPIRIN 32169613010 No Longer Active Chad Guardado MD Active HYDROCODONE-ACETAMINOPHEN 7.5-325 MG TABS 1 three times a day as needed for pain HYDROCODONE-ACETAMINOPHEN 41586258069 Active Chad Guardado MD Active CIPROFLOXACIN HCL 250 MG TABS 1 twice a day for 3 days for urinary infection CIPROFLOXACIN HCL 53398574259 No Longer Active Chad Guardado MD Active LIDODERM 5 % PTCH apply to affected area for 12 hours LIDOCAINE 44474795942 Active Chad Guardado MD Active FUROSEMIDE 20 MG TAB 1 tablet by mouth daily FUROSEMIDE 80141254083 Active Chad Guardado MD Active IMITREX 6 MG/0.5ML SOLN Take as directed SUMATRIPTAN SUCCINATE 86597286297 Active Sparkle Yogosia ROBERTSON Active SERTRALINE HCL 50 MG TABS 1 daily for mood SERTRALINE HCL 93183623608 No Longer Active Chad Guardado MD Active IMITREX 100 MG TABS TAKE 1 TABLET AT THE ONSET OF HEADACHE MAY REPEAT IN 2 HRS IF NEEDED SUMATRIPTAN SUCCINATE 73291424782 Active Sparkle Yokum CHIEF TECHNICIAN Active IMITREX TABS Take/use as needed. SUMATRIPTAN SUCCINATE TABS 15483898156 No Longer Active Jaylyn DACOSTA Active SUMATRIPTAN SUCCINATE 100 MG TABS as directed SUMATRIPTAN SUCCINATE 47901758085 No Longer Active Nedra Cramer Active LORAZEPAM 0.5 MG TAB 1 tab po q8 hrs and 2 tabs at bedtime 07/03 LORAZEPAM 88369059174 No Longer Active Nedra Cramer Active PYRIDIUM 200 MG TAB 1 po TID PRN Dysuria PHENAZOPYRIDINE HCL 90434988993 No Longer Active Sachin Wasserman MD Active CIPRO 250 MG TAB 1 tablet by mouth twice daily CIPROFLOXACIN HCL 36782048288 No Longer Active Sachin Wasserman MD Active LUNESTA 2 MG TABS take one tab po qhs ESZOPICLONE 07585244881 No Longer Active Broderick Solares MD Active CITALOPRAM HYDROBROMIDE 20 MG TABS take one tab po daily CITALOPRAM HYDROBROMIDE 12881408827 No Longer Active Broderick Solares MD Active HYDROCODONE-ACETAMINOPHEN 10-325 MG TABS 1 tab po q4-6 hrs prn HYDROCODONE-ACETAMINOPHEN 52550429043 No Longer Active Broderick Solares MD Active SULFAMETHOXAZOLE-TMP DS 800-160 MG TABS take one tab po bid x 7 days SULFAMETHOXAZOLE-TRIMETHOPRIM 90055973257 No Longer Active Broderick Solares MD Active DICLOFENAC SODIUM 75 MG TBEC take one tab po bid DICLOFENAC SODIUM 18609516388 Active Broderick Solares MD Active NAPROXEN 500 MG TAB 1 by mouth twice a day NAPROXEN 40428204041 No Longer Active Daisy Pool PA Active FUROSEMIDE 40 MG TAB 1 tablet by mouth daily FUROSEMIDE 75318620535 No Longer Active Daisy Pool PA Active MELOXICAM 15 MG TABS 1 po q day for pain with food MELOXICAM 13131972538 No Longer Active Daisy Pool PA Active ZOLPIDEM TARTRATE 10 MG TABS take one tab po daily ZOLPIDEM TARTRATE 17267239136 No Longer Active Daisy Pool PA Active COLACE 100 MG CAPS Take one by mouth daily DOCUSATE SODIUM 91089604561 No Longer Active Daisy Pool PA Active NIMODIPINE 30 MG CAPS 1 every 2 hours NIMODIPINE 94592107076 No Longer Active Daisy Pool PA Active ZOFRAN ODT 4 MG TBDP 1 po q6hr PRN Nausea ONDANSETRON 87689394055 No Longer Active Daisy Pool PA Active MAGNESIUM OXIDE 400 MG TABS Take one by mouth daily MAGNESIUM OXIDE 87883196236 No Longer Active Daisy Pool PA Active MAGNESIUM OXIDE 400 MG TABS Take one by mouth daily MAGNESIUM OXIDE 400 MG TABS 015681 MAGNESIUM OXIDE Inactive ZOFRAN ODT 4 MG TBDP 1 po q6hr PRN Nausea ZOFRAN ODT 4 MG TBDP 269388 ONDANSETRON Inactive NIMODIPINE 30 MG CAPS 1 every 2 hours NIMODIPINE 30 MG CAPS 752817 NIMODIPINE Inactive COLACE 100 MG CAPS Take one by mouth daily COLACE 100 MG CAPS 5323230 DOCUSATE SODIUM Inactive ZOLPIDEM TARTRATE 10 MG TABS take one tab po daily ZOLPIDEM TARTRATE 10 MG TABS 617443 ZOLPIDEM TARTRATE Inactive MELOXICAM 15 MG TABS 1 po q day for pain with food MELOXICAM 15 MG TABS 104791 MELOXICAM Inactive FUROSEMIDE 40 MG TAB 1 tablet by mouth daily FUROSEMIDE 40 MG TAB 336915 FUROSEMIDE Inactive NAPROXEN 500 MG TAB 1 by mouth twice a day NAPROXEN 500 MG TAB 743225 NAPROXEN Inactive SULFAMETHOXAZOLE-TMP DS 800-160 MG TABS take one tab po bid x 7 days SULFAMETHOXAZOLE-TMP DS 800-160 MG TABS SULFAMETHOXAZOLE- TRIMETHOPRIM Inactive HYDROCODONE-ACETAMINOPHEN 10-325 MG TABS 1 tab po q4-6 hrs prn HYDROCODONE-ACETAMINOPHEN 10-325 MG TABS 992535 HYDROCODONE- ACETAMINOPHEN Inactive CITALOPRAM HYDROBROMIDE 20 MG TABS take one tab po daily CITALOPRAM HYDROBROMIDE 20 MG TABS 331433 CITALOPRAM HYDROBROMIDE Inactive LUNESTA 2 MG TABS take one tab po qhs LUNESTA 2 MG TABS 281180 ESZOPICLONE Inactive LORAZEPAM 0.5 MG TAB 1 tab po q8 hrs and 2 tabs at bedtime 07/03 LORAZEPAM 0.5 MG TAB 339721 LORAZEPAM Inactive SUMATRIPTAN SUCCINATE 100 MG TABS as directed SUMATRIPTAN SUCCINATE 100 MG TABS 870876 SUMATRIPTAN SUCCINATE Inactive IMITREX TABS Take/use as needed. IMITREX TABS SUMATRIPTAN SUCCINATE TABS Inactive SERTRALINE HCL 50 MG TABS 1 daily for mood SERTRALINE HCL 50 MG TABS 217437 SERTRALINE HCL Inactive JANA ASPIRIN EC LOW DOSE 81 MG TBEC Take one by mouth daily JANA ASPIRIN EC LOW DOSE 81 MG TBEC 148894 ASPIRIN Inactive METHOCARBAMOL 750 MG TABS 1 po q8hr PRN spasm and neck pain 06/12 METHOCARBAMOL 750 MG TABS 368749 METHOCARBAMOL Inactive CIPRO 250 MG TAB 1 tablet by mouth twice daily CIPRO 250 MG TAB 915809 CIPROFLOXACIN HCL Inactive PYRIDIUM 200 MG TAB 1 po TID PRN Dysuria PYRIDIUM 200 MG TAB 3107951 PHENAZOPYRIDINE HCL Inactive CIPROFLOXACIN HCL 250 MG TABS 1 twice a day for 3 days for urinary infection CIPROFLOXACIN HCL 250 MG TABS 099500 CIPROFLOXACIN HCL Inactive Advance Directives Directive Description Start Date PERMISSION TO SHARE Immunizations Vaccine Administration Date Value Standard Description Seasonal influenza vaccine, injectable, containing preservative, for > 3 years old (Afluria, FluLaval, Fluzone, Fluvirin, Fluarix, Agriflu(>=18 yo)) Fluzone (>3 yrs.) [[id number]] Influenza, seasonal, injectable Vital Signs Date Name [...] CBC - Chemistry sodium, serum 140 mmol/L 030-041 8982/09/23 potassium, serum 4.7 mmol/L 3.5-5.2 chloride, serum [...] Panel - Chemistry cholesterol, serum 197 mg/dL 092-432 4272/09/25 triglyceride, serum, fasting 48 mg/dL 30-200 HDL [...] 0.76-1.46 Encounters Code Encounter Date Provider Facility CPT-88239 Level 3 Est. Patient 17:38:05 RADIATION OFFICER Chad Guardado MD [facility] CPT-80636 Level 3 Est. Patient 15:35:54 RADIATION OFFICER Sparkle Castro APRN [facility] CPT-60738 Level 4 Est. Patient 09:41:26 RADIATION OFFICER Cahd Guardado MD [facility] CPT-23966 Level 4 Est. Patient 16:16:11 CDT Chad Guardado MD [facility] CPT-56269 Level 3 Est. Patient 12:46:41 CDT Chad Guardado MD [facility] CPT-15448 Level 3 Est. Patient 17:26:51 CDT Chad Guardado MD [facility] CPT-25149 Level 4 New Patient 13:59:42 CDT Chad Guardado MD [facility] CPT-33585 Level 4 Est. Patient 20:23:44 RADIATION OFFICER Broderick Solares MD [facility] CPT-47398 Level 3 Est. Patient 14:43:04 RADIATION OFFICER Broderick Solares MD [facility] CPT-62285 Level 3 Est. Patient 10:05:53 RADIATION OFFICER Scahin Wasserman MD [facility] CPT-28324 Level 3 Est. Patient 14:35:17 CDT [facility] CPT-37940 Level 3 Est. Patient 10:59:26 CDT [facility] CPT-45133 Level 3 Est. Patient 15:41:02 CDT [facility] CPT-73646 Level 3 Est. Patient 16:41:25 CDT [facility] CPT-74151 Level 3 New Patient 14:47:15 CDT [facility] Procedures Code Procedure Name Date Entry Date Standard Description CPT-51937 C-Spine Min 4V 12:56:08 RADIATION OFFICER CPT-70488 Immunization Single Admin 09:23:37 CDT CPT-25560 Tdap Vaccine 09:23:37 CDT CPT-25756 Fluzone Quadrivalent Intramuscular Suspension 0.5 ML 20: 47:45 CDT CPT-77694 Ankle Complete - Min 3V 12:29:38 CDT CPT-28675 Forearm AP and Lat 10:01:39 RADIATION OFFICER CPT-43028 Knee 3V 13:56:38 CDT CPT-24506 Administration single or combination vaccine inc oral 11 :50:16 CDT CPT-49140 Influenza split virus > age 3 11:50:16 CDT
--- OUTSIDE RECORDS SUMMARY | 2018-09-24 02:11 | XMS REPORT | Clinical Summary ---
Author Author Admin, MADDY Organization [facility] Address Unknown Phone Unavailable Allergies, Adverse Reactions, Alerts Allergy Name Reaction Description Start Date Severity Status Provider AMITRIPTYLINE HCL Hair loss and nightmares Moderate Active Chad Guardado MD IVP DYE Critical Active Chad Guardado MD CODEINE nausea Moderate Active [facility] Conditions or Problems Problem Name Problem Code Onset Date Status Entry Date Provider Comment Standard Description Annotate ANEURYSM 442.9 Active [facility] Aneurysm of unspecified artery site ANXIETY DEPRESSION 300.4 Active [facility] Dysthymic disorder INSOMNIA 780.52 Active [facility] Insomnia, unspecified LOSS OF APPETITE 783.0 Active [facility] Anorexia CEPHALGIA 784.0 Active [facility] Headache ENCOUNTER FOR REMOVAL OF SUTURES V58.32 Resolved Daisy Tilden PA Encounter for removal of sutures NECK PAIN 723.1 Active [facility] Cervicalgia KNEE PAIN, BILATERAL 719.46 Active Daisy Tilden PA Pain in joint involving lower leg [...] elsewhere classified Cough 786.2 Active Sparkle Castro VANSTONE MACHINE OPERATOR Cough Thrush 112.0 Active Chad Guardado MD [...] 100 MG ORAL CAPS NITROFURANTOIN MONOHYD MACRO 73105244411 Active Chad Guardado MD Active IMITREX 100 MG TABS TAKE 1 TABLET AT THE ONSET OF HEADACHE MAY REPEAT IN 2 HRS IF NEEDED SUMATRIPTAN SUCCINATE 04200258518 No Longer Active Chad Guardado MD Active FUROSEMIDE 20 MG TAB 1 tablet by mouth daily FUROSEMIDE 12016511673 No Longer Active Paras Nunez DO Active LIDODERM 5 % PTCH apply to affected area for 12 hours LIDOCAINE 09931924806 No Longer Active Paras Nunez DO Active MACROBID 100 MG CAP 1 cap by mouth twice daily x 7 days. NITROFURANTOIN MONOHYD MACRO 57501908723 No Longer Active Chad Guardado MD Active CIPRO 250 MG TAB 1 tablet by mouth twice daily x 5 days. CIPROFLOXACIN HCL 24892011569 No Longer Active hCad Guardado MD Active LISINOPRIL 20 MG TABS 1 tablet by mouth daily for blood pressure LISINOPRIL 07502323983 Active Chad Guardado MD Active TRAMADOL HCL 50 MG TABS 1-2 tablets every 6 hours as needed for pain TRAMADOL HCL 38769039933 Active Chad Guardado MD Active DICLOFENAC SODIUM 1.5 % TRANS SOLN 40 drops applied to each knee 4 times a day DICLOFENAC SODIUM 46395596955 Active Chad Guardado MD Active NYSTATIN 172589 UNIT/ML SUSP Swish and swallow 5ml four times a day until yeast is clear. NYSTATIN 35129467209 No Longer Active Chad Guardado MD Active TESSALON PERLES 100 MG CAP 1 tablet by mouth 3 times daily BENZONATATE 06512361821 Active Sparkle Castro APRN Active CITALOPRAM HYDROBROMIDE 40 MG TABS 1 daily for depression/anxiety CITALOPRAM HYDROBROMIDE 20053601469 Active Chad Guardado MD Active DEPAKOTE 250 MG TBEC 1 twice a day to prevent headaches DIVALPROEX SODIUM 05344422156 Active Chad Guardado MD Active CYCLOBENZAPRINE HCL 10 MG TABS 1 at bedtime for muscle tightness CYCLOBENZAPRINE HCL 60766229233 Active Chad Guardado MD Active METHOCARBAMOL 750 MG TABS 1 po q8hr PRN spasm and neck pain 06/12 METHOCARBAMOL 54374493466 No Longer Active Chad Guardado MD Active JANA ASPIRIN EC LOW DOSE 81 MG TBEC Take one by mouth daily ASPIRIN 62106286214 No Longer Active Chad Guardado MD Active HYDROCODONE-ACETAMINOPHEN 7.5-325 MG TABS 1 three times a day as needed for pain HYDROCODONE-ACETAMINOPHEN 95724355824 Active Chad Guardado MD Active CIPROFLOXACIN HCL 250 MG TABS 1 twice a day for 3 days for urinary infection CIPROFLOXACIN HCL 16529368770 No Longer Active Chad Guardado MD Active IMITREX 6 MG/0.5ML SOLN Take as directed SUMATRIPTAN SUCCINATE 48501147090 Active Sparkle Castro VANSTONE MACHINE OPERATOR Active SERTRALINE HCL 50 MG TABS 1 daily for mood SERTRALINE HCL 43176925089 No Longer Active Chad Guardado MD Active IMITREX TABS Take/use as needed. SUMATRIPTAN SUCCINATE TABS 19880725778 No Longer Active Jaylyn DACOSTA Active SUMATRIPTAN SUCCINATE 100 MG TABS as directed SUMATRIPTAN SUCCINATE 05166261362 No Longer Active Nedra Cramer Active LORAZEPAM 0.5 MG TAB 1 tab po q8 hrs and 2 tabs at bedtime 07/03 LORAZEPAM 40078812312 No Longer Active Nedra Cramer Active PYRIDIUM 200 MG TAB 1 po TID PRN Dysuria PHENAZOPYRIDINE HCL 89175899372 No Longer Active Sachin Wasserman MD Active CIPRO 250 MG TAB 1 tablet by mouth twice daily CIPROFLOXACIN HCL 74903972009 No Longer Active Sachin Wasserman MD Active LUNESTA 2 MG TABS take one tab po qhs ESZOPICLONE 69158239927 No Longer Active Broderick Solares MD Active CITALOPRAM HYDROBROMIDE 20 MG TABS take one tab po daily CITALOPRAM HYDROBROMIDE 67432181783 No Longer Active Broderick Solares MD Active HYDROCODONE-ACETAMINOPHEN 10-325 MG TABS 1 tab po q4-6 hrs prn HYDROCODONE-ACETAMINOPHEN 87943746488 No Longer Active Broderick Solares MD Active SULFAMETHOXAZOLE-TMP DS 800-160 MG TABS take one tab po bid x 7 days SULFAMETHOXAZOLE-TRIMETHOPRIM 75910180798 No Longer Active Broderick Solares MD Active DICLOFENAC SODIUM 75 MG TBEC take one tab po bid DICLOFENAC SODIUM 46352300135 Active Broderick Solares MD Active NAPROXEN 500 MG TAB 1 by mouth twice a day NAPROXEN 58099799990 No Longer Active Daisy Pool PA Active FUROSEMIDE 40 MG TAB 1 tablet by mouth daily FUROSEMIDE 01496965874 No Longer Active Daisy Pool PA Active MELOXICAM 15 MG TABS 1 po q day for pain with food MELOXICAM 60510938675 No Longer Active Daisy Pool PA Active ZOLPIDEM TARTRATE 10 MG TABS take one tab po daily ZOLPIDEM TARTRATE 90369217022 No Longer Active Daisy Pool PA Active COLACE 100 MG CAPS Take one by mouth daily DOCUSATE SODIUM 99850794558 No Longer Active Daisy Pool PA Active NIMODIPINE 30 MG CAPS 1 every 2 hours NIMODIPINE 15115454279 No Longer Active Daisy Pool PA Active ZOFRAN ODT 4 MG TBDP 1 po q6hr PRN Nausea ONDANSETRON 02029584399 No Longer Active Daisy Pool PA Active MAGNESIUM OXIDE 400 MG TABS Take one by mouth daily MAGNESIUM OXIDE 06178519334 No Longer Active Daisy Pool PA Active MAGNESIUM OXIDE 400 MG TABS Take one by mouth daily MAGNESIUM OXIDE 400 MG TABS 573683 MAGNESIUM OXIDE Inactive ZOFRAN ODT 4 MG TBDP 1 po q6hr PRN Nausea ZOFRAN ODT 4 MG TBDP 818253 ONDANSETRON Inactive NIMODIPINE 30 MG CAPS 1 every 2 hours NIMODIPINE 30 MG CAPS 219474 NIMODIPINE Inactive COLACE 100 MG CAPS Take one by mouth daily COLACE 100 MG CAPS 5795675 DOCUSATE SODIUM Inactive ZOLPIDEM TARTRATE 10 MG TABS take one tab po daily ZOLPIDEM TARTRATE 10 MG TABS 253125 ZOLPIDEM TARTRATE Inactive MELOXICAM 15 MG TABS 1 po q day for pain with food MELOXICAM 15 MG TABS 301437 MELOXICAM Inactive FUROSEMIDE 40 MG TAB 1 tablet by mouth daily FUROSEMIDE 40 MG TAB 399751 FUROSEMIDE Inactive NAPROXEN 500 MG TAB 1 by mouth twice a day NAPROXEN 500 MG TAB 143278 NAPROXEN Inactive SULFAMETHOXAZOLE-TMP DS 800-160 MG TABS take one tab po bid x 7 days SULFAMETHOXAZOLE-TMP DS 800-160 MG TABS SULFAMETHOXAZOLE- TRIMETHOPRIM Inactive HYDROCODONE-ACETAMINOPHEN 10-325 MG TABS 1 tab po q4-6 hrs prn HYDROCODONE-ACETAMINOPHEN 10-325 MG TABS 482618 HYDROCODONE- ACETAMINOPHEN Inactive CITALOPRAM HYDROBROMIDE 20 MG TABS take one tab po daily CITALOPRAM HYDROBROMIDE 20 MG TABS 956912 CITALOPRAM HYDROBROMIDE Inactive LUNESTA 2 MG TABS take one tab po qhs LUNESTA 2 MG TABS 383055 ESZOPICLONE Inactive LORAZEPAM 0.5 MG TAB 1 tab po q8 hrs and 2 tabs at bedtime 07/03 LORAZEPAM 0.5 MG TAB 551808 LORAZEPAM Inactive SUMATRIPTAN SUCCINATE 100 MG TABS as directed SUMATRIPTAN SUCCINATE 100 MG TABS 303648 SUMATRIPTAN SUCCINATE Inactive IMITREX TABS Take/use as needed. IMITREX TABS SUMATRIPTAN SUCCINATE TABS Inactive SERTRALINE HCL 50 MG TABS 1 daily for mood SERTRALINE HCL 50 MG TABS 977084 SERTRALINE HCL Inactive JANA ASPIRIN EC LOW DOSE 81 MG TBEC Take one by mouth daily JANA ASPIRIN EC LOW DOSE 81 MG TBEC 774657 ASPIRIN Inactive METHOCARBAMOL 750 MG TABS 1 po q8hr PRN spasm and neck pain 06/12 METHOCARBAMOL 750 MG TABS 020766 METHOCARBAMOL Inactive NYSTATIN 924756 UNIT/ML SUSP Swish and swallow 5ml four times a day until yeast is clear. NYSTATIN 805262 UNIT/ML SUSP 488601 NYSTATIN Inactive CIPRO 250 MG TAB 1 tablet by mouth twice daily x 5 days. CIPRO 250 MG TAB 854983 CIPROFLOXACIN HCL Inactive LIDODERM 5 % PTCH apply to affected area for 12 hours LIDODERM 5 % PTCH 9043115 LIDOCAINE Inactive FUROSEMIDE 20 MG TAB 1 tablet by mouth daily FUROSEMIDE 20 MG TAB 365370 FUROSEMIDE Inactive IMITREX 100 MG TABS TAKE 1 TABLET AT THE ONSET OF HEADACHE MAY REPEAT IN 2 HRS IF NEEDED IMITREX 100 MG TABS 110697 SUMATRIPTAN SUCCINATE Inactive CIPRO 250 MG TAB 1 tablet by mouth twice daily CIPRO 250 MG TAB 19740807 CIPROFLOXACIN HCL Inactive PYRIDIUM 200 MG TAB 1 po TID PRN Dysuria PYRIDIUM 200 MG TAB 9242592 PHENAZOPYRIDINE HCL Inactive CIPROFLOXACIN HCL 250 MG TABS 1 twice a day for 3 days for urinary infection CIPROFLOXACIN HCL 250 MG TABS 19740807 CIPROFLOXACIN HCL Inactive MACROBID 100 MG CAP 1 cap by mouth twice daily x 7 days. MACROBID 100 MG CAP 019814 NITROFURANTOIN MONOHYD MACRO Inactive Advance Directives Directive Description Start Date PERMISSION TO SHARE Immunizations Vaccine Administration Date Value Standard Description Seasonal influenza vaccine, injectable, containing preservative, for > 3 years old (Afluria, FluLaval, Fluzone, Fluvirin, Fluarix, Agriflu(>=18 yo)) Fluzone (>3 yrs.) [[id number]] Influenza, seasonal, injectable Vital Signs Date Name [...] CBC - Chemistry sodium, serum 140 mmol/L 105-574 5894/09/23 potassium, serum 4.7 mmol/L 3.5-5.2 chloride, serum [...] Panel - Chemistry cholesterol, serum 197 mg/dL 934-271 0448/09/25 triglyceride, serum, fasting 48 mg/dL 30-200 HDL [...] 5.0-8.5 Encounters Code Encounter Date Provider Facility CPT-87680 Level 3 Est. Patient 14:50:08 ELECTRO MECHANICAL SOLAR TECHNICIAN Paras Nunez DO [facility] CPT-08139 Level 3 Est. Patient 15:11:25 ELECTRO MECHANICAL SOLAR TECHNICIAN Chad Guardado MD [facility] CPT-12960 Level 3 Est. Patient 17:38:05 ELECTRO MECHANICAL SOLAR TECHNICIAN Chad Guardado MD [facility] CPT-82244 Level 3 Est. Patient 15:35:54 ELECTRO MECHANICAL SOLAR TECHNICIAN Sparkle Castro APRN [facility] CPT-80955 Level 4 Est. Patient 09:41:26 ELECTRO MECHANICAL SOLAR TECHNICIAN Chad Guardado MD [facility] CPT-75099 Level 4 Est. Patient 16:16:11 CDT Chad Guardado MD [facility] CPT-26772 Level 3 Est. Patient 12:46:41 CDT Chad Guardado MD [facility] CPT-59170 Level 3 Est. Patient 17:26:51 CDT Chad Guardado MD [facility] CPT-94686 Level 4 New Patient 13:59:42 CDT Chad Guardado MD [facility] CPT-36113 Level 4 Est. Patient 20:23:44 ELECTRO MECHANICAL SOLAR TECHNICIAN Broderick Solares MD [facility] CPT-21005 Level 3 Est. Patient 14:43:04 ELECTRO MECHANICAL SOLAR TECHNICIAN Broderick Solares MD [facility] CPT-52136 Level 3 Est. Patient 10:05:53 ELECTRO MECHANICAL SOLAR TECHNICIAN Sachin Wasserman MD [facility] CPT-05111 Level 3 Est. Patient 14:35:17 CDT [facility] CPT-76768 Level 3 Est. Patient 10:59:26 CDT [facility] CPT-12913 Level 3 Est. Patient 15:41:02 CDT [facility] CPT-75571 Level 3 Est. Patient 16:41:25 [facility] CPT-53640 Level 3 New Patient 14:47:15 CDT [facility] Procedures Code Procedure Name Date Entry Date Standard Description CPT-25239 T spine AP/Lat w sw V 10:39:20 ELECTRO MECHANICAL SOLAR TECHNICIAN CPT-J1885 Toradol 60 mg (Ketorolac) 14:59:26 ELECTRO MECHANICAL SOLAR TECHNICIAN CPT-03981 Abx/Therapy Injection 14:59:26 ELECTRO MECHANICAL SOLAR TECHNICIAN CPT-J1885 Toradol 60 mg 14:50:08 ELECTRO MECHANICAL SOLAR TECHNICIAN CPT-23040 C-Spine Min 4V 12:56:08 ELECTRO MECHANICAL SOLAR TECHNICIAN CPT-38839 Immunization Single Admin 09:23:37 CDT CPT-89133 Tdap Vaccine 09:23:37 CDT CPT-52592 Fluzone Quadrivalent Intramuscular Suspension 0.5 ML 20: 47:45 CDT CPT-32012 Ankle Complete - Min 3V 12:29:38 CDT CPT-12720 Forearm AP and Lat 10:01:39 ELECTRO MECHANICAL SOLAR TECHNICIAN CPT-23336 Knee 3V 13:56:38 CDT CPT-58630 Administration single or combination vaccine inc oral 11 :50:16 CDT CPT-51982 Influenza split virus > age 3 11:50:16 CDT
--- OUTSIDE RECORDS SUMMARY | 2018-09-24 02:12 | XMS REPORT | Clinical Summary ---
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 Aneurysm of unspecified artery site ANXIETY DEPRESSION 300.4 Active [facility] Dysthymic disorder INSOMNIA 780.52 [facility] Insomnia, unspecified LOSS OF APPETITE 783.0 [facility] Anorexia CEPHALGIA 784.0 Active [facility] Headache ENCOUNTER FOR REMOVAL OF SUTURES V58.32 Resolved Daisy Camino PA Encounter for removal of sutures NECK PAIN 723.1 Active [facility] Cervicalgia KNEE PAIN, BILATERAL 719.46 Active Daisy Camino PA Pain in joint involving lower leg [...] elsewhere classified Cough 786.2 Active Sparkle Castro [employer] Cough Thrush 112.0 Active Chad Guardado MD Candidiasis of mouth HYPERTENSION, BENIGN ESSENTIAL 401.1 Active Chad Guradado MD Benign essential hypertension Urinary tract infection [...] 100 MG ORAL CAPS NITROFURANTOIN MONOHYD MACRO 57132872818 Active Chad Guardado MD Active IMITREX 100 MG TABS TAKE 1 TABLET AT THE ONSET OF HEADACHE MAY REPEAT IN 2 HRS IF NEEDED SUMATRIPTAN SUCCINATE 06355478362 No Longer Active Chad Guardado MD Active FUROSEMIDE 20 MG TAB 1 tablet by mouth daily FUROSEMIDE 56771867898 No Longer Active Paras Nunez DO Active LIDODERM 5 % PTCH apply to affected area for 12 hours LIDOCAINE 83548704892 No Longer Active Paras Nunez DO Active MACROBID 100 MG CAP 1 cap by mouth twice daily x 7 days. NITROFURANTOIN MONOHYD MACRO 83916628992 No Longer Active Chad Guardado MD Active CIPRO 250 MG TAB 1 tablet by mouth twice daily x 5 days. CIPROFLOXACIN HCL 80285638889 No Longer Active Chad Guardado MD Active LISINOPRIL 20 MG TABS 1 tablet by mouth daily for blood pressure LISINOPRIL 59769602546 Active Chad Guardado MD Active TRAMADOL HCL 50 MG TABS 1-2 tablets every 6 hours as needed for pain TRAMADOL HCL 93229870515 Active Chad Guardado MD Active DICLOFENAC SODIUM 1.5 % TRANS SOLN 40 drops applied to each knee 4 times a day DICLOFENAC SODIUM 25682784018 Active Chad Guardado MD Active NYSTATIN 010078 UNIT/ML SUSP Swish and swallow 5ml four times a day until yeast is clear. NYSTATIN 65006054208 No Longer Active Chad Guardado MD Active TESSALON PERLES 100 MG CAP 1 tablet by mouth 3 times daily BENZONATATE 98102022406 Active Sparkle Castro APRN Active CITALOPRAM HYDROBROMIDE 40 MG TABS 1 daily for depression/anxiety CITALOPRAM HYDROBROMIDE 94862171636 Active Chad Guardado MD Active DEPAKOTE 250 MG TBEC 1 twice a day to prevent headaches DIVALPROEX SODIUM 40500494344 Active Chad Guardado MD Active CYCLOBENZAPRINE HCL 10 MG TABS 1 at bedtime for muscle tightness CYCLOBENZAPRINE HCL 42103489313 Active Chad Guardado MD Active METHOCARBAMOL 750 MG TABS 1 po q8hr PRN spasm and neck pain 06/12 METHOCARBAMOL 85053682288 No Longer Active Chad Guardado MD Active JANA ASPIRIN EC LOW DOSE 81 MG TBEC Take one by mouth daily ASPIRIN 24168517809 No Longer Active Chad Guardado MD Active HYDROCODONE-ACETAMINOPHEN 7.5-325 MG TABS 1 three times a day as needed for pain HYDROCODONE-ACETAMINOPHEN 21561089102 Active Chad Guardado MD Active CIPROFLOXACIN HCL 250 MG TABS 1 twice a day for 3 days for urinary infection CIPROFLOXACIN HCL 39109849401 No Longer Active Chad Guardado MD Active IMITREX 6 MG/0.5ML SOLN Take as directed SUMATRIPTAN SUCCINATE 82993177596 Active Sparkle Castro [employer] Active SERTRALINE HCL 50 MG TABS 1 daily for mood SERTRALINE HCL 32733265297 No Longer Active Chad Guardado MD Active IMITREX TABS Take/use as needed. SUMATRIPTAN SUCCINATE TABS 43338244139 No Longer Active Jaylyn DACOSTA Active SUMATRIPTAN SUCCINATE 100 MG TABS as directed SUMATRIPTAN SUCCINATE 80286665376 No Longer Active Nedra Cramer Active LORAZEPAM 0.5 MG TAB 1 tab po q8 hrs and 2 tabs at bedtime 07/03 LORAZEPAM 97845630018 No Longer Active Nedra Cramer Active PYRIDIUM 200 MG TAB 1 po TID PRN Dysuria PHENAZOPYRIDINE HCL 98261617711 No Longer Active Sachin Wasserman MD Active CIPRO 250 MG TAB 1 tablet by mouth twice daily CIPROFLOXACIN HCL 48224502440 No Longer Active Sachin Wasserman MD Active LUNESTA 2 MG TABS take one tab po qhs ESZOPICLONE 76666334252 No Longer Active Broderick Solares MD Active CITALOPRAM HYDROBROMIDE 20 MG TABS take one tab po daily CITALOPRAM HYDROBROMIDE 87039959663 No Longer Active Broderick Solares MD Active HYDROCODONE-ACETAMINOPHEN 10-325 MG TABS 1 tab po q4-6 hrs prn HYDROCODONE-ACETAMINOPHEN 31715967580 No Longer Active Broderick Solares MD Active SULFAMETHOXAZOLE-TMP DS 800-160 MG TABS take one tab po bid x 7 days SULFAMETHOXAZOLE-TRIMETHOPRIM 53495743706 No Longer Active Broderick Solares MD Active DICLOFENAC SODIUM 75 MG TBEC take one tab po bid DICLOFENAC SODIUM 83532850145 Active Broderick Solares MD Active NAPROXEN 500 MG TAB 1 by mouth twice a day NAPROXEN 47582659574 No Longer Active Daisy Pool PA Active FUROSEMIDE 40 MG TAB 1 tablet by mouth daily FUROSEMIDE 24623293352 No Longer Active Daisy Pool PA Active MELOXICAM 15 MG TABS 1 po q day for pain with food MELOXICAM 43680860022 No Longer Active Daisy Pool PA Active ZOLPIDEM TARTRATE 10 MG TABS take one tab po daily ZOLPIDEM TARTRATE 25539097383 No Longer Active Daisy Pool PA Active COLACE 100 MG CAPS Take one by mouth daily DOCUSATE SODIUM 30876665061 No Longer Active Daisy Pool PA Active NIMODIPINE 30 MG CAPS 1 every 2 hours NIMODIPINE 19652682709 No Longer Active Daisy Pool PA Active ZOFRAN ODT 4 MG TBDP 1 po q6hr PRN Nausea ONDANSETRON 27686241996 No Longer Active Daisy Pool PA Active MAGNESIUM OXIDE 400 MG TABS Take one by mouth daily MAGNESIUM OXIDE 38522941712 No Longer Active Daisy Pool PA Active MAGNESIUM OXIDE 400 MG TABS Take one by mouth daily MAGNESIUM OXIDE 400 MG TABS 245954 MAGNESIUM OXIDE Inactive ZOFRAN ODT 4 MG TBDP 1 po q6hr PRN Nausea ZOFRAN ODT 4 MG TBDP 969727 ONDANSETRON Inactive NIMODIPINE 30 MG CAPS 1 every 2 hours NIMODIPINE 30 MG CAPS 451002 NIMODIPINE Inactive COLACE 100 MG CAPS Take one by mouth daily COLACE 100 MG CAPS 4978369 DOCUSATE SODIUM Inactive ZOLPIDEM TARTRATE 10 MG TABS take one tab po daily ZOLPIDEM TARTRATE 10 MG TABS 614130 ZOLPIDEM TARTRATE Inactive MELOXICAM 15 MG TABS 1 po q day for pain with food MELOXICAM 15 MG TABS 918165 MELOXICAM Inactive FUROSEMIDE 40 MG TAB 1 tablet by mouth daily FUROSEMIDE 40 MG TAB 186449 FUROSEMIDE Inactive NAPROXEN 500 MG TAB 1 by mouth twice a day NAPROXEN 500 MG TAB 497876 NAPROXEN Inactive SULFAMETHOXAZOLE-TMP DS 800-160 MG TABS take one tab po bid x 7 days SULFAMETHOXAZOLE-TMP DS 800-160 MG TABS SULFAMETHOXAZOLE- TRIMETHOPRIM Inactive HYDROCODONE-ACETAMINOPHEN 10-325 MG TABS 1 tab po q4-6 hrs prn HYDROCODONE-ACETAMINOPHEN 10-325 MG TABS 037675 HYDROCODONE- ACETAMINOPHEN Inactive CITALOPRAM HYDROBROMIDE 20 MG TABS take one tab po daily CITALOPRAM HYDROBROMIDE 20 MG TABS 967850 CITALOPRAM HYDROBROMIDE Inactive LUNESTA 2 MG TABS take one tab po qhs LUNESTA 2 MG TABS 730739 ESZOPICLONE Inactive LORAZEPAM 0.5 MG TAB 1 tab po q8 hrs and 2 tabs at bedtime 07/03 LORAZEPAM 0.5 MG TAB 034736 LORAZEPAM Inactive SUMATRIPTAN SUCCINATE 100 MG TABS as directed SUMATRIPTAN SUCCINATE 100 MG TABS 081543 SUMATRIPTAN SUCCINATE Inactive IMITREX TABS Take/use as needed. IMITREX TABS SUMATRIPTAN SUCCINATE TABS Inactive SERTRALINE HCL 50 MG TABS 1 daily for mood SERTRALINE HCL 50 MG TABS 775428 SERTRALINE HCL Inactive JANA ASPIRIN EC LOW DOSE 81 MG TBEC Take one by mouth daily JANA ASPIRIN EC LOW DOSE 81 MG TBEC 965217 ASPIRIN Inactive METHOCARBAMOL 750 MG TABS 1 po q8hr PRN spasm and neck pain 06/12 METHOCARBAMOL 750 MG TABS 732665 METHOCARBAMOL Inactive NYSTATIN 513054 UNIT/ML SUSP Swish and swallow 5ml four times a day until yeast is clear. NYSTATIN 613691 UNIT/ML SUSP 522210 NYSTATIN Inactive CIPRO 250 MG TAB 1 tablet by mouth twice daily x 5 days. CIPRO 250 MG TAB 643824 CIPROFLOXACIN HCL Inactive LIDODERM 5 % PTCH apply to affected area for 12 hours LIDODERM 5 % PTCH 4135124 LIDOCAINE Inactive FUROSEMIDE 20 MG TAB 1 tablet by mouth daily FUROSEMIDE 20 MG TAB 321578 FUROSEMIDE Inactive IMITREX 100 MG TABS TAKE 1 TABLET AT THE ONSET OF HEADACHE MAY REPEAT IN 2 HRS IF NEEDED IMITREX 100 MG TABS 185008 SUMATRIPTAN SUCCINATE Inactive CIPRO 250 MG TAB 1 tablet by mouth twice daily CIPRO 250 MG TAB 19740807 CIPROFLOXACIN HCL Inactive PYRIDIUM 200 MG TAB 1 po TID PRN Dysuria PYRIDIUM 200 MG TAB 0176620 PHENAZOPYRIDINE HCL Inactive CIPROFLOXACIN HCL 250 MG TABS 1 twice a day for 3 days for urinary infection CIPROFLOXACIN HCL 250 MG TABS 19740807 CIPROFLOXACIN HCL Inactive MACROBID 100 MG CAP 1 cap by mouth twice daily x 7 days. MACROBID 100 MG CAP 038914 NITROFURANTOIN MONOHYD MACRO Inactive Advance Directives Directive Description Start Date PERMISSION TO SHARE Immunizations Vaccine Administration Date Value Standard Description Seasonal influenza vaccine, injectable, containing preservative, for > 3 years old (Afluria, FluLaval, Fluzone, Fluvirin, Fluarix, Agriflu(>=18 yo)) Fluzone (>3 yrs.) [[id number]] Influenza, seasonal, injectable Vital Signs Date Name [...] pressure, diastolic - 8462-4 83 mm[Hg] BP cahse blood pressure, systolic - 8480-6 137 mm[Hg] BP sys height E&M - 8302-2 64 [in_us] Bdy height pulse rate E&M - 8867-4 61 /min Heart rate temperature E&M 98.4 [degF] Body temperature weight E&M - 3141-9 153.38 [lb_av] Weight Measured Diagnostic Results Date Name Value Unit Range Description Lab Report: Basic Metabolic Panel, Erythrocyte Sed Rate - Chemistry sodium, serum 137 mmol/L 484-856 6621/02/06 potassium, serum 4.6 mmol/L 3.5-5.2 chloride, serum 101 mmol/L 98-107 carbon dioxide, venous blood 26.3 mmol/L 21.0-32.0 blood glucose 86 mg/dL 65-110 calcium, serum 9.3 mg/dL 8.5-10.1 urea nitrogen, blood 25 mg/dL 7-18 creatinine, serum 1.10 mg/dL 0.60-1.30 Lab Report: Comp. Metabolic Panel, CBC - Chemistry sodium, serum 140 mmol/L 190-280 8528/09/23 potassium, serum 4.7 mmol/L 3.5-5.2 chloride, serum [...] Panel - Chemistry cholesterol, serum 197 mg/dL 581-161 9917/09/25 triglyceride, serum, fasting 48 mg/dL 30-200 HDL [...] 5.0-8.5 Encounters Code Encounter Date Provider Facility CPT-81779 Level 4 Est. 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 Patient 14:50:08 [employer]INERY DES[employer] Paras Nunez DO [facility] CPT-68654 Level 3 Est. Patient 15:11:25 [employer]INERY DESIGNER Chad Guardado MD [facility] CPT-74803 Level 3 Est. Patient 17:38:05 M[employer]INERY DES[employer]ER Chad Guardado MD [facility] CPT-64543 Level 3 Est. Patient 15:35:54 [employer] Sparkle Castro APRN [facility] CPT-93803 Level 4 Est. Patient 09:41:26 M[employer]INERY DES[employer]ER Chad Guardado MD [facility] CPT-33030 Level 4 Est. Patient 16:16:11 CDT Chad Guardado MD [facility] CPT-63158 Level 3 Est. Patient 12:46:41 CDT Chad Guardado MD [facility] CPT-34526 Level 3 Est. Patient 17:26:51 CDT Chad Guardado MD [facility] CPT-54218 Level 4 New Patient 13:59:42 CDT Chad Guardado MD [facility] CPT-53010 Level 4 Est. Patient 20:23:44 [employer] Broderick Solares MD [facility] CPT-81431 Level 3 Est. Patient 14:43:04 [employer]INERY DES[employer]ER Broderick Solares MD [facility] CPT-33935 Level 3 Est. Patient 10:05:53 [employer] DES[employer] Sachin Wasserman MD [facility] CPT-97387 Level 3 Est. Patient 14:35:17 CDT Daisy PAZ [facility] CPT-10487 Level 3 Est. Patient 10:59:26 CDT Daisy [facility] CPT-14100 Level 3 Est. Patient 15:41:02 CDT Daisy [facility] CPT-20607 Level 3 Est. Patient 16:41:25 CDT Daisy [facility] CPT-54584 Level 3 New Patient 14:47:15 CDT Daisy [facility] Procedures Code Procedure Name Date Entry Date Standard Description CPT-69957 T spine AP/Lat w sw V 10:39:20 [employer] CPT-J1885 Toradol 60 mg (Ketorolac) 14:59:26 [employer]INERY DESIGNER CPT-96404 Abx/Therapy Injection 14:59:26 [employer]INERY DESIGNER CPT-J1885 Toradol 60 mg 14:50:08 [employer] CPT-43519 C-Spine Min 4V 12:56:08 [employer] CPT-85697 Immunization Single Admin 09:23:37 CDT CPT-08546 Tdap Vaccine 09:23:37 CDT CPT-83492 Fluzone Quadrivalent Intramuscular Suspension 0.5 ML 20: 47:45 CDT CPT-73348 Ankle Complete - Min 3V 12:29:38 CDT CPT-91094 Forearm AP and Lat 10:01:39 [employer] CPT-54069 Knee 3V 13:56:38 CDT CPT-64980 Administration single or combination vaccine inc oral 11 :50:16 CDT CPT-18304 Influenza split virus > age 3 11:50:16 CDT
--- OUTSIDE RECORDS SUMMARY | 2018-09-24 02:15 | XMS REPORT | Clinical Summary ---
Author Author Admin, MADDY Organization [facility] Address Unknown Phone Unavailable Allergies, Adverse Reactions, Alerts Allergy Name Reaction Description Start Date Severity Status Provider AMITRIPTYLINE HCL Hair loss and nightmares Moderate Active Chad Guardado MD IVP DYE Critical Active Chad Guardado MD CODEINE nausea Moderate Active [facility] Conditions or Problems Problem Name Problem Code Onset Date Status Entry Date Provider Comment Standard Description Annotate ANEURYSM 442.9 [facility] Aneurysm of unspecified artery site ANXIETY DEPRESSION 300.4 Active [facility] Dysthymic disorder INSOMNIA 780.52 [facility] Insomnia, unspecified LOSS OF APPETITE 783.0 [facility] Anorexia CEPHALGIA 784.0 Active [facility] Headache ENCOUNTER FOR REMOVAL OF SUTURES V58.32 Resolved Daisy Hudson PA Encounter for removal of sutures NECK PAIN 723.1 Active [facility] Cervicalgia KNEE PAIN, BILATERAL 719.46 Active Daisy Hudson PA Pain in joint involving lower leg [...] elsewhere classified Cough 786.2 Active 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 Castro 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 NITROFURANTOIN MONOHYD MACRO 79521400710 No Longer Active Chad Guardado MD Active CIPRO 250 MG TAB 1 tablet by mouth twice daily x 5 days. CIPROFLOXACIN HCL 73353484177 No Longer Active Chad Guardado MD Active LISINOPRIL 20 MG TABS 1 tablet by mouth daily for blood pressure LISINOPRIL 47743315781 Active Chad Guardado MD Active TRAMADOL HCL 50 MG TABS 1-2 tablets every 6 hours as needed for pain TRAMADOL HCL 85095985134 Active Chad Guardado MD Active DICLOFENAC SODIUM 1.5 % TRANS SOLN 40 drops applied to each knee 4 times a day DICLOFENAC SODIUM 37637749483 Active Chad Guardado MD Active NYSTATIN 476694 UNIT/ML SUSP Swish and swallow 5ml four times a day until yeast is clear. NYSTATIN 45002414276 No Longer Active Chad Guardado MD Active TESSALON PERLES 100 MG CAP 1 tablet by mouth 3 times daily BENZONATATE 66944953269 Active Sparkle Castro APRN Active CITALOPRAM HYDROBROMIDE 40 MG TABS 1 daily for depression/anxiety CITALOPRAM HYDROBROMIDE 76578668888 Active Chad Guardado MD Active DEPAKOTE 250 MG TBEC 1 twice a day to prevent headaches DIVALPROEX SODIUM 79118092024 Active Chad Guardado MD Active CYCLOBENZAPRINE HCL 10 MG TABS 1 at bedtime for muscle tightness CYCLOBENZAPRINE HCL 90126139254 Active Chad Guardado MD Active METHOCARBAMOL 750 MG TABS 1 po q8hr PRN spasm and neck pain 06/12 METHOCARBAMOL 88628202050 No Longer Active Chad Guardado MD Active JANA ASPIRIN EC LOW DOSE 81 MG TBEC Take one by mouth daily ASPIRIN 36613160141 No Longer Active Chad Guardado MD Active HYDROCODONE-ACETAMINOPHEN 7.5-325 MG TABS 1 three times a day as needed for pain HYDROCODONE-ACETAMINOPHEN 98100739341 Active Chad Guardado MD Active CIPROFLOXACIN HCL 250 MG TABS 1 twice a day for 3 days for urinary infection CIPROFLOXACIN HCL 39678522809 No Longer Active Chad Guardado MD Active IMITREX 6 MG/0.5ML SOLN Take as directed SUMATRIPTAN SUCCINATE 28243088836 Active Sparkle Castro ODD PIECE CHECKER Active SERTRALINE HCL 50 MG TABS 1 daily for mood SERTRALINE HCL 62301120608 No Longer Active Chad Guardado MD Active IMITREX TABS Take/use as needed. SUMATRIPTAN SUCCINATE TABS 08246698397 No Longer Active Jaylyn DACOSTA Active SUMATRIPTAN SUCCINATE 100 MG TABS as directed SUMATRIPTAN SUCCINATE 08200247352 No Longer Active Nedra Cramer Active LORAZEPAM 0.5 MG TAB 1 tab po q8 hrs and 2 tabs at bedtime 07/03 LORAZEPAM 50490375966 No Longer Active Nedra Cramer Active PYRIDIUM 200 MG TAB 1 po TID PRN Dysuria PHENAZOPYRIDINE HCL 08617206329 No Longer Active Sachin Wasserman MD Active CIPRO 250 MG TAB 1 tablet by mouth twice daily CIPROFLOXACIN HCL 18134961643 No Longer Active Sachin Wasserman MD Active LUNESTA 2 MG TABS take one tab po qhs ESZOPICLONE 56131435317 No Longer Active Broderick Solares MD Active CITALOPRAM HYDROBROMIDE 20 MG TABS take one tab po daily CITALOPRAM HYDROBROMIDE 15134053648 No Longer Active Broderick Solares MD Active HYDROCODONE-ACETAMINOPHEN 10-325 MG TABS 1 tab po q4-6 hrs prn HYDROCODONE-ACETAMINOPHEN 25533087269 No Longer Active Broderick Solares MD Active SULFAMETHOXAZOLE-TMP DS 800-160 MG TABS take one tab po bid x 7 days SULFAMETHOXAZOLE-TRIMETHOPRIM 33115005629 No Longer Active Broderick Solares MD Active DICLOFENAC SODIUM 75 MG TBEC take one tab po bid DICLOFENAC SODIUM 98166804624 Active Broderick Solares MD Active NAPROXEN 500 MG TAB 1 by mouth twice a day NAPROXEN 13058694585 No Longer Active Daisy Pool PA Active FUROSEMIDE 40 MG TAB 1 tablet by mouth daily FUROSEMIDE 68821930498 No Longer Active Daisy Pool PA Active MELOXICAM 15 MG TABS 1 po q day for pain with food MELOXICAM 49260712065 No Longer Active Daisy Pool PA Active ZOLPIDEM TARTRATE 10 MG TABS take one tab po daily ZOLPIDEM TARTRATE 76380677827 No Longer Active Daisy Pool PA Active COLACE 100 MG CAPS Take one by mouth daily DOCUSATE SODIUM 46570542845 No Longer Active Daisy Pool PA Active NIMODIPINE 30 MG CAPS 1 every 2 hours NIMODIPINE 44050152685 No Longer Active Daisy Pool PA Active ZOFRAN ODT 4 MG TBDP 1 po q6hr PRN Nausea ONDANSETRON 81316985863 No Longer Active Daisy Pool PA Active MAGNESIUM OXIDE 400 MG TABS Take one by mouth daily MAGNESIUM OXIDE 83358164143 No Longer Active Daisy Pool PA Active MAGNESIUM OXIDE 400 MG TABS Take one by mouth daily MAGNESIUM OXIDE 400 MG TABS 812926 MAGNESIUM OXIDE Inactive ZOFRAN ODT 4 MG TBDP 1 po q6hr PRN Nausea ZOFRAN ODT 4 MG TBDP 417756 ONDANSETRON Inactive NIMODIPINE 30 MG CAPS 1 every 2 hours NIMODIPINE 30 MG CAPS 278319 NIMODIPINE Inactive COLACE 100 MG CAPS Take one by mouth daily COLACE 100 MG CAPS 0538080 DOCUSATE SODIUM Inactive ZOLPIDEM TARTRATE 10 MG TABS take one tab po daily ZOLPIDEM TARTRATE 10 MG TABS 868733 ZOLPIDEM TARTRATE Inactive MELOXICAM 15 MG TABS 1 po q day for pain with food MELOXICAM 15 MG TABS 333973 MELOXICAM Inactive FUROSEMIDE 40 MG TAB 1 tablet by mouth daily FUROSEMIDE 40 MG TAB 028754 FUROSEMIDE Inactive NAPROXEN 500 MG TAB 1 by mouth twice a day NAPROXEN 500 MG TAB 190859 NAPROXEN Inactive SULFAMETHOXAZOLE-TMP DS 800-160 MG TABS take one tab po bid x 7 days SULFAMETHOXAZOLE-TMP DS 800-160 MG TABS SULFAMETHOXAZOLE- TRIMETHOPRIM Inactive HYDROCODONE-ACETAMINOPHEN 10-325 MG TABS 1 tab po q4-6 hrs prn HYDROCODONE-ACETAMINOPHEN 10-325 MG TABS 571095 HYDROCODONE- ACETAMINOPHEN Inactive CITALOPRAM HYDROBROMIDE 20 MG TABS take one tab po daily CITALOPRAM HYDROBROMIDE 20 MG TABS 365876 CITALOPRAM HYDROBROMIDE Inactive LUNESTA 2 MG TABS take one tab po qhs LUNESTA 2 MG TABS 056702 ESZOPICLONE Inactive LORAZEPAM 0.5 MG TAB 1 tab po q8 hrs and 2 tabs at bedtime 07/03 LORAZEPAM 0.5 MG TAB 242722 LORAZEPAM Inactive SUMATRIPTAN SUCCINATE 100 MG TABS as directed SUMATRIPTAN SUCCINATE 100 MG TABS 905177 SUMATRIPTAN SUCCINATE Inactive IMITREX TABS Take/use as needed. IMITREX TABS SUMATRIPTAN SUCCINATE TABS Inactive SERTRALINE HCL 50 MG TABS 1 daily for mood SERTRALINE HCL 50 MG TABS 210167 SERTRALINE HCL Inactive JANA ASPIRIN EC LOW DOSE 81 MG TBEC Take one by mouth daily JANA ASPIRIN EC LOW DOSE 81 MG TBEC 909581 ASPIRIN Inactive METHOCARBAMOL 750 MG TABS 1 po q8hr PRN spasm and neck pain 06/12 METHOCARBAMOL 750 MG TABS 486447 METHOCARBAMOL Inactive NYSTATIN 180123 UNIT/ML SUSP Swish and swallow 5ml four times a day until yeast is clear. NYSTATIN 336199 UNIT/ML SUSP 734639 NYSTATIN Inactive CIPRO 250 MG TAB 1 tablet by mouth twice daily x 5 days. CIPRO 250 MG TAB 776365 CIPROFLOXACIN HCL Inactive LIDODERM 5 % PTCH apply to affected area for 12 hours LIDODERM 5 % PTCH 6178509 LIDOCAINE Inactive FUROSEMIDE 20 MG TAB 1 tablet by mouth daily FUROSEMIDE 20 MG TAB 170468 FUROSEMIDE Inactive IMITREX 100 MG TABS TAKE 1 TABLET AT THE ONSET OF HEADACHE MAY REPEAT IN 2 HRS IF NEEDED IMITREX 100 MG TABS 806579 SUMATRIPTAN SUCCINATE Inactive CIPRO 250 MG TAB 1 tablet by mouth twice daily CIPRO 250 MG TAB 19740807 CIPROFLOXACIN HCL Inactive PYRIDIUM 200 MG TAB 1 po TID PRN Dysuria PYRIDIUM 200 MG TAB 1113957 PHENAZOPYRIDINE HCL Inactive CIPROFLOXACIN HCL 250 MG TABS 1 twice a day for 3 days for urinary infection CIPROFLOXACIN HCL 250 MG TABS 19740807 CIPROFLOXACIN HCL Inactive MACROBID 100 MG CAP 1 cap by mouth twice daily x 7 days. MACROBID 100 MG CAP 924566 NITROFURANTOIN MONOHYD MACRO Inactive Advance Directives Directive Description Start Date PERMISSION TO SHARE Immunizations Vaccine Administration Date Value Standard Description Seasonal influenza vaccine, injectable, containing preservative, for > 3 years old (Afluria, FluLaval, Fluzone, Fluvirin, Fluarix, Agriflu(>=18 yo)) Fluzone (>3 yrs.) [[id number]] Influenza, seasonal, injectable Vital Signs Date Name [...] Rate - Chemistry sodium, serum 137 mmol/L 816-565 0948/02/06 potassium, serum 4.6 mmol/L 3.5-5.2 chloride, serum 101 mmol/L 98-107 carbon dioxide, venous blood 26.3 mmol/L 21.0-32.0 blood glucose 86 mg/dL 65-110 calcium, serum 9.3 mg/dL 8.5-10.1 urea nitrogen, blood 25 mg/dL 7-18 creatinine, serum 1.10 mg/dL 0.60-1.30 Lab Report: Comp. Metabolic Panel, CBC - Chemistry sodium, serum 140 mmol/L 751-470 6029/09/23 potassium, serum 4.7 mmol/L 3.5-5.2 chloride, serum [...] Panel - Chemistry cholesterol, serum 197 mg/dL 580-022 2371/09/25 triglyceride, serum, fasting 48 mg/dL 30-200 HDL [...] 5.0-8.5 Encounters Code Encounter Date Provider Facility CPT-41225 Level 4 Est. Patient 11:35:05 WATER FILTRATION TECHNICIAN Chad Guardado MD [facility] CPT-50945 Level 3 Est. Patient 14:50:08 WATER FILTRATION TECHNICIAN Paras Nunez DO [facility] CPT-74083 Level 3 Est. Patient 15:11:25 WATER FILTRATION TECHNICIAN Chad Guardado MD [facility] CPT-23702 Level 3 Est. Patient 17:38:05 WATER FILTRATION TECHNICIAN Chad Guardado MD [facility] CPT-84896 Level 3 Est. Patient 15:35:54 WATER FILTRATION TECHNICIAN Sparkle Castro APRN [facility] CPT-47769 Level 4 Est. Patient 09:41:26 WATER FILTRATION TECHNICIAN Chad Guardado MD [facility] CPT-44605 Level 4 Est. Patient 16:16:11 CDT Chad Guardado MD [facility] CPT-93261 Level 3 Est. Patient 12:46:41 CDT Chad Guardado MD [facility] CPT-69965 Level 3 Est. Patient 17:26:51 CDT Chad Guardado MD [facility] CPT-95546 Level 4 New Patient 13:59:42 CDT Chad Guardado MD [facility] CPT-98096 Level 4 Est. Patient 20:23:44 WATER FILTRATION TECHNICIAN Broderick Solares MD [facility] CPT-63960 Level 3 Est. Patient 14:43:04 WATER FILTRATION TECHNICIAN Broderick Solares MD [facility] CPT-07658 Level 3 Est. Patient 10:05:53 WATER FILTRATION TECHNICIAN Sachin Wasserman MD [facility] CPT-50356 Level 3 Est. Patient 14:35:17 CDT Daisy PAZ [facility] CPT-42449 Level 3 Est. Patient 10:59:26 CDT Daisy [facility] CPT-46548 Level 3 Est. Patient 15:41:02 CDT Daisy [facility] CPT-42967 Level 3 Est. Patient 16:41:25 CDT Daisy [facility] CPT-26244 Level 3 New Patient 14:47:15 CDT Daisy [facility] Procedures Code Procedure Name Date Entry Date Standard Description CPT-39849 T spine AP/Lat w sw V 10:39:20 WATER FILTRATION TECHNICIAN CPT-J1885 Toradol 60 mg (Ketorolac) 14:59:26 WATER FILTRATION TECHNICIAN CPT-05585 Abx/Therapy Injection 14:59:26 WATER FILTRATION TECHNICIAN CPT-J1885 Toradol 60 mg 14:50:08 WATER FILTRATION TECHNICIAN CPT-99031 C-Spine Min 4V 12:56:08 WATER FILTRATION TECHNICIAN CPT-51303 Immunization Single Admin 09:23:37 CDT CPT-36794 Tdap Vaccine 09:23:37 CDT CPT-36814 Fluzone Quadrivalent Intramuscular Suspension 0.5 ML 20: 47:45 CDT CPT-52758 Ankle Complete - Min 3V 12:29:38 CDT CPT-44847 Forearm AP and Lat 10:01:39 WATER FILTRATION TECHNICIAN CPT-51162 Knee 3V 13:56:38 CDT CPT-70649 Administration single or combination vaccine inc oral 11 :50:16 CDT CPT-96932 Influenza split virus > age 3 11:50:16 CDT
--- OUTSIDE RECORDS SUMMARY | 2018-09-24 02:16 | XMS REPORT ---
Author Author [facility] Organization [facility] Address [address], [place] [id number] Phone [phone] Summary purpose TRANSITION OF CARE AUTO GENERATION Chief Complaint and Reason for Visit No authorized Reason for Visit (Admitting Diagnosis) is available for this visit. Problem list No authorized problems tracked for [...] for this patient visit History of procedures No procedures recorded for this patient visit. Functional status Functional Status Finding Observation Time Diet regular :45 Abdomen Appearance flat 61-70-047470:45 Abdomen non-tender 67-05-059894:45 Cesar no 70-85-563868:45 Urination normal 45-86-103335:45 Quality sym/unlabored :45 Cough absent 10-92-443109:45 Secretions no :45 Airway natural :45 Oxygen no 04-94-445884:30 Temp >100.4 no :45 Temp <96.8 no [...]
--- OUTSIDE RECORDS SUMMARY | 2018-09-24 02:16 | XMS REPORT | Clinical Summary ---
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 Aneurysm of unspecified artery site ANXIETY DEPRESSION 300.4 Active [facility] Dysthymic disorder INSOMNIA 780.52 [facility] Insomnia, unspecified LOSS OF APPETITE 783.0 [facility] Anorexia CEPHALGIA 784.0 Active [facility] Headache ENCOUNTER FOR REMOVAL OF SUTURES V58.32 Resolved [facility] [place] PA Encounter for removal of sutures NECK PAIN 723.1 Active [facility] Cervicalgia KNEE PAIN, BILATERAL 719.46 Active Daisy [place] PA Pain in joint involving lower leg [...] elsewhere classified Cough 786.2 Active Sparkle Castro DOG DAYCARE PROVIDER Cough Thrush 112.0 Active Chad Guardado MD [...] 100 MG ORAL CAPS NITROFURANTOIN MONOHYD MACRO 76669319776 Active Chad Guardado MD Active IMITREX 100 MG TABS TAKE 1 TABLET AT THE ONSET OF HEADACHE MAY REPEAT IN 2 HRS IF NEEDED SUMATRIPTAN SUCCINATE 53520558362 No Longer Active Chad Guardado MD Active FUROSEMIDE 20 MG TAB 1 tablet by mouth daily FUROSEMIDE 12200834682 No Longer Active Paras Nunez DO Active LIDODERM 5 % PTCH apply to affected area for 12 hours LIDOCAINE 79861680045 No Longer Active Paras Nunez DO Active MACROBID 100 MG CAP 1 cap by mouth twice daily x 7 days. NITROFURANTOIN MONOHYD MACRO 84312541589 No Longer Active Chad Guardado MD Active CIPRO 250 MG TAB 1 tablet by mouth twice daily x 5 days. CIPROFLOXACIN HCL 43786560505 No Longer Active Chad Guardado MD Active LISINOPRIL 20 MG TABS 1 tablet by mouth daily for blood pressure LISINOPRIL 89125139986 Active Chad Guardado MD Active TRAMADOL HCL 50 MG TABS 1-2 tablets every 6 hours as needed for pain TRAMADOL HCL 79333911418 Active Chad Guardado MD Active DICLOFENAC SODIUM 1.5 % TRANS SOLN 40 drops applied to each knee 4 times a day DICLOFENAC SODIUM 79391996368 Active Chad Guardado MD Active NYSTATIN 627417 UNIT/ML SUSP Swish and swallow 5ml four times a day until yeast is clear. NYSTATIN 09411683344 No Longer Active Chad Guardado MD Active TESSALON PERLES 100 MG CAP 1 tablet by mouth 3 times daily BENZONATATE 92341161963 Active Sparkle Castro APRN Active CITALOPRAM HYDROBROMIDE 40 MG TABS 1 daily for depression/anxiety CITALOPRAM HYDROBROMIDE 40368127363 Active Chad Guardado MD Active DEPAKOTE 250 MG TBEC 1 twice a day to prevent headaches DIVALPROEX SODIUM 11139478142 Active Chad Guardado MD Active CYCLOBENZAPRINE HCL 10 MG TABS 1 at bedtime for muscle tightness CYCLOBENZAPRINE HCL 67057724516 Active Chad Guardado MD Active METHOCARBAMOL 750 MG TABS 1 po q8hr PRN spasm and neck pain 06/12 METHOCARBAMOL 03814861432 No Longer Active Chad Guardado MD Active JANA ASPIRIN EC LOW DOSE 81 MG TBEC Take one by mouth daily ASPIRIN 81964142177 No Longer Active Chad Guardado MD Active HYDROCODONE-ACETAMINOPHEN 7.5-325 MG TABS 1 three times a day as needed for pain HYDROCODONE-ACETAMINOPHEN 54423985109 Active Chad Guardado MD Active CIPROFLOXACIN HCL 250 MG TABS 1 twice a day for 3 days for urinary infection CIPROFLOXACIN HCL 32590291437 No Longer Active Chad Guardado MD Active IMITREX 6 MG/0.5ML SOLN Take as directed SUMATRIPTAN SUCCINATE 63402215718 Active Sparkle Castro DOG DAYCARE PROVIDER Active SERTRALINE HCL 50 MG TABS 1 daily for mood SERTRALINE HCL 33791106583 No Longer Active Chad Guardado MD Active IMITREX TABS Take/use as needed. SUMATRIPTAN SUCCINATE TABS 56877308769 No Longer Active Jaylyn DACOSTA Active SUMATRIPTAN SUCCINATE 100 MG TABS as directed SUMATRIPTAN SUCCINATE 43132140268 No Longer Active Nedra Cramer Active LORAZEPAM 0.5 MG TAB 1 tab po q8 hrs and 2 tabs at bedtime 07/03 LORAZEPAM 69546405282 No Longer Active Nedra Cramer Active PYRIDIUM 200 MG TAB 1 po TID PRN Dysuria PHENAZOPYRIDINE HCL 12788638637 No Longer Active Sachin Wasserman MD Active CIPRO 250 MG TAB 1 tablet by mouth twice daily CIPROFLOXACIN HCL 06195633355 No Longer Active Sachin Wasserman MD Active LUNESTA 2 MG TABS take one tab po qhs ESZOPICLONE 08141290926 No Longer Active Broderick Solares MD Active CITALOPRAM HYDROBROMIDE 20 MG TABS take one tab po daily CITALOPRAM HYDROBROMIDE 25435460926 No Longer Active Broderick Solares MD Active HYDROCODONE-ACETAMINOPHEN 10-325 MG TABS 1 tab po q4-6 hrs prn HYDROCODONE-ACETAMINOPHEN 67977362102 No Longer Active Broderick Solares MD Active SULFAMETHOXAZOLE-TMP DS 800-160 MG TABS take one tab po bid x 7 days SULFAMETHOXAZOLE-TRIMETHOPRIM 73887206015 No Longer Active Broderick Solares MD Active DICLOFENAC SODIUM 75 MG TBEC take one tab po bid DICLOFENAC SODIUM 98090298710 Active Broderick Solares MD Active NAPROXEN 500 MG TAB 1 by mouth twice a day NAPROXEN 16517096525 No Longer Active Daisy [facility] PA Active FUROSEMIDE 40 MG TAB 1 tablet by mouth daily FUROSEMIDE 83630979032 No Longer Active Daisy Pool PA Active MELOXICAM 15 MG TABS 1 po q day for pain with food MELOXICAM 27596460154 No Longer Active Daisy Pool PA Active ZOLPIDEM TARTRATE 10 MG TABS take one tab po daily ZOLPIDEM TARTRATE 97716674367 No Longer Active Daisy Pool PA Active COLACE 100 MG CAPS Take one by mouth daily DOCUSATE SODIUM 68535561837 No Longer Active Daisy Pool PA Active NIMODIPINE 30 MG CAPS 1 every 2 hours NIMODIPINE 66401760129 No Longer Active Daisy Pool PA Active ZOFRAN ODT 4 MG TBDP 1 po q6hr PRN Nausea ONDANSETRON 38769103227 No Longer Active Daisy Pool PA Active MAGNESIUM OXIDE 400 MG TABS Take one by mouth daily MAGNESIUM OXIDE 41381550798 No Longer Active Daisy Pool PA Active MAGNESIUM OXIDE 400 MG TABS Take one by mouth daily MAGNESIUM OXIDE 400 MG TABS 970686 MAGNESIUM OXIDE Inactive ZOFRAN ODT 4 MG TBDP 1 po q6hr PRN Nausea ZOFRAN ODT 4 MG TBDP 126574 ONDANSETRON Inactive NIMODIPINE 30 MG CAPS 1 every 2 hours NIMODIPINE 30 MG CAPS 120141 NIMODIPINE Inactive COLACE 100 MG CAPS Take one by mouth daily COLACE 100 MG CAPS 7391094 DOCUSATE SODIUM Inactive ZOLPIDEM TARTRATE 10 MG TABS take one tab po daily ZOLPIDEM TARTRATE 10 MG TABS 787433 ZOLPIDEM TARTRATE Inactive MELOXICAM 15 MG TABS 1 po q day for pain with food MELOXICAM 15 MG TABS 957107 MELOXICAM Inactive FUROSEMIDE 40 MG TAB 1 tablet by mouth daily FUROSEMIDE 40 MG TAB 582352 FUROSEMIDE Inactive NAPROXEN 500 MG TAB 1 by mouth twice a day NAPROXEN 500 MG TAB 312198 NAPROXEN Inactive SULFAMETHOXAZOLE-TMP DS 800-160 MG TABS take one tab po bid x 7 days SULFAMETHOXAZOLE-TMP DS 800-160 MG TABS SULFAMETHOXAZOLE- TRIMETHOPRIM Inactive HYDROCODONE-ACETAMINOPHEN 10-325 MG TABS 1 tab po q4-6 hrs prn HYDROCODONE-ACETAMINOPHEN 10-325 MG TABS 658080 HYDROCODONE- ACETAMINOPHEN Inactive CITALOPRAM HYDROBROMIDE 20 MG TABS take one tab po daily CITALOPRAM HYDROBROMIDE 20 MG TABS 916355 CITALOPRAM HYDROBROMIDE Inactive LUNESTA 2 MG TABS take one tab po qhs LUNESTA 2 MG TABS 795935 ESZOPICLONE Inactive LORAZEPAM 0.5 MG TAB 1 tab po q8 hrs and 2 tabs at bedtime 07/03 LORAZEPAM 0.5 MG TAB 151116 LORAZEPAM Inactive SUMATRIPTAN SUCCINATE 100 MG TABS as directed SUMATRIPTAN SUCCINATE 100 MG TABS 085126 SUMATRIPTAN SUCCINATE Inactive IMITREX TABS Take/use as needed. IMITREX TABS SUMATRIPTAN SUCCINATE TABS Inactive SERTRALINE HCL 50 MG TABS 1 daily for mood SERTRALINE HCL 50 MG TABS 724330 SERTRALINE HCL Inactive JANA ASPIRIN EC LOW DOSE 81 MG TBEC Take one by mouth daily JANA ASPIRIN EC LOW DOSE 81 MG TBEC 740189 ASPIRIN Inactive METHOCARBAMOL 750 MG TABS 1 po q8hr PRN spasm and neck pain 06/12 METHOCARBAMOL 750 MG TABS 495546 METHOCARBAMOL Inactive NYSTATIN 151535 UNIT/ML SUSP Swish and swallow 5ml four times a day until yeast is clear. NYSTATIN 970545 UNIT/ML SUSP 395179 NYSTATIN Inactive CIPRO 250 MG TAB 1 tablet by mouth twice daily x 5 days. CIPRO 250 MG TAB 322618 CIPROFLOXACIN HCL Inactive LIDODERM 5 % PTCH apply to affected area for 12 hours LIDODERM 5 % PTCH 4225814 LIDOCAINE Inactive FUROSEMIDE 20 MG TAB 1 tablet by mouth daily FUROSEMIDE 20 MG TAB 575670 FUROSEMIDE Inactive IMITREX 100 MG TABS TAKE 1 TABLET AT THE ONSET OF HEADACHE MAY REPEAT IN 2 HRS IF NEEDED IMITREX 100 MG TABS 021348 SUMATRIPTAN SUCCINATE Inactive CIPRO 250 MG TAB 1 tablet by mouth twice daily CIPRO 250 MG TAB 19740807 CIPROFLOXACIN HCL Inactive PYRIDIUM 200 MG TAB 1 po TID PRN Dysuria PYRIDIUM 200 MG TAB 2626999 PHENAZOPYRIDINE HCL Inactive CIPROFLOXACIN HCL 250 MG TABS 1 twice a day for 3 days for urinary infection CIPROFLOXACIN HCL 250 MG TABS 19740807 CIPROFLOXACIN HCL Inactive MACROBID 100 MG CAP 1 cap by mouth twice daily x 7 days. MACROBID 100 MG CAP 650915 NITROFURANTOIN MONOHYD MACRO Inactive Advance Directives Directive Description Start Date PERMISSION TO SHARE Immunizations Vaccine Administration Date Value Standard Description Seasonal influenza vaccine, injectable, containing preservative, for > 3 years old (Afluria, FluLaval, Fluzone, Fluvirin, Fluarix, Agriflu(>=18 yo)) Fluzone (>3 yrs.) [[id number]] Influenza, seasonal, injectable Vital Signs Date Name [...] Rate - Chemistry sodium, serum 137 mmol/L 374-304 9067/02/06 potassium, serum 4.6 mmol/L 3.5-5.2 chloride, serum 101 mmol/L 98-107 carbon dioxide, venous blood 26.3 mmol/L 21.0-32.0 blood glucose 86 mg/dL 65-110 calcium, serum 9.3 mg/dL 8.5-10.1 urea nitrogen, blood 25 mg/dL 7-18 creatinine, serum 1.10 mg/dL 0.60-1.30 Lab Report: Comp. Metabolic Panel, CBC - Chemistry sodium, serum 140 mmol/L 079-756 6272/09/23 potassium, serum 4.7 mmol/L 3.5-5.2 chloride, serum [...] Panel - Chemistry cholesterol, serum 197 mg/dL 581-407 9579/09/25 triglyceride, serum, fasting 48 mg/dL 30-200 HDL [...] 5.0-8.5 Encounters Code Encounter Date Provider Facility CPT-19226 Level 4 Est. Patient 11:35:05 PHYSIOLOGIST Chad Guardado MD [facility] [id number] Level 3 Est. Patient 14:50:08 PHYSIOLOGIST Paras Nunez DO [facility] [place]-01431 Level 3 Est. Patient 15:11:25 PHYSIOLOGIST Chad Guardado MD [facility] [place]-17193 Level 3 Est. Patient 17:38:05 PHYSIOLOGIST Chad Guardado MD [facility] [place]-40244 Level 3 Est. Patient 15:35:54 PHYSIOLOGIST Sparkle Castro APRN [facility] [place]-01148 Level 4 Est. Patient 09:41:26 PHYSIOLOGIST Chad Guardado MD [facility] [place]-70428 Level 4 Est. Patient 16:16:11 CDT Chad Guardado MD [facility] [place]-00606 Level 3 Est. Patient 12:46:41 CDT Chad Guardado MD [facility] [place]-12287 Level 3 Est. Patient 17:26:51 CDT Chad Guardado MD [facility] CPT-67306 Level 4 New Patient 13:59:42 CDT Chad Guardado MD [facility] [place]-48732 Level 4 Est. Patient 20:23:44 PHYSIOLOGIST Broderick Solares MD [facility] [place]-41858 Level 3 Est. Patient 14:43:04 PHYSIOLOGIST Broderick Solares MD [facility] [place]-87704 Level 3 Est. Patient 10:05:53 PHYSIOLOGIST Sachin Wasserman MD [facility] [place]-93038 Level 3 Est. Patient 14:35:17 CDT Daisy [facility] CPT-23126 Level 3 Est. Patient 10:59:26 CDT Daisy [facility] CPT-55906 Level 3 Est. Patient 15:41:02 [facility]09260 Level 3 Est. Patient 16:41:25 CDT Daisy [facility] CPT-71608 Level 3 New Patient 14:47:15 [facility] Procedures Code Procedure Name Date Entry Date Standard Description CPT-76697 T spine AP/Lat w sw V 10:39:20 PHYSIOLOGIST CPT-J1885 Toradol 60 mg (Ketorolac) 14:59:26 PHYSIOLOGIST CPT-79818 Abx/Therapy Injection 14:59:26 PHYSIOLOGIST CPT-J1885 Toradol 60 mg 14:50:08 PHYSIOLOGIST CPT-37067 C-Spine Min 4V 12:56:08 PHYSIOLOGIST CPT-59553 Immunization Single Admin 09:23:37 CDT CPT-84961 Tdap Vaccine 09:23:37 CDT CPT-78241 Fluzone Quadrivalent Intramuscular Suspension 0.5 ML 20: 47:45 CDT CPT-65503 Ankle Complete - Min 3V 12:29:38 CDT CPT-09723 Forearm AP and Lat 10:01:39 PHYSIOLOGIST CPT-97653 Knee 3V 13:56:38 CDT CPT-84132 Administration single or combination vaccine inc oral 11 :50:16 CDT [facility] [id number] Influenza split virus > age 3 11:50:16 T
--- OUTSIDE RECORDS SUMMARY | 2018-09-24 02:17 | XMS REPORT | Clinical Summary ---
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.9 Active [facility] Aneurysm of unspecified artery site ANXIETY DEPRESSION 300.4 Active [facility] Dysthymic disorder INSOMNIA 780.52 Active [facility] Insomnia, unspecified LOSS OF APPETITE 783.0 Active [facility] Anorexia CEPHALGIA 784.0 Active [facility] Headache ENCOUNTER FOR REMOVAL OF SUTURES V58.32 Resolved Daisy Worden PA Encounter for removal of sutures NECK PAIN 723.1 Active [facility] Cervicalgia KNEE PAIN, BILATERAL 719.46 Active Daisy Worden PA Pain in joint involving lower leg [...] elsewhere classified Cough 786.2 Active Sparkle Castro CUSTOMER EXPERIENCE ANALYST Cough Thrush 112.0 Active Chad Guardado MD [...] 100 MG ORAL CAPS NITROFURANTOIN MONOHYD MACRO 19650336326 Active Chad Guardado MD Active IMITREX 100 MG TABS TAKE 1 TABLET AT THE ONSET OF HEADACHE MAY REPEAT IN 2 HRS IF NEEDED SUMATRIPTAN SUCCINATE 70805116490 No Longer Active Chad Guardado MD Active FUROSEMIDE 20 MG TAB 1 tablet by mouth daily FUROSEMIDE 26219333368 No Longer Active Paras Nunez DO Active LIDODERM 5 % PTCH apply to affected area for 12 hours LIDOCAINE 10738232110 No Longer Active Paras Nunez DO Active MACROBID 100 MG CAP 1 cap by mouth twice daily x 7 days. NITROFURANTOIN MONOHYD MACRO 23774444394 No Longer Active Chad Guardado MD Active CIPRO 250 MG TAB 1 tablet by mouth twice daily x 5 days. CIPROFLOXACIN HCL 71703868729 No Longer Active Chad Guardado MD Active LISINOPRIL 20 MG TABS 1 tablet by mouth daily for blood pressure LISINOPRIL 30363094493 Active Chad Guardado MD Active TRAMADOL HCL 50 MG TABS 1-2 tablets every 6 hours as needed for pain TRAMADOL HCL 00296272513 Active Chad Guardado MD Active DICLOFENAC SODIUM 1.5 % TRANS SOLN 40 drops applied to each knee 4 times a day DICLOFENAC SODIUM 19627336132 Active Chad Guardado MD Active NYSTATIN 032896 UNIT/ML SUSP Swish and swallow 5ml four times a day until yeast is clear. NYSTATIN 31259963461 No Longer Active Chad Guardado MD Active TESSALON PERLES 100 MG CAP 1 tablet by mouth 3 times daily BENZONATATE 37218841646 Active Sparkle Castro APRN Active CITALOPRAM HYDROBROMIDE 40 MG TABS 1 daily for depression/anxiety CITALOPRAM HYDROBROMIDE 03170942244 Active Chad Guardado MD Active DEPAKOTE 250 MG TBEC 1 twice a day to prevent headaches DIVALPROEX SODIUM 74496301914 Active Chad Guardado MD Active CYCLOBENZAPRINE HCL 10 MG TABS 1 at bedtime for muscle tightness CYCLOBENZAPRINE HCL 37029754590 Active Chad Guardado MD Active METHOCARBAMOL 750 MG TABS 1 po q8hr PRN spasm and neck pain 06/12 METHOCARBAMOL 54744650698 No Longer Active Chad Guardado MD Active JANA ASPIRIN EC LOW DOSE 81 MG TBEC Take one by mouth daily ASPIRIN 96187216254 No Longer Active Chad Guardado MD Active HYDROCODONE-ACETAMINOPHEN 7.5-325 MG TABS 1 three times a day as needed for pain HYDROCODONE-ACETAMINOPHEN 80721137165 Active Chad Guardado MD Active CIPROFLOXACIN HCL 250 MG TABS 1 twice a day for 3 days for urinary infection CIPROFLOXACIN HCL 10670422414 No Longer Active Chad Guardado MD Active IMITREX 6 MG/0.5ML SOLN Take as directed SUMATRIPTAN SUCCINATE 79182335105 Active Sparkle Castro CUSTOMER EXPERIENCE ANALYST Active SERTRALINE HCL 50 MG TABS 1 daily for mood SERTRALINE HCL 30492217094 No Longer Active Chad Guardado MD Active IMITREX TABS Take/use as needed. SUMATRIPTAN SUCCINATE TABS 82511316086 No Longer Active Jaylyn DACOSTA Active SUMATRIPTAN SUCCINATE 100 MG TABS as directed SUMATRIPTAN SUCCINATE 28041025599 No Longer Active Nedra Cramer Active LORAZEPAM 0.5 MG TAB 1 tab po q8 hrs and 2 tabs at bedtime 07/03 LORAZEPAM 64767851574 No Longer Active Nedra Cramer Active PYRIDIUM 200 MG TAB 1 po TID PRN Dysuria PHENAZOPYRIDINE HCL 58393935992 No Longer Active Sachin Wasserman MD Active CIPRO 250 MG TAB 1 tablet by mouth twice daily CIPROFLOXACIN HCL 94345786183 No Longer Active Sachin Wasserman MD Active LUNESTA 2 MG TABS take one tab po qhs ESZOPICLONE 51833392467 No Longer Active Broderick Solares MD Active CITALOPRAM HYDROBROMIDE 20 MG TABS take one tab po daily CITALOPRAM HYDROBROMIDE 75130843879 No Longer Active Broderick Solares MD Active HYDROCODONE-ACETAMINOPHEN 10-325 MG TABS 1 tab po q4-6 hrs prn HYDROCODONE-ACETAMINOPHEN 24600511327 No Longer Active Broderick Solares MD Active SULFAMETHOXAZOLE-TMP DS 800-160 MG TABS take one tab po bid x 7 days SULFAMETHOXAZOLE-TRIMETHOPRIM 72208227432 No Longer Active Broderick Solares MD Active DICLOFENAC SODIUM 75 MG TBEC take one tab po bid DICLOFENAC SODIUM 25886650750 Active Broderick Solares MD Active NAPROXEN 500 MG TAB 1 by mouth twice a day NAPROXEN 39572068536 No Longer Active Daisy Pool PA Active FUROSEMIDE 40 MG TAB 1 tablet by mouth daily FUROSEMIDE 54091292971 No Longer Active Daisy Pool PA Active MELOXICAM 15 MG TABS 1 po q day for pain with food MELOXICAM 24040164652 No Longer Active Daisy Pool PA Active ZOLPIDEM TARTRATE 10 MG TABS take one tab po daily ZOLPIDEM TARTRATE 65851589734 No Longer Active Daisy Pool PA Active COLACE 100 MG CAPS Take one by mouth daily DOCUSATE SODIUM 94716168739 No Longer Active Daisy Pool PA Active NIMODIPINE 30 MG CAPS 1 every 2 hours NIMODIPINE 99710271664 No Longer Active Daisy Pool PA Active ZOFRAN ODT 4 MG TBDP 1 po q6hr PRN Nausea ONDANSETRON 80040951785 No Longer Active Daisy Pool PA Active MAGNESIUM OXIDE 400 MG TABS Take one by mouth daily MAGNESIUM OXIDE 57045275247 No Longer Active Daisy Pool PA Active MAGNESIUM OXIDE 400 MG TABS Take one by mouth daily MAGNESIUM OXIDE 400 MG TABS 304180 MAGNESIUM OXIDE Inactive ZOFRAN ODT 4 MG TBDP 1 po q6hr PRN Nausea ZOFRAN ODT 4 MG TBDP 255896 ONDANSETRON Inactive NIMODIPINE 30 MG CAPS 1 every 2 hours NIMODIPINE 30 MG CAPS 714437 NIMODIPINE Inactive COLACE 100 MG CAPS Take one by mouth daily COLACE 100 MG CAPS 0636315 DOCUSATE SODIUM Inactive ZOLPIDEM TARTRATE 10 MG TABS take one tab po daily ZOLPIDEM TARTRATE 10 MG TABS 163290 ZOLPIDEM TARTRATE Inactive MELOXICAM 15 MG TABS 1 po q day for pain with food MELOXICAM 15 MG TABS 845583 MELOXICAM Inactive FUROSEMIDE 40 MG TAB 1 tablet by mouth daily FUROSEMIDE 40 MG TAB 971116 FUROSEMIDE Inactive NAPROXEN 500 MG TAB 1 by mouth twice a day NAPROXEN 500 MG TAB 874994 NAPROXEN Inactive SULFAMETHOXAZOLE-TMP DS 800-160 MG TABS take one tab po bid x 7 days SULFAMETHOXAZOLE-TMP DS 800-160 MG TABS SULFAMETHOXAZOLE- TRIMETHOPRIM Inactive HYDROCODONE-ACETAMINOPHEN 10-325 MG TABS 1 tab po q4-6 hrs prn HYDROCODONE-ACETAMINOPHEN 10-325 MG TABS 639290 HYDROCODONE- ACETAMINOPHEN Inactive CITALOPRAM HYDROBROMIDE 20 MG TABS take one tab po daily CITALOPRAM HYDROBROMIDE 20 MG TABS 638352 CITALOPRAM HYDROBROMIDE Inactive LUNESTA 2 MG TABS take one tab po qhs LUNESTA 2 MG TABS 965523 ESZOPICLONE Inactive LORAZEPAM 0.5 MG TAB 1 tab po q8 hrs and 2 tabs at bedtime 07/03 LORAZEPAM 0.5 MG TAB 461350 LORAZEPAM Inactive SUMATRIPTAN SUCCINATE 100 MG TABS as directed SUMATRIPTAN SUCCINATE 100 MG TABS 954843 SUMATRIPTAN SUCCINATE Inactive IMITREX TABS Take/use as needed. IMITREX TABS SUMATRIPTAN SUCCINATE TABS Inactive SERTRALINE HCL 50 MG TABS 1 daily for mood SERTRALINE HCL 50 MG TABS 234435 SERTRALINE HCL Inactive JANA ASPIRIN EC LOW DOSE 81 MG TBEC Take one by mouth daily JANA ASPIRIN EC LOW DOSE 81 MG TBEC 881680 ASPIRIN Inactive METHOCARBAMOL 750 MG TABS 1 po q8hr PRN spasm and neck pain 06/12 METHOCARBAMOL 750 MG TABS 487254 METHOCARBAMOL Inactive NYSTATIN 299189 UNIT/ML SUSP Swish and swallow 5ml four times a day until yeast is clear. NYSTATIN 869273 UNIT/ML SUSP 421896 NYSTATIN Inactive CIPRO 250 MG TAB 1 tablet by mouth twice daily x 5 days. CIPRO 250 MG TAB 371499 CIPROFLOXACIN HCL Inactive LIDODERM 5 % PTCH apply to affected area for 12 hours LIDODERM 5 % PTCH 6101501 LIDOCAINE Inactive FUROSEMIDE 20 MG TAB 1 tablet by mouth daily FUROSEMIDE 20 MG TAB 614235 FUROSEMIDE Inactive IMITREX 100 MG TABS TAKE 1 TABLET AT THE ONSET OF HEADACHE MAY REPEAT IN 2 HRS IF NEEDED IMITREX 100 MG TABS 482782 SUMATRIPTAN SUCCINATE Inactive CIPRO 250 MG TAB 1 tablet by mouth twice daily CIPRO 250 MG TAB 19740807 CIPROFLOXACIN HCL Inactive PYRIDIUM 200 MG TAB 1 po TID PRN Dysuria PYRIDIUM 200 MG TAB 1170435 PHENAZOPYRIDINE HCL Inactive CIPROFLOXACIN HCL 250 MG TABS 1 twice a day for 3 days for urinary infection CIPROFLOXACIN HCL 250 MG TABS 19740807 CIPROFLOXACIN HCL Inactive MACROBID 100 MG CAP 1 cap by mouth twice daily x 7 days. MACROBID 100 MG CAP 758698 NITROFURANTOIN MONOHYD MACRO Inactive Advance Directives Directive Description Start Date PERMISSION TO SHARE Immunizations Vaccine Administration Date Value Standard Description Seasonal influenza vaccine, injectable, containing preservative, for > 3 years old (Afluria, FluLaval, Fluzone, Fluvirin, Fluarix, Agriflu(>=18 yo)) Fluzone (>3 yrs.) [APN214] Influenza, seasonal, injectable Vital Signs Date Name [...] Rate - Chemistry sodium, serum 137 mmol/L 321-887 4389/02/06 potassium, serum 4.6 mmol/L 3.5-5.2 chloride, serum 101 mmol/L 98-107 carbon dioxide, venous blood 26.3 mmol/L 21.0-32.0 blood glucose 86 mg/dL 65-110 calcium, serum 9.3 mg/dL 8.5-10.1 urea nitrogen, blood 25 mg/dL 7-18 creatinine, serum 1.10 mg/dL 0.60-1.30 Lab Report: Comp. Metabolic Panel, CBC - Chemistry sodium, serum 140 mmol/L 014-209 5477/09/23 potassium, serum 4.7 mmol/L 3.5-5.2 chloride, serum [...] Panel - Chemistry cholesterol, serum 197 mg/dL 062-697 6237/09/25 triglyceride, serum, fasting 48 mg/dL 30-200 HDL [...] 5.0-8.5 Encounters Code Encounter Date Provider Facility CPT-46427 Level 4 Est. Patient 11:35:05 INFORMATION SYSTEMS PROJECT MANAGER Chad Guardado MD [facility] CPT-95522 Level 3 Est. Patient 14:50:08 INFORMATION SYSTEMS PROJECT MANAGER Paras Nunez DO [facility] CPT-30946 Level 3 Est. Patient 15:11:25 INFORMATION SYSTEMS PROJECT MANAGER Chad Guardado MD [facility] CPT-76547 Level 3 Est. Patient 17:38:05 INFORMATION SYSTEMS PROJECT MANAGER Chad Guardado MD [facility] CPT-56542 Level 3 Est. Patient 15:35:54 INFORMATION SYSTEMS PROJECT MANAGER Sparkle Castro APRN [facility] CPT-26452 Level 4 Est. Patient 09:41:26 INFORMATION SYSTEMS PROJECT MANAGER Chad Guardado MD [facility] CPT-61554 Level 4 Est. Patient 16:16:11 CDT Chad Guardado MD [facility] CPT-58058 Level 3 Est. Patient 12:46:41 CDT Chad Guardado MD [facility] CPT-09365 Level 3 Est. Patient 17:26:51 CDT Chad Guardado MD [facility] CPT-07479 Level 4 New Patient 13:59:42 CDT Chad Guardado MD [facility] CPT-31300 Level 4 Est. Patient 20:23:44 INFORMATION SYSTEMS PROJECT MANAGER Broderick Solares MD [facility] CPT-04170 Level 3 Est. Patient 14:43:04 INFORMATION SYSTEMS PROJECT MANAGER Broderick Solares MD [facility] CPT-41728 Level 3 Est. Patient 10:05:53 INFORMATION SYSTEMS PROJECT MANAGER Sachin Wasserman MD [facility] CPT-19247 Level 3 Est. Patient 14:35:17 CDT Daisy PAZ [facility] CPT-15198 Level 3 Est. Patient 10:59:26 CDT Daisy [facility] CPT-62941 Level 3 Est. Patient 15:41:02 CDT Daisy [facility] CPT-05246 Level 3 Est. Patient 16:41:25 CDT Daisy [facility] CPT-00347 Level 3 New Patient 14:47:15 CDT Daisy [facility] Procedures Code Procedure Name Date Entry Date Standard Description CPT-43464 T spine AP/Lat w sw V 10:39:20 INFORMATION SYSTEMS PROJECT MANAGER CPT-J1885 Toradol 60 mg (Ketorolac) 14:59:26 INFORMATION SYSTEMS PROJECT MANAGER CPT-42542 Abx/Therapy Injection 14:59:26 INFORMATION SYSTEMS PROJECT MANAGER CPT-J1885 Toradol 60 mg 14:50:08 INFORMATION SYSTEMS PROJECT MANAGER CPT-84818 C-Spine Min 4V 12:56:08 INFORMATION SYSTEMS PROJECT MANAGER CPT-44275 Immunization Single Admin 09:23:37 CDT CPT-14770 Tdap Vaccine 09:23:37 CDT CPT-24985 Fluzone Quadrivalent Intramuscular Suspension 0.5 ML 20: 47:45 CDT CPT-40764 Ankle Complete - Min 3V 12:29:38 CDT CPT-18279 Forearm AP and Lat 10:01:39 INFORMATION SYSTEMS PROJECT MANAGER CPT-14955 Knee 3V 13:56:38 CDT CPT-14278 Administration single or combination vaccine inc oral 11 :50:16 CDT CPT-68675 Influenza split virus > age 3 11:50:16 CDT
--- OUTSIDE RECORDS SUMMARY | 2018-09-24 02:18 | XMS REPORT | Continuity of Care Document ---
Author Author [facility] Organization [facility] Address Unknown Phone Unavailable Allergies Active Description Code Type Severity Reaction Onset Reported/Identified Relationship to Patient Clinical Status Yes Codeine 1550 Drug N/A N/A Yes Iodinated Contrast Media - IV Dye 7 Drug Allergy N/A N/A Yes IV DYE Drug N/A iv dye Yes IV DYE Drug N/A N/ A Yes No Known Drug Allergies [id number] Drug Allergy Unknown N/A 09/25/2012 Medications There is no data. 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 06/30/2014 JOSE CRUZ MD Ot 715.96 06/30/2014 JOSE CRUZ MD Ot V58.69 06/30/2014 JOSE CRUZ MD Ot 715.96 06/30/2014 JOSE CRUZ MD Ot V58.69 06/30/2014 JOSE CRUZ MD Ot 715.96 OSTEOARTHROS NOS-L/LEG 06/30/2014 JOSE CRUZ MD Ot V58.69 OTH MED,LT,CURRENT USE 07/14/2014 JOSE CRUZ MD Ot 715.96 OSTEOARTHROS NOS-L/LEG 07/14/2014 JOSE CRUZ MD Ot V58.69 OTH MED,LT,CURRENT USE 07/18/2014 JOSE CRUZ MD Ot 715.96 OSTEOARTHROS NOS-L/LEG 07/18/2014 JOSE CRUZ MD, Ot V58.69 OTH MED,LT,CURRENT USE 09/01/2014 JOSE CRUZ MD Ot 715.96 09/01/2014 JOSE CRUZ MD Ot V58.69 09/15/2014 JOSE CRUZ MD Ot 715.96 09/15/2014 JOSE CRUZ MD, Ot V58.69 06/15/2015 Ot 793.82 06/15/2015 Ot V76.12 06/15/2015 Ot 793.80 06/15/2015 MARIUM PARSONS MD Ot V76.12 06/15/2015 MARIUM PARSONS MD Ot 610.0 06/15/2015 MARIUM PARSONS MD Ot 793.80 06/15/2015 JOSE CRUZ MD Ot 715.96 06/15/2015 JOSE CRUZ MD Ot V58.69 06/15/2015 JOSE CRUZ MD Ot 715.96 06/15/2015 JOSE CRUZ MD Ot V58.69 06/15/2015 JOSE CRUZ MD Ot 715.96 06/15/2015 JOSE CRUZ MD Ot V58.69 07/08/2015 MARIUM PARSONS MD Ot Z12.31 09/12/2016 Ot 793.82 INCONCLUSIVE MAMMOGRAM 09/12/2016 Ot V76.12 OTH SCREEN MAMMO-MALIGN NEOPLASM OF EUGENIE 09/12/2016 Ot 793.80 UNSPEC ABNORMAL MAMMOGRAM 09/12/2016 MARIUM PARSONS MD Ot V76.12 OTH SCREEN MAMMO-MALIGN NEOPLASM OF EUGENIE 09/12/2016 MARIUM PARSONS MD Ot 610.0 SOLITARY CYST OF BREAST 09/12/2016 MARIUM PARSONS MD Ot 793.80 UNSPEC ABNORMAL MAMMOGRAM 09/12/2016 JOSE CRUZ MD Ot 715.96 OSTEOARTHROS NOS-L/LEG 09/12/2016 JOSE CRUZ MD Ot V58.69 OTH MED,LT,CURRENT USE 09/12/2016 JOSE CRUZ MD Ot 715.96 OSTEOARTHROS NOS-L/LEG 09/12/2016 JOSE CRUZ MD Ot V58.69 OTH MED,LT,CURRENT USE 09/12/2016 JOSE CRUZ MD Ot 715.96 OSTEOARTHROS NOS-L/LEG 09/12/2016 JOSE CRUZ MD Ot V58.69 OTH MED,LT,CURRENT USE 09/12/2016 MARIUM PARSONS MD Ot Z12.31 ENCNTR SCREEN MAMMOGRAM FOR MALIGNANT NE 09/12/2016 VICKI JOHNSON DO Ot Z12.31 ENCNTR SCREEN MAMMOGRAM FOR MALIGNANT NE 09/14/2016 ELIZABETH OBRIEN VICKI Smith Ot Z12.31 ENCNTR SCREEN MAMMOGRAM FOR MALIGNANT NE 09/14/2016 FENECH DO, VICKI Smith Ot Z12.31 ENCNTR SCREEN MAMMOGRAM FOR MALIGNANT NE 09/19/2016 FENECH DO, VICKI Smith Ot Z12.31 ENCNTR SCREEN MAMMOGRAM FOR MALIGNANT NE 09/22/2016 JAQUELINE BEACH, MARIUM Jack Ot Z12.31 ENCNTR SCREEN MAMMOGRAM FOR MALIGNANT NE 09/22/2016 FENECH DO, VICKI Smith Ot Z12.31 ENCNTR SCREEN MAMMOGRAM FOR MALIGNANT NE 09/22/2016 FENECH DO, VICKI Smith Ot R92.8 OTH ABN AND INCONCLUSIVE FINDINGS ON DX 09/22/2016 FENECH DO, VICKI Smith Ot R92.8 OTH ABN AND INCONCLUSIVE FINDINGS ON DX 10/04/2016 FENECH DO, VICKI Smith Ot Z12.31 ENCNTR SCREEN MAMMOGRAM FOR MALIGNANT NE 11/10/2016 NOÉECH DO, VICKI Smith Ot R92.8 OTH ABN AND INCONCLUSIVE FINDINGS ON DX 03/29/2017 FENECH DO, VICKI Smith Ot R92.8 OTH ABN AND INCONCLUSIVE FINDINGS ON DX 03/29/2017 FENECH DO, VICKI Smith Ot R92.8 OTH ABN AND INCONCLUSIVE FINDINGS ON DX 04/04/2017 FENECH DO, VICKI Smith Ot R92.8 OTH ABN AND INCONCLUSIVE FINDINGS ON DX 04/02/2018 Ot Z12.31 ENCNTR SCREEN MAMMOGRAM FOR MALIGNANT NE 04/02/2018 NOÉECH DO, VICKI Smith Ot R92.8 OTH ABN AND INCONCLUSIVE FINDINGS ON DX 04/02/2018 FENECH DO, VICKI Smith Ot R92.8 OTH ABN AND INCONCLUSIVE FINDINGS ON DX 04/03/2018 FENECH DO, VICKI Smith Ot Z12.31 ENCNTR SCREEN MAMMOGRAM FOR MALIGNANT NE 04/03/2018 FENECH DO, VICKI Smith Ot R92.8 OTH ABN AND INCONCLUSIVE FINDINGS ON DX 04/03/2018 Ot Z12.31 ENCNTR SCREEN MAMMOGRAM FOR MALIGNANT NE 04/03/2018 NOÉECH DO, VICKI S Ot Z87.898 PERSONAL HISTORY OF OTHER SPECIFIED COND 04/03/2018 NOÉECH DO, VICKI S Ot Z87.898 PERSONAL HISTORY OF OTHER SPECIFIED COND 04/25/2018 NOÉECH DO, VICKI S Ot R92.2 INCONCLUSIVE MAMMOGRAM Procedures Code Description [place] [address] ROUTINE VENIPUNCTURE 12/03/[address] HEAD/BRAIN W/O DYE 12/03/2015 94873 COMPLETE CBC W/AUTO DIFF WBC 12/03/2015 27178 PROTHROMBIN TIME 12/03/2015 18239 THER/PROPH/DIAG INJ, IV PUSH 12/03/2015 89123 TX/PRO/DX INJ NEW DRUG ADDON 12/03/2015 29332 TX/PRO/DX INJ NEW DRUG 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 12/03/2015 62674 EMERGENCY DEPT VISIT 12/03/2015 65876 EMERGENCY DEPT VISIT 12/03/2015 J0595 BUTORPHANOL TARTRATE 1 MG 12/03/2015 J1885 TORADOL SYR 30MG/ML 12/03/2015 J2550 PROMETHAZIEN 25MG/ML 12/03/2015 J3010 FENTANYL CITRATE INJECITON 12/03/2015 95162 HYDRATE IV INFUSION, ADD-ON 01/18/2016 46880 THER/PROPH/DIAG INJ, SC/IM 01/18/2016 69199 THER/PROPH/DIAG INJ, IV PUSH 01/18/2016 08183 EMERGENCY DEPT VISIT 01/18/2016 21215 EMERGENCY DEPT VISIT 01/18/2016 J0595 BUTORPHANOL TARTRATE 1 MG 01/18/2016 J1885 TORADOL SYR 30MG/ML 01/18/2016 J2550 PROMETHAZIEN 25MG/ML 01/18/2016 J7030 NORMAL SALINE SOLUTION INFUS 01/18/2016 Results Test Result Range PT INR - 12/03/15 00:00 INR 1.0 0.8-1.2 PT 10.3 SEC 9.1-12.0 CBC WITH DIFF - 12/03/15 00:00 BASO% 0.3 % 0-2 EOS% 1.9 % 0-7.0 HCT 40.8 % 36.9-47.0 HGB 14.0 G/DL 12.0-16.0 LYMPH% 37.5 % 20-40 MCH 30.5 PG 27-31 MCHC 34.3 G/DL 33-37 MCV 88.9 FL 81-99 MONO% 7.2 % 0-10.0 MPV 10.1 FL 7.3-10.4 NEUTRO% 53.1 % 40-70 PLT 230 10^3u 130-400 RBC 4.6 10^6u 4.2-5.4 RDW 13.3 % 11.5-15.5 WBC 10.2 10^3u 4.8-10.8 NEUTRO# 5.4 10^3u 1.5-7.5 LYMPH# 3.8 10^3u 0.9-4.0 MONO# 0.7 10^3u 0-0.8 EOS# 0.2 10^3u 0-0.6 BASO# 0.0 10^3u 0-0.1 Antinuclear Antibodies Direct - 06/12/18 14:00 JCARLOS Direct Negative Negative LymeAb(IgG/M)+HME(IgG/M)+RM... - 06/15/18 15:12 RMSF, IgG, EIA Positive Negative [facility] Spotted Fever, IgM 0.23 index 0.00-0.89 Lyme IgG/IgM Ab <0.91 ISR 0.00-0.90 Lyme Disease Ab, Quant, IgM <0.80 index 0.00-0.79 E. chaffeensis (HME) IgG Titer Negative Neg:<1:64 E. chaffeensis (HME) IgM Titer Negative Neg:<1:20 RMSF, IgG, IFA - 06/15/18 15:12 RMSF, IgG, IFA 1:64 Neg <1:64 Encounters ACCT No. Visit Date/Time Discharge Status Pt. Type Provider Facility Loc./Unit Complaint [id number] 04/03/2018 12:52:00 04/03/2018 23:59:59 CLS Outpatient VICKI JOHNSON DO [facility] HISTORY OF ABNORMAL MAMMOGRAM [id number] 04/07/2017 08:45:00 04/07/2017 23:59:59 CLS Preadmit VICKI JOHNSON DO [facility] RAD ABN MAMMO [id number] 09/21/2016 07:41:00 09/21/2016 23:59:59 CLS Outpatient VICKI JOHNSON DO [facility] RAD ABNORMAL MAMMO [id number] 09/13/2016 09:38:00 09/13/2016 23:59:59 CLS Outpatient VICKI JOHNSON DO [facility] RAD SCREENING [id number] 06/15/2015 09:19:00 06/15/2015 23:59:59 CLS Outpatient MARIUM PARSONS MD [facility] RAD SCREENING [id number] 08/04/2014 15:40:00 08/04/2014 23:59:59 CLS Outpatient JOSE CRUZ MD [facility] RT OSTEOARTHRITIS [id number] 07/25/2014 09:17:00 07/25/2014 23:59:59 CLS Outpatient JOSE CRUZ MD [facility] KNEE OSDEOARDRIOIS [id number] 07/18/2014 07:37:00 07/18/2014 08:19:00 DIS Outpatient JOSE CRUZ MD [facility] OSTEOARTHRITIS RIGHT KNEE [id number] 07/14/2014 11:28:00 07/14/2014 13:08:00 DIS Outpatient JOSE CRUZ MD [facility] OSTEOARTHRITIS [id number] 06/30/2014 13:27:00 06/30/2014 14:16:00 DIS Outpatient JOSE CRUZ MD [facility] OSTEOARTHRITIS LEFT KNEE [id number] 06/23/2014 13:09:00 06/23/2014 23:59:59 CLS Outpatient JOSE CRUZ MD [facility] LEFT KNEE OSTEOARTHRITIS [id number] 12/25/2013 14:16:00 12/25/2013 23:59:59 CLS Outpatient MARIUM PARSONS MD [facility] L BREAST ASYMMETRY [id number] 12/16/2013 09:54:00 12/16/2013 23:59:59 CLS Outpatient MARIUM PARSONS MD [facility] RAD SCREENING [id number] 09/04/2013 13:49:00 09/04/2013 23:59:59 CLS Outpatient [id number] 04/03/2018 13:15:00 Document Registration [id number] 06/15/2015 09:14:00 Document Registration [id number] 10/02/2012 06:03:00 Document Registration [id number] 09/25/2012 11:20:00 Document Registration [id number] 09/14/2012 09:22:00 Document Registration [email or web address] 03/19/2017 08:27:40 ACT Document Registration [id number] 07/04/2017 13:45:00 07/04/2017 23:59:59 DIS Outpatient MIHEMERALD [facility] [id number] 07/04/2017 12:50:07 07/04/2017 23:59:59 DIS Outpatient [facility], EMERALD [facility]ICK[facility] RAD [id number] 05/09/2017 14:12:21 05/09/2017 23:59:59 DIS Outpatient [facility], EMERALD [facility] RAD [id number] 05/09/2017 14:10:33 05/09/2017 23:59:59 DIS Outpatient [facility], EMERALD [facility] [id number] 04/11/2017 14:37:29 04/11/2017 23:59:59 [facility] RAD [id number] 04/11/2017 14:36:47 04/11/2017 23:59:59 [facility] [id number] 03/28/2017 14:34:22 03/28/2017 23:59:59 [facility] RAD [id number] 03/28/2017 14:33:14 03/28/2017 23:59:59 [facility] [id number] 03/21/2017 16:00:57 03/21/2017 23:59:59 CLS Preadmit [facility]ICK[facility] OT Splint [id number] 03/21/2017 14:58:33 03/21/2017 23:59:59 [facility] RAD rt wrist pain, post op 4 weeks [id number] 03/21/2017 08:12:47 03/21/2017 23:59:59 DIS Outpatient [facility], EMERALD [facility] RAD [id number] 03/21/2017 08:11:59 03/21/2017 23:59:59 DIS Outpatient MIH, EMERALD D [facility] [id number] 03/14/2017 11:22:57 03/14/2017 23:59:59 DIS Outpatient MIEMERALD Person [facility] ERICKA RAD [id number] 03/14/2017 11:15:00 03/14/2017 23:59:59 DIS Outpatient MIEMERALD Person [facility] [id number] 03/07/2017 09:51:09 03/07/2017 23:59:59 DIS Outpatient MIEMERALD Person [facility] ERICK[facility] RAD [id number] 03/07/2017 09:15:00 03/07/2017 23:59:59 DIS Outpatient EMERALD CEJA [facility] [id number] 03/03/2017 10:42:36 03/03/2017 23:59:59 DIS Outpatient CAMACHO FLOR [facility]ICK[facility] RAD [id number] 03/03/2017 10:30:00 03/03/2017 23:59:59 DIS Outpatient CAMACHO FLOR [facility] [id number] 02/25/2017 19:27:00 02/25/2017 23:59:59 CLS Emergency [facility] ERICKA ED R hand post surgery swelling [id number] 02/23/2017 10:15:00 02/23/2017 23:59:59 DIS Outpatient CAMACHO FLOR [facility] [id number] 02/21/2017 13:26:53 02/21/2017 23:59:59 DIS Outpatient EMERALD CEJA [facility] [id number] 02/20/2017 09:35:29 02/20/2017 23:59:59 CLS Preadmit EMERALD CEJA [facility]ICK[facility] Surgery orif right wrist [id number] 02/17/2017 10:00:00 02/17/2017 23:59:59 DIS Outpatient CAMACHO FLOR [facility] [id number] 02/16/2017 18:29:00 02/16/2017 23:59:59 CLS Emergency [facility] ERICKA ED fell injured rt wrist [id number] 01/18/2016 04:31:00 01/18/2016 07:05:00 DIS Emergency JANINE DINH [facility] EMR [id number] 12/03/2015 07:51:00 12/03/2015 09:29:00 DIS Emergency AFTAB MENA [facility] EMR [id number] 06/10/2017 02:05:25 Document Registration [id number] 07/06/2015 00:00:00 Document Registration [id number] 09/18/2018 09:48:29 09/18/2018 23:59:59 CLS Outpatient VICKI GARCIA [id number] 07/27/2018 10:16:01 07/27/2018 23:59:59 CLS Outpatient VICKI GARCIA [id number] 06/11/2018 09:08:03 06/11/2018 23:59:59 CLS Outpatient VICKI GARCIA [id number] 05/29/2018 10:01:23 05/29/2018 23:59:59 CLS Outpatient VICKI GARCIA [id number] 05/09/2018 08:40:37 05/09/2018 23:59:59 CLS Outpatient VICKI GARCIA [id number] 12/29/2017 10:23:05 12/29/2017 23:59:59 CLS Outpatient RADHA VICKI Dyson [id number] 12/14/2017 15:30:11 12/14/2017 23:59:59 CLS Outpatient VICKI GARCIA [id number] 10/30/2017 10:32:15 10/30/2017 23:59:59 CLS Outpatient VICKI GARCIA [id number] 10/19/2017 08:24:45 10/19/2017 23:59:59 CLS Outpatient RADHAVICKI ELIZONDO [id number] 08/16/2017 11:42:27 08/16/2017 23:59:59 CLS Outpatient RADHAVICKI ELIZONDO [id number] 05/23/2017 11:29:05 05/23/2017 23:59:59 CLS Outpatient VICKI GARCIA [id number] 08/15/2017 16:57:01 ACT Unknown [id number] 06/20/2018 17:05:00 Document Registration [id number] 06/13/2018 15:06:00 Document Registration
--- OUTSIDE RECORDS SUMMARY | 2018-09-24 02:18 | XMS REPORT | Clinical Summary ---
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 Insomnia, unspecified LOSS OF APPETITE 783.0 [facility] Anorexia CEPHALGIA 784.0 Active [facility] Headache ENCOUNTER FOR REMOVAL OF SUTURES V58.32 Resolved [facility] Encounter for removal of sutures NECK PAIN 723.1 Active [facility] Cervicalgia KNEE PAIN, BILATERAL 719.46 Active [facility] Pain in joint involving lower leg [...] elsewhere classified Cough 786.2 Active Sparkle Castro DRY CHAIN PULLER Cough Thrush 112.0 Active Chad Guardado MD [...] by mouth daily for blood pressure LISINOPRIL 07585252017 Active Chad Guardado MD Active TRAMADOL HCL 50 MG TABS 1-2 tablets every 6 hours as needed for pain TRAMADOL HCL 98835145122 Active Chad Guarddao MD Active DICLOFENAC SODIUM 1.5 % TRANS SOLN 40 drops applied to each knee 4 times a day DICLOFENAC SODIUM 10272474169 Active Chad Guardado MD Active NYSTATIN 548119 UNIT/ML SUSP Swish and swallow 5ml four times a day until yeast is clear. NYSTATIN 54445209907 No Longer Active Chad Guardado MD Active TESSALON PERLES 100 MG CAP 1 tablet by mouth 3 times daily BENZONATATE 33883287406 Active Sparkle Castro APRN Active CITALOPRAM HYDROBROMIDE 40 MG TABS 1 daily for depression/anxiety CITALOPRAM HYDROBROMIDE 79756451962 Active Chad Guardado MD Active DEPAKOTE 250 MG TBEC 1 twice a day to prevent headaches DIVALPROEX SODIUM 04181481101 Active Chad Guardado MD Active CYCLOBENZAPRINE HCL 10 MG TABS 1 at bedtime for muscle tightness CYCLOBENZAPRINE HCL 04697559208 Active Chad Guardado MD Active METHOCARBAMOL 750 MG TABS 1 po q8hr PRN spasm and neck pain 06/12 METHOCARBAMOL 17689723298 No Longer Active Chad Guardado MD Active JANA ASPIRIN EC LOW DOSE 81 MG TBEC Take one by mouth daily ASPIRIN 78147272830 No Longer Active Chad Guardado MD Active HYDROCODONE-ACETAMINOPHEN 7.5-325 MG TABS 1 three times a day as needed for pain HYDROCODONE-ACETAMINOPHEN 17881720919 Active Chad Guardado MD Active CIPROFLOXACIN HCL 250 MG TABS 1 twice a day for 3 days for urinary infection CIPROFLOXACIN HCL 78902383222 No Longer Active Chad Guardado MD Active LIDODERM 5 % PTCH apply to affected area for 12 hours LIDOCAINE 11955466110 Active Chad Guardado MD Active FUROSEMIDE 20 MG TAB 1 tablet by mouth daily FUROSEMIDE 43062228394 Active Chad Guardado MD Active IMITREX 6 MG/0.5ML SOLN Take as directed SUMATRIPTAN SUCCINATE 51289796230 Active Sparkle Castro APRN Active SERTRALINE HCL 50 MG TABS 1 daily for mood SERTRALINE HCL 26124002361 No Longer Active Chad Guardado MD Active IMITREX 100 MG TABS TAKE 1 TABLET AT THE ONSET OF HEADACHE MAY REPEAT IN 2 HRS IF NEEDED SUMATRIPTAN SUCCINATE 44873827039 Active Sparkle Castro DRY CHAIN PULLER Active IMITREX TABS Take/use as needed. SUMATRIPTAN SUCCINATE TABS 16843191345 No Longer Active Jaylyn Monzonkimberly DACOSTA Active SUMATRIPTAN SUCCINATE 100 MG TABS as directed SUMATRIPTAN SUCCINATE 90015655413 No Longer Active Nedrar[place]a Cramer Active LORAZEPAM 0.5 MG TAB 1 tab po q8 hrs and 2 tabs at bedtime 07/03 LORAZEPAM 83457085229 No Longer Active Nedra Cramer Active PYRIDIUM 200 MG TAB 1 po TID PRN Dysuria PHENAZOPYRIDINE HCL 60925519016 No Longer Active Sachin Wasserman MD Active CIPRO 250 MG TAB 1 tablet by mouth twice daily CIPROFLOXACIN HCL 57739946854 No Longer Active Sachin Wasserman MD Active LUNESTA 2 MG TABS take one tab po qhs ESZOPICLONE 49953207173 No Longer Active Broderick Solares MD Active CITALOPRAM HYDROBROMIDE 20 MG TABS take one tab po daily CITALOPRAM HYDROBROMIDE 48620475345 No Longer Active Broderick Solares MD Active HYDROCODONE-ACETAMINOPHEN 10-325 MG TABS 1 tab po q4-6 hrs prn HYDROCODONE-ACETAMINOPHEN 56750008205 No Longer Active Broderick Solares MD Active SULFAMETHOXAZOLE-TMP DS 800-160 MG TABS take one tab po bid x 7 days SULFAMETHOXAZOLE-TRIMETHOPRIM 15695400640 No Longer Active Broderick Solares MD Active DICLOFENAC SODIUM 75 MG TBEC take one tab po bid DICLOFENAC SODIUM 23974520647 Active Broderick Solares MD Active NAPROXEN 500 MG TAB 1 by mouth twice a day NAPROXEN 79503691278 No Longer Active [facility] Active FUROSEMIDE 40 MG TAB 1 tablet by mouth daily FUROSEMIDE 35252977827 No Longer Active [facility] Active MELOXICAM 15 MG TABS 1 po q day for pain with food MELOXICAM 62494021514 No Longer Active [facility] Active ZOLPIDEM TARTRATE 10 MG TABS take one tab po daily ZOLPIDEM TARTRATE 22460270302 No Longer Active [facility] Active COLACE 100 MG CAPS Take one by mouth daily DOCUSATE SODIUM 13123851573 No Longer Active [facility] Active NIMODIPINE 30 MG CAPS 1 every 2 hours NIMODIPINE 73154889308 No Longer Active [facility] Active ZOFRAN ODT 4 MG TBDP 1 po q6hr PRN Nausea ONDANSETRON 05286919416 No Longer Active [facility] Active MAGNESIUM OXIDE 400 MG TABS Take one by mouth daily MAGNESIUM OXIDE 55946577680 No Longer Active [facility] Active MAGNESIUM OXIDE 400 MG TABS Take one by mouth daily MAGNESIUM OXIDE 400 MG TABS 326107 MAGNESIUM OXIDE Inactive ZOFRAN ODT 4 MG TBDP 1 po q6hr PRN Nausea ZOFRAN ODT 4 MG TBDP 517937 ONDANSETRON Inactive NIMODIPINE 30 MG CAPS 1 every 2 hours NIMODIPINE 30 MG CAPS 843137 NIMODIPINE Inactive COLACE 100 MG CAPS Take one by mouth daily COLACE 100 MG CAPS 5513754 DOCUSATE SODIUM Inactive ZOLPIDEM TARTRATE 10 MG TABS take one tab po daily ZOLPIDEM TARTRATE 10 MG TABS 731182 ZOLPIDEM TARTRATE Inactive MELOXICAM 15 MG TABS 1 po q day for pain with food MELOXICAM 15 MG TABS 970932 MELOXICAM Inactive FUROSEMIDE 40 MG TAB 1 tablet by mouth daily FUROSEMIDE 40 MG TAB 987561 FUROSEMIDE Inactive NAPROXEN 500 MG TAB 1 by mouth twice a day NAPROXEN 500 MG TAB 596777 NAPROXEN Inactive SULFAMETHOXAZOLE-TMP DS 800-160 MG TABS take one tab po bid x 7 days SULFAMETHOXAZOLE-TMP DS 800-160 MG TABS SULFAMETHOXAZOLE- TRIMETHOPRIM Inactive HYDROCODONE-ACETAMINOPHEN 10-325 MG TABS 1 tab po q4-6 hrs prn HYDROCODONE-ACETAMINOPHEN 10-325 MG TABS 896925 HYDROCODONE- ACETAMINOPHEN Inactive CITALOPRAM HYDROBROMIDE 20 MG TABS take one tab po daily CITALOPRAM HYDROBROMIDE 20 MG TABS 672551 CITALOPRAM HYDROBROMIDE Inactive LUNESTA 2 MG TABS take one tab po qhs LUNESTA 2 MG TABS 358527 ESZOPICLONE Inactive LORAZEPAM 0.5 MG TAB 1 tab po q8 hrs and 2 tabs at bedtime 07/03 LORAZEPAM 0.5 MG TAB 575078 LORAZEPAM Inactive SUMATRIPTAN SUCCINATE 100 MG TABS as directed SUMATRIPTAN SUCCINATE 100 MG TABS 744431 SUMATRIPTAN SUCCINATE Inactive IMITREX TABS Take/use as needed. IMITREX TABS SUMATRIPTAN SUCCINATE TABS Inactive SERTRALINE HCL 50 MG TABS 1 daily for mood SERTRALINE HCL 50 MG TABS 215381 SERTRALINE HCL Inactive JANA ASPIRIN EC LOW DOSE 81 MG TBEC Take one by mouth daily JANA ASPIRIN EC LOW DOSE 81 MG TBEC 934518 ASPIRIN Inactive METHOCARBAMOL 750 MG TABS 1 po q8hr PRN spasm and neck pain 06/12 METHOCARBAMOL 750 MG TABS 934850 METHOCARBAMOL Inactive NYSTATIN 661549 UNIT/ML SUSP Swish and swallow 5ml four times a day until yeast is clear. NYSTATIN 368162 UNIT/ML SUSP 240009 NYSTATIN Inactive CIPRO 250 MG TAB 1 tablet by mouth twice daily CIPRO 250 MG TAB 547502 CIPROFLOXACIN HCL Inactive PYRIDIUM 200 MG TAB 1 po TID PRN Dysuria PYRIDIUM 200 MG TAB 2604864 PHENAZOPYRIDINE HCL Inactive CIPROFLOXACIN HCL 250 MG [...] Fluvirin, Fluarix, Agriflu(>=18 yo)) Fluzone (>3 yrs.) [[id number]] Influenza, seasonal, injectable Vital Signs Date Name [...] Panel - Chemistry cholesterol, serum 197 mg/dL [phone]/09/25 triglyceride, serum, fasting 48 mg/dL 30-200 HDL [...] 5.0-8.5 Encounters Code Encounter Date Provider Facility CPT-97729 Level 3 Est. Patient 15:11:25 REFRIGERATING ENGINEER HEAD Chad Guardado MD [facility] CPT-46049 Level 3 Est. Patient 17:38:05 REFRIGERATING ENGINEER HEAD Chad Guardado MD [facility] CPT-52416 Level 3 Est. Patient 15:35:54 REFRIGERATING ENGINEER HEAD Sparkle Castro APRN [facility] CPT-18385 Level 4 Est. Patient 09:41:26 REFRIGERATING ENGINEER HEAD Chad Guardado MD [facility] CPT-58051 Level 4 Est. Patient 16:16:11 CDT Chad Guardado MD [facility] CPT-24009 Level 3 Est. Patient 12:46:41 CDT Chad Guardado MD [facility] CPT-86484 Level 3 Est. Patient 17:26:51 CDT Chad Guardado MD [facility] CPT-02257 Level 4 New Patient 13:59:42 CDT Chad Guardado MD [facility] CPT-29345 Level 4 Est. Patient 20:23:44 REFRIGERATING ENGINEER HEAD Broderick Solares MD [facility] CPT-25039 Level 3 Est. Patient 14:43:04 REFRIGERATING ENGINEER HEAD Broderick Solares MD [facility] CPT-85919 Level 3 Est. Patient 10:05:53 REFRIGERATING ENGINEER HEAD Sachin Wasserman MD [facility] CPT-07248 Level 3 Est. Patient 14:35:17 CDT [facility] CPT-22755 Level 3 Est. Patient 10:59:26 CDT [facility] CPT-57014 Level 3 Est. Patient 15:41:02 CDT [facility] CPT-02246 Level 3 Est. Patient 16:41:25 CDT [facility] CPT-50462 Level 3 New Patient 14:47:15 CDT [facility] Procedures Code Procedure Name Date Entry Date Standard Description CPT-51468 C-Spine Min 4V 12:56:08 REFRIGERATING ENGINEER HEAD CPT-85002 Immunization Single Admin 09:23:37 CDT CPT-13091 Tdap Vaccine 09:23:37 CDT CPT-73261 Fluzone Quadrivalent Intramuscular Suspension 0.5 ML 20: 47:45 CDT CPT-57900 Ankle Complete - Min 3V 12:29:38 CDT CPT-76299 Forearm AP and Lat 10:01:39 REFRIGERATING ENGINEER HEAD CPT-45110 Knee 3V 13:56:38 CDT CPT-85542 Administration single or combination vaccine inc oral 11 :50:16 CDT CPT-25177 Influenza split virus > age 3 11:50:16 CDT
--- OUTSIDE RECORDS SUMMARY | 2018-09-24 02:18 | XMS REPORT ---
Author Author [facility] Medical Staff Organization [facility] Address [address] [place], [place] [id number] Phone [phone] Summary purpose TRANSITION OF CARE AUTO GENERATION Chief Complaint and Reason for Visit Admit Diagnosis 1 MIGRAINE NOS W/O SM Problem list No authorized problems tracked for continuity of care are available for this visit. Encounters No authorized problems tracked for encounter diagnoses are available for this visit. Medications Home Medications Medication Directions Started Status Source Imitrex 100 mg tablet 1 tablet Oral As Needed Take on onset and may repeat in 2h Current Patient's Pharmacy hydrocodone 10 mg-acetaminophen 325 mg tablet 1-2 tablet Oral PRN Every 4 Hours Current Patient's Pharmacy magnesium oxide 400 mg tablet 1 tablet Oral 1 Daily Current Patient's Pharmacy aspirin 81 mg tablet 1 tablet Oral 1 Daily Current Patient recall lidocaine Topical 1 applicator Top 1 Daily Patch, unsure of dosage Discont Patient recall Celexa 20 mg tablet 1 tablet oral 2 Times Daily Current Patient recall Allergies, adverse reactions, alerts Allergen Category Ingredient Status Reaction Severity Onset Codeine Drug Allergy Codeine Confirmed or Verified Iodinated Contrast Media - IV Dye Drug Allergy Iodinated Contrast Media - IV Dye Confirmed or Verified Immunizations No immunizations recorded for this patient visit Relevant diagnostic tests and/or laboratory data RESULTS Radiology Results [id number]:00 CT HEAD W/O CONT PACs Image DATE OF EXAM: Sep 03 2014 [id number] HEAD WO CONTRAST : RADIOLOGY REPORT DATE OF SERVICE: 09/03/14 HISTORY: Recurrent headache NONCONTRAST CT [id number] HOURS Axial scans were obtained at 5 mm intervals. No contrast was administered. Comparison is made with the prior study of 09/21/2013. There is no mass or midline shift. There is no hemorrhage or acute infarction. Aneurysm repair coil is noted in the left supraclinoid region. The cerebellum and brainstem are normal. There is mild ventricular prominence. Ventricular size has increased minimally from the prior study. There is no evidence of transependymal CSF resorption. IMPRESSION: No acute process. Status post aneurysm pair. Minimal ventricular prominence relatively chronic with only slight increase in ventricular size from prior study. MD ANIKA Crystal/ny09/04/2014 08:28:00 / 09/04/2014 08:39:04 cc:Dr. Broderick Solares - Cele family doctor This document has been electronically Signed by: On: DATE OF EXAM: Sep 03 2014 [id number] HEAD WO CONTRAST : RADIOLOGY REPORT DATE OF SERVICE: 09/03/14 HISTORY: Recurrent headache NONCONTRAST CT [id number] HOURS Axial scans were obtained at 5 mm intervals. No contrast was administered. Comparison is made with the prior study of 09/21/2013. There is no mass or midline shift. There is no hemorrhage or acute infarction. Aneurysm repair coil is noted in the left supraclinoid region. The cerebellum and brainstem are normal. There is mild ventricular prominence. Ventricular size has increased minimally from the prior study. There is no evidence of transependymal CSF resorption. IMPRESSION: No acute process. Status post aneurysm pair. Minimal ventricular prominence relatively chronic with only slight increase in ventricular size from prior study. MD ANIKA Crystal/ny09/04/2014 08:28:00 / 09/04/2014 08:39:04 cc:Dr. Broderick Solares - Cele family doctor This document has been electronically Signed by: VICKI MORRIS On: Sep 04 2014 10:44A Result Amended on 2014-09-04 at 10:45:04. Previous status was AK. History of procedures Procedure Code Code Type Description Date Performed Performing Physician 10954 CPT-4 CT HEAD/BRAIN W/O DYE 09-03-2014 PAULINO CARRION J1885 CPT-4 TORADOL SYR 30MG/ML 09-03-2014 PAULINO CARRION J2550 CPT-4 PROMETHAZIEN 25MG/ML 09-03-2014 PAULINO CARRION J7040 CPT-4 NORMAL SALINE SOLUTION INFUS 09-03-2014 PAULINO CARRION J0595 CPT-4 BUTORPHANOL TARTRATE 1 MG 09-03-2014 PAULION CARRION 35256 CPT-4 EMERGENCY DEPT VISIT 09-03-2014 PAULINO CARRION 31663 CPT-4 EMERGENCY DEPT VISIT 09-03-2014 PAULINO CARRION 66441 CPT-4 THER/PROPH/DIAG INJ, IV PUSH 09-03-2014 PAULINORACHELLE CARRION 23960 CPT-4 TX/PRO/DX INJ NEW DRUG ADDON 09-03-2014 PAULINORACHELLE CHOWDARYES 89119 CPT-4 HYDRATE IV INFUSION, ADD-ON 09-03-2014 PAULINORACHELLE CARRION Functional status Functional Status Finding Observation Time Diet regular 88-67-896417:26 Abdomen Appearance flat 52-49-945627:26 Abdomen non-tender :26 Bowel Sounds present : Cesar no [id number]: Urination normal 33-33-981341:26 Quality sym/unlabored 69-98-561624:26 Cough absent : Secretions no : Airway natural : Oxygen no :10 Temp >100.4 no : Temp <96.8 no : Chills with rigors no : HR > 90bpm yes 08-69-391461:26 Respirations > 20 yes : Systolic <90 no : headache stiff neck no :26 Rapid Resp no :26 IV Site Location L forearm 76-92-909998:35 IV Type peripheral 18-04-784909:35 IV Site Information new 63-80-794418:35 IV Site Start Attmpt 2 times 91-90-174376:35 IV Site Jaiden 22 88-56-122269:35 IV Site Appearance WNL 45-08-795096:35 IV Site Color clear 23-82-119570:35 IV Site Patent yes 48-67-441441:35 Dressing Type occlusive 23-79-124679:35 Nursing Note Dismissed home per Nathaniel Carrion PA-C. Discharge instructions given and understood by pt and spouse who verbalized understanding. Wheeled to exit via w/c in stable condiiton escorted by this RN. :10 Vital signs Type Value Date Respiration Rate 18breaths per minute :10 Pulse 88beats per minute :10 Oxygen Saturation 98% :10 BP Systolic 103mmHg :10 BP Diastolic 78mmHg :10 Temperature 97.9F :10 Weight 157LB :15 Social history No Social History or smoking status observations were recorded for this visit. ( Unknown if ever smoked.) Treatment Plan No treatment plan text is available for this visit. Hospital discharge instructions Dismissal Condition good Disposition on DC home DC Inst/Educ Give yes Med/Side Effects Rev yes Flu Vac 2014 Tetanus Vac ukn
[2018-09-24] MEDS ORDERED: NS IV 1000 ML 1,000 ML IV ONE (02:49)
[2018-09-24] MEDS ORDERED: fentaNYL INJECTION 100 MCG/2 ML AMP IVP STA (02:49)
[2018-09-24] MEDS ORDERED: ONDANSETRON 4 MG/2 ML (SDV) Z0FRAN IVP ONE (03:00)
--- NOTE | 2018-09-24 03:10 | ED Abdominal Pain ---
General Chief Complaint: Abdominal/GI Problems Stated Complaint: ABD PAIN Nursing Triage Note: PT AMB TO ROOM #10 W/O DIFFICULTY. A&OX4. C/O MEDIAL ABD PAIN. PT REPORTS ON THE MORNING OF 09/23/18 @ APPROX 0400 PT WAS AWOKEN FROM SLEEP WITH SEVERE ABD APAIN. REPORTS NAUSEA. DENIES RECENT FEVER OR CHILLS. DURING TRIAGE PT NOTED TO BE MOANING IN PAIN. PT STATES, "IT FEELS LIKE SOMEONE IS PUNCHING ME IN THE GUT." Sepsis Screen: No Definite Risk Source of Information: Patient History of Present Illness Date Seen by Provider: Sep 24, 2018 Time Seen by Provider: 02:30 Initial Comments PT ARRIVES VIA POV FROM [facility], WHERE SHE WAS STAYING WITH FAMILY C/O SEVERE EPIGASTRIC AND MID ABDOMINAL PAIN SINCE 0400 YESTERDAY--STATES IT WOKE HER FROM SLEEP STATES PAIN HAS BEEN CONSTANT, WAS A LITTLE BETTER DURING THE DAY, BUT BECAME SEVERE AGAIN TONIGHT AND HAS NOT BEEN ABLE TO SLEEP DUE TO PAIN-STATES PAIN IS UNBEARABLE + NAUSEA, NO VOMITING HAS HAD SEVERAL SMALL SOFT BM'S TODAY NO FEVER NO URINARY SYMPTOMS HAD A LITTLE BIT OF YOGURT TO EAT DURING THE DAY, AND HAS BEEN ABLE TO DRINK LIQUIDS NO HISTORY OF SIMILAR PT HAS HAD CHOLECYSTECTOMY NO HISTORY OF GI PROBLEMS PCP: BRANDI GARCIA IN [facility] Allergies and Home Medications Allergies Coded Allergies: No Known Drug Allergies (Unverified , 09/25/12) Review of Systems Review of Systems Constitutional: no symptoms reported; No fever Respiratory: No Symptoms Reported Cardiovascular: No Symptoms Reported Gastrointestinal: See HPI, Abdominal Pain; Denies Constipated, Denies Diarrhea ; Nausea, Poor Appetite; Denies Vomiting Genitourinary: No Symptoms Reported Musculoskeletal: no symptoms reported; No back pain Skin: no symptoms reported Psychiatric/Neurological: No Symptoms Reported Endocrine: No Symptoms Reported Hematologic/Lymphatic: No Symptoms Reported Past Nvijxbe-Kuglog-Tqtwav Hx Patient Social History Alcohol Use: Occasionally Uses Number of Drinks Today: 0 Recreational Drug Use: No Smoking Status: Never a Smoker 2nd Hand Smoke Exposure: No Recent Foreign Travel: No Contact w/Someone Who Travel: No Recent Infectious Disease Expo: No Recent Hopitalizations: No Seasonal Allergies Seasonal Allergies: No Past Medical History Surgeries: Yes (RIGHT CARPAL TUNNEL; SHOULDER SURGERY; X 1; BACK SURGERY; BRAIN ANEURYSM REPAIR; D&C WITH CERVICAL CONIZATION. ) Section, Gallbladder, Orthopedic, Tonsillectomy Respiratory: No Cardiac: No Neurological: No (BRAIN ANEURYSM) Reproductive Disorders: Yes (RECURRENT CERVICAL DYSPLASIA) Gastrointestinal: Yes (HX OF ULCERS) Musculoskeletal: No Endocrine: No HEENT: No Cancer: No Psychosocial: Yes Depression Integumentary: No Blood Disorders: No Physical Exam Vital Signs Vital Signs - First Documented 09/24/18 02:00 Temp 96.9 Pulse 64 Resp 18 B/P (MAP) 150/83 (105) Pulse Ox 100 O2 Delivery Room Air Capillary Refill : Less Than 3 Seconds Height/Weight/BMI Height: 5'4.00" Weight: 165lbs. oz. 74.115190mz; BMI Method:Stated Progress/Results/Core Measures Results/Orders Lab Results Laboratory Tests Test 09/24/18 03:52 09/24/18 04:27 Range/Units White Blood Count 14.7 H 4.3-11.0 10^3/uL Red Blood Count 4.57 4.35-5.85 10^6/uL Hemoglobin 14.2 11.5-16.0 G/DL Hematocrit 42 35-52 % Mean Corpuscular Volume 91 80-99 FL Mean Corpuscular Hemoglobin 31 25-34 PG Mean Corpuscular Hemoglobin Concent 34 32-36 G/DL Red Cell Distribution Width 13.2 10.0-14.5 % Platelet Count 246 130-400 10^3/uL Mean Platelet Volume 10.9 H 7.4-10.4 FL Neutrophils (%) (Auto) 67 42-75 % Lymphocytes (%) (Auto) 25 12-44 % Monocytes (%) (Auto) 8 0-12 % Eosinophils (%) (Auto) 0 0-10 % Basophils (%) (Auto) 0 0-10 % Neutrophils # (Auto) 9.8 H 1.8-7.8 X 10^3 Lymphocytes # (Auto) 3.6 1.0-4.0 X 10^3 Monocytes # (Auto) 1.2 H 0.0-1.0 X 10^3 Eosinophils # (Auto) 0.0 0.0-0.3 10^3/uL Basophils # (Auto) 0.0 0.0-0.1 10^3/uL Neutrophils % (Manual) 65 % Lymphocytes % (Manual) 22 % Monocytes % (Manual) 9 % Eosinophils % (Manual) 0 % Basophils % (Manual) 0 % Band Neutrophils 0 % Reactive Lymphocytes 4 % Blood Morphology Comment NORMAL Sodium Level 134 L 135-145 MMOL/L Potassium Level 3.3 L 3.6-5.0 MMOL/L Chloride Level 100 98-107 MMOL/L Carbon Dioxide Level 23 21-32 MMOL/L Anion Gap 11 5-14 MMOL/L Blood Urea Nitrogen 30 H 7-18 MG/DL Creatinine 0.76 0.60-1.30 MG/DL Estimat Glomerular Filtration Rate > 60 BUN/Creatinine Ratio 39 Glucose Level 101 70-105 MG/DL Calcium Level 9.8 8.5-10.1 MG/DL Corrected Calcium 9.5 8.5-10.1 MG/DL Total Bilirubin 0.4 0.1-1.0 MG/DL Aspartate Amino Transf (AST/SGOT) 24 5-34 U/L Alanine Aminotransferase (ALT/SGPT) 52 0-55 U/L Alkaline Phosphatase 78 40-136 U/L Total Protein 7.5 6.4-8.2 GM/DL Albumin 4.4 3.2-4.5 GM/DL Amylase Level 81 25-125 U/L Lipase 89 H 8-78 U/L Urine Color YELLOW Urine Clarity SLIGHTLY CLOUDY Urine pH 7 5-9 Urine Specific Novelty 1.010 L 1.016-1.022 Urine Protein 1+ H NEGATIVE Urine Glucose (UA) NEGATIVE NEGATIVE Urine Ketones 3+ H NEGATIVE Urine Nitrite NEGATIVE NEGATIVE Urine Bilirubin NEGATIVE NEGATIVE Urine Urobilinogen 1 NORMAL MG/DL Urine Leukocyte Esterase 2+ H NEGATIVE Urine RBC (Auto) 1+ H NEGATIVE Urine RBC 0-2 /HPF Urine WBC 5-10 H /HPF Urine Squamous Epithelial Cells 2-5 /HPF Urine Crystals NONE /LPF Urine Bacteria FEW H /HPF Urine Casts NONE /LPF Urine Mucus SMALL H /LPF Urine Culture Indicated YES My Orders Orders - VIRGIL,CITLALLI K DO Saline Lock/Iv-Start (09/24/18 02:29) Amylase (09/24/18 02:29) Cbc With Automated Diff (09/24/18 02:29) Comprehensive Metabolic Panel (09/24/18 02:29) Lipase (09/24/18 02:29) Ua Culture If Indicated (09/24/18 02:29) Monitor-Rhythm Ecg Trace Only (09/24/18 02:49) Ct Abdomen/Pelvis Wo (09/24/18 02:49) Saline Lock/Iv-Start (09/24/18 02:49) Ns Iv 1000 Ml (Sodium Chloride 0.9%) (09/24/18 02:49) Ondansetron Injection (Zofran Injectio (09/24/18 03:00) Fentanyl Injection (Sublimaze Injection (09/24/18 02:49) Ondansetron Oral Dissolve Tab (Zofran O (09/24/18 03:30) Fentanyl Injection (Sublimaze Injection (09/24/18 03:30) Ondansetron Oral Dissolve Tab (Zofran (09/24/18 03:28) Manual Differential (09/24/18 03:52) Pantoprazole Tablet (Protonix Tablet) (09/24/18 04:15) Lidocaine 2% Viscous 15 Ml (Xylocaine Vi (09/24/18 04:15) Antacid Suspension (Mylanta Suspension (09/24/18 04:15) Potassium Chloride (Tablet) (Klor Con Ta (09/24/18 04:45) Urine Culture (09/24/18 04:27) Medications Given in ED Current Medications Medications Dose Ordered Sig/Martin Route Start Time Stop Time Status Last Admin Dose Admin Al Hydrox/Mg Hydrox/Simethicone 30 ml ONCE ONCE PO 09/24/18 04:15 09/24/18 04:16 DC 09/24/18 04:29 30 ML Fentanyl Citrate 50 mcg ONCE ONCE IM 09/24/18 03:30 09/24/18 03:31 DC 09/24/18 03:36 50 MCG Lidocaine HCl 15 ml ONCE ONCE PO 09/24/18 04:15 09/24/18 04:16 DC 09/24/18 04:29 15 ML Ondansetron Base 8 mg ONCE ONCE PO 09/24/18 03:30 09/24/18 03:31 DC 09/24/18 03:36 8 MG Pantoprazole Sodium 40 mg ONCE ONCE PO 09/24/18 04:15 09/24/18 04:16 DC 09/24/18 04:28 40 MG Vital Signs/I&O 09/24/18 02:00 Temp 96.9 Pulse 64 Resp 18 B/P (MAP) 150/83 (105) Pulse Ox 100 O2 Delivery Room Air Blood Pressure Mean: 105 Progress Progress Note : Progress Note SIGNIFICANT IMPROVEMENT IN SYMPTOMS WITH MEDICATIONS PT TOLERATING ORAL MEDICATIONS AND WATER PT LATER STATES THAT SHE HAD SEVERE ULCER DISEASE IN 1989 AND WAS HOSPITALIZED FOR IT HAS NOT BEEN ON GI MEDICATIONS SINCE THAT TIME PT NOW ALSO STATES THAT THIS PAIN IS SIMILAR TO WHAT SHE HAD AT THAT TIME PT STATES SHE HAS BEEN UNDER ALOT OF STRESS LATELY ON DISCUSSING LAB RESULTS, PT STATES HER LASIX DOSE WAS RECENTLY INCREASED Departure Impression Primary Impression: Epigastric abdominal pain Additional Impressions: History of peptic ulcer Urinary tract infection Hypokalemia Disposition: HOME, SELF-CARE Condition: Improved Departure-Patient Inst. Referrals: NO,LOCAL PHYSICIAN (PCP) Primary Care Physician VICKI GARCIA (Family) Primary Care Physician JOE HAYES MD Patient Instructions: Acute Abdomen (Belly Pain), Adult (DC), Gastritis (DC), Hypokalemia (DC), Urinary Tract Infection, Adult (DC) Add. Discharge Instructions: CONTINUE YOUR CURRENT MEDICATIONS PRESCRIBED CLEAR LIQUIDS--WATER, BROTH, JELLO, GATORADE--UNTIL YOUR PAIN IS GONE WHEN YOUR PAIN IS GONE, YOU MAY ADD A BRATS DIET TO CLEAR LIQUIDS--BANANAS, RICE , APPLESAUCE, TOAST, SALTINES FOLLOW UP WITH DR. HAYES, YOUR REGULAR DR, OR DR OF CHOICE FOR FURTHER CARE RETURN TO ER IF WORSE All discharge instructions reviewed with patient and/or family. Voiced understanding. Scripts Potassium Chloride (Potassium Chloride) 10 Meq Tab.er.prt 10 MEQ PO DAILY, #10 TAB Prov: VIRGIL,CITLALLI K DO 09/24/18 Nitrofurantoin Monohyd/M-Cryst (Macrobid 100 mg Capsule) 100 Mg Capsule 100 MG PO BID, #20 CAP Prov: VIRGIL,CITLALLI K DO 09/24/18 Sucralfate (Carafate) 1 Gm Tablet 1 GM PO QIDACHS, #60 TAB Prov: VIRGIL,CITLALLI K DO 09/24/18 Pantoprazole Sodium (Protonix) 40 Mg Tablet.dr 40 MG PO DAILY, #15 TAB Prov: VIRGIL,CITLALLI K DO 09/24/18 VIRGILCITLALLI K DO Sep 24, 2018 03:10
[2018-09-24] MEDS ORDERED: ONDANSETRON 4 MG (ZOFRAN) ORAL DISSOLVE TAB ONE (03:28)
[2018-09-24] MEDS ORDERED: ONDANSETRON 8 MG (ZOFRAN) ORAL DISSOLVE TAB PO ONE (03:30)
[2018-09-24] MEDS ORDERED: fentaNYL INJECTION 100 MCG/2 ML AMP IM ONE (03:30)
--- NOTE | 2018-09-24 03:30 | NUR ---
UNABLE TO OBTAIN IV ACCESS AFTER MULTIPLE ATTEMPTS BY MULTIPLE RN'S. DR. VIRGIL MD NOTIFIED.
[2018-09-24 03:58] LABS: BASOPHILS % (AUTO) 0 % (0-10); EOSINOPHILS % (AUTO) 0 % (0-10); HEMATOCRIT 42 % (35-52); HEMOGLOBIN 14.2 G/DL (11.5-16.0); LYMPHOCYTES # (AUTO) 3.6 X 10^3 (1.0-4.0); LYMPHOCYTES % (AUTO) 25 % (12-44); MEAN CORPUSCULAR HEMOGLOBIN 31 PG (25-34); MEAN CORPUSCULAR HGB CONC 34 G/DL (32-36); MEAN CORPUSCULAR VOLUME 91 FL (80-99); MEAN PLATELET VOLUME 10.9 FL (7.4-10.4); MONOCYTES # (AUTO) 1.2 X 10^3 (0.0-1.0); MONOCYTES % (AUTO) 8 % (0-12); NEUTROPHILS # (AUTO) 9.8 X 10^3 (1.8-7.8); NEUTROPHILS % (AUTO) 67 % (42-75); PLATELET COUNT 246 10^3/uL (130-400); RED CELL DISTRIBUTION WIDTH 13.2 % (10.0-14.5); WHITE BLOOD COUNT 14.7 10^3/uL (4.3-11.0)
[2018-09-24] MEDS ORDERED: LIDOCAINE 2% VISCOUS 15 ML UDC PO ONE (04:15)
[2018-09-24] MEDS ORDERED: PANTOPRAZOLE 40 MG (PROTONIX) TAB PO ONE (04:15)
[2018-09-24] MEDS ORDERED: ANTACID SUSP 30 ML UDC (MYLANTA) PO ONE (04:15)
[2018-09-24 04:17] LABS: BAND NEUTROPHILS 0 %; BASOPHILS % (MANUAL) 0 %; EOSINOPHILS % (MANUAL) 0 %; LYMPHOCYTES % (MANUAL) 22 %; MONOCYTES % (MANUAL) 9 %; NEUTROPHILS % (MANUAL) 65 %; RBC MORPH NORMAL; REACTIVE LYMPHOCYTES 4 %
[2018-09-24 04:20] LABS: ALANINE AMINOTRANSFERASE 52 U/L (0-55); ALBUMIN 4.4 GM/DL (3.2-4.5); ALKALINE PHOSPHATASE 78 U/L (40-136); AMYLASE 81 U/L (25-125); BILIRUBIN,TOTAL 0.4 MG/DL (0.1-1.0); BUN/CREATININE RATIO 39; CALCIUM 9.8 MG/DL (8.5-10.1); CARBON DIOXIDE 23 MMOL/L (21-32); CHLORIDE 100 MMOL/L (98-107); CREATININE SERUM 0.76 MG/DL (0.60-1.30); GFR ESTIMATED > 60; GLUCOSE 101 MG/DL (70-105); LIPASE 89 U/L (8-78); POTASSIUM 3.3 MMOL/L (3.6-5.0); SODIUM 134 MMOL/L (135-145); TOTAL PROTEIN 7.5 GM/DL (6.4-8.2)
[2018-09-24 04:31] LABS: BILIRUBIN,URINE NEGATIVE (NEGATIVE); CLARITY,URINE SLIGHTLY CLOUDY; COLOR,URINE YELLOW; GLUCOSE, URINE (UA) NEGATIVE (NEGATIVE); KETONES,URINE 3+ (NEGATIVE); LEUKOCYTE ESTERASE ,URINE 2+ (NEGATIVE); NITRITE,URINE NEGATIVE (NEGATIVE); PH,URINE 7 (5-9); PROTEIN,URINE 1+ (NEGATIVE); UROBILINOGEN,URINE 1 MG/DL (NORMAL)
[2018-09-24 04:37] LABS: BACTERIA,URINE FEW /HPF; RBC,URINE 0-2 /HPF
[2018-09-24] MEDS ORDERED: KCL 10 MEQ TAB (MICRO K) PO ONE ×2 (04:45)
[2018-09-24 05:25] VITALS: BP 160/93
--- NOTE | 2018-09-24 07:00 | Diagnostic Imaging Report ---
PROCEDURE: CT abdomen and pelvis without contrast. TECHNIQUE: Multiple contiguous axial images were obtained through the abdomen and pelvis without the use of intravenous contrast. INDICATION: Mid abdominal pain. COMPARISON: None. FINDINGS: Included portions of the lung bases are clear. CT abdomen: There is colonic diverticulosis, but no CT evidence of acute diverticulitis. Normal appendix cannot be adequately identified, but there is no pericecal inflammation. Small bowel loops are nondistended. Lobulated partially exophytic lesion is seen extending from the inferior tip of the right lobe of the liver and measures 2.8 x 1.5 x 2 cm. Lesion is hypodense to background hepatic parenchyma, but hyperdense to water. Otherwise, the kidneys, adrenal glands, spleen, pancreas, and liver have an unremarkable noncontrast CT appearance. There is no loculated fluid collection, free fluid, nor free air within the abdomen. No abnormal mesenteric or retroperitoneal adenopathy is seen. Bony structures show no acute abnormalities. CT pelvis: Urinary bladder is unopacified. No calculi are seen within the urinary bladder. There is no loculated fluid collection, free fluid, nor free air within the pelvis. No abnormal lymph nodes are identified. Bony structures show no acute abnormalities. IMPRESSION: 1. No acute abnormalities are seen within the abdomen or pelvis. 2. Colonic diverticulosis, but no CT evidence of acute diverticulitis. 3. Exophytic lesion extending from the inferior tip of the right lobe of the liver. This is incompletely characterized on today's exam, but is relative hyperdense to water. Therefore, a simple cyst is felt to be unlikely. Further characterization with hepatic protocol CT or MRI abdomen is recommended. Dictated by: Dictated on workstation # [id number]
== END 2018-09-24 05:25 | disposition home or self-care (01) ==
LOC: EDUNIT# 01:26 → ER 01:27
DX: N39.0 Urinary tract infection, site not specified (principal); E87.6 Hypokalemia; F32.9 Major depressive disorder, single episode, unspecified; Z98.890 Other specified postprocedural states; Z90.89 Acquired absence of other organs; Z87.19 Personal history of other diseases of the digestive system
CPT/HCPCS: 36415; 74176; 80053; 81000; 82150; 83690; 85007; 85027; 87088; 93041; 96372

== ENCOUNTER → 2019-04-01 | Outpatient (CLI) | payer MEDICARE, OTHER ==
[~2019-04-01] MED LIST: NITR-65 PO; PANT40TA2 PO; POTA10TA36 PO; SUCR1TAB36 PO
--- NOTE | 2019-04-01 22:29 | Diagnostic Imaging Report ---
INDICATION: Screening. The current study was also evaluated with a Computer Aided Detection (CAD) system. 3-D Tomographic imaging was also performed. Comparison made with prior examinations from 04/03/2018, 09/13/2016, and 06/15/2015. FINDINGS: There are scattered fibroglandular densities bilaterally. There are a few benign-type calcifications. There is no dominant mass, spiculated lesion, or suspicious calcification identified. The skin, nipples, and axillae are unremarkable. IMPRESSION: Benign. ACR BI-RADS Category 2: Benign findings. Result letter will be mailed to the patient. Note: At least 10% of breast cancer is not imaged by mammography. Dictated by: Dictated on workstation # [id number]
== END ==
LOC: RAD 13:50
PROVIDERS: ATTEND Obstetrics & Gynecology
DX: Z12.31 Encounter for screening mammogram for malignant neoplasm of breast (principal)
CPT/HCPCS: 77067

== ENCOUNTER → 2020-12-15 | Outpatient (CLI) | payer MEDICARE, OTHER ==
--- NOTE | 2020-12-15 13:16 | Diagnostic Imaging Report ---
INDICATION: Routine screening. COMPARISON: 04/01/2019 and 04/03/2018. TECHNIQUE: 2D and 3D bilateral screening mammography was performed with CAD. FINDINGS: Both breasts are heterogeneously dense, limiting the sensitivity of mammography. The parenchymal pattern is stable. No mass or malignant appearing microcalcifications are seen. There are benign calcifications. The axillae are unremarkable. IMPRESSION: No mammographic features suspicious for malignancy are identified. ACR BI-RADS Category 2: Benign findings. Result letter will be mailed to the patient. Note: At least 10% of breast cancer is not imaged by mammography. Dictated by: Dictated on workstation # [id number]
== END ==
LOC: RAD 09:00
PROVIDERS: ATTEND Obstetrics & Gynecology
DX: Z12.31 Encounter for screening mammogram for malignant neoplasm of breast (principal)
CPT/HCPCS: 77063; 77067

== ENCOUNTER → 2022-06-02 | Outpatient (CLI) | payer MEDICARE, OTHER ==
[~2022-06-02] MED LIST changes: +POTA-177 PO; -POTA10TA36 PO
--- NOTE | 2022-06-02 12:54 | Diagnostic Imaging Report ---
INDICATION: Routine screening. COMPARISON: 12/15/2020 and 04/01/2019. TECHNIQUE: 2D and 3D bilateral screening mammography was performed with CAD. FINDINGS: Both breasts are heterogeneously dense, limiting the sensitivity of mammography. No mass or malignant-appearing microcalcifications are seen. There are benign calcifications. The axillae are unremarkable. IMPRESSION: No mammographic features suspicious for malignancy are identified. ACR BI-RADS Category 2: Benign findings. Result letter will be mailed to the patient. Note: At least 10% of breast cancer is not imaged by mammography. Dictated by: Dictated on workstation # [id number]
== END ==
LOC: RAD 09:53
PROVIDERS: ATTEND Obstetrics & Gynecology
DX: Z12.31 Encounter for screening mammogram for malignant neoplasm of breast (principal)
CPT/HCPCS: 77063; 77067

== ENCOUNTER 2022-08-28 17:15 | Emergency (ER) | payer MEDICARE, MEDICAID ==
[~2022-08-28] VITALS: Ht 162.6 cm; Wt 78.5 kg
--- NOTE | 2022-08-28 17:21 | ED Upper Extremity ---
General Chief Complaint: Upper Extremity Stated Complaint: LT FINGER SWELLING/DISCOLORATION History of Present Illness Date Seen by Provider: Aug 28, 2022 Time Seen by Provider: 17:18 Initial Comments 71-year-old female presents with left index finger that is swollen, bruised, she noticed about 15 minutes ago. She does not recall any injury. She has full range of motion. She reports that she has this little bit tingling to the distal part of her finger is what made her notice it. Finger is little bit tender to the touch. Allergies and Home Medications Allergies Coded Allergies: No Known Drug Allergies (Unverified , 09/25/12) Patient Home Medication List Home Medication List Reviewed: Yes Nitrofurantoin Monohyd/M-Cryst (Macrobid 100 mg Capsule) 100 Mg Capsule, 100 MG PO BID Prescribed by: CITLALLI HERMAN on 09/24/18455 Pantoprazole Sodium (Protonix) 40 Mg Tablet.dr, 40 MG PO DAILY Prescribed by: CITLALLI HERMAN on 09/24/18455 Potassium Chloride (Potassium Chloride) 10 Meq Tab.er.prt, 10 MEQ PO DAILY Prescribed by: CITLALLI HERMAN on 09/24/18455 Sucralfate (Carafate) 1 Gm Tablet, 1 GM PO QIDACHS Prescribed by: CITLALLI HERMAN on 09/24/18455 Review of Systems Constitutional: see HPI EENTM: no symptoms reported Respiratory: no symptoms reported Cardiovascular: no symptoms reported Gastrointestinal: no symptoms reported Genitourinary: no symptoms reported Musculoskeletal: see HPI Skin: no symptoms reported Psychiatric/Neurological: No Symptoms Reported Past Bbitspg-Vuycwi-Yxkbyz Hx Seasonal Allergies Seasonal Allergies: No Past Medical History Surgeries: Yes Section, Gallbladder, Orthopedic, Tonsillectomy Respiratory: No Cardiac: No Neurological: Yes (BRAIN ANEURYSM) Reproductive Disorders: Yes (RECURRENT CERVICAL DYSPLASIA) Genitourinary: No Gastrointestinal: Yes (HX OF ULCERS) Ulcer Musculoskeletal: Yes (RIGHT KNEE PAIN) Endocrine: No HEENT: No Cancer: No Psychosocial: Yes Depression Integumentary: No Blood Disorders: No Physical Exam Vital Signs Vital Signs - First Documented 08/28/22 17:25 Temp 35.9 Pulse 75 Resp 20 B/P (MAP) 161/78 (105) Pulse Ox 98 O2 Delivery Room Air Capillary Refill : Height, Weight, BMI Height: 5'4.00" Weight: 165lbs. oz. 74.944451fe; BMI Method:Stated General Appearance: WD/WN, no apparent distress Neck: full range of motion Cardiovascular: normal peripheral pulses, regular rate, rhythm Respiratory: lungs clear, normal breath sounds Gastrointestinal: non tender, soft Shoulder: normal inspection Elbow/Forearm: normal inspection Wrist: Yes normal inspection Hand: Left, stiffness (Left index finger) Neurologic/Psychiatric: alert, normal mood/affect, oriented x 3 Skin: ecchymosis (Left index finger) Progress/Results/Core Measures Results/Orders My Orders Orders - JEWELL SCHNEIDER DO Finger(S) (08/28/22 17:21) Vital Signs/I&O 08/28/22 17:25 Temp 35.9 Pulse 75 Resp 20 B/P (MAP) 161/78 (105) Pulse Ox 98 O2 Delivery Room Air Progress Progress Note : Progress Note Patient's x-ray was reviewed and shows no acute fracture. Patient's symptoms differential could include paroxysmal finger hematoma versus Raynaud's versus traumatic contusion. Patient's symptoms seem to improve as he warmed her finger which would lean towards Raynaud's however she does have a presentation that could also be consistent with Achenbach syndrom. I discussed with patient she should continue to take her aspirin daily and follow-up with her primary care provider to be further evaluated for Raynaud's and Achenbach syndrome. These are both benign conditions and will resolve on their own and I discussed that w ith her. Patient was stable and discharged home Departure Impression Primary Impression: Paroxysmal hematoma of finger Disposition: 01 HOME, SELF-CARE Condition: Stable Departure-Patient Inst. Referrals: NO,LOCAL PHYSICIAN (PCP) Primary Care Physician VICKI GARCIA (Family) Primary Care Physician Patient Instructions: HEMATOMA, Raynaud Disease Add. Discharge Instructions: Please follow-up with your primary care provider to be further evaluated for Raynaud's versus Achenbach syndrome. Please take your daily aspirin. These are both benign conditions which will resolve on their own. All discharge instructions reviewed with patient and/or family. Voiced understanding. JEWELL SCHNEIDER DO Aug 28, 2022 17:21
[2022-08-28 17:25] VITALS: BP 161/78
--- NOTE | 2022-08-28 17:50 | Diagnostic Imaging Report ---
INDICATION: Bruising and swelling. EXAMINATION: Second finger, 08/28/2022. FINDINGS: 3 views of the 2nd digit. There is a radiopaque foreign body superimposed upon the radial border of the proximal 2nd phalanx, age indeterminant. Soft tissue swelling about the 2nd finger is noted. There is no acute fracture. No dislocation. IMPRESSION: 1. Age indeterminant foreign body, as above, with diffuse soft tissue abnormality. 2. No acute fracture. Dictated by: Dictated on workstation # [id number]
== END 2022-08-28 17:55 | disposition home or self-care (01) ==
LOC: EDUNIT# 17:15 → ER FS 17:16
DX: S60.022A Contusion of left index finger without damage to nail, initial encounter (principal); X58.XXXA Exposure to other specified factors, initial encounter
CPT/HCPCS: 73140